=== PATIENT | female | born 1935 | race Caucasian/White ===

== ENCOUNTER 2021-06-08 11:19 | Inpatient (IN) ==
[2021-06-08 12:32] LABS: Partial Thromboplastin Time 25.2 Seconds (21.0-31.0); Prothrombin Time 10.2 Seconds (9.0-12.0)
[2021-06-08 12:36] LABS: Basophils # (auto) 0.04 K/uL (0-0.2); Basophils % (auto) 0.5 %; Eosinophils # (auto) 0.38 K/uL (0-0.5); Eosinophils % (auto) 4.5 %; Hematocrit (blood only) 35.1 % (37-47); Hemoglobin 10.9 g/dL (12.0-16.0); Immature Granulocytes # (auto) 0.02 K/uL (0.00-0.02); Immature Granulocytes % (auto) 0.2 %; Lymphocytes # (auto) 1.76 K/uL (1.2-3.4); Lymphocytes % (auto) 20.9 %; Mean Corpuscular Hemoglobin 26.9 pg (25-34); Mean Corpuscular Hgb Conc 31.1 g/dL (32-36); Mean Corpuscular Volume 86.7 fL (80-100); Monocytes # (auto) 1.02 K/uL (0.11-0.59); Monocytes % (auto) 12.1 %; Neutrophils % (auto) 61.8 %; Platelet Count 373 K/uL (130-400); RDW Coefficient of Variation 14.7 % (11.5-14.5); RDW Standard Deviation 46.7 fL (36.4-46.3); Red Blood Count 4.05 M/uL (4.2-5.4); White Blood Count 8.42 K/uL (4.8-10.8)
[2021-06-08 12:43] LABS: Albumin Level 3.5 gm/dl (3.4-5.0); BUN Creatinine Ratio 20.9 (10-20); Blood Urea Nitrogen 21 mg/dl (7-18); Calcium 9.1 mg/dl (8.5-10.1); Carbon Dioxide 28 mmol/L (21-32); Chloride 113 mmol/L (98-107); Est GFR (African American) 58.5 ml/min; Est GFR (Non-African American) 50.5 ml/min; Glucose 86 mg/dl (70-99); Magnesium 1.9 mg/dl (1.8-2.4); Potassium 4.3 mmol/L (3.5-5.1); Sodium 145 mmol/L (136-145)
--- NOTE | 2021-06-08 12:46 | XRay Report ---
XR chest 1V portable CLINICAL HISTORY: Shortness of breath. COMPARISON STUDY: Chest radiograph February 06, 2021. FINDINGS: There is no pneumothorax. There are median sternotomy wires and prosthetic cardiac valve. T here are small bilateral pleural effusions. Left basilar opacity is noted. Interstitial pulmonary sreekanth ma is present. IMPRESSION: Interstitial pulmonary edema with small bilateral pleural effusions and left basilar opa city which likely reflects atelectasis. A superimposed infectious process could appear similar. Radio graphic follow-up is recommended to ensure resolution. ACT 112: Negative or not required by law. Electronically signed by: Roberto Cruz M.D. 06/08/2021 12:44 PM
[2021-06-08 12:48] LABS: Alanine Aminotransferase 17 U/L (12-78); Alkaline Phosphatase 51 U/L (45-117); Aspartate Aminotransferase 13 U/L (15-37); Bilirubin,Total 0.5 mg/dl (0.2-1); Globulin 3.5 gm/dl (2.5-4.0); Troponin I < 0.015 ng/ml (0-0.045)
--- NOTE | 2021-06-08 13:34 | Emergency Department Note ---
Impression & Plan CHF (congestive heart failure), Anemia ED Provider Note NAME: DEEJAY MARTIN AGE: 85 SEX: F : 1935 ARRIVES VIA: Walk-In INFORMANT: Patient, ED PROVIDER(S): Jose Guadalupe Gauthier MD Chief complaint: Shortness of breath HPI: Patient does present due to concern for shortness of breath. The patient does suffer from chronic dyspnea on exertion but this seems to have worsened. The patient did have recent worsening last week but this seemed to dissipate over the weekend. The patient had been seen by her outpatient physician Dr. Melissa. The patient patient did have a negative Covid test and was given a pulse oximeter. The patient's pulse oximeter at home has been in the mid to high 80s at baseline on occasion. The patient has had a nonproductive cough. The patient is vaccinated for Covid. Patient has a history of aortic valve replacement. Patient does not take blood thinning medications. It is a bioprosthetic valve. Patient denies any lower extremity swelling or history DVT or PE. Patient has had worsening shortness of breath of laying flat or with exertion. ROS: See HPI for pertinent positives and negatives. A total of 10 systems were reviewed and otherwise negative. Past medical history: See below Surgical history: See below Social history: See below Physical Exam: GENERAL: NAD, wearing a mask, non-toxic. EYE EXAM: Normal conjunctiva. PERRL, no anisocoria and EOM's grossly intact w/o pain. NECK: Supple, no nuchal rigidity, no adenopathy, non-tender. No signs of meningismus. LUNGS: Bibasilar crackles. Normal chest wall mechanics. HEART: NSR, no MRG. ABDOMEN: Abdomen soft, non-tender, normo-active bowel sounds, no masses, no rebound or guarding. BACK: No CVA TTP. SKIN: No rashes and no bruising. UPPER EXTREMITIES: Upper extremities are grossly normal. LOWER EXTREMITIES: Grossly normal, scant bilateral symmetric pretibial edema. Negative Homans' sign bilaterally. No erythema. NEURO EXAM: A&O x3, cranial nerves II-XII grossly intact, normal speech, moves all 4 extremities on command w/o issue. Differential diagnoses: Reactive airway disease, pneumonia, pneumothorax, COPD, CHF, infections, cardiac ischemia, pulmonary embolism, musculoskeletal, gastrointestinal, as well as other pathologies. Course: Patient was seen and evaluated the bedside. Full history physical exam was performed. EKG interpreted by me Sinus bradycardia, rate of 59, wide QRS, left bundle branch block. Imaging Studies: See Below Cardiac monitoring: An order was placed for continuous cardiac monitoring. The monitor shows a rate of 65 with sinus rhythm. MDM: Patient did present with concern for shortness of breath. Blood work is obtained along with a chest x-ray. The patient does not. Globally volume overloaded as the patient does not have much in terms of lower extremity edema. However, the patient does have crackles at the bilateral lung bases and does have interstitial pulmonary edema seen on her chest x-ray. BNP was added. Patient did undergo an ambulatory trial and became hypoxic as well as tachypneic. It is due to the on-call hospitalist Dr. Antunez and the patient was admitted to the medicine service. Past Med/Surg History Medical History Anxiety H/O: HTN (hypertension) Type 2 diabetes mellitus Surgical History H/O aortic valve replacement H/O endarterectomy S/P TKR (total knee replacement) Social History Smoking Status: Former smoker Hx Alcohol Use: No Hx Substance Use: No Preferred Language: Indonesian Communication Ability: Effective Clinic Physician Required: No Beliefs That Will Affect Care: Tenriism Tenriism Beliefs: Evangelical Current Living Situation: Alone Other Information That Helps Us Care for You: No Feels Safe at Home: Yes Safety Concerns: Feels Safe At This Time Assistive Devices: Oxygen - Continuous Allergies Allergies Allergy/AdvReac Type Severity Reaction Status Date / Time codeine AdvReac Intermediate Gastrointestinal Verified 06/08/21 14:12 Upset Home Meds Home Medications Medication Instructions Recorded Confirmed acetaminophen 500 mg tablet 1,000 mg PO DIRECTED PRN 02/06/21 06/08/21 (Tylenol Extra Strength) albuterol sulfate 90 mcg/actuation 2 puff INHALATION Q4H PRN 02/06/21 06/08/21 aerosol inhaler (ProAir HFA) alprazolam 1 mg tablet (Xanax) 1 mg PO HS 02/06/21 06/08/21 amlodipine 5 mg tablet 5 mg PO DAILY 02/06/21 06/08/21 atorvastatin 20 mg tablet (Lipitor) 20 mg PO HS 02/06/21 06/08/21 calcium carbonate 600 mg calcium 600 mg PO DAILY 02/06/21 06/08/21 (1,500 mg) tablet (Calcium) cholecalciferol (vitamin D3) 50 50 mcg PO DAILY 02/06/21 06/08/21 mcg (2,000 unit) capsule (Vitamin D3) glipizide 5 mg tablet, extended 5 mg PO HS 02/06/21 06/08/21 release 24 hr metformin 500 mg tablet 500 mg PO BID 02/06/21 06/08/21 metoprolol tartrate 25 mg tablet 25 mg PO BID 02/06/21 06/08/21 sitagliptin 100 mg tablet (Januvia) 100 mg PO DAILY 02/06/21 06/08/21 valsartan 320 1 tab PO DAILY 02/06/21 06/08/21 mg-hydrochlorothiazide 25 mg tablet aspirin 81 mg tablet,delayed 81 mg PO DAILY 06/08/21 06/08/21 release (Aspirin Low Dose) Results & Data (ED) Vital Signs Vital Signs - 24 hr 06/08/21 11:38 06/08/21 13:20 06/08/21 14:22 Temperature 36.6 C Temperature Source Temporal Artery Scan Pulse Rate 57 L Respiratory Rate 18 18 Respiratory Effort / Characteristics Non-Labored Non-Labored Respiratory Depth Normal Normal Respiratory Pattern Regular Blood Pressure 142/70 H Blood Pressure [Right Arm] 169/52 H Blood Pressure Mean 94 Blood Pressure Mean [Right Arm] 91 Blood Pressure Position [Right Arm] Lying Pulse Oximetry 94 99 Pulse Oximetry [Exercises] 87 L Oxygen Delivery Method Room Air Room Air Room Air Sepsis Recent Fever Within 48 Hours No Sepsis New/Unexplained Change in Mental Status No Sepsis Action Taken by Nursing No Action Required Home Medications Current Medication List: was personally reviewed by me Laboratory Data Attestation: I reviewed the patient's lab results. Result diagrams: 06/09/21 05:15 06/09/21 05:15 Lab Results 06/08/21 06/08/21 06/08/21 Range/Units 11:57 11:57 11:57 WBC 8.42 (4.8-10.8) K/uL RBC 4.05 L (4.2-5.4) M/uL Hgb 10.9 L (12.0-16.0) g/dL Hct 35.1 L (37-47) % MCV 86.7 (80-100) fL MCH 26.9 (25-34) pg MCHC 31.1 L (32-36) g/dL RDW Std Deviation 46.7 H (36.4-46.3) fL RDW Coeff of Roberto 14.7 H (11.5-14.5) % Plt Count 373 (130-400) K/uL MPV 10.0 (7.4-10.4) fL Immature Gran % (Auto) 0.2 % Neut % (Auto) 61.8 % Lymph % (Auto) 20.9 % [place] % (Auto) 12.1 % Eos % (Auto) 4.5 % Baso % (Auto) 0.5 % Neut # (Auto) 5.20 (1.4-6.5) K/uL Lymph # (Auto) 1.76 (1.2-3.4) K/uL [place] # (Auto) 1.02 H (0.11-0.59) K/uL Eos # (Auto) 0.38 (0-0.5) K/uL Baso # (Auto) 0.04 (0-0.2) K/uL Immature Gran # (Auto) 0.02 (0.00-0.02) K/uL PT 10.2 (9.0-12.0) Seconds INR 1.0 (0.9-1.1) APTT 25.2 (21.0-31.0) Seconds PTT Ratio 1.0 Sodium 145 (136-145) mmol/L Potassium 4.3 (3.5-5.1) mmol/L Chloride 113 H (98-107) mmol/L Carbon Dioxide 28 (21-32) mmol/L Anion Gap 4.0 (3-11) BUN 21 H (7-18) mg/dl Creatinine 1.02 (0.6-1.2) mg/dl Est Cr Clr Drug Dosing Not Reportable Est GFR ( Amer) 58.5 ml/min Est GFR (Non-Af Amer) 50.5 ml/min BUN/Creatinine Ratio 20.9 H (10-20) Glucose 86 (70-99) mg/dl Calcium 9.1 (8.5-10.1) mg/dl Magnesium 1.9 (1.8-2.4) mg/dl Total Bilirubin 0.5 (0.2-1) mg/dl AST 13 L (15-37) U/L ALT 17 (12-78) U/L Alkaline Phosphatase 51 (45-117) U/L Troponin I < 0.015 (0-0.045) ng/ml NT-Pro-B Natriuret Pep 2615 H (0-1800) pg/ml Total Protein 7.0 (6.4-8.2) gm/dl Albumin 3.5 (3.4-5.0) gm/dl Globulin 3.5 (2.5-4.0) gm/dl Albumin/Globulin Ratio 1.0 (0.9-2) Procalcitonin (0-0.5) ng/ml 06/08/21 Range/Units 11:57 WBC (4.8-10.8) K/uL RBC (4.2-5.4) M/uL Hgb (12.0-16.0) g/dL Hct (37-47) % MCV (80-100) fL MCH (25-34) pg MCHC (32-36) g/dL RDW Std Deviation (36.4-46.3) fL RDW Coeff of Roberto (11.5-14.5) % Plt Count (130-400) K/uL MPV (7.4-10.4) fL Immature Gran % (Auto) % Neut % (Auto) % Lymph % (Auto) % [place] % (Auto) % Eos % (Auto) % Baso % (Auto) % Neut # (Auto) (1.4-6.5) K/uL Lymph # (Auto) (1.2-3.4) K/uL [place] # (Auto) (0.11-0.59) K/uL Eos # (Auto) (0-0.5) K/uL Baso # (Auto) (0-0.2) K/uL Immature Gran # (Auto) (0.00-0.02) K/uL PT (9.0-12.0) Seconds INR (0.9-1.1) APTT (21.0-31.0) Seconds PTT Ratio Sodium (136-145) mmol/L Potassium (3.5-5.1) mmol/L Chloride (98-107) mmol/L Carbon Dioxide (21-32) mmol/L Anion Gap (3-11) BUN (7-18) mg/dl Creatinine (0.6-1.2) mg/dl Est Cr Clr Drug Dosing Est GFR ( Amer) ml/min Est GFR (Non-Af Amer) ml/min BUN/Creatinine Ratio (10-20) Glucose (70-99) mg/dl Calcium (8.5-10.1) mg/dl Magnesium (1.8-2.4) mg/dl Total Bilirubin (0.2-1) mg/dl AST (15-37) U/L ALT (12-78) U/L Alkaline Phosphatase (45-117) U/L Troponin I (0-0.045) ng/ml NT-Pro-B Natriuret Pep (0-1800) pg/ml Total Protein (6.4-8.2) gm/dl Albumin (3.4-5.0) gm/dl Globulin (2.5-4.0) gm/dl Albumin/Globulin Ratio (0.9-2) Procalcitonin < 0.05 (0-0.5) ng/ml Administered Medications Acetaminophen (Acetaminophen 325 Mg Tab) 650 mg PO Q4H PRN PRN Reason: Pain or Fever Stop: 07/08/21 14:47 Last Admin: 06/08/21 22:27 Dose: 650 mg Documented by: [id number] Atorvastatin Calcium (Atorvastatin 20 Mg Tab) 20 mg PO HS GENOVEVA Stop: 07/08/21 20:59 Last Admin: 06/08/21 21:23 Dose: 20 mg Documented by: [id number] Metoprolol Tartrate (Metoprolol Tartrate 25 Mg Tab) 25 mg PO BID [place]OVEVA Stop: 07/08/21 20:59 Last Admin: 06/08/21 21:34 Dose: Not Given Documented by: [id number] Discontinued Medications Alprazolam (Alprazolam 0.5 Mg Tablet) 1 mg PO NOW STA Stop: 06/08/21 21:40 Last Admin: 06/08/21 22:26 Dose: 1 mg Documented by: [id number] Furosemide (Furosemide 40 Mg/4 Ml Vial) 40 mg IV NOW STA Stop: 06/08/21 13:47 Last Admin: 06/08/21 17:43 Dose: 40 mg Documented by: [id number] Furosemide (Furosemide 40 Mg/4 Ml Vial) Confirm Administered Dose 40 mg IV .STK- MED ONE Stop: 06/08/21 17:42 Last Admin: 06/08/21 18:38 Dose: Not Given Documented by: [id number] Metformin HCl (Metformin Hcl 500 Mg Tab) 500 mg PO ONCE ONE Stop: 06/08/21 21:39 Last Admin: 06/08/21 22:27 Dose: 500 mg Documented by: [id number] Imaging Data Radiologist's Impression: Chest X-Ray 06/08/21 11:41 XR chest 1V portable CLINICAL HISTORY: Shortness of breath. COMPARISON STUDY: Chest radiograph February 06, 2021. FINDINGS: There is no pneumothorax. There are median sternotomy wires and prosthetic cardiac valve. There are small bilateral pleural effusions. Left basilar opacity is noted. Interstitial pulmonary edema is present. IMPRESSION: Interstitial pulmonary edema with small bilateral pleural effusions and left basilar opacity which likely reflects atelectasis. A superimposed infectious process could appear similar. Radiographic follow-up is recommended to ensure resolution. ACT 112: Negative or not required by law. Electronically signed by: Roberto Cruz M.D. 06/08/2021 12:44 PM Discharge Plan Visit Data Chief Complaint: Shortness of Breath/Dyspnea Stated Complaint: INCREASED SOB ED Provider: Jose Guadalupe Gauthier Discharge Problem: CHF (congestive heart failure), Anemia Patient Disposition: Admitted As Inpatient Discharge Instructions Interventions: ED Discharge Assessment Last Done: 06/08/21 19:15 Discharge Problem: CHF (congestive heart failure) Qualifiers: Heart failure type: unspecified Heart failure chronicity: acute Qualified Code(s): I50.9 - Heart failure, unspecified Anemia Qualifiers: Anemia type: unspecified type Qualified Code(s): D64.9 - Anemia, unspecified
[2021-06-08] MEDS ORDERED: FUROSEMIDE 40 MG/4 ML VIAL IV STA (13:46)
[2021-06-08] MEDS ORDERED: POLYETHYLENE (MIRALAX) 17 GM PACK PO PRN (14:48)
[2021-06-08 15:30] LABS: NT Pro B Type Natriuretic Pept 2615 pg/ml (0-1800)
[2021-06-08] MEDS ORDERED: FUROSEMIDE 40 MG/4 ML VIAL IV ONE (17:41)
--- NOTE | 2021-06-08 17:42 | History & Physical Report ---
Date of Service June 08, 2021 Assessment & Plan (1) Acute respiratory failure with hypoxia: Plan: -Most likely secondary to CHF, however will obtain procalcitonin to evaluate for possible infectious etiology as well -Patient however only had low-grade fevers, not actually febrile at home, cough is nonproductive, WBC is not elevated and therefore infectious etiology is less likely (2) CHF (congestive heart failure): Plan: Patient presents with shortness of breath, chest x-ray with pulmonary vascular congestion, and small bilateral pleural effusions proBNP over 2600 troponin negative EKG shows LBBB (Seen on previous EKG, in January) Will obtain echocardiogram, will also obtain carotid ultrasound given history of carotid endarterectomy Monitor I's and O's closely, and her response to IV Lasix We will reassess fluid status and need for diuresis in the morning Currently on 2 L of nasal cannula, will try to wean off oxygen Repeat chest x-ray in the morning Cardiology consulted (3) Anemia: Plan: Per patient and family, patient found anemic in outpatient setting Blood work ordered and patient was referred to hematology Currently hemoglobin lower, may be dilutional due to fluid overload Denies any blood in the stool Daughter reports patient never had colonoscopy Will obtain FOBT Continue to closely monitor H&H HTN, HLD - cont. home medications DM type 2 -Per daughter A1c last time checked before they moved to [place] -Daughter reports A1c was around 6%, and she has been well controlled -We will repeat hemoglobin A1c, and fasting lipid panel -Continue home meds for now Code: Full DVT ppx: SCDs, lovenox History of Present Illness Chief Complaint: Shortness of breath Primary Care Provider: Jen Redman MD 85-year-old female with history of diabetes mellitus type 2, hypertension, hyperlipidemia, history of aortic valve replacement and carotid endarterectomy who presents with shortness of breath. Patient and her daughter both provide the history. Reports that patient only recently moved to the area, and has chronic dyspnea for about 6 months. However past week she has been much more short of breath and was even seen at the outpatient office for this reason. At that time she was tested for Covid and was found negative, had some cough over the weekend however then it resolved. Because she was better, they felt that she is recovering. However this week patient again became quite short of breath, could not lay flat, reported a dry cough. She had some low-grade fevers but never was actually febrile. Cough was never productive. She feels chest tightness, however otherwise denies any overt weight gain, or lower extremity edema. Reports feeling better after being in the emergency room, and started on oxygen. In the ER chest x-ray showing pulmonary congestion and she was given IV Lasix. During my evaluation, patient is sitting up in a chair, as she is not comfortable lying in bed. Says that she responded to Lasix quite well and went to bathroom several times however urine was not measured. She she also recently established care at the cardiology office, per daughter it was planned to repeat her echocardiogram and carotid ultrasound. In the ER, as well as an outpatient office patient found anemic, per daughter outpatient blood work was done and pending/patient is also referred to hematology. Denies any blood in the stool. Allergies Allergy/AdvReac Type Severity Reaction Status Date / Time codeine AdvReac Intermediate Gastrointestinal Verified 06/08/21 14:12 Upset Home Medications Medication Instructions Recorded Confirmed Type acetaminophen 500 mg tablet 1,000 mg PO DIRECTED PRN 02/06/21 06/08/21 History (Tylenol Extra Strength) albuterol sulfate 90 mcg/actuation 2 puff INHALATION Q4H PRN 02/06/21 06/08/21 History aerosol inhaler (ProAir HFA) alprazolam 1 mg tablet (Xanax) 1 mg PO HS 02/06/21 06/08/21 History amlodipine 5 mg tablet 5 mg PO DAILY 02/06/21 06/08/21 History atorvastatin 20 mg tablet (Lipitor) 20 mg PO HS 02/06/21 06/08/21 History calcium carbonate 600 mg calcium 600 mg PO DAILY 02/06/21 06/08/21 History (1,500 mg) tablet (Calcium) cholecalciferol (vitamin D3) 50 50 mcg PO DAILY 02/06/21 06/08/21 History mcg (2,000 unit) capsule (Vitamin D3) glipizide 5 mg tablet, extended 5 mg PO HS 02/06/21 06/08/21 History release 24 hr metformin 500 mg tablet 500 mg PO BID 02/06/21 06/08/21 History metoprolol tartrate 25 mg tablet 25 mg PO BID 02/06/21 06/08/21 History sitagliptin 100 mg tablet (Januvia) 100 mg PO DAILY 02/06/21 06/08/21 History valsartan 320 1 tab PO DAILY 02/06/21 06/08/21 History mg-hydrochlorothiazide 25 mg tablet aspirin 81 mg tablet,delayed 81 mg PO DAILY 06/08/21 06/08/21 History release (Aspirin Low Dose) Past Med/Surg History Medical History Anxiety H/O: HTN (hypertension) Type 2 diabetes mellitus Surgical History H/O aortic valve replacement H/O endarterectomy S/P TKR (total knee replacement) Social History Smoking Status: Former smoker Hx Alcohol Use: No Hx Substance Use: No Preferred Language: Malay Communication Ability: Effective It Support Consultant Required: No Beliefs That Will Affect Care: Pentecostalism Pentecostalism Beliefs: Amish Current Living Situation: Alone Other Information That Helps Us Care for You: No Feels Safe at Home: Yes Safety Concerns: Feels Safe At This Time Assistive Devices: Oxygen - Continuous Review of Systems Review of Systems: All systems reviewed & are unremarkable except as noted in HPI & below Physical Exam Constitutional: WD/WN, vitals as above (on 2L of O2) Eyes: PERRL, conjunctivae normal, anicteric sclerae ENMT: external ear and nose normal, oropharynx normal Neck: normal visual inspection Respiratory: Auscultation: + crackles (mild bibasilar); no rhonchi and no wheezes Cardiovascular: RRR, no murmur, no edema Gastrointestinal (Abdomen): Inspection/Auscultation: normal bowel sounds Percussion/Palpation: abdomen soft; abdomen nontender, no guarding and abdomen not rigid Musculoskeletal: no cyanosis or clubbing, extremities motor strength 5/5 Skin: no rashes, warm and dry Neurologic: PERRL, EOMI, accommodation nl, no face palsy, no dysarthria Psychiatric: A+Ox3, euthymic affect Genitourinary: no CVA tenderness Lymphatic: no lymphedema Results & Data Results & Data ([facility]) Vital Signs (Past 12 Hours) Vital Signs Temp Pulse Pulse Resp BP BP Pulse Ox 06/08/21 17:00 64 18 159/64 H 94 06/08/21 15:00 57 L 18 169/52 H 98 06/08/21 14:22 06/08/21 13:20 18 169/52 H 99 06/08/21 11:38 36.6 C 57 L 18 142/70 H 94 Pulse Ox 06/08/21 17:00 06/08/21 15:00 06/08/21 14:22 87 L 06/08/21 13:20 06/08/21 11:38 Laboratory Results 06/08/21 06/08/21 06/08/21 Range/Units 15:40 15:40 11:57 WBC (4.8-10.8) K/uL RBC (4.2-5.4) M/uL Hgb (12.0-16.0) g/dL Hct (37-47) % MCV (80-100) fL MCH (25-34) pg MCHC (32-36) g/dL RDW Std Deviation (36.4-46.3) fL RDW Coeff of Roberto (11.5-14.5) % Plt Count (130-400) K/uL MPV (7.4-10.4) fL Immature Gran % (Auto) % Neut % (Auto) % Lymph % (Auto) % [place] % (Auto) % Eos % (Auto) % Baso % (Auto) % Neut # (Auto) (1.4-6.5) K/uL Lymph # (Auto) (1.2-3.4) K/uL [place] # (Auto) (0.11-0.59) K/uL Eos # (Auto) (0-0.5) K/uL Baso # (Auto) (0-0.2) K/uL Immature Gran # (Auto) (0.00-0.02) K/uL PT (9.0-12.0) Seconds INR (0.9-1.1) APTT (21.0-31.0) Seconds PTT Ratio Sodium (136-145) mmol/L Potassium (3.5-5.1) mmol/L Chloride (98-107) mmol/L Carbon Dioxide (21-32) mmol/L Anion Gap (3-11) BUN (7-18) mg/dl Creatinine (0.6-1.2) mg/dl Est Cr Clr Drug Dosing Est GFR ( Amer) ml/min Est GFR (Non-Af Amer) ml/min BUN/Creatinine Ratio (10-20) Glucose (70-99) mg/dl Calcium (8.5-10.1) mg/dl Magnesium (1.8-2.4) mg/dl Total Bilirubin (0.2-1) mg/dl AST (15-37) U/L ALT (12-78) U/L Alkaline Phosphatase (45-117) U/L Troponin I (0-0.045) ng/ml NT-Pro-B Natriuret Pep (0-1800) pg/ml Total Protein (6.4-8.2) gm/dl Albumin (3.4-5.0) gm/dl Globulin (2.5-4.0) gm/dl Albumin/Globulin Ratio (0.9-2) Procalcitonin < 0.05 (0-0.5) ng/ml COVID-19 Eval Order Covid19 at [facility] SARS-CoV-2 (PCR) NEGATIVE (Negative) 06/08/21 06/08/21 06/08/21 Range/Units 11:57 11:57 11:57 WBC 8.42 (4.8-10.8) K/uL RBC 4.05 L (4.2-5.4) M/uL Hgb 10.9 L (12.0-16.0) g/dL Hct 35.1 L (37-47) % MCV 86.7 (80-100) fL MCH 26.9 (25-34) pg MCHC 31.1 L (32-36) g/dL RDW Std Deviation 46.7 H (36.4-46.3) fL RDW Coeff of Roberto 14.7 H (11.5-14.5) % Plt Count 373 (130-400) K/uL MPV 10.0 (7.4-10.4) fL Immature Gran % (Auto) 0.2 % Neut % (Auto) 61.8 % Lymph % (Auto) 20.9 % [place] % (Auto) 12.1 % Eos % (Auto) 4.5 % Baso % (Auto) 0.5 % Neut # (Auto) 5.20 (1.4-6.5) K/uL Lymph # (Auto) 1.76 (1.2-3.4) K/uL [place] # (Auto) 1.02 H (0.11-0.59) K/uL Eos # (Auto) 0.38 (0-0.5) K/uL Baso # (Auto) 0.04 (0-0.2) K/uL Immature Gran # (Auto) 0.02 (0.00-0.02) K/uL PT 10.2 (9.0-12.0) Seconds INR 1.0 (0.9-1.1) APTT 25.2 (21.0-31.0) Seconds PTT Ratio 1.0 Sodium 145 (136-145) mmol/L Potassium 4.3 (3.5-5.1) mmol/L Chloride 113 H (98-107) mmol/L Carbon Dioxide 28 (21-32) mmol/L Anion Gap 4.0 (3-11) BUN 21 H (7-18) mg/dl Creatinine 1.02 (0.6-1.2) mg/dl Est Cr Clr Drug Dosing Not Reportable Est GFR ( Amer) 58.5 ml/min Est GFR (Non-Af Amer) 50.5 ml/min BUN/Creatinine Ratio 20.9 H (10-20) Glucose 86 (70-99) mg/dl Calcium 9.1 (8.5-10.1) mg/dl Magnesium 1.9 (1.8-2.4) mg/dl Total Bilirubin 0.5 (0.2-1) mg/dl AST 13 L (15-37) U/L ALT 17 (12-78) U/L Alkaline Phosphatase 51 (45-117) U/L Troponin I < 0.015 (0-0.045) ng/ml NT-Pro-B Natriuret Pep 2615 H (0-1800) pg/ml Total Protein 7.0 (6.4-8.2) gm/dl Albumin 3.5 (3.4-5.0) gm/dl Globulin 3.5 (2.5-4.0) gm/dl Albumin/Globulin Ratio 1.0 (0.9-2) Procalcitonin (0-0.5) ng/ml COVID-19 Eval Order SARS-CoV-2 (PCR) (Negative) Diagnostic Findings CXR IMPRESSION: Interstitial pulmonary edema with small bilateral pleural effusions and left basilar opacity which likely reflects atelectasis. A superimposed infectious process could appear similar. Radiographic follow-up is recommended to ensure resolution. Code Status & VTE Plan VTE Prophylaxis Plan VTE Prophylaxis will be ordered: Yes (1) CHF (congestive heart failure) Heart failure chronicity: acute Heart failure type: unspecified Qualified Code(s): I50.9 - Heart failure, unspecified (2) Anemia Anemia type: unspecified type Qualified Code(s): D64.9 - Anemia, unspecified
[2021-06-08] MEDS ORDERED: ALBUTEROL HFA 8 GM INHALER INH PRN (20:17)
[2021-06-08] MEDS: ATORVASTATIN 20 MG TAB PO SCH (21:23)
[2021-06-08] MEDS: METOPROLOL TARTRATE 25 MG TAB PO SCH (21:34)
[2021-06-08] MEDS ORDERED: metFORMIN HCL 500 MG TAB PO ONE (21:38)
[2021-06-08] MEDS ORDERED: ALPRAZolam 0.5 MG TABLET PO STA (21:39)
[2021-06-08] MEDS: ACETAMINOPHEN 325 MG TAB PO PRN (22:27)
[2021-06-09 06:11] LABS: Hematocrit (blood only) 33.5 % (37-47); Hemoglobin 10.4 g/dL (12.0-16.0); Mean Corpuscular Hemoglobin 26.8 pg (25-34); Mean Corpuscular Volume 86.3 fL (80-100); Mean Platelet Volume 9.9 fL (7.4-10.4); Platelet Count 342 K/uL (130-400); RDW Coefficient of Variation 14.8 % (11.5-14.5); RDW Standard Deviation 46.3 fL (36.4-46.3); Red Blood Count 3.88 M/uL (4.2-5.4); White Blood Count 7.23 K/uL (4.8-10.8)
[2021-06-09 06:39] LABS: BUN Creatinine Ratio 21.1 (10-20); Calcium 9.2 mg/dl (8.5-10.1); Creatinine Clr Calc Pharmacy 41.3 ml/min; Est GFR (Non-African American) 46.6 ml/min; Magnesium 1.8 mg/dl (1.8-2.4); Potassium 3.9 mmol/L (3.5-5.1)
[2021-06-09 06:42] LABS: Phosphorus 4.5 mg/dl (2.5-4.9)
--- NOTE | 2021-06-09 07:40 | Hospitalist Progress Note ---
Date of Service June 09, 2021 Assessment & Plan (1) Acute respiratory failure with hypoxia: Plan: -Most likely secondary to CHF, however will obtain procalcitonin to evaluate for possible infectious etiology as well - procal negative -Patient however only had low-grade fevers, not actually febrile at home, cough is nonproductive, WBC is not elevated and therefore infectious etiology is less likely (2) CHF (congestive heart failure): Plan: Patient presents with shortness of breath, chest x-ray with pulmonary vascular congestion, and small bilateral pleural effusions proBNP over 2600 troponin negative EKG shows LBBB (Seen on previous EKG, in January) Will obtain echocardiogram, will also obtain carotid ultrasound given history of carotid endarterectomy Monitor I's and O's closely, and her response to IV Lasix We will reassess fluid status and need for diuresis in the morning Currently on 2 L of nasal cannula, will try to wean off oxygen Repeat chest x-ray in the morning improved pulm. congestion Cardiology consulted Echo - LV normal in size, moderate concentric LVH, EF 55 to 60%, RV systolic function is normal, LA is moderately dilated, RA size is normal, mild to moderate mitral regurg, moderate tricuspid regurg, prosthetic aortic valve is not well-visualized. Prosthetic valve gradients are elevated. Moderate pulmonary hypertension with an estimated pulmonary artery pressure of 45 mmHg. Her AVR was not well visualized with possibly elevated gradients. Consider repeat echo as outpatient in 6 months. - cont. diuresis w/ IV lasix - switch to metoprolol succinate from tartrate Carotid US - 1. Moderate stenosis within the distal left common carotid artery and proximal left internal carotid artery of approximately 70%. 2. No significant stenosis within the right carotid arteries. - will need outpt follow up for carotid artery vasc. dis (3) Anemia: Plan: Normocytic Per patient and family, patient found anemic in outpatient setting Blood work ordered and patient was referred to hematology Currently hemoglobin lower, may be dilutional due to fluid overload Denies any blood in the stool Daughter reports patient never had colonoscopy FOBT - ordered - not collected peripheral smear - #1. Mild anisocytosis and scattered ovalocytes are seen. #2. Blasts and schistocytes are not seen. #3. The etiology of this patient's anemia is left to further evaluation to include appropriate iron studies. #4. Please see above discussion. Iron studies just ordered and obtained as outpt. Hematology appointment scheduled for 06/23. Hgb currently stable Continue to closely monitor H&H HTN, HLD - cont. home medications DM type 2 -Per daughter A1c last time checked before they moved to [place] -Daughter reports A1c was around 6%, and she has been well controlled -Current hemoglobin A1c 6.1% -fasting lipid panel - LDL 34, TC 104, TG 162 -Continue home meds for now Code: Full DVT ppx: SCDs, lovenox Admission and Anticipated Discharge Date Admission Date: June 08, 2021 Subjective Patient seen in follow-up of CHF, dyspnea Currently she is sitting up in the bed, in no acute distress, using 2 L supplemental oxygen, however saturating quite well, therefore I just decreased oxygen to 1 L and notified the nursing staff Patient denies any fevers, chills, chest pain, shortness of breath at this time Reports she is already feeling much better Review of Systems Review of Systems: All systems reviewed & are unremarkable except as noted in Subjective Physical Exam Physical Exam: Constitutional: WD/WN, vitals as above (on 2L of O2) Eyes: PERRL, EOMI, conjunctivae normal, anicteric sclerae ENMT: external ear and nose normal, oropharynx normal Neck: normal visual inspection Respiratory: Auscultation: + crackles (mild bibasilar); no rhonchi and no wheezes Cardiovascular: RRR, + soft syst. murmur, no LE edema Gastrointestinal (Abdomen): normal bowel sounds, abdomen soft, nontender, no guarding and abdomen not rigid Musculoskeletal: extremities motor strength 5/5 Skin: no rashes, warm and dry Neurologic: PERRL, EOMI, no face palsy, no dysarthria, moves extremities Psychiatric: A+Ox3, euthymic affect Genitourinary: no CVA tenderness Lymphatic: no lymphedema Results & Data Results & Data ([facility]) Vital Signs (Past 12 Hours) Vital Signs Temp Pulse Pulse Resp BP Pulse Ox Pulse Ox 06/09/21 07:20 36.8 C 66 66 21 187/70 H 96 96 06/09/21 01:44 36.8 C 90 18 138/48 L 94 06/09/21 00:29 61 06/08/21 23:07 64 16 168/56 H 94 06/08/21 22:36 93 06/08/21 21:21 64 20 174/69 H 97 06/08/21 19:50 37.4 C 67 20 170/58 H 99 Laboratory Results 06/09/21 06/09/21 06/08/21 Range/Units 05:15 05:15 15:40 WBC 7.23 (4.8-10.8) K/uL RBC 3.88 L (4.2-5.4) M/uL Hgb 10.4 L (12.0-16.0) g/dL Hct 33.5 L (37-47) % MCV 86.3 (80-100) fL MCH 26.8 (25-34) pg MCHC 31.0 L (32-36) g/dL RDW Std Deviation 46.3 (36.4-46.3) fL RDW Coeff of Roberto 14.8 H (11.5-14.5) % Plt Count 342 (130-400) K/uL MPV 9.9 (7.4-10.4) fL Immature Gran % (Auto) % Neut % (Auto) % Lymph % (Auto) % Dukes % (Auto) % Eos % (Auto) % Baso % (Auto) % Neut # (Auto) (1.4-6.5) K/uL Lymph # (Auto) (1.2-3.4) K/uL Dukes # (Auto) (0.11-0.59) K/uL Eos # (Auto) (0-0.5) K/uL Baso # (Auto) (0-0.2) K/uL Immature Gran # (Auto) (0.00-0.02) K/uL PT (9.0-12.0) Seconds INR (0.9-1.1) APTT (21.0-31.0) Seconds PTT Ratio Sodium 144 (136-145) mmol/L Potassium 3.9 (3.5-5.1) mmol/L Chloride 110 H (98-107) mmol/L Carbon Dioxide 27 (21-32) mmol/L Anion Gap 7.0 (3-11) BUN 23 H (7-18) mg/dl Creatinine 1.09 (0.6-1.2) mg/dl Est Cr Clr Drug Dosing 41.3 Est GFR ( Amer) 54.0 ml/min Est GFR (Non-Af Amer) 46.6 ml/min BUN/Creatinine Ratio 21.1 H (10-20) Glucose 103 H (70-99) mg/dl Calcium 9.2 (8.5-10.1) mg/dl Phosphorus 4.5 (2.5-4.9) mg/dl Magnesium 1.8 (1.8-2.4) mg/dl Total Bilirubin (0.2-1) mg/dl AST (15-37) U/L ALT (12-78) U/L Alkaline Phosphatase (45-117) U/L Troponin I (0-0.045) ng/ml NT-Pro-B Natriuret Pep (0-1800) pg/ml Total Protein (6.4-8.2) gm/dl Albumin (3.4-5.0) gm/dl Globulin (2.5-4.0) gm/dl Albumin/Globulin Ratio (0.9-2) Procalcitonin (0-0.5) ng/ml COVID-19 Eval Order SARS-CoV-2 (PCR) NEGATIVE (Negative) 06/08/21 06/08/21 06/08/21 Range/Units 15:40 11:57 11:57 WBC (4.8-10.8) K/uL RBC (4.2-5.4) M/uL Hgb (12.0-16.0) g/dL Hct (37-47) % MCV (80-100) fL MCH (25-34) pg MCHC (32-36) g/dL RDW Std Deviation (36.4-46.3) fL RDW Coeff of Roberto (11.5-14.5) % Plt Count (130-400) K/uL MPV (7.4-10.4) fL Immature Gran % (Auto) % Neut % (Auto) % Lymph % (Auto) % Dukes % (Auto) % Eos % (Auto) % Baso % (Auto) % Neut # (Auto) (1.4-6.5) K/uL Lymph # (Auto) (1.2-3.4) K/uL Dukes # (Auto) (0.11-0.59) K/uL Eos # (Auto) (0-0.5) K/uL Baso # (Auto) (0-0.2) K/uL Immature Gran # (Auto) (0.00-0.02) K/uL PT (9.0-12.0) Seconds INR (0.9-1.1) APTT (21.0-31.0) Seconds PTT Ratio Sodium 145 (136-145) mmol/L Potassium 4.3 (3.5-5.1) mmol/L Chloride 113 H (98-107) mmol/L Carbon Dioxide 28 (21-32) mmol/L Anion Gap 4.0 (3-11) BUN 21 H (7-18) mg/dl Creatinine 1.02 (0.6-1.2) mg/dl Est Cr Clr Drug Dosing Not Reportable Est GFR ( Amer) 58.5 ml/min Est GFR (Non-Af Amer) 50.5 ml/min BUN/Creatinine Ratio 20.9 H (10-20) Glucose 86 (70-99) mg/dl Calcium 9.1 (8.5-10.1) mg/dl Phosphorus (2.5-4.9) mg/dl Magnesium 1.9 (1.8-2.4) mg/dl Total Bilirubin 0.5 (0.2-1) mg/dl AST 13 L (15-37) U/L ALT 17 (12-78) U/L Alkaline Phosphatase 51 (45-117) U/L Troponin I < 0.015 (0-0.045) ng/ml NT-Pro-B Natriuret Pep 2615 H (0-1800) pg/ml Total Protein 7.0 (6.4-8.2) gm/dl Albumin 3.5 (3.4-5.0) gm/dl Globulin 3.5 (2.5-4.0) gm/dl Albumin/Globulin Ratio 1.0 (0.9-2) Procalcitonin < 0.05 (0-0.5) ng/ml COVID-19 Eval Order Covid19 at [facility] SARS-CoV-2 (PCR) (Negative) 06/08/21 06/08/21 Range/Units 11:57 11:57 WBC 8.42 (4.8-10.8) K/uL RBC 4.05 L (4.2-5.4) M/uL Hgb 10.9 L (12.0-16.0) g/dL Hct 35.1 L (37-47) % MCV 86.7 (80-100) fL MCH 26.9 (25-34) pg MCHC 31.1 L (32-36) g/dL RDW Std Deviation 46.7 H (36.4-46.3) fL RDW Coeff of Roberto 14.7 H (11.5-14.5) % Plt Count 373 (130-400) K/uL MPV 10.0 (7.4-10.4) fL Immature Gran % (Auto) 0.2 % Neut % (Auto) 61.8 % Lymph % (Auto) 20.9 % Dukes % (Auto) 12.1 % Eos % (Auto) 4.5 % Baso % (Auto) 0.5 % Neut # (Auto) 5.20 (1.4-6.5) K/uL Lymph # (Auto) 1.76 (1.2-3.4) K/uL Dukes # (Auto) 1.02 H (0.11-0.59) K/uL Eos # (Auto) 0.38 (0-0.5) K/uL Baso # (Auto) 0.04 (0-0.2) K/uL Immature Gran # (Auto) 0.02 (0.00-0.02) K/uL PT 10.2 (9.0-12.0) Seconds INR 1.0 (0.9-1.1) APTT 25.2 (21.0-31.0) Seconds PTT Ratio 1.0 Sodium (136-145) mmol/L Potassium (3.5-5.1) mmol/L Chloride (98-107) mmol/L Carbon Dioxide (21-32) mmol/L Anion Gap (3-11) BUN (7-18) mg/dl Creatinine (0.6-1.2) mg/dl Est Cr Clr Drug Dosing Est GFR ( Amer) ml/min Est GFR (Non-Af Amer) ml/min BUN/Creatinine Ratio (10-20) Glucose (70-99) mg/dl Calcium (8.5-10.1) mg/dl Phosphorus (2.5-4.9) mg/dl Magnesium (1.8-2.4) mg/dl Total Bilirubin (0.2-1) mg/dl AST (15-37) U/L ALT (12-78) U/L Alkaline Phosphatase (45-117) U/L Troponin I (0-0.045) ng/ml NT-Pro-B Natriuret Pep (0-1800) pg/ml Total Protein (6.4-8.2) gm/dl Albumin (3.4-5.0) gm/dl Globulin (2.5-4.0) gm/dl Albumin/Globulin Ratio (0.9-2) Procalcitonin (0-0.5) ng/ml COVID-19 Eval Order SARS-CoV-2 (PCR) (Negative) Medications Administered Current Inpatient Medications Acetaminophen (Acetaminophen 325 Mg Tab) 650 mg PO Q4H PRN PRN Reason: Pain or Fever Stop: 07/08/21 14:47 Last Admin: 06/08/21 22:27 Dose: 650 mg Documented by: Albuterol (Albuterol Hfa 8 Gm Inhaler) 2 puffs INH Q4R PRN PRN Reason: Shortness Of Breath Stop: 07/08/21 20:16 Alprazolam (Alprazolam 0.5 Mg Tablet) 1 mg PO HS PRN PRN Reason: sleep, anxiety Stop: 07/09/21 20:59 Amlodipine Besylate (Amlodipine Besylate 5 Mg Tab) 5 mg PO DAILY GENOVEVA Stop: 07/09/21 08:59 Aspirin (Aspirin 81 Mg Ectab) 81 mg PO DAILY GENOVEVA Stop: 07/09/21 08:59 Atorvastatin Calcium (Atorvastatin 20 Mg Tab) 20 mg PO HS GENOVEVA Stop: 07/08/21 20:59 Last Admin: 06/08/21 21:23 Dose: 20 mg Documented by: Magnesium Oxide (Magnesium Oxide 400 Mg Tab) 400 mg PO BID GENOVEVA Stop: 07/09/21 08:59 Metformin HCl (Metformin Hcl 500 Mg Tab) 500 mg PO BID GENOVEVA Stop: 07/09/21 08:59 Metoprolol Tartrate (Metoprolol Tartrate 25 Mg Tab) 25 mg PO BID GENOVEVA Stop: 07/08/21 20:59 Last Admin: 06/08/21 21:34 Dose: Not Given Documented by: Polyethylene Glycol (Polyethylene (Miralax) 17 Gm Pack) 17 gm PO DAILY PRN PRN Reason: Constipation Stop: 07/08/21 14:47 (1) CHF (congestive heart failure) Heart failure chronicity: acute Heart failure type: unspecified Qualified Code(s): I50.9 - Heart failure, unspecified (2) Anemia Anemia type: unspecified type Qualified Code(s): D64.9 - Anemia, unspecified
--- NOTE | 2021-06-09 07:46 | Ultrasound Report ---
BILATERAL CAROTID DOPPLER STUDY HISTORY: Evaluate for carotid stenosis. hx of endarterectomy COMPARISON: None. TECHNIQUE: Real-time, grayscale, and color Doppler sonography of the carotid arteries was performed. Imaging reviewed in the transverse and longitudinal planes. All measurements were calculated based on NASCET criteria. FINDINGS: Antegrade flow is seen in the bilateral vertebral arteries. The brachial pressures are hemodynamically similar. Moderate to severe calcified plaque within the left carotid arteries. No significant plaque within th e right carotid arteries. The peak systolic velocity within the right ICA is 121 cm/s. The right systolic ratio is 1.2. The peak systolic velocity within the left ICA is 277 cm/s proximally. The left systolic ratio is 1.4 . Moderate stenosis within the left external carotid artery with a peak systolic velocity of 278 cm/s. IMPRESSION: 1. Moderate stenosis within the distal left common carotid artery and proximal left internal carotid artery of approximately 70%. 2. No significant stenosis within the right carotid arteries. ACT 112: Negative or not required by law. Electronically signed by: Shankar Santamaria M.D. 06/09/2021 7:45 AM
[2021-06-09 08:05] LABS: Chol HDL Ratio 3; Cholesterol 104 mg/dl (0-200); HDL Cholesterol 38 mg/dl; LDL Cholesterol Calculated 34 mg/dl; Triglycerides 162 mg/dl (0-150); VLDL Cholesterol 32 mg/dl
--- NOTE | 2021-06-09 08:20 | XRay Report ---
XR chest 1V portable CLINICAL HISTORY: follow up COMPARISON STUDY: Chest radiograph June 08, 2021. FINDINGS: There are median sternotomy wires and prosthetic cardiac valve. Cardiomegaly is unchanged. Small bilateral pleural effusions have slightly improved. Interstitial thickening has improved. There is persistent left basilar opacity. No pneumothorax is present. IMPRESSION: 1. Interval improvement in pulmonary edema and small bilateral pleural effusions. 2. Persistent left basilar opacity which statistically reflects atelectasis. However continued radiog raphic follow-up to ensure complete resolution is recommended. ACT 112: Negative or not required by law. Electronically signed by: Roberto Cruz M.D. 06/09/2021 8:19 AM
--- NOTE | 2021-06-09 09:04 | Cardiology Consultation ---
Date of Consultation June 09, 2021 Assessment & Plan (1) Acute systolic heart failure: (2) Acute respiratory failure with hypoxia: (3) Anemia: (4) LBBB (left bundle branch block): (5) S/P AVR: (6) Hypertension: Patient admitted for worsening SOB, hypoxia, consistent with acute on chr onic systolic HF with pulm vascular congestion on Xray. Symptoms improving with first dose IV lasix. Repeat furosemide 40 mg IV today, now. Monitor electrolytes. Fluid restriction of 1500 ml Monitor I+O's and daily weight encouraged. BP elevated this morning. Valsartan/hctz 320-25 (home dose) was held on admission due to need for IV diuretics. Will resume valsartan 160 mg daily Continue amlodipine 5 mg daily (she has no edema) Transition metoprolol tartrate to metoprolol succinate given history of LVEF 45%. Updated echo ordered and results pending. Given history of carotid vascular disease, 70% on left and history of Right CEA -continue ASA and statin -may need vascular surgery evaluation at f/u to monitor. New onset anemia noted as outpatient. FOBT is pending -she does report 20 lb weight loss (unintentional) over the last few months and further work up may be warranted. Further recommendations pending response to above medication adjustments. Case to be discussed with Dr. Vigil Supervising Physician Co-Signing Physician Notes I have seen and examined the patient. I reviewed the medical record and discussed the case with Ms. Hobbs. I agree with the outlined plan. The patient is already feeling better after receiving diuresis in the emergency department. History of Present Illness Reason for Consultation: CHF; SOB Requesting Physician: Dr. Antunez Attending Physician: History of Present Illness Patient is an 85 year old female who recently moved to the area and established with [facility], having seen BIRGIT Spain for the first time 2 weeks ago. History reviewed and includes: Past medical history: 1.History of aortic stenosis, status post AVR with 21 mm tissue valve in [place], [place] on 05/17/2012 2.Hypertension 3.Chronic heart failure with reduced systolic function, for chart review last LVEF 45% 4.History of left bundle branch block, diagnosed 09/2016 per chart review 5.Dyslipidemia 6.Carotid artery stenosis, status post right carotid endarterectomy, 2013 7.Type 2 diabetes 8.COPD Patient presented to [place] ER with worsening SOB over the last few weeks. She had gone to see her PCP for similar complaint several weeks ago and tested for COVID which was negative. She reports over the last few weeks and then last few days, worsening symptoms. She reported difficulty sleeping and significant orthopnea over the last few nights as well. Abdominal distention noted. No significant weight gain reported. She mentions about 20 lb weight loss (unintentional) over the last few months. She was also recently diagnosed with worsening anemia, sent to hematology as outpatient but not yet completed. FOBT is pending. She denies melena or hematochezia. No recent changes to BM's. Patient admits she has not been monitoring diet. she often eats Ramen noodles. She does not weigh herself everyday. On admission, BNP was elevated. Troponin negative. Chest xray demonstrated pulm vascular congestion. EKG demonstrates LBBB, stable from prior evaluation. She was found to be hypoxic as well. Started on supplemental O2 and treated with IV furosemide in the ER. At time of consult, patient resting in bed comfortably. Still requiring supplemental O2. Chest xray with improved vascular congestion this AM. Notes ongoing cough. Orthopnea improved last night. No chest pain. No edema. Feels less abdominal distention. BP remains elevated this morning. She did not yet receive her morning meds. Her valsartan/hctz 320/25 mg was not ordered. Will order valsartan 160 mg, holding the hctz given other diuretic use. Allergies Allergy/AdvReac Type Severity Reaction Status Date / Time codeine AdvReac Intermediate Gastrointestinal Verified 06/08/21 14:12 Upset Home Medications Medication Instructions Recorded Confirmed Type acetaminophen 500 mg tablet 1,000 mg PO DIRECTED PRN 02/06/21 06/08/21 History (Tylenol Extra Strength) albuterol sulfate 90 mcg/actuation 2 puff INHALATION Q4H PRN 02/06/21 06/08/21 History aerosol inhaler (ProAir HFA) alprazolam 1 mg tablet (Xanax) 1 mg PO HS 02/06/21 06/08/21 History amlodipine 5 mg tablet 5 mg PO DAILY 02/06/21 06/08/21 History atorvastatin 20 mg tablet (Lipitor) 20 mg PO HS 02/06/21 06/08/21 History calcium carbonate 600 mg calcium 600 mg PO DAILY 02/06/21 06/08/21 History (1,500 mg) tablet (Calcium) cholecalciferol (vitamin D3) 50 50 mcg PO DAILY 02/06/21 06/08/21 History mcg (2,000 unit) capsule (Vitamin D3) glipizide 5 mg tablet, extended 5 mg PO HS 02/06/21 06/08/21 History release 24 hr metformin 500 mg tablet 500 mg PO BID 02/06/21 06/08/21 History metoprolol tartrate 25 mg tablet 25 mg PO BID 02/06/21 06/08/21 History sitagliptin 100 mg tablet (Januvia) 100 mg PO DAILY 02/06/21 06/08/21 History valsartan 320 1 tab PO DAILY 02/06/21 06/08/21 History mg-hydrochlorothiazide 25 mg tablet aspirin 81 mg tablet,delayed 81 mg PO DAILY 06/08/21 06/08/21 History release (Aspirin Low Dose) Patient History Medical History Anxiety H/O: HTN (hypertension) Type 2 diabetes mellitus Surgical History H/O aortic valve replacement H/O endarterectomy S/P TKR (total knee replacement) Social History Smoking Status: Former smoker Hx Alcohol Use: No Hx Substance Use: No Preferred Language: Citizen Of [place] Communication Ability: Effective Escalator Mechanic Required: No Beliefs That Will Affect Care: Oriental Orthodox Oriental Orthodox Beliefs: Mandaeism Current Living Situation: Alone Other Information That Helps Us Care for You: No Feels Safe at Home: Yes Safety Concerns: Feels Safe At This Time Assistive Devices: Cane and Walker Review of Systems Review of Systems: All systems reviewed & are unremarkable except as noted in HPI & below Physical Exam Constitutional: WD/WN, vitals as above Eyes: PERRL, conjunctivae normal, anicteric sclerae ENMT: external ear and nose normal, oropharynx normal Neck: trachea midline, no thyromegaly Respiratory: + cough; no respiratory distress Auscultation: + crackles Cardiovascular: Rate/Rhythm: regular rate and regular rhythm Heart Sounds: normal S1, normal S2 and + murmur (II/ systolic murmur) Vessels: no JVD Extremities: no edema Gastrointestinal (Abdomen): normal bowel sounds, soft, nontender, no hepatosplenomegaly Musculoskeletal: no cyanosis or clubbing, extremities motor strength 5/5 Skin: no rashes, warm and dry Neurologic: PERRL, EOMI, accommodation nl, no face palsy, no dysarthria Psychiatric: A+Ox3, euthymic affect Results & Data ([facility]) Vital Signs (Past 12 Hours) Vital Signs Temp Pulse Pulse Resp BP Pulse Ox Pulse Ox 06/09/21 07:20 36.8 C 66 66 21 187/70 H 96 96 06/09/21 01:44 36.8 C 90 18 138/48 L 94 06/09/21 00:29 61 06/08/21 23:07 64 16 168/56 H 94 06/08/21 22:36 93 06/08/21 21:21 64 20 174/69 H 97 Laboratory Results 06/09/21 06/09/21 06/09/21 Range/Units 05:15 05:15 05:15 WBC (4.8-10.8) K/uL RBC (4.2-5.4) M/uL Hgb (12.0-16.0) g/dL Hct (37-47) % MCV (80-100) fL MCH (25-34) pg MCHC (32-36) g/dL RDW Std Deviation (36.4-46.3) fL RDW Coeff of Roberto (11.5-14.5) % Plt Count (130-400) K/uL MPV (7.4-10.4) fL Immature Gran % (Auto) % Neut % (Auto) % Lymph % (Auto) % Will % (Auto) % Eos % (Auto) % Baso % (Auto) % Neut # (Auto) (1.4-6.5) K/uL Lymph # (Auto) (1.2-3.4) K/uL Will # (Auto) (0.11-0.59) K/uL Eos # (Auto) (0-0.5) K/uL Baso # (Auto) (0-0.2) K/uL Immature Gran # (Auto) (0.00-0.02) K/uL Peripher Smr Path Cons Cancelled PT (9.0-12.0) Seconds INR (0.9-1.1) APTT (21.0-31.0) Seconds PTT Ratio Sodium (136-145) mmol/L Potassium (3.5-5.1) mmol/L Chloride (98-107) mmol/L Carbon Dioxide (21-32) mmol/L Anion Gap (3-11) BUN (7-18) mg/dl Creatinine (0.6-1.2) mg/dl Est Cr Clr Drug Dosing Est GFR ( Amer) ml/min Est GFR (Non-Af Amer) ml/min BUN/Creatinine Ratio (10-20) Glucose (70-99) mg/dl Estimat Average Glucose Pending Hemoglobin A1c Pending Calcium (8.5-10.1) mg/dl Phosphorus (2.5-4.9) mg/dl Magnesium (1.8-2.4) mg/dl Total Bilirubin (0.2-1) mg/dl AST (15-37) U/L ALT (12-78) U/L Alkaline Phosphatase (45-117) U/L Troponin I (0-0.045) ng/ml NT-Pro-B Natriuret Pep (0-1800) pg/ml Total Protein (6.4-8.2) gm/dl Albumin (3.4-5.0) gm/dl Globulin (2.5-4.0) gm/dl Albumin/Globulin Ratio (0.9-2) Triglycerides 162 H (0-150) mg/dl Cholesterol 104 (0-200) mg/dl LDL Cholesterol, Calc 34 mg/dl VLDL Cholesterol, Calc 32 mg/dl HDL Cholesterol 38 mg/dl Cholesterol/HDL Ratio 3 Procalcitonin (0-0.5) ng/ml COVID-19 Eval Order SARS-CoV-2 (PCR) (Negative) 06/09/21 06/09/21 06/08/21 Range/Units 05:15 05:15 15:40 WBC 7.23 (4.8-10.8) K/uL RBC 3.88 L (4.2-5.4) M/uL Hgb 10.4 L (12.0-16.0) g/dL Hct 33.5 L (37-47) % MCV 86.3 (80-100) fL MCH 26.8 (25-34) pg MCHC 31.0 L (32-36) g/dL RDW Std Deviation 46.3 (36.4-46.3) fL RDW Coeff of Roberto 14.8 H (11.5-14.5) % Plt Count 342 (130-400) K/uL MPV 9.9 (7.4-10.4) fL Immature Gran % (Auto) % Neut % (Auto) % Lymph % (Auto) % Will % (Auto) % Eos % (Auto) % Baso % (Auto) % Neut # (Auto) (1.4-6.5) K/uL Lymph # (Auto) (1.2-3.4) K/uL Will # (Auto) (0.11-0.59) K/uL Eos # (Auto) (0-0.5) K/uL Baso # (Auto) (0-0.2) K/uL Immature Gran # (Auto) (0.00-0.02) K/uL Peripher Smr Path Cons Pending PT (9.0-12.0) Seconds INR (0.9-1.1) APTT (21.0-31.0) Seconds PTT Ratio Sodium 144 (136-145) mmol/L Potassium 3.9 (3.5-5.1) mmol/L Chloride 110 H (98-107) mmol/L Carbon Dioxide 27 (21-32) mmol/L Anion Gap 7.0 (3-11) BUN 23 H (7-18) mg/dl Creatinine 1.09 (0.6-1.2) mg/dl Est Cr Clr Drug Dosing 41.3 Est GFR ( Amer) 54.0 ml/min Est GFR (Non-Af Amer) 46.6 ml/min BUN/Creatinine Ratio 21.1 H (10-20) Glucose 103 H (70-99) mg/dl Estimat Average Glucose Hemoglobin A1c Calcium 9.2 (8.5-10.1) mg/dl Phosphorus 4.5 (2.5-4.9) mg/dl Magnesium 1.8 (1.8-2.4) mg/dl Total Bilirubin (0.2-1) mg/dl AST (15-37) U/L ALT (12-78) U/L Alkaline Phosphatase (45-117) U/L Troponin I (0-0.045) ng/ml NT-Pro-B Natriuret Pep (0-1800) pg/ml Total Protein (6.4-8.2) gm/dl Albumin (3.4-5.0) gm/dl Globulin (2.5-4.0) gm/dl Albumin/Globulin Ratio (0.9-2) Triglycerides (0-150) mg/dl Cholesterol (0-200) mg/dl LDL Cholesterol, Calc mg/dl VLDL Cholesterol, Calc mg/dl HDL Cholesterol mg/dl Cholesterol/HDL Ratio Procalcitonin (0-0.5) ng/ml COVID-19 Eval Order SARS-CoV-2 (PCR) NEGATIVE (Negative) 06/08/21 06/08/21 06/08/21 Range/Units 15:40 11:57 11:57 WBC (4.8-10.8) K/uL RBC (4.2-5.4) M/uL Hgb (12.0-16.0) g/dL Hct (37-47) % MCV (80-100) fL MCH (25-34) pg MCHC (32-36) g/dL RDW Std Deviation (36.4-46.3) fL RDW Coeff of Roberto (11.5-14.5) % Plt Count (130-400) K/uL MPV (7.4-10.4) fL Immature Gran % (Auto) % Neut % (Auto) % Lymph % (Auto) % Will % (Auto) % Eos % (Auto) % Baso % (Auto) % Neut # (Auto) (1.4-6.5) K/uL Lymph # (Auto) (1.2-3.4) K/uL Will # (Auto) (0.11-0.59) K/uL Eos # (Auto) (0-0.5) K/uL Baso # (Auto) (0-0.2) K/uL Immature Gran # (Auto) (0.00-0.02) K/uL Peripher Smr Path Cons PT (9.0-12.0) Seconds INR (0.9-1.1) APTT (21.0-31.0) Seconds PTT Ratio Sodium 145 (136-145) mmol/L Potassium 4.3 (3.5-5.1) mmol/L Chloride 113 H (98-107) mmol/L Carbon Dioxide 28 (21-32) mmol/L Anion Gap 4.0 (3-11) BUN 21 H (7-18) mg/dl Creatinine 1.02 (0.6-1.2) mg/dl Est Cr Clr Drug Dosing Not Reportable Est GFR ( Amer) 58.5 ml/min Est GFR (Non-Af Amer) 50.5 ml/min BUN/Creatinine Ratio 20.9 H (10-20) Glucose 86 (70-99) mg/dl Estimat Average Glucose Hemoglobin A1c Calcium 9.1 (8.5-10.1) mg/dl Phosphorus (2.5-4.9) mg/dl Magnesium 1.9 (1.8-2.4) mg/dl Total Bilirubin 0.5 (0.2-1) mg/dl AST 13 L (15-37) U/L ALT 17 (12-78) U/L Alkaline Phosphatase 51 (45-117) U/L Troponin I < 0.015 (0-0.045) ng/ml NT-Pro-B Natriuret Pep 2615 H (0-1800) pg/ml Total Protein 7.0 (6.4-8.2) gm/dl Albumin 3.5 (3.4-5.0) gm/dl Globulin 3.5 (2.5-4.0) gm/dl Albumin/Globulin Ratio 1.0 (0.9-2) Triglycerides (0-150) mg/dl Cholesterol (0-200) mg/dl LDL Cholesterol, Calc mg/dl VLDL Cholesterol, Calc mg/dl HDL Cholesterol mg/dl Cholesterol/HDL Ratio Procalcitonin < 0.05 (0-0.5) ng/ml COVID-19 Eval Order Covid19 at [facility] SARS-CoV-2 (PCR) (Negative) 06/08/21 06/08/21 Range/Units 11:57 11:57 WBC 8.42 (4.8-10.8) K/uL RBC 4.05 L (4.2-5.4) M/uL Hgb 10.9 L (12.0-16.0) g/dL Hct 35.1 L (37-47) % MCV 86.7 (80-100) fL MCH 26.9 (25-34) pg MCHC 31.1 L (32-36) g/dL RDW Std Deviation 46.7 H (36.4-46.3) fL RDW Coeff of Roberto 14.7 H (11.5-14.5) % Plt Count 373 (130-400) K/uL MPV 10.0 (7.4-10.4) fL Immature Gran % (Auto) 0.2 % Neut % (Auto) 61.8 % Lymph % (Auto) 20.9 % Will % (Auto) 12.1 % Eos % (Auto) 4.5 % Baso % (Auto) 0.5 % Neut # (Auto) 5.20 (1.4-6.5) K/uL Lymph # (Auto) 1.76 (1.2-3.4) K/uL Will # (Auto) 1.02 H (0.11-0.59) K/uL Eos # (Auto) 0.38 (0-0.5) K/uL Baso # (Auto) 0.04 (0-0.2) K/uL Immature Gran # (Auto) 0.02 (0.00-0.02) K/uL Peripher Smr Path Cons PT 10.2 (9.0-12.0) Seconds INR 1.0 (0.9-1.1) APTT 25.2 (21.0-31.0) Seconds PTT Ratio 1.0 Sodium (136-145) mmol/L Potassium (3.5-5.1) mmol/L Chloride (98-107) mmol/L Carbon Dioxide (21-32) mmol/L Anion Gap (3-11) BUN (7-18) mg/dl Creatinine (0.6-1.2) mg/dl Est Cr Clr Drug Dosing Est GFR ( Amer) ml/min Est GFR (Non-Af Amer) ml/min BUN/Creatinine Ratio (10-20) Glucose (70-99) mg/dl Estimat Average Glucose Hemoglobin A1c Calcium (8.5-10.1) mg/dl Phosphorus (2.5-4.9) mg/dl Magnesium (1.8-2.4) mg/dl Total Bilirubin (0.2-1) mg/dl AST (15-37) U/L ALT (12-78) U/L Alkaline Phosphatase (45-117) U/L Troponin I (0-0.045) ng/ml NT-Pro-B Natriuret Pep (0-1800) pg/ml Total Protein (6.4-8.2) gm/dl Albumin (3.4-5.0) gm/dl Globulin (2.5-4.0) gm/dl Albumin/Globulin Ratio (0.9-2) Triglycerides (0-150) mg/dl Cholesterol (0-200) mg/dl LDL Cholesterol, Calc mg/dl VLDL Cholesterol, Calc mg/dl HDL Cholesterol mg/dl Cholesterol/HDL Ratio Procalcitonin (0-0.5) ng/ml COVID-19 Eval Order SARS-CoV-2 (PCR) (Negative) Diagnostic Findings Chest xray, repeat this morning: IMPRESSION: 1. Interval improvement in pulmonary edema and small bilateral pleural effusions. 2. Persistent left basilar opacity which statistically reflects atelectasis. However continued radiographic follow-up to ensure complete resolution is recommended. Carotid duplex report reviewed: IMPRESSION: 1. Moderate stenosis within the distal left common carotid artery and proximal left internal carotid artery of approximately 70%. 2. No significant stenosis within the right carotid arterie Chest xray on admission: IMPRESSION: Interstitial pulmonary edema with small bilateral pleural effusions and left basilar opacity which likely reflects atelectasis. A superimposed infectious process could appear similar. Radiographic follow-up is recommended to ensure resolution. EKG on admission: NSR with PAC's LBBB No acute changes from prior. Medications Administered Current Inpatient Medications Acetaminophen (Acetaminophen 325 Mg Tab) 650 mg PO Q4H PRN PRN Reason: Pain or Fever Stop: 07/08/21 14:47 Last Admin: 06/08/21 22:27 Dose: 650 mg Documented by: Albuterol (Albuterol Hfa 8 Gm Inhaler) 2 puffs INH Q4R PRN PRN Reason: Shortness Of Breath Stop: 07/08/21 20:16 Alprazolam (Alprazolam 0.5 Mg Tablet) 1 mg PO HS PRN PRN Reason: sleep, anxiety Stop: 07/09/21 20:59 Amlodipine Besylate (Amlodipine Besylate 5 Mg Tab) 5 mg PO DAILY [place] Stop: 07/09/21 08:59 Aspirin (Aspirin 81 Mg Ectab) 81 mg PO DAILY [facility] Stop: 07/09/21 08:59 Atorvastatin Calcium (Atorvastatin 20 Mg Tab) 20 mg PO HS [place] Stop: 07/08/21 20:59 Last Admin: 06/08/21 21:23 Dose: 20 mg Documented by: Magnesium Oxide (Magnesium Oxide 400 Mg Tab) 400 mg PO BID [facility] Stop: 07/09/21 08:59 Metformin HCl (Metformin Hcl 500 Mg Tab) 500 mg PO BIDM [facility] Stop: 07/09/21 07:59 Metoprolol Tartrate (Metoprolol Tartrate 25 Mg Tab) 25 mg PO BID [facility] Stop: 07/08/21 20:59 Last Admin: 06/08/21 21:34 Dose: Not Given Documented by: Polyethylene Glycol (Polyethylene (Miralax) 17 Gm Pack) 17 gm PO DAILY PRN PRN Reason: Constipation Stop: 07/08/21 14:47 Valsartan (Valsartan 80 Mg Tab) 160 mg PO QAM [facility] Stop: 07/09/21 08:59 (1) Anemia Anemia type: unspecified type Qualified Code(s): D64.9 - Anemia, unspecified
[2021-06-09] MEDS: metFORMIN HCL 500 MG TAB PO SCH ×2 (09:18→17:11)
[2021-06-09] MEDS: amLODIPine BESYLATE 5 MG TAB PO SCH (09:18)
[2021-06-09] MEDS: MAGNESIUM OXIDE 400 MG TAB PO SCH ×2 (09:18→21:12)
[2021-06-09] MEDS: ASPIRIN 81 MG ECTAB PO SCH (09:19)
[2021-06-09 09:20] LABS: Estimated Average Glucose 128 mg/dl; Hemoglobin A1C 6.1 % (4.5-5.6)
[2021-06-09] MEDS ORDERED: FUROSEMIDE 40 MG/4 ML VIAL IV ONE (10:23)
[2021-06-09] MEDS: VALSARTAN 80 MG TAB PO SCH (10:33)
[2021-06-09] MEDS: METOPROLOL TARTRATE 25 MG TAB PO SCH ×2 (10:33→21:12)
[2021-06-09] MEDS: FUROSEMIDE 40 MG in SYRINGE 0 ML IV SCH (10:37)
--- NOTE | 2021-06-09 16:55 | Electrocardiogram Report ---
Test Reason : Blood Pressure : / mmHG Vent. Rate : 059 BPM Atrial Rate : 059 BPM P-R Int : 190 ms QRS Dur : 146 ms QT Int : 498 ms P-R-T Axes : 040 012 074 degrees QTc Int : 493 ms Poor data quality, interpretation may be adversely affected Sinus rhythm Premature atrial complexes Left bundle branch block Abnormal ECG When compared with ECG of 06-FEB-2021 18:43, No significant change Confirmed by Logan López ([id number]) on 06/09/2021 4:55:23 PM Referred By: Confirmed By:Logan López
[2021-06-09] MEDS: ALPRAZolam 0.5 MG TABLET PO PRN (21:11)
[2021-06-09] MEDS: ATORVASTATIN 20 MG TAB PO SCH (21:12)
[2021-06-10 06:03] LABS: Hematocrit (blood only) 34.9 % (37-47); Hemoglobin 10.9 g/dL (12.0-16.0); Mean Corpuscular Hemoglobin 26.9 pg (25-34); Mean Corpuscular Hgb Conc 31.2 g/dL (32-36); Mean Corpuscular Volume 86.2 fL (80-100); Mean Platelet Volume 9.9 fL (7.4-10.4); Platelet Count 361 K/uL (130-400); RDW Coefficient of Variation 14.5 % (11.5-14.5); RDW Standard Deviation 46.1 fL (36.4-46.3); Red Blood Count 4.05 M/uL (4.2-5.4); White Blood Count 7.14 K/uL (4.8-10.8)
[2021-06-10 06:30] LABS: BUN Creatinine Ratio 25.7 (10-20); Calcium 9.2 mg/dl (8.5-10.1); Creatinine Clr Calc Pharmacy 38.8 ml/min; Est GFR (African American) 47.1 ml/min; Est GFR (Non-African American) 40.6 ml/min; Phosphorus 4.4 mg/dl (2.5-4.9); Potassium 3.9 mmol/L (3.5-5.1)
[2021-06-10] MEDS: ACETAMINOPHEN 325 MG TAB PO PRN (07:51)
[2021-06-10] MEDS: FUROSEMIDE 40 MG in SYRINGE 0 ML IV SCH (07:52)
[2021-06-10] MEDS: metFORMIN HCL 500 MG TAB PO SCH ×2 (07:52→16:44)
[2021-06-10] MEDS: ASPIRIN 81 MG ECTAB PO SCH (07:52)
[2021-06-10] MEDS: amLODIPine BESYLATE 5 MG TAB PO SCH (07:52)
--- NOTE | 2021-06-10 09:09 | Cardiology Progress Note ---
Date of Service June 10, 2021 Assessment & Plan (1) Acute systolic heart failure: (2) Acute respiratory failure with hypoxia: (3) Anemia: (4) LBBB (left bundle branch block): (5) S/P AVR: (6) Hypertension: Plan: Patient admitted for worsening SOB, hypoxia, consistent with acute on chronic systolic HF with pulm vascular congestion on Xray. Symptoms improving with several doses of IV lasix. mild rise in creatinine this morning to 1.2. She already received AM dose of IV furosemide. Will hold additional doses at this time. Mild Hypoxia persists. Recommend 2 step prior to discharge. Echo revealed normal LV systolic function, improved from prior evaluation (outside echo), at 45%, now 55% Her AVR was not well visualized with possibly elevated gradients. Consider repeat echo as outpatient in 6 months. Monitor electrolytes. Fluid restriction of 1500 ml Monitor I+O's and daily weight encouraged. BP improved. Valsartan/hctz 320-25 (home dose) was transitioned to valsartan 160 mg on admission. Will likely benefit/need loop diuretic on discharge and would discontinue her valsartan/hctz combination Continue amlodipine 5 mg daily (she has no edema) metoprolol tartrate transitioned to metoprolol succinate given history of LVEF 45%. Given history of carotid vascular disease, 70% on left and history of Right CEA -continue ASA and statin -may need vascular surgery evaluation at f/u to monitor. New onset anemia noted as outpatient. FOBT is pending -she does report 20 lb weight loss (unintentional) over the last few months and further work up may be warranted. -hbg improving this morning Case to be discussed with Dr. Karimi. Admission and Anticipated Discharge Date Admission Date: June 08, 2021 Supervising Physician Co-Signing Physician Notes I have seen and examined the patient. I reviewed the medical record and discussed the case with Ms. Hobbs. I agree with the outlined plan. Will hold further diuresis given rise in creatinine and follow volume status clinically. Two step prior to discharge. Subjective Patient resting in bed comfortably. Notes recent ambulation in the hallways with mild SOB, near baseline. Patient reports she was ambulating without oxygen and mild hypoxia was noted. No chest pain. No dizziness or lightheadedness. No orthopnea, PND or edema. Prior complaints of abdominal bloating improved. Review of Systems Review of Systems: All systems reviewed & are unremarkable except as noted in HPI & below Physical Exam Constitutional: WD/WN, vitals as above Eyes: PERRL, conjunctivae normal, anicteric sclerae ENMT: external ear and nose normal, oropharynx normal Neck: trachea midline, no thyromegaly Respiratory: normal respiratory effort; no respiratory distress and no labored breathing Auscultation: no crackles and no rales Cardiovascular: Rate/Rhythm: regular rate and regular rhythm Heart Sounds: normal S1, normal S2 and + murmur (II/ systolic murmur) Vessels: no JVD Extremities: no edema Gastrointestinal (Abdomen): normal bowel sounds, soft, nontender, no hepatosplenomegaly Musculoskeletal: no cyanosis or clubbing, extremities motor strength 5/5 Skin: no rashes, warm and dry Neurologic: PERRL, EOMI, accommodation nl, no face palsy, no dysarthria Psychiatric: A+Ox3, euthymic affect Results & Data ([facility]) Vital Signs (Past 12 Hours) Vital Signs Temp Pulse Pulse Resp BP Pulse Ox 06/10/21 07:00 36.6 C 58 L 18 123/65 95 06/10/21 03:27 36.8 C 55 L 16 107/56 L 95 06/09/21 23:05 61 06/09/21 23:03 37.1 C 56 L 18 154/65 H 95 Laboratory Results 06/10/21 06/10/21 06/09/21 Range/Units 05:28 05:28 20:57 WBC 7.14 (4.8-10.8) K/uL RBC 4.05 L (4.2-5.4) M/uL Hgb 10.9 L (12.0-16.0) g/dL Hct 34.9 L (37-47) % MCV 86.2 (80-100) fL MCH 26.9 (25-34) pg MCHC 31.2 L (32-36) g/dL RDW Std Deviation 46.1 (36.4-46.3) fL RDW Coeff of Roberto 14.5 (11.5-14.5) % Plt Count 361 (130-400) K/uL MPV 9.9 (7.4-10.4) fL Peripher Smr Path Cons Sodium 141 (136-145) mmol/L Potassium 3.9 (3.5-5.1) mmol/L Chloride 107 (98-107) mmol/L Carbon Dioxide 30 (21-32) mmol/L Anion Gap 4.0 (3-11) BUN 31 H (7-18) mg/dl Creatinine 1.22 H (0.6-1.2) mg/dl Est Cr Clr Drug Dosing 38.8 ml/min Est GFR ( Amer) 47.1 ml/min Est GFR (Non-Af Amer) 40.6 ml/min BUN/Creatinine Ratio 25.7 H (10-20) Glucose 118 H (70-99) mg/dl POC Glucose 125 H (70-99) mg/dl Estimat Average Glucose mg/dl Hemoglobin A1c (4.5-5.6) % Calcium 9.2 (8.5-10.1) mg/dl Phosphorus 4.4 (2.5-4.9) mg/dl Magnesium 2.0 (1.8-2.4) mg/dl 06/09/21 06/09/21 Range/Units 05:15 05:15 WBC (4.8-10.8) K/uL RBC (4.2-5.4) M/uL Hgb (12.0-16.0) g/dL Hct (37-47) % MCV (80-100) fL MCH (25-34) pg MCHC (32-36) g/dL RDW Std Deviation (36.4-46.3) fL RDW Coeff of Roberto (11.5-14.5) % Plt Count (130-400) K/uL MPV (7.4-10.4) fL Peripher Smr Path Cons Sodium (136-145) mmol/L Potassium (3.5-5.1) mmol/L Chloride (98-107) mmol/L Carbon Dioxide (21-32) mmol/L Anion Gap (3-11) BUN (7-18) mg/dl Creatinine (0.6-1.2) mg/dl Est Cr Clr Drug Dosing ml/min Est GFR ( Amer) ml/min Est GFR (Non-Af Amer) ml/min BUN/Creatinine Ratio (10-20) Glucose (70-99) mg/dl POC Glucose (70-99) mg/dl Estimat Average Glucose 128 mg/dl Hemoglobin A1c 6.1 H (4.5-5.6) % Calcium (8.5-10.1) mg/dl Phosphorus (2.5-4.9) mg/dl Magnesium (1.8-2.4) mg/dl Diagnostic Findings Telemetry reviewed: sinus bradycardia in the 50's. No concerning arrhythmias. Conduction delay consistent with LBBB. Echo results reviewed dated 06/09/21: LV normal in size Mod concentric LVH EF 55-60% RV systolic function is normal LA is moderately dilated RA size is normal. Mild to moderate MR Moderate TR Prosthetic aortic valve is not well visualized Prosthetic valve gradients are elevated. Moderate pulm hypertension with an estimated pulm artery pressure is 45 mmHg Chest xray report reviewed from 06/09/21: IMPRESSION: 1. Interval improvement in pulmonary edema and small bilateral pleural effusions. 2. Persistent left basilar opacity which statistically reflects atelectasis. However continued radiographic follow-up to ensure complete resolution is recommended. Medications Administered Current Inpatient Medications Acetaminophen (Acetaminophen 325 Mg Tab) 650 mg PO Q4H PRN PRN Reason: Pain or Fever Stop: 07/08/21 14:47 Last Admin: 06/10/21 07:51 Dose: 650 mg Documented by: Albuterol (Albuterol Hfa 8 Gm Inhaler) 2 puffs INH Q4R PRN PRN Reason: Shortness Of Breath Stop: 07/08/21 20:16 Alprazolam (Alprazolam 0.5 Mg Tablet) 1 mg PO HS PRN PRN Reason: sleep, anxiety Stop: 07/09/21 20:59 Last Admin: 06/09/21 21:11 Dose: 1 mg Documented by: Amlodipine Besylate (Amlodipine Besylate 5 Mg Tab) 5 mg PO DAILY [facility] Stop: 07/09/21 08:59 Last Admin: 06/10/21 07:52 Dose: 5 mg Documented by: Aspirin (Aspirin 81 Mg Ectab) 81 mg PO DAILY [facility] Stop: 07/09/21 08:59 Last Admin: 06/10/21 07:52 Dose: 81 mg Documented by: Atorvastatin Calcium (Atorvastatin 20 Mg Tab) 20 mg PO HS [facility] Stop: 07/08/21 20:59 Last Admin: 06/09/21 21:12 Dose: 20 mg Documented by: Furosemide 40 mg/ Syringe 4 mls @ 4 mls/min IV QAM [facility] Stop: 07/09/21 10:14 Last Admin: 06/10/21 07:52 Dose: 4 mls/min Documented by: Magnesium Oxide (Magnesium Oxide 400 Mg Tab) 400 mg PO BID [facility] Stop: 07/09/21 08:59 Last Admin: 06/09/21 21:12 Dose: 400 mg Documented by: Metformin HCl (Metformin Hcl 500 Mg Tab) 500 mg PO BIDM [facility] Stop: 07/09/21 07:59 Last Admin: 06/10/21 07:52 Dose: 500 mg Documented by: Metoprolol Succinate (Metoprolol Succ 25mg Ext Rel Tab) 25 mg PO [facility] Stop: 07/10/21 08:59 Polyethylene Glycol (Polyethylene (Miralax) 17 Gm Pack) 17 gm PO DAILY PRN PRN Reason: Constipation Stop: 07/08/21 14:47 Valsartan (Valsartan 80 Mg Tab) 160 mg PO [facility] Stop: 07/09/21 08:59 Last Admin: 06/09/21 10:33 Dose: 160 mg Documented by: (1) Anemia Anemia type: unspecified type Qualified Code(s): D64.9 - Anemia, unspecified
[2021-06-10] MEDS: VALSARTAN 80 MG TAB PO SCH (10:13)
[2021-06-10] MEDS: MAGNESIUM OXIDE 400 MG TAB PO SCH ×2 (10:14→21:21)
[2021-06-10] MEDS: METOPROLOL SUCC 25MG EXT REL TAB PO SCH (10:15)
--- NOTE | 2021-06-10 12:57 | Hospitalist Progress Note ---
Date of Service June 10, 2021 Assessment & Plan (1) Acute respiratory failure with hypoxia: Plan: -Most likely secondary to CHF, however will obtain procalcitonin to evaluate for possible infectious etiology as well - procal negative -Patient however only had low-grade fevers, not actually febrile at home, cough is nonproductive, WBC is not elevated and therefore infectious etiology is less likely (2) CHF (congestive heart failure): Plan: Patient presents with shortness of breath, chest x-ray with pulmonary vascular congestion, and small bilateral pleural effusions proBNP over 2600 troponin negative EKG shows LBBB (Seen on previous EKG, in January) Will obtain echocardiogram, will also obtain carotid ultrasound given history of carotid endarterectomy Monitor I's and O's closely, and her response to IV Lasix We will reassess fluid status and need for diuresis in the morning Currently on 2 L of nasal cannula, will try to wean off oxygen Repeat chest x-ray in the morning improved pulm. congestion Cardiology consulted Echo - LV normal in size, moderate concentric LVH, EF 55 to 60%, RV systolic function is normal, LA is moderately dilated, RA size is normal, mild to moderate mitral regurg, moderate tricuspid regurg, prosthetic aortic valve is not well-visualized. Prosthetic valve gradients are elevated. Moderate pulmonary hypertension with an estimated pulmonary artery pressure of 45 mmHg. Her AVR was not well visualized with possibly elevated gradients. Consider repeat echo as outpatient in 6 months. - IV lasix this AM, will hold further diuresis w/IV lasix after this - switch to metoprolol succinate from tartrate - Will likely benefit/need loop diuretic on discharge and would discontinue her valsartan/hctz combination - Continue amlodipine 5 mg daily (she has no edema) -Currently laying in bed, on room air, however was on 2L just this morning, will obtain 2 step study Carotid US - 1. Moderate stenosis within the distal left common carotid artery and proximal left internal carotid artery of approximately 70%. 2. No significant stenosis within the right carotid arteries. - will need outpt follow up for carotid artery vasc. dis - cont. ASA, and statin (3) Anemia: Plan: Normocytic Per patient and family, patient found anemic in outpatient setting Blood work ordered and patient was referred to hematology Currently hemoglobin lower, may be dilutional due to fluid overload Denies any blood in the stool Daughter reports patient never had colonoscopy FOBT - ordered - not collected peripheral smear - #1. Mild anisocytosis and scattered ovalocytes are seen. #2. Blasts and schistocytes are not seen. #3. The etiology of this patient's anemia is left to further evaluation to include appropriate iron studies. #4. Please see above discussion. Iron studies just ordered and obtained as outpt. Hematology appointment scheduled for 06/23. Hgb currently stable Continue to closely monitor H&H HTN, HLD - cont. home medications DM type 2 -Per daughter A1c last time checked before they moved to [place] -Daughter reports A1c was around 6%, and she has been well controlled -Current hemoglobin A1c 6.1% -fasting lipid panel - LDL 34, TC 104, TG 162 -Continue home meds for now Code: Full DVT ppx: SCDs, lovenox Admission and Anticipated Discharge Date Admission Date: June 08, 2021 Subjective Patient seen in follow-up of CHF, dyspnea Currently she is sitting up in the bed, in no acute distress using 2 L supplemental oxygen this AM, now on RA will obtain 2 step study Patient denies any fevers, chills, chest pain, shortness of breath at this time Reports she is already feeling much better Review of Systems Review of Systems: All systems reviewed & are unremarkable except as noted in Subjective Physical Exam Physical Exam: Constitutional: WD/WN, elderly F laying in bed in NAD, currently on RA Eyes: PERRL, EOMI, conjunctivae normal, anicteric sclerae ENMT: external ear and nose normal, oropharynx normal Neck: normal visual inspection Respiratory: Auscultation: CTAB; no rhonchi, crackles, and no wheezes Cardiovascular: + soft syst. murmur, no LE edema Gastrointestinal (Abdomen): normal bowel sounds, abdomen soft, nontender, no guarding and abdomen not rigid Musculoskeletal: extremities motor strength 5/5 Skin: no rashes, warm and dry Neurologic: PERRL, EOMI, no face palsy, no dysarthria, moves extremities Psychiatric: A+Ox3, euthymic affect Genitourinary: no CVA tenderness Lymphatic: no lymphedema Results & Data Results & Data ([facility]) Vital Signs (Past 12 Hours) Vital Signs Temp Pulse Pulse Resp BP Pulse Ox 06/10/21 11:50 36.5 C 60 16 148/71 H 97 06/10/21 08:00 55 L 06/10/21 07:00 36.6 C 58 L 18 123/65 95 06/10/21 03:27 36.8 C 55 L 16 107/56 L 95 Laboratory Results 06/10/21 06/10/21 06/09/21 Range/Units 05:28 05:28 20:57 WBC 7.14 (4.8-10.8) K/uL RBC 4.05 L (4.2-5.4) M/uL Hgb 10.9 L (12.0-16.0) g/dL Hct 34.9 L (37-47) % MCV 86.2 (80-100) fL MCH 26.9 (25-34) pg MCHC 31.2 L (32-36) g/dL RDW Std Deviation 46.1 (36.4-46.3) fL RDW Coeff of Roberto 14.5 (11.5-14.5) % Plt Count 361 (130-400) K/uL MPV 9.9 (7.4-10.4) fL Sodium 141 (136-145) mmol/L Potassium 3.9 (3.5-5.1) mmol/L Chloride 107 (98-107) mmol/L Carbon Dioxide 30 (21-32) mmol/L Anion Gap 4.0 (3-11) BUN 31 H (7-18) mg/dl Creatinine 1.22 H (0.6-1.2) mg/dl Est Cr Clr Drug Dosing 38.8 ml/min Est GFR ( Amer) 47.1 ml/min Est GFR (Non-Af Amer) 40.6 ml/min BUN/Creatinine Ratio 25.7 H (10-20) Glucose 118 H (70-99) mg/dl POC Glucose 125 H (70-99) mg/dl Calcium 9.2 (8.5-10.1) mg/dl Phosphorus 4.4 (2.5-4.9) mg/dl Magnesium 2.0 (1.8-2.4) mg/dl Medications Administered Current Inpatient Medications Acetaminophen (Acetaminophen 325 Mg Tab) 650 mg PO Q4H PRN PRN Reason: Pain or Fever Stop: 07/08/21 14:47 Last Admin: 06/10/21 07:51 Dose: 650 mg Documented by: Albuterol (Albuterol Hfa 8 Gm Inhaler) 2 puffs INH Q4R PRN PRN Reason: Shortness Of Breath Stop: 07/08/21 20:16 Alprazolam (Alprazolam 0.5 Mg Tablet) 1 mg PO HS PRN PRN Reason: sleep, anxiety Stop: 07/09/21 20:59 Last Admin: 06/09/21 21:11 Dose: 1 mg Documented by: Amlodipine Besylate (Amlodipine Besylate 5 Mg Tab) 5 mg PO DAILY [facility] Stop: 07/09/21 08:59 Last Admin: 06/10/21 07:52 Dose: 5 mg Documented by: Aspirin (Aspirin 81 Mg Ectab) 81 mg PO DAILY [facility] Stop: 07/09/21 08:59 Last Admin: 06/10/21 07:52 Dose: 81 mg Documented by: Atorvastatin Calcium (Atorvastatin 20 Mg Tab) 20 mg PO HS [facility] Stop: 07/08/21 20:59 Last Admin: 06/09/21 21:12 Dose: 20 mg Documented by: Furosemide 40 mg/ Syringe 4 mls @ 4 mls/min IV QAM [facility] Stop: 07/09/21 10:14 Last Admin: 06/10/21 07:52 Dose: 4 mls/min Documented by: Magnesium Oxide (Magnesium Oxide 400 Mg Tab) 400 mg PO BID [facility] Stop: 07/09/21 08:59 Last Admin: 06/10/21 10:14 Dose: 400 mg Documented by: Metformin HCl (Metformin Hcl 500 Mg Tab) 500 mg PO BIDM [facility] Stop: 07/09/21 07:59 Last Admin: 06/10/21 07:52 Dose: 500 mg Documented by: Metoprolol Succinate (Metoprolol Succ 25mg Ext Rel Tab) 25 mg PO QAM [facility] Stop: 07/10/21 08:59 Last Admin: 06/10/21 10:15 Dose: 25 mg Documented by: Polyethylene Glycol (Polyethylene (Miralax) 17 Gm Pack) 17 gm PO DAILY PRN PRN Reason: Constipation Stop: 07/08/21 14:47 Valsartan (Valsartan 80 Mg Tab) 160 mg PO QAM [facility] Stop: 07/09/21 08:59 Last Admin: 06/10/21 10:13 Dose: 160 mg Documented by: (1) CHF (congestive heart failure) Heart failure chronicity: acute Heart failure type: unspecified Qualified Code(s): I50.9 - Heart failure, unspecified (2) Anemia Anemia type: unspecified type Qualified Code(s): D64.9 - Anemia, unspecified
[2021-06-10] MEDS: ALPRAZolam 0.5 MG TABLET PO PRN (21:20)
[2021-06-10] MEDS: ATORVASTATIN 20 MG TAB PO SCH (21:21)
[2021-06-11] MEDS: ACETAMINOPHEN 325 MG TAB PO PRN (05:40)
[2021-06-11 06:02] LABS: Hematocrit (blood only) 37.5 % (37-47); Hemoglobin 11.6 g/dL (12.0-16.0)
[2021-06-11 06:39] LABS: BUN Creatinine Ratio 29.3 (10-20); Calcium 9.7 mg/dl (8.5-10.1); Creatinine Clr Calc Pharmacy 31.7 ml/min; Est GFR (African American) 40.2 ml/min; Est GFR (Non-African American) 34.7 ml/min; Magnesium 2.2 mg/dl (1.8-2.4); Potassium 4.2 mmol/L (3.5-5.1)
[2021-06-11 06:40] LABS: Phosphorus 4.4 mg/dl (2.5-4.9)
[2021-06-11] MEDS: ASPIRIN 81 MG ECTAB PO SCH (07:53)
[2021-06-11] MEDS: MAGNESIUM OXIDE 400 MG TAB PO SCH (07:53)
[2021-06-11] MEDS: metFORMIN HCL 500 MG TAB PO SCH (07:54)
[2021-06-11] MEDS: amLODIPine BESYLATE 5 MG TAB PO SCH (07:54)
[2021-06-11] MEDS: VALSARTAN 80 MG TAB PO SCH (07:54)
[2021-06-11] MEDS: METOPROLOL SUCC 25MG EXT REL TAB PO SCH (07:55)
--- NOTE | 2021-06-11 09:46 | Cardiology Progress Note ---
Date of Service June 11, 2021 Assessment & Plan (1) Acute systolic heart failure: (2) Acute respiratory failure with hypoxia: (3) Anemia: (4) LBBB (left bundle branch block): (5) S/P AVR: (6) Hypertension: Plan: Patient admitted for worsening SOB, hypoxia, consistent with acute on chronic systolic HF with pulm vascular congestion on Xray. Symptoms improving with several doses of IV lasix. mild rise in creatinine this morning to 1.3. IV furosemide held this morning. Appears euvolemic. Start low dose furosemide 20 mg tomorrow. 2 Step pending Echo revealed normal LV systolic function, improved from prior evaluation (outside echo), at 45%, now 55% Her AVR was not well visualized with possibly elevated gradients. Consider repeat echo as outpatient in 6 months. Fluid restriction of 1500 ml Monitor I+O's and daily weight encouraged. BP improved. Valsartan/hctz 320-25 (home dose) was transitioned to valsartan 160 mg on admission. would discontinue her valsartan/hctz combination Discharge on valsartan, metoprolol succinate, amlodipine, and furosemide Given history of carotid vascular disease, 70% on left and history of Right CEA -continue ASA and statin -may need vascular surgery evaluation at f/u to monitor. New onset anemia noted as outpatient. FOBT is pending -she does report 20 lb weight loss (unintentional) over the last few months and further work up may be warranted. -hbg stable. -hematology consult previously arranged as outpatient Case to be discussed with Dr. Karimi. Stable cardiac symptoms for discharge after 2 step is completed. Will need f/u BMP in 3-5 days. Cardiology f/u recommended in about 2-3 weeks. Admission and Anticipated Discharge Date Admission Date: June 08, 2021 Supervising Physician Co-Signing Physician Notes I have seen and examined the patient. I reviewed the medical record and discussed the case with Ms. Hobbs. I agree with the outlined plan. Will hold further diuresis given rise in creatinine and follow volume status clinically. Two step prior to discharge. Subjective Patient resting in bed comfortably. Off supplemental O2 at rest. Awaiting 2 step. Reports SOB improved from admission and at baseline. No dizziness or lightheadedness. no syncope or near syncope. No edema. Review of Systems Review of Systems: All systems reviewed & are unremarkable except as noted in HPI & below Physical Exam Constitutional: WD/WN, vitals as above Eyes: PERRL, conjunctivae normal, anicteric sclerae ENMT: external ear and nose normal, oropharynx normal Neck: trachea midline, no thyromegaly Respiratory: normal respiratory effort; no respiratory distress and no labored breathing Auscultation: no crackles and no rales Cardiovascular: Rate/Rhythm: regular rate and regular rhythm Heart Sounds: normal S1, normal S2 and + murmur (II/ systolic murmur) Vessels: no JVD Extremities: no edema Gastrointestinal (Abdomen): normal bowel sounds, soft, nontender, no hepatosplenomegaly Musculoskeletal: no cyanosis or clubbing, extremities motor strength 5/5 Skin: no rashes, warm and dry Neurologic: PERRL, EOMI, accommodation nl, no face palsy, no dysarthria Psychiatric: A+Ox3, euthymic affect Results & Data ([facility]) Vital Signs (Past 12 Hours) Vital Signs Temp Pulse Pulse Resp BP Pulse Ox 06/11/21 08:05 37.0 C 68 18 118/64 95 06/11/21 03:19 36.7 C 62 16 129/73 93 06/10/21 23:44 36.9 C 55 L 16 129/53 L 93 06/10/21 23:15 63 Laboratory Results 06/11/21 06/11/21 Range/Units 05:37 05:37 Hgb 11.6 L (12.0-16.0) g/dL Hct 37.5 (37-47) % Sodium 141 (136-145) mmol/L Potassium 4.2 (3.5-5.1) mmol/L Chloride 105 (98-107) mmol/L Carbon Dioxide 32 (21-32) mmol/L Anion Gap 4.0 (3-11) BUN 41 H (7-18) mg/dl Creatinine 1.39 H (0.6-1.2) mg/dl Est Cr Clr Drug Dosing 31.7 ml/min Est GFR ( Amer) 40.2 ml/min Est GFR (Non-Af Amer) 34.7 ml/min BUN/Creatinine Ratio 29.3 H (10-20) Glucose 126 H (70-99) mg/dl Calcium 9.7 (8.5-10.1) mg/dl Phosphorus 4.4 (2.5-4.9) mg/dl Magnesium 2.2 (1.8-2.4) mg/dl Diagnostic Findings Telemetry reviewed - NSR in the 50-60's. Medications Administered Current Inpatient Medications Acetaminophen (Acetaminophen 325 Mg Tab) 650 mg PO Q4H PRN PRN Reason: Pain or Fever Stop: 07/08/21 14:47 Last Admin: 06/11/21 05:40 Dose: 650 mg Documented by: Albuterol (Albuterol Hfa 8 Gm Inhaler) 2 puffs INH Q4R PRN PRN Reason: Shortness Of Breath Stop: 07/08/21 20:16 Alprazolam (Alprazolam 0.5 Mg Tablet) 1 mg PO HS PRN PRN Reason: sleep, anxiety Stop: 07/09/21 20:59 Last Admin: 06/10/21 21:20 Dose: 1 mg Documented by: Amlodipine Besylate (Amlodipine Besylate 5 Mg Tab) 5 mg PO DAILY [facility] Stop: 07/09/21 08:59 Last Admin: 06/11/21 07:54 Dose: 5 mg Documented by: Aspirin (Aspirin 81 Mg Ectab) 81 mg PO DAILY [facility] Stop: 07/09/21 08:59 Last Admin: 06/11/21 07:53 Dose: 81 mg Documented by: Atorvastatin Calcium (Atorvastatin 20 Mg Tab) 20 mg PO HS [facility] Stop: 07/08/21 20:59 Last Admin: 06/10/21 21:21 Dose: 20 mg Documented by: Furosemide 40 mg/ Syringe 4 mls @ 4 mls/min IV QAM [facility] Stop: 07/09/21 10:14 Last Admin: 06/10/21 07:52 Dose: 4 mls/min Documented by: Magnesium Oxide (Magnesium Oxide 400 Mg Tab) 400 mg PO BID [facility] Stop: 07/09/21 08:59 Last Admin: 06/11/21 07:53 Dose: 400 mg Documented by: Metformin HCl (Metformin Hcl 500 Mg Tab) 500 mg PO BIDM [facility] Stop: 07/09/21 07:59 Last Admin: 06/11/21 07:54 Dose: 500 mg Documented by: Metoprolol Succinate (Metoprolol Succ 25mg Ext Rel Tab) 25 mg PO QAM [facility] Stop: 07/10/21 08:59 Last Admin: 06/11/21 07:55 Dose: 25 mg Documented by: Polyethylene Glycol (Polyethylene (Miralax) 17 Gm Pack) 17 gm PO DAILY PRN PRN Reason: Constipation Stop: 07/08/21 14:47 Valsartan (Valsartan 80 Mg Tab) 160 mg PO QAM [facility] Stop: 07/09/21 08:59 Last Admin: 06/11/21 07:54 Dose: 160 mg Documented by: (1) Anemia Anemia type: unspecified type Qualified Code(s): D64.9 - Anemia, unspecified
--- NOTE | 2021-06-11 13:22 | Discharge Summary ---
Date of Service June 11, 2021 Admission HPI Per Admitting Provider 85-year-old female with history of diabetes mellitus type 2, hypertension, hyperlipidemia, history of aortic valve replacement and carotid endarterectomy who presents with shortness of breath. Patient and her daughter both provide the history. Reports that patient only recently moved to the area, and has chronic dyspnea for about 6 months. However past week she has been much more short of breath and was even seen at the outpatient office for this reason. At that time she was tested for Covid and was found negative, had some cough over the weekend however then it resolved. Because she was better, they felt that she is recovering. However this week patient again became quite short of breath, could not lay flat, reported a dry cough. She had some low-grade fevers but never was actually febrile. Cough was never productive. She feels chest tightness, however otherwise denies any overt weight gain, or lower extremity edema. Reports feeling better after being in the emergency room, and started on oxygen. In the ER chest x-ray showing pulmonary congestion and she was given IV Lasix. During my evaluation, patient is sitting up in a chair, as she is not comfortable lying in bed. Says that she responded to Lasix quite well and went to bathroom several times however urine was not measured. She she also recently established care at the cardiology office, per daughter it was planned to repeat her echocardiogram and carotid ultrasound. In the ER, as well as an outpatient office patient found anemic, per daughter outpatient blood work was done and pending/patient is also referred to hematology. Denies any blood in the stool. Admission Exam Per Admitting Provider Constitutional: WD/WN, vitals as above (on 2L of O2) Eyes: PERRL, conjunctivae normal, anicteric sclerae ENMT: external ear and nose normal, oropharynx normal Neck: normal visual inspection Respiratory: Auscultation: + crackles (mild bibasilar); no rhonchi and no wheezes Cardiovascular: RRR, no murmur, no edema Gastrointestinal (Abdomen): Inspection/Auscultation: normal bowel sounds Percussion/Palpation: abdomen soft; abdomen nontender, no guarding and abdomen not rigid Musculoskeletal: no cyanosis or clubbing, extremities motor strength 5/5 Skin: no rashes, warm and dry Neurologic: PERRL, EOMI, accommodation nl, no face palsy, no dysarthria Psychiatric: A+Ox3, euthymic affect Genitourinary: no CVA tenderness Lymphatic: no lymphedema Principal Diagnosis (1) Acute systolic heart failure: (2) Acute respiratory failure with hypoxia: (3) Anemia: (4) LBBB (left bundle branch block): (5) S/P AVR: (6) Hypertension: Discharge Exam General: A&Ox3 HENT: NCAT, MMM, EOMI Eyes: PERRLA Neck: Supple, normal range of motion CVS: normal rate and rhythm Resp: b/l good breath sounds Abdomen: Soft, ND/NT Extremities: absence of any edema Neuro: face symmetric, no focal deficit Skin: warm and dry, no rashes/lesions/errythema MSK: normal ROM, no joint swelling/erythema Discharge Data Allergies Allergy/AdvReac Type Severity Reaction Status Date / Time codeine AdvReac Intermediate Gastrointestinal Verified 06/08/21 14:12 Upset Consultations 06/08/21 14:40 ED Decision to Admit Stat 06/09/21 07:34 Consult Cardiology Routine Ordered Studies 06/08/21 20:43 US carotid doppler BI Routine Hospital Course (1) Acute respiratory failure with hypoxia: Resolved prior to discharge. (2) CHF (congestive heart failure): Echo - LV normal in size, moderate concentric LVH, EF 55 to 60%, RV systolic function is normal, LA is moderately dilated, RA size is normal, mild to moderate mitral regurg, moderate tricuspid regurg, prosthetic aortic valve is not well-visualized. Prosthetic valve gradients are elevated. Moderate pulmonary hypertension with an estimated pulmonary artery pressure of 45 mmHg. Her AVR was not well visualized with possibly elevated gradients. Consider rep eat echo as outpatient in 6 months. Patient was diuresed during his hospitalization. Patient was discharged on Lasix 20 mg daily. Cardiology was also consulted. Patient had ambulatory pulse ox and was stable on room air. On the day of discharge patient did not have any major complaints Carotid US - . 1. Moderate stenosis within the distal left common carotid artery and proximal left internal carotid artery of approximately 70%. 2. No significant stenosis within the right carotid arteries. Patient will need to follow-up with vascular surgery as an outpatient. - cont. ASA, and statin (3) Anemia: Normocytic Follow-up with hematology as an outpatient for further work-up. Daughter reports patient never had colonoscopy peripheral smear - #1. Mild anisocytosis and scattered ovalocytes are seen. #2. Blasts and schistocytes are not seen. #3. The etiology of this patient's anemia is left to further evaluation to include appropriate iron studies. #4. Please see above discussion. Iron studies just ordered and obtained as outpt. Hematology appointment scheduled for 06/23. HTN, HLD - cont. home medications DM type 2 -Current hemoglobin A1c 6.1% -fasting lipid panel - LDL 34, TC 104, TG 162 -Continue home meds for now Total Time Total Time Spent Total Time Spent (In Minutes): 35 Discharge Plan Discharge Items Patient Disposition: Home - Self-Care Reason For Visit: DYSPNEA, CHF Discharge Diagnosis: (1) Acute systolic heart failure: (2) Acute respiratory failure with hypoxia: (3) Anemia: (4) LBBB (left bundle branch block): (5) S/P AVR: (6) Hypertension: Activity: Resume your previous activity Non-emergency contact: Primary Care Provider Call non-emergency contact if: your symptoms worsen Follow-up/Referrals: Jen Redman MD [Primary Care Provider] - (Date & Time 06/17/2021 11:20 AM Provider Andrew Cohen MD Department [facility] ) Diet: Heart Healthy Addtl Attending Provider Instructions: Start taking Lasix 20 mg daily from tomorrow. Pending Studies at Discharge: No Stand-Alone Forms: My [facility] [place], Smoking Cessation Medications and DC Order Prescriptions: New valsartan [Diovan] 80 mg Tablet 160 mg PO QAM Qty: 30 RF: 0 metoprolol succinate 25 mg Tablet Extended Release 24 Hr 25 mg PO QAM Qty: 30 RF: 0 furosemide [Lasix] 20 mg tablet 20 mg PO DAILY Qty: 30 RF: 0 Continued metformin 500 mg Tablet 500 mg PO BID RF: 0 atorvastatin [Lipitor] 20 mg Tablet 20 mg PO HS RF: 0 alprazolam [Xanax] 1 mg Tablet 1 mg PO HS RF: 0 glipizide 5 mg Tablet Extended Release 24hr 5 mg PO HS RF: 0 amlodipine 5 mg Tablet 5 mg PO DAILY RF: 0 acetaminophen [Tylenol Extra Strength] 500 mg Tablet 1,000 mg PO DIRECTED PRN (Reason: Pain) RF: 0 calcium carbonate [Calcium 600] 600 mg calcium (1,500 mg) Tablet 600 mg PO DAILY RF: 0 albuterol sulfate [ProAir HFA] 90 mcg/actuation Hfa Aerosol Inhaler 2 puff INHALATION Q4H PRN (Reason: Shortness Of Breath) RF: 0 Januvia 100 mg Tablet 100 mg PO DAILY RF: 0 cholecalciferol (vitamin D3) [Vitamin D3] 50 mcg (2,000 unit) Capsule 50 mcg PO DAILY RF: 0 aspirin [Aspirin Low Dose] 81 mg Tablet,Delayed Release (Dr/Ec) 81 mg PO DAILY RF: 0 Discontinued metoprolol tartrate 25 mg Tablet 25 mg PO BID RF: 0 valsartan-hydrochlorothiazide 320-25 mg Tablet 1 tab PO DAILY RF: 0 Discharge Orders: Discharge Order (Routine); Ordered 06/11/21 Ordered By: Savannah Bernal/Other Patient Handouts: A1C, Managing Type 2 Diabetes Admission Data Admit Date/Time: 06/08/21 14:48 Attending Provider: Savannah Shane Admit Provider: Rom Antunez Primary Care Provider: Jen Redman Other Providers: Rom Antunez ; Jacinto Vigil
== END 2021-06-11 14:35 | disposition home or self-care (01) | DRG 291 ==
LOC: ED 11:19 → SUATTDRO 14:48 → EDINP 14:48 → 2S 06-09 15:43
DX: E11.22 Type 2 diabetes mellitus with diabetic chronic kidney disease; E78.5 Hyperlipidemia, unspecified; Z95.4 Presence of other heart-valve replacement; N18.30 Chronic kidney disease, stage 3 unspecified; Z79.82 Long term (current) use of aspirin; D64.9 Anemia, unspecified; Z51.81 Encounter for therapeutic drug level monitoring; Z88.5 Allergy status to narcotic agent; Z79.899 Other long term (current) drug therapy; I50.23 Acute on chronic systolic (congestive) heart failure; Z98.890 Other specified postprocedural states; Z87.891 Personal history of nicotine dependence; I65.22 Occlusion and stenosis of left carotid artery; I13.0 Hypertensive heart and chronic kidney disease with heart failure and stage 1 through stage 4 chronic kidney disease, or unspecified chronic kidney disease; I50.31 Acute diastolic (congestive) heart failure; F41.9 Anxiety disorder, unspecified; Z79.84 Long term (current) use of oral hypoglycemic drugs; I44.7 Left bundle-branch block, unspecified; J96.01 Acute respiratory failure with hypoxia

== ENCOUNTER 2021-11-17 21:03 | Inpatient (IN) ==
[2021-11-17] MEDS ORDERED: NITROGLYCERIN 2% OINTMENT 30GM TUBE EXT STA (21:22)
[2021-11-17] MEDS ORDERED: ASPIRIN CHEW 324 MG PO STA (21:22)
--- NOTE | 2021-11-17 21:25 | Emergency Department Note ---
Impression & Plan Acute respiratory failure with hypoxia, Acute exacerbation of CHF (congestive heart failure), Acute hyperkalemia ED Provider Note NAME: DEEJAY MARTIN AGE: 86 SEX: F : 1935 ARRIVES VIA: Walk-In INFORMANT: Patient, ED PROVIDER(S): Jose Guadalupe Gauthier MD Chief Complaint: Shortness of breath, chest pain HPI: Patient was seen yesterday due to concern for shortness of breath. I was informed by nursing that they were concerned as the patient was 57% on room air patient does have a known history of CHF. Patient was seen yesterday to where she had blood work done which showed a white count of 11 with a normal H&H and platelet count. Kidney function was unremarkable. The patient's troponin was not elevated with the patient's BNP was elevated. Patient did receive IV Lasix and the patient was offered inpatient treatment versus outpatient follow-up and chose to go home she was feeling improved. The patient does present today with left-sided chest pain that is nonradiating. Patient denies any fevers or chills. The patient does have some associated abdominal discomfort and back discomfort. Patient states that this is been ongoing since yesterday. The patient states that the left-sided chest pain began around 12:30-1 PM today. Patient has had some worsening lower extremity edema. Patient denies any prior history of any recent surgeries or procedures. The patient does have a prior bioprosthetic aortic valve repair that was completed 10 years prior. Patient did not take anything for her symptoms at home and otherwise was taking her regular scheduled medications. ROS: See HPI for pertinent positives and negatives. A total of 10 systems were reviewed and otherwise negative. Past medical history: See below Surgical history: See below Social history: See below Physical Exam: GENERAL: Moderate distress, nonrebreather in place. EYE EXAM: Normal conjunctiva. PERRL, no anisocoria and EOM's grossly intact w/o pain. OROPHARYNX: Moist mucus membranes. Edentulous normal dentition. NECK: Supple, no nuchal rigidity, no adenopathy, non-tender. No signs of meningismus. LUNGS: Mild tachypnea with decreased breath sounds throughout. HEART: NSR, no MRG. ABDOMEN: Abdomen soft, non-tender, normo-active bowel sounds, no masses, no rebound or guarding. BACK: No CVA TTP. SKIN: No rashes and no bruising. UPPER EXTREMITIES: Upper extremities are grossly normal. LOWER EXTREMITIES: Grossly normal, 1-2+ symmetric bilateral lower extremity edema with no obvious asymmetry or calf pain. NEURO EXAM: A&O x3, cranial nerves II-XII grossly intact, normal speech, moves all 4 extremities on command w/o issue. Differential diagnoses: Reactive airway disease, pneumonia, pneumothorax, COPD, CHF, infections, cardiac ischemia, pulmonary embolism, musculoskeletal, gastrointestinal, as well as other pathologies. Course: Patient was seen and evaluated the bedside. Full history physical exam was performed. EKG interpreted by me Sinus with A. fib versus sinus with sinus arrhythmia with a ventricular rate of 108 wide QRS left bundle branch block pattern. No obvious sgarbossa criteria. Repeat EKG interpreted by me Sinus, rate of 73, wide QRS, normal axis, left bundle branch block pattern. No obvious sgarbossa criteria. Imaging Studies: 1 view chest x-ray interpreted by me Likely volume overload, no obvious pneumothorax, trace bilateral pleural effusions. Cardiac monitoring: An order was placed for continuous cardiac monitoring. The monitor shows a rate of 88 with sinus rhythm. Procedures: Limited Point of Care Cardiac Ultrasound performed by me: Indication: Shortness of breath Findings: Limited echocardiography revealed possible trace pericardial fluid but no tamponade. Heart rate in the 90s. Additional findings: Patient did appear to have some associated LVH and heart failure, no obvious septal bowing into the left ventricle, mildly plethoric IVC, B-lines in the bilateral lung mendez Impression: Likely CHF MDM: Patient presented due to concern for worsening shortness of breath with associated chest pain. The patient was ordered blood work and I did place the patient on BiPAP soon after I seen the patient. I did perform a bedside ultrasound which showed that the patient did have CHF with a possible trace pericardial effusion without tamponade, the patient seemed to have some mild LVH with no obvious septal bowing into the left ventricle. Believe the patient's exam history ultrasound are consistent with likely CHF exacerbation. Believe PE to be less likely. Patient was ordered aspirin nitro and to be placed on the BiPAP. The patient also did have B-lines in the bilateral lung mendez on the ultrasound. Initial EKG showed questionable A. fib but did obtain a repeat which showed likely sinus. On reassessment of the patient the patient states that her chest pain virtually resolved. It is through the on-call electron beam welding machine operator Dr. Vigil did review the patient's EKG from yesterday as well as the one in normal sinus states he would not start heparin given the troponin 0.05 and the fact that the patient is currently chest pain-free. Patient's blood work showed a white count of 12 with a normal H&H and platelet count. The patient's kidney function does show mild change in creat 1.76 from comparison of yesterday with associated mild hyperkalemia. Patient's potassium was 5.2. The patient was ordered 40 of La six. I did speak with the on-call hospitalist Dr. Francis and the patient was admitted to the medicine service. Critical Care: I have personally spent 75 minutes of critical care time in direct management of this patient. This includes bedside care, interpretation of diagnostic studies, and testing, discussion with consultants, patient, and family members, and other require inpatient management activities. This 75 minutes is in excess of all separately billable procedures. Past Med/Surg History Medical History Anxiety H/O: HTN (hypertension) Type 2 diabetes mellitus Surgical History H/O aortic valve replacement H/O endarterectomy S/P TKR (total knee replacement) Social History Smoking Status: Former smoker Hx Alcohol Use: No Hx Substance Use: No Preferred Language: Bengali Communication Ability: Effective Finishing Technician Required: No Beliefs That Will Affect Care: Mormonism Mormonism Beliefs: Advent Current Living Situation: Alone Feels Safe at Home: Yes Assistive Devices: Cane Allergies Allergies Allergy/AdvReac Type Severity Reaction Status Date / Time codeine AdvReac Intermediate Gastrointestinal Verified 11/17/21 22:16 Upset Home Meds Home Medications Medication Instructions Recorded Confirmed acetaminophen 500 mg tablet 1,000 mg PO DIRECTED PRN 02/06/21 11/17/21 (Tylenol Extra Strength) albuterol sulfate 90 mcg/actuation 2 puff INHALATION Q4H PRN 02/06/21 11/17/21 aerosol inhaler (ProAir HFA) atorvastatin 20 mg tablet (Lipitor) 20 mg PO HS 02/06/21 11/17/21 calcium carbonate 600 mg calcium 600 mg PO DAILY 02/06/21 11/17/21 (1,500 mg) tablet (Calcium) cholecalciferol (vitamin D3) 50 50 mcg PO DAILY 02/06/21 11/17/21 mcg (2,000 unit) capsule (Vitamin D3) glipizide 5 mg tablet, extended 5 mg PO HS 02/06/21 11/17/21 release 24 hr metformin 500 mg tablet 500 mg PO BID 02/06/21 11/17/21 aspirin 81 mg tablet,delayed 81 mg PO DAILY 06/08/21 11/17/21 release (Aspirin Low Dose) alprazolam 0.5 mg tablet 0.5 - 1 mg PO HS 11/16/21 11/17/21 amlodipine 10 mg tablet 10 mg PO DAILY 11/16/21 11/17/21 meclizine 25 mg tablet 25 mg PO DAILY 11/16/21 11/17/21 Previous Rx's Medication Instructions Recorded furosemide 20 mg tablet (Lasix) 20 mg PO DAILY #30 tab 06/11/21 metoprolol succinate 25 mg 25 mg PO QAM #30 tab 06/11/21 tablet,extended release 24 hr hydrocodone 5 mg-acetaminophen 325 0.5 - 1 tab PO Q6H PRN #12 tab 07/11/21 mg tablet ondansetron HCl 4 mg tablet 4 mg PO Q6H PRN #14 tab 11/17/21 Results & Data (ED) Vital Signs Vital Signs - 24 hr 11/17/21 21:10 11/17/21 21:11 11/17/21 21:26 Temperature 37.5 C Temperature Source Oral Pulse Rate 92 H 84 Pulse Rate [Right Finger] Pulse Rate from SpO2 Sensor Respiratory Rate 26 H 34 H Respiratory Effort / Characteristics Non-Labored Spontaneous Spontaneous Short of Breath SOB on Exertion Respiratory Depth Normal Shallow Respiratory Pattern Regular Rapid/Shallow Tachypnea Blood Pressure 136/73 Blood Pressure [Right Arm] Blood Pressure Mean 94 Blood Pressure Mean [Right Arm] Blood Pressure Position [Right Arm] Pulse Oximetry 57 L 57 L 98 Oxygen Delivery Method Room Air Room Air Non-rebreather Oxygen Flow Rate 0 Fraction of Inspired Oxygen 50 Sepsis Recent Fever Within 48 Hours No Sepsis New/Unexplained Change in Mental Status No Sepsis Action Taken by Nursing No Action Required Oxygen Flow Rate - Titration 15 Pulse Oximetry Post Tiitration 94 11/17/21 21:34 11/17/21 22:39 11/17/21 23:00 Temperature Temperature Source Pulse Rate 75 72 Pulse Rate [Right Finger] 102 H Pulse Rate from SpO2 Sensor 71 Respiratory Rate 24 33 H 29 H Respiratory Effort / Characteristics Respiratory Depth Respiratory Pattern Blood Pressure Blood Pressure [Right Arm] 153/61 H Blood Pressure Mean Blood Pressure Mean [Right Arm] 91 Blood Pressure Position [Right Arm] Sitting Pulse Oximetry 96 97 95 Oxygen Delivery Method Room Air Non-rebreather BiPAP Oxygen Flow Rate 15 Fraction of Inspired Oxygen 40 40 Sepsis Recent Fever Within 48 Hours Sepsis New/Unexplained Change in Mental Status Sepsis Action Taken by Nursing Oxygen Flow Rate - Titration Pulse Oximetry Post Tiitration 11/17/21 23:30 11/18/21 00:00 11/18/21 00:30 Temperature Temperature Source Pulse Rate 73 70 69 Pulse Rate [Right Finger] Pulse Rate from SpO2 Sensor 69 Respiratory Rate 28 H 24 24 Respiratory Effort / Characteristics Respiratory Depth Respiratory Pattern Blood Pressure 134/65 141/63 H Blood Pressure [Right Arm] Blood Pressure Mean 88 89 Blood Pressure Mean [Right Arm] Blood Pressure Position [Right Arm] Pulse Oximetry 96 96 96 Oxygen Delivery Method BiPAP BiPAP BiPAP Oxygen Flow Rate Fraction of Inspired Oxygen 40 40 40 Sepsis Recent Fever Within 48 Hours Sepsis New/Unexplained Change in Mental Status Sepsis Action Taken by Nursing Oxygen Flow Rate - Titration Pulse Oximetry Post Tiitration 11/18/21 01:01 Temperature Temperature Source Pulse Rate 67 Pulse Rate [Right Finger] Pulse Rate from SpO2 Sensor 68 Respiratory Rate 17 Respiratory Effort / Characteristics Respiratory Depth Respiratory Pattern Blood Pressure 137/52 L Blood Pressure [Right Arm] Blood Pressure Mean 80 Blood Pressure Mean [Right Arm] Blood Pressure Position [Right Arm] Pulse Oximetry 95 Oxygen Delivery Method BiPAP Oxygen Flow Rate Fraction of Inspired Oxygen 40 Sepsis Recent Fever Within 48 Hours Sepsis New/Unexplained Change in Mental Status Sepsis Action Taken by Nursing Oxygen Flow Rate - Titration Pulse Oximetry Post Tiitration Home Medications Current Medication List: was personally reviewed by me Laboratory Data Attestation: I reviewed the patient's lab results. Result diagrams: 11/17/21 21:33 11/17/21 21:33 Lab Results 11/17/21 11/17/21 11/17/21 Range/Units 21:27 21:33 21:33 WBC 12.00 H (4.8-10.8) K/uL RBC 4.45 (4.2-5.4) M/uL Hgb 12.4 (12.0-16.0) g/dL POC Hgb (12.0-16.0) g/dl Hct 37.5 (37-47) % POC Hct (37-47) % MCV 84.3 (80-100) fL MCH 27.9 (25-34) pg MCHC 33.1 (32-36) g/dL RDW Std Deviation 45.3 (36.4-46.3) fL RDW Coeff of Roberto 14.5 (11.5-14.5) % Plt Count 348 (130-400) K/uL MPV 10.2 (7.4-10.4) fL Immature Gran % (Auto) 0.3 % Neut % (Auto) 66.8 % Lymph % (Auto) 16.3 % Amite % (Auto) 13.7 % Eos % (Auto) 2.6 % Baso % (Auto) 0.3 % Neut # (Auto) 8.03 H (1.4-6.5) K/uL Lymph # (Auto) 1.95 (1.2-3.4) K/uL Amite # (Auto) 1.64 H (0.11-0.59) K/uL Eos # (Auto) 0.31 (0-0.5) K/uL Baso # (Auto) 0.03 (0-0.2) K/uL Immature Gran # (Auto) 0.04 H (0.00-0.02) K/uL PT (9.0-12.0) Seconds INR (0.9-1.1) APTT (21.0-31.0) Seconds PTT Ratio ABG pH ABG pCO2 ABG pO2 ABG HCO3 ABG O2 Saturation ABG Base Excess Christiano Test Barometric Pressure Oxygen Given POC Sodium (135-144) mmol/L Sodium 140 (136-145) mmol/L POC Potassium (3.3-5.0) mmol/L Potassium 5.2 H D (3.5-5.1) mmol/L POC Chloride (101-112) mmol/L Chloride 99 (98-107) mmol/L Carbon Dioxide 30 (21-32) mmol/L POC Total CO2 (24-31) mmol/L Anion Gap 11 (3-11) POC Anion Gap (16-25) mmol/L POC BUN (7-18) mg/dl BUN 38 H (6-23) mg/dl Creatinine 1.76 H D (0.6-1.2) mg/dl POC Creatinine (0.6-1.3) mg/dl Est Cr Clr Drug Dosing 24.7 ml/min Est GFR ( Amer) 30.0 ml/min Est GFR (Non-Af Amer) 25.9 ml/min BUN/Creatinine Ratio 21.6 H (10-20) Glucose 204 H (70-99(Fasting)) mg/dl POC Glucose (other) (70-99) mg/dl Calcium 9.4 (8.5-10.1) mg/dl POC Ioniz Calcium Loyda (1.12-1.32) mmol/l Phosphorus 5.7 H (2.5-4.9) mg/dl Magnesium 1.8 (1.7-2.4) mg/dl Total Bilirubin 0.7 (0.2-1.0) mg/dl AST 16 (13-39) U/L ALT 11 (7-52) U/L Alkaline Phosphatase 57 (34-104) U/L Troponin I 0.05 H* (0-0.04) ng/ml B-Natriuretic Peptide (0-100) pg/ml Total Protein 7.1 (6.0-8.3) gm/dl Albumin 4.3 (3.4-5.0) gm/dl Globulin 2.8 (2.5-4.0) gm/dl Albumin/Globulin Ratio 1.5 (0.9-2) Lipase 28 (11-82) U/L Procalcitonin (0-0.5) ng/ml TSH (0.300-4.500) uIu/ml Urine Color Urine Appearance (Clear) Urine pH (4.5-7.5) Ur Specific Gaffney (1.000-1.030) Urine Protein (Negative) Urine Glucose (UA) (Negative) Urine Ketones (Negative) Urine Blood (Negative) Urine Nitrite (Negative) Urine Bilirubin (Negative) Urine Urobilinogen (Negative) Ur Leukocyte Esterase (Negative) Urine WBC (Auto) (0-5) /hpf Urine RBC (Auto) (0-4) /hpf U Hyaline Cast (Auto) (0-5) /lpf U Epithel Cells (Auto) (0-5) /lpf Urine Bacteria (Auto) (Negative) SARS-CoV-2, RNA, NAAT NEGATIVE (NEGATIVE) 11/17/21 11/17/21 11/17/21 Range/Units 21:33 21:33 21:34 WBC (4.8-10.8) K/uL RBC (4.2-5.4) M/uL Hgb (12.0-16.0) g/dL POC Hgb (12.0-16.0) g/dl Hct (37-47) % POC Hct (37-47) % MCV (80-100) fL MCH (25-34) pg MCHC (32-36) g/dL RDW Std Deviation (36.4-46.3) fL RDW Coeff of Roberto (11.5-14.5) % Plt Count (130-400) K/uL MPV (7.4-10.4) fL Immature Gran % (Auto) % Neut % (Auto) % Lymph % (Auto) % Amite % (Auto) % Eos % (Auto) % Baso % (Auto) % Neut # (Auto) (1.4-6.5) K/uL Lymph # (Auto) (1.2-3.4) K/uL Amite # (Auto) (0.11-0.59) K/uL Eos # (Auto) (0-0.5) K/uL Baso # (Auto) (0-0.2) K/uL Immature Gran # (Auto) (0.00-0.02) K/uL PT 10.6 (9.0-12.0) Seconds INR 1.0 (0.9-1.1) APTT 24.3 (21.0-31.0) Seconds PTT Ratio 0.9 ABG pH ABG pCO2 ABG pO2 ABG HCO3 ABG O2 Saturation ABG Base Excess Christiano Test Barometric Pressure Oxygen Given POC Sodium (135-144) mmol/L Sodium (136-145) mmol/L POC Potassium (3.3-5.0) mmol/L Potassium (3.5-5.1) mmol/L POC Chloride (101-112) mmol/L Chloride (98-107) mmol/L Carbon Dioxide (21-32) mmol/L POC Total CO2 (24-31) mmol/L Anion Gap (3-11) POC Anion Gap (16-25) mmol/L POC BUN (7-18) mg/dl BUN (6-23) mg/dl Creatinine (0.6-1.2) mg/dl POC Creatinine (0.6-1.3) mg/dl Est Cr Clr Drug Dosing ml/min Est GFR ( Amer) ml/min Est GFR (Non-Af Amer) ml/min BUN/Creatinine Ratio (10-20) Glucose (70-99(Fasting)) mg/dl POC Glucose (other) (70-99) mg/dl Calcium (8.5-10.1) mg/dl POC Ioniz Calcium Loyda (1.12-1.32) mmol/l Phosphorus (2.5-4.9) mg/dl Magnesium (1.7-2.4) mg/dl Total Bilirubin (0.2-1.0) mg/dl AST (13-39) U/L ALT (7-52) U/L Alkaline Phosphatase (34-104) U/L Troponin I (0-0.04) ng/ml B-Natriuretic Peptide 1265 H (0-100) pg/ml Total Protein (6.0-8.3) gm/dl Albumin (3.4-5.0) gm/dl Globulin (2.5-4.0) gm/dl Albumin/Globulin Ratio (0.9-2) Lipase (11-82) U/L Procalcitonin (0-0.5) ng/ml TSH 2.210 (0.300-4.500) uIu/ml Urine Color Urine Appearance (Clear) Urine pH (4.5-7.5) Ur Specific Gaffney (1.000-1.030) Urine Protein (Negative) Urine Glucose (UA) (Negative) Urine Ketones (Negative) Urine Blood (Negative) Urine Nitrite (Negative) Urine Bilirubin (Negative) Urine Urobilinogen (Negative) Ur Leukocyte Esterase (Negative) Urine WBC (Auto) (0-5) /hpf Urine RBC (Auto) (0-4) /hpf U Hyaline Cast (Auto) (0-5) /lpf U Epithel Cells (Auto) (0-5) /lpf Urine Bacteria (Auto) (Negative) SARS-CoV-2, RNA, NAAT (NEGATIVE) 11/17/21 11/17/21 11/17/21 Range/Units 21:34 21:37 23:28 WBC (4.8-10.8) K/uL RBC (4.2-5.4) M/uL Hgb (12.0-16.0) g/dL POC Hgb 12.2 (12.0-16.0) g/dl Hct (37-47) % POC Hct 36 L (37-47) % MCV (80-100) fL MCH (25-34) pg MCHC (32-36) g/dL RDW Std Deviation (36.4-46.3) fL RDW Coeff of Roberto (11.5-14.5) % Plt Count (130-400) K/uL MPV (7.4-10.4) fL Immature Gran % (Auto) % Neut % (Auto) % Lymph % (Auto) % Amite % (Auto) % Eos % (Auto) % Baso % (Auto) % Neut # (Auto) (1.4-6.5) K/uL Lymph # (Auto) (1.2-3.4) K/uL Amite # (Auto) (0.11-0.59) K/uL Eos # (Auto) (0-0.5) K/uL Baso # (Auto) (0-0.2) K/uL Immature Gran # (Auto) (0.00-0.02) K/uL PT (9.0-12.0) Seconds INR (0.9-1.1) APTT (21.0-31.0) Seconds PTT Ratio ABG pH ABG pCO2 ABG pO2 ABG HCO3 ABG O2 Saturation ABG Base Excess Christiano Test Barometric Pressure Oxygen Given POC Sodium 139 (135-144) mmol/L Sodium (136-145) mmol/L POC Potassium 5.2 H (3.3-5.0) mmol/L Potassium (3.5-5.1) mmol/L POC Chloride 99 L (101-112) mmol/L Chloride (98-107) mmol/L Carbon Dioxide (21-32) mmol/L POC Total CO2 31 (24-31) mmol/L Anion Gap (3-11) POC Anion Gap 16.0 (16-25) mmol/L POC BUN 39 H (7-18) mg/dl BUN (6-23) mg/dl Creatinine (0.6-1.2) mg/dl POC Creatinine 1.9 H (0.6-1.3) mg/dl Est Cr Clr Drug Dosing ml/min Est GFR ( Amer) ml/min Est GFR (Non-Af Amer) ml/min BUN/Creatinine Ratio (10-20) Glucose (70-99(Fasting)) mg/dl POC Glucose (other) 215 H (70-99) mg/dl Calcium (8.5-10.1) mg/dl POC Ioniz Calcium Loyda 1.14 (1.12-1.32) mmol/l Phosphorus (2.5-4.9) mg/dl Magnesium (1.7-2.4) mg/dl Total Bilirubin (0.2-1.0) mg/dl AST (13-39) U/L ALT (7-52) U/L Alkaline Phosphatase (34-104) U/L Troponin I (0-0.04) ng/ml B-Natriuretic Peptide (0-100) pg/ml Total Protein (6.0-8.3) gm/dl Albumin (3.4-5.0) gm/dl Globulin (2.5-4.0) gm/dl Albumin/Globulin Ratio (0.9-2) Lipase (11-82) U/L Procalcitonin 0.09 (0-0.5) ng/ml TSH (0.300-4.500) uIu/ml Urine Color Yellow Urine Appearance Clear (Clear) Urine pH 5.0 (4.5-7.5) Ur Specific Gaffney 1.034 H (1.000-1.030) Urine Protein Trace H (Negative) Urine Glucose (UA) Negative (Negative) Urine Ketones Trace H (Negative) Urine Blood Negative (Negative) Urine Nitrite Negative (Negative) Urine Bilirubin Negative (Negative) Urine Urobilinogen Negative (Negative) Ur Leukocyte Esterase Negative (Negative) Urine WBC (Auto) 1-5 (0-5) /hpf Urine RBC (Auto) 0-4 (0-4) /hpf U Hyaline Cast (Auto) 10-30 H (0-5) /lpf U Epithel Cells (Auto) 20-30 H (0-5) /lpf Urine Bacteria (Auto) Negative (Negative) SARS-CoV-2, RNA, NAAT (NEGATIVE) 11/17/21 11/17/21 11/18/21 Range/Units 23:48 23:48 00:26 WBC (4.8-10.8) K/uL RBC (4.2-5.4) M/uL Hgb (12.0-16.0) g/dL POC Hgb (12.0-16.0) g/dl Hct (37-47) % POC Hct (37-47) % MCV (80-100) fL MCH (25-34) pg MCHC (32-36) g/dL RDW Std Deviation (36.4-46.3) fL RDW Coeff of Roberto (11.5-14.5) % Plt Count (130-400) K/uL MPV (7.4-10.4) fL Immature Gran % (Auto) % Neut % (Auto) % Lymph % (Auto) % Amite % (Auto) % Eos % (Auto) % Baso % (Auto) % Neut # (Auto) (1.4-6.5) K/uL Lymph # (Auto) (1.2-3.4) K/uL Amite # (Auto) (0.11-0.59) K/uL Eos # (Auto) (0-0.5) K/uL Baso # (Auto) (0-0.2) K/uL Immature Gran # (Auto) (0.00-0.02) K/uL PT (9.0-12.0) Seconds INR (0.9-1.1) APTT (21.0-31.0) Seconds PTT Ratio ABG pH Cancelled 7.45 ABG pCO2 Cancelled 44 ABG pO2 Cancelled 80 ABG HCO3 Cancelled 30 H ABG O2 Saturation Cancelled 96.3 H ABG Base Excess Cancelled 5.0 H Christiano Test Cancelled Pos Barometric Pressure Cancelled 736.1 Oxygen Given Cancelled ROOM AIR POC Sodium (135-144) mmol/L Sodium (136-145) mmol/L POC Potassium (3.3-5.0) mmol/L Potassium (3.5-5.1) mmol/L POC Chloride (101-112) mmol/L Chloride (98-107) mmol/L Carbon Dioxide (21-32) mmol/L POC Total CO2 (24-31) mmol/L Anion Gap (3-11) POC Anion Gap (16-25) mmol/L POC BUN (7-18) mg/dl BUN (6-23) mg/dl Creatinine (0.6-1.2) mg/dl POC Creatinine (0.6-1.3) mg/dl Est Cr Clr Drug Dosing ml/min Est GFR ( Amer) ml/min Est GFR (Non-Af Amer) ml/min BUN/Creatinine Ratio (10-20) Glucose (70-99(Fasting)) mg/dl POC Glucose (other) (70-99) mg/dl Calcium (8.5-10.1) mg/dl POC Ioniz Calcium Loyda (1.12-1.32) mmol/l Phosphorus (2.5-4.9) mg/dl Magnesium (1.7-2.4) mg/dl Total Bilirubin (0.2-1.0) mg/dl AST (13-39) U/L ALT (7-52) U/L Alkaline Phosphatase (34-104) U/L Troponin I 0.09 H* (0-0.04) ng/ml B-Natriuretic Peptide (0-100) pg/ml Total Protein (6.0-8.3) gm/dl Albumin (3.4-5.0) gm/dl Globulin (2.5-4.0) gm/dl Albumin/Globulin Ratio (0.9-2) Lipase (11-82) U/L Procalcitonin (0-0.5) ng/ml TSH (0.300-4.500) uIu/ml Urine Color Urine Appearance (Clear) Urine pH (4.5-7.5) Ur Specific Gaffney (1.000-1.030) Urine Protein (Negative) Urine Glucose (UA) (Negative) Urine Ketones (Negative) Urine Blood (Negative) Urine Nitrite (Negative) Urine Bilirubin (Negative) Urine Urobilinogen (Negative) Ur Leukocyte Esterase (Negative) Urine WBC (Auto) (0-5) /hpf Urine RBC (Auto) (0-4) /hpf U Hyaline Cast (Auto) (0-5) /lpf U Epithel Cells (Auto) (0-5) /lpf Urine Bacteria (Auto) (Negative) SARS-CoV-2, RNA, NAAT (NEGATIVE) Administered Medications Discontinued Medications Albuterol (Albut/Ipratrop 3mg/0.5mg Neb 3 Ml Vial) 3 ml NEB NOW STA; Protocol Stop: 11/17/21 23:02 Last Admin: 11/17/21 23:17 Dose: 3 ml Documented by: [id number] Aspirin (Aspirin Chew 324 Mg) 324 mg PO NOW STA Stop: 11/17/21 21:23 Last Admin: 11/17/21 21:33 Dose: 324 mg Documented by: [id number] Furosemide (Furosemide 40 Mg/4 Ml Vial) 40 mg IV ONE ONE Stop: 11/17/21 23:08 Last Admin: 11/17/21 23:20 Dose: 40 mg Documented by: [id number] Magnesium Sulfate/Dextrose (Magnesium Sulfate / D5w) 1 gm in 100 mls @ 50 mls/hr IV ONE ONE Stop: 11/18/21 01:17 Last Infusion: 11/18/21 01:38 Dose: 0 mls/hr Documented by: [id number] Admin: 11/17/21 23:55 Dose: 50 mls/hr Documented by: [id number] Albumin Human (Albumin 25%) 12.5 gm in 50 mls @ 50 mls/hr IV ONE ONE Stop: 11/18/21 00:20 Last Infusion: 11/18/21 00:55 Dose: 0 mls/hr Documented by: [id number] Admin: 11/17/21 23:52 Dose: 50 mls/hr Documented by: [id number] Nitroglycerin (Nitroglycerin 2% Ointment 30gm Tube) 0.5 inch EXT NOW STA Stop: 11/17/21 21:23 Last Admin: 11/17/21 21:33 Dose: 0.5 inch Documented by: [id number] Ondansetron HCl (Ondansetron Inj 2 Mg/Ml 2 Ml Vial) Confirm Administered Dose 4 mg .ROUTE .STK-MED ONE Stop: 11/17/21 21:39 Last Admin: 11/17/21 21:43 Dose: Not Given Documented by: [id number] Ondansetron HCl (Ondansetron Inj 2 Mg/Ml 2 Ml Vial) 4 mg IV NOW STA Stop: 11/17/21 21:35 Last Admin: 11/17/21 21:42 Dose: 4 mg Documented by: [id number] Discharge Plan Visit Data Chief Complaint: Chest Pain Stated Complaint: SOB, CHEST PAIN, LOW BACK PAIN, NAUSEA Discharge Problem: Acute respiratory failure with hypoxia, Acute exacerbation of CHF (congestive heart failure), Acute hyperkalemia Discharge Instructions Interventions: ED Discharge Assessment Last Done: 11/18/21 01:46 Forms Stand Alone Forms: [facility] [employer] Prescriptions Prescriptions: No Action hydrocodone-acetaminophen 5-325 mg tablet 0.5 - 1 tab PO Q6H PRN (Reason: pain) Qty: 12 RF: 0 metformin 500 mg Tablet 500 mg PO BID RF: 0 atorvastatin [Lipitor] 20 mg Tablet 20 mg PO HS RF: 0 glipizide 5 mg Tablet Extended Release 24hr 5 mg PO HS RF: 0 acetaminophen [Tylenol Extra Strength] 500 mg Tablet 1,000 mg PO DIRECTED PRN (Reason: Pain) RF: 0 calcium carbonate [Calcium 600] 600 mg calcium (1,500 mg) Tablet 600 mg PO DAILY RF: 0 albuterol sulfate [ProAir HFA] 90 mcg/actuation Hfa Aerosol Inhaler 2 puff INHALATION Q4H PRN (Reason: Shortness Of Breath) RF: 0 cholecalciferol (vitamin D3) [Vitamin D3] 50 mcg (2,000 unit) Capsule 50 mcg PO DAILY RF: 0 aspirin [Aspirin Low Dose] 81 mg Tablet,Delayed Release (Dr/Ec) 81 mg PO DAILY RF: 0 metoprolol succinate 25 mg Tablet Extended Release 24 Hr 25 mg PO QAM Qty: 30 RF: 0 furosemide [Lasix] 20 mg tablet 20 mg PO DAILY Qty: 30 RF: 0 alprazolam 0.5 mg tablet 0.5 - 1 mg PO HS RF: 0 meclizine 25 mg Tablet 25 mg PO DAILY RF: 0 amlodipine 10 mg tablet 10 mg PO DAILY RF: 0 ondansetron HCl 4 mg tablet 4 mg PO Q6H PRN (Reason: nausea and vomiting) Qty: 14 RF: 0 Referrals Referrals: Jen Redman MD [Primary Care Provider] -
[2021-11-17] MEDS ORDERED: ONDANSETRON INJ 2 MG/ML 2 ML VIAL IV STA (21:34)
[2021-11-17] MEDS ORDERED: ONDANSETRON INJ 2 MG/ML 2 ML VIAL ONE (21:38)
[2021-11-17 21:42] LABS: Basophils # (auto) 0.03 K/uL (0-0.2); Basophils % (auto) 0.3 %; Eosinophils # (auto) 0.31 K/uL (0-0.5); Eosinophils % (auto) 2.6 %; Hematocrit (blood only) 37.5 % (37-47); Hemoglobin 12.4 g/dL (12.0-16.0); Immature Granulocytes # (auto) 0.04 K/uL (0.00-0.02); Immature Granulocytes % (auto) 0.3 %; Lymphocytes # (auto) 1.95 K/uL (1.2-3.4); Lymphocytes % (auto) 16.3 %; Mean Corpuscular Hemoglobin 27.9 pg (25-34); Mean Corpuscular Hgb Conc 33.1 g/dL (32-36); Mean Corpuscular Volume 84.3 fL (80-100); Mean Platelet Volume 10.2 fL (7.4-10.4); Monocytes # (auto) 1.64 K/uL (0.11-0.59); Monocytes % (auto) 13.7 %; Neutrophils # (auto) 8.03 K/uL (1.4-6.5); Neutrophils % (auto) 66.8 %; Platelet Count 348 K/uL (130-400); RDW Coefficient of Variation 14.5 % (11.5-14.5); RDW Standard Deviation 45.3 fL (36.4-46.3); Red Blood Count 4.45 M/uL (4.2-5.4)
[2021-11-17 21:49] LABS: iSTAT Creatinine 1.9 mg/dl (0.6-1.3); iSTAT Hemoglobin 12.2 g/dl (12.0-16.0); iSTAT Ionized Calcium 1.14 mmol/l (1.12-1.32); iSTAT Potassium 5.2 mmol/L (3.3-5.0)
[2021-11-17 21:55] LABS: Partial Thromboplastin Ratio 0.9; Partial Thromboplastin Time 24.3 Seconds (21.0-31.0); Prothrombin Time 10.6 Seconds (9.0-12.0)
[2021-11-17 22:08] LABS: Albumin Globulin Ratio 1.5 (0.9-2); Albumin Level 4.3 gm/dl (3.4-5.0); BUN Creatinine Ratio 21.6 (10-20); Bilirubin,Total 0.7 mg/dl (0.2-1.0); Calcium 9.4 mg/dl (8.5-10.1); Creatinine Clr Calc Pharmacy 24.7 ml/min; Est GFR (Non-African American) 25.9 ml/min; Globulin 2.8 gm/dl (2.5-4.0); Magnesium 1.8 mg/dl (1.7-2.4); Phosphorus 5.7 mg/dl (2.5-4.9); Potassium 5.2 mmol/L (3.5-5.1); Total Protein 7.1 gm/dl (6.0-8.3); Troponin I 0.05 ng/ml (0-0.04)
[2021-11-17] MEDS ORDERED: ALBUT/IPRATROP 3MG/0.5MG NEB 3 ML VIAL NEB STA (23:01)
[2021-11-17] MEDS ORDERED: FUROSEMIDE 40 MG/4 ML VIAL IV ONE (23:07)
[2021-11-17] MEDS ORDERED: MAGNESIUM SULFATE / D5W 1 GM/100 ML BAG IV ONE (23:18)
[2021-11-17] MEDS ORDERED: ALBUMIN 25% 12.5 GM/50 ML VIAL IV ONE (23:21)
[2021-11-18 00:39] LABS: HCO3 ABG 30 mmol/L (19-24); Oxygen Saturation ABG 96.3 % (90-95); PCO2 ABG 44 mmHg (35-46); PO2 ABG 80 mmHg (80-95); pH ABG 7.45 (7.35-7.45)
[2021-11-18 00:40] LABS: Allen Test Pos (Pos)
--- NOTE | 2021-11-18 01:06 | History & Physical Report ---
Date of Service November 18, 2021 Assessment & Plan (1) Acute hypoxemic respiratory failure: Plan: ? Viral bronchitis precipitating mild CHF, hx diastolic dysfunction Transient A. fib contributory, no previous diagnosis Left-sided chest pain rule out ACS Troponin elevation secondary to illness in the setting of kidney dysfunction chronic LBBB status post bioprosthetic AVR valvular heart disease (moderate MR, moderate TR, mild prostatic aortic valve regurgitation) PVD status post surgery pulmonary hypertension hypertension, BP slightly elevated hyperlipidemia on statin Rx DM2 on oral medications, well-controlled as of recent hemoglobin A1c of 6.25 May 2021 ARF on CRI, possible contrast nephropathy ovarian masses, patient follows with [facility] gynecologic oncology past tobacco abuse. PCU Supplemental O2, wean off BiPAP Supportive management for viral bronchitis Initiate IV heparin for thromboembolic prophylaxis for PAF Continue home beta-skylar Follow troponin TTE, Cardiology consult Re: Chest pain with troponin elevation, PAF N.p.o. until patient evaluated by cardiology in a.m. Baseline UA, monitor creatinine response to albumin Hold home diuretic until creatinine back to baseline/patient evaluated by Cardiology Renal ultrasound if without improvement Basal insulin, ISS BG goal 1 10-1 40, carb count coverage, update hemoglobin A1c DVT prophylaxis. IV heparin Full code Patient daughter requesting updates from providers. Ms. Maryanne Reynolds, contact #[phone]. Text document was generated using [employer] voice recognition software. It may contain grammatical or spelling errors. Kindly contact undersigned for clarification of any documentation item in question. History of Present Illness Chief Complaint: Worsening shortness of breath, hypoxemia Primary Care Provider: Jen Redman MD History obtained from patient, family, and records. Medical history significant for chronic diastolic heart failure (EF 50 to 54%, TTE 2020), chronic LBBB, status post bioprosthetic AVR, valvular heart disease (moderate MR, moderate TR, mild prostatic aortic valve regurgitation), PVD status post surgery, pulmonary hypertension, hypertension, hyperlipidemia, DM2 on oral medications, CRI (baseline creatinine 1.3 ), ovarian masses, anxiety disorder, past tobacco abuse. Last confinement May 2021 for respiratory failure secondary to CHF. Patient discharged on diuretic regimen. 4 days ago, patient had nausea, weakness, dry cough, shortness of breath symptoms. Achy lower abdominal discomfort. No fluid retention. No chest pain. Patient compliant with home medications. No known sick contacts. Patient completed COVID-19 vaccination. Patient seen at the ER 2 nights ago. Symptoms improved after Lasix and morphine administration at the ER. No congestion on chest x-ray. 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 Unchanged 4.3 cm cystic lesion of the left adnexum. Patient discharged from the ER. Last night, patient noted worsening shortness of breath with transient left- sided chest pain complaints. Nonpleuritic chest pain. Persistent dry cough symptoms. No fluid retention. Patient has actually lost weight as per daughter. O2 sats noted to be 57 on RA at home. Patient given Lasix at the ER for possible CHF. Transient A. fib noted upon arrival at the ER. Medical History as above Surgical History : AVR, hysterectomy, appendectomy, carotid endarterectomy, bilateral knee replacements Family History : Heart disease Personal/Social history : Past tobacco abuse, no EtOH intake, retired schoolteacher/businesswoman Allergies Allergy/AdvReac Type Severity Reaction Status Date / Time codeine AdvReac Intermediate Gastrointestinal Verified 11/17/21 22:16 Upset Home Medications Medication Instructions Recorded Confirmed Type acetaminophen 500 mg tablet 1,000 mg PO DIRECTED PRN 02/06/21 11/17/21 History (Tylenol Extra Strength) albuterol sulfate 90 mcg/actuation 2 puff INHALATION Q4H PRN 02/06/21 11/17/21 History aerosol inhaler (ProAir HFA) atorvastatin 20 mg tablet (Lipitor) 20 mg PO HS 02/06/21 11/17/21 History calcium carbonate 600 mg calcium 600 mg PO DAILY 02/06/21 11/17/21 History (1,500 mg) tablet (Calcium) cholecalciferol (vitamin D3) 50 50 mcg PO DAILY 02/06/21 11/17/21 History mcg (2,000 unit) capsule (Vitamin D3) glipizide 5 mg tablet, extended 5 mg PO HS 02/06/21 11/17/21 History release 24 hr metformin 500 mg tablet 500 mg PO BID 02/06/21 11/17/21 History aspirin 81 mg tablet,delayed 81 mg PO DAILY 06/08/21 11/17/21 History release (Aspirin Low Dose) furosemide 20 mg tablet (Lasix) 20 mg PO DAILY #30 tab 06/11/21 11/17/21 Rx metoprolol succinate 25 mg 25 mg PO QAM #30 tab 06/11/21 11/17/21 Rx tablet,extended release 24 hr hydrocodone 5 mg-acetaminophen 325 0.5 - 1 tab PO Q6H PRN #12 tab 07/11/21 11/17/21 Rx mg tablet alprazolam 0.5 mg tablet 0.5 - 1 mg PO HS 11/16/21 11/17/21 History amlodipine 10 mg tablet 10 mg PO DAILY 11/16/21 11/17/21 History meclizine 25 mg tablet 25 mg PO DAILY 11/16/21 11/17/21 History ondansetron HCl 4 mg tablet 4 mg PO Q6H PRN #14 tab 11/17/21 11/17/21 Rx Past Med/Surg History Medical History Anxiety H/O: HTN (hypertension) Type 2 diabetes mellitus Surgical History H/O aortic valve replacement H/O endarterectomy S/P TKR (total knee replacement) Social History Smoking Status: Never smoker Second Hand Exposure: No; Do You Dip or Chew Tobacco: No; Hx Alcohol Use: No Hx Substance Use: No Preferred Language: Chinese Communication Ability: Effective Produce Specialist Required: No Beliefs That Will Affect Care: None Current Living Situation: Alone Current Living Situation Comment: at home Other Information That Helps Us Care for You: No Feels Safe at Home: Yes Assistive Devices: Cane and Walker Review of Systems Review of Systems: As per HPI, all 10 systems reviewed, all other ROS negative Physical Exam Physical Exam: GENERAL: Slightly uncomfortable, obese, no respiratory distress SKIN: Normal color, warm HEENT: [place] palpebral conjunctivae, no ptosis, dry buccal mucosa, BiPAP in place NECK : Supple, no tenderness CHEST : Decreased breath sounds, no tenderness HEART : RRR, systolic murmur over sternal border ABDOMEN: Some distention, nontender EXTREMITIES : Minimal LE swelling, no LE tenderness, no other conspicuous deformities noted NEUROLOGIC : Coherent, no facial asymmetry, no other gross focality Results & Data Results & Data ([facility]) Vital Signs (Past 12 Hours) Vital Signs Temp Pulse Pulse Resp BP BP Pulse Ox 11/18/21 00:30 69 24 96 11/18/21 00:00 70 24 141/63 H 96 11/17/21 23:30 73 28 H 134/65 96 11/17/21 23:00 72 29 H 95 11/17/21 22:39 75 33 H 97 11/17/21 21:34 102 H 24 153/61 H 96 11/17/21 21:26 84 34 H 98 11/17/21 21:11 57 L 11/17/21 21:10 37.5 C 92 H 26 H 136/73 57 L Laboratory Results Laboratory Results WBC 12.00 K/uL (4.8-10.8) H 11/17/21 21:33 RBC 4.45 M/uL (4.2-5.4) 11/17/21 21:33 Hgb 12.4 g/dL (12.0-16.0) 11/17/21 21:33 POC Hgb 12.2 g/dl (12.0-16.0) 11/17/21 21:37 Hct 37.5 % (37-47) 11/17/21 21:33 POC Hct 36 % (37-47) L 11/17/21 21:37 MCV 84.3 fL (80-100) 11/17/21 21:33 MCH 27.9 pg (25-34) 11/17/21 21:33 MCHC 33.1 g/dL (32-36) 11/17/21 21:33 RDW Std Deviation 45.3 fL (36.4-46.3) 11/17/21 21:33 RDW Coeff of Roberto 14.5 % (11.5-14.5) 11/17/21 21:33 Plt Count 348 K/uL (130-400) 11/17/21 21:33 MPV 10.2 fL (7.4-10.4) 11/17/21 21:33 Immature Gran % (Auto) 0.3 % 11/17/21 21:33 Neut % (Auto) 66.8 % 11/17/21 21:33 Lymph % (Auto) 16.3 % 11/17/21 21:33 Mcminn % (Auto) 13.7 % 11/17/21 21:33 Eos % (Auto) 2.6 % 11/17/21 21: Baso % (Auto) 0.3 % 11/17/21 21: Neut # (Auto) 8.03 K/uL (1.4-6.5) H 11/17/21 21: Lymph # (Auto) 1.95 K/uL (1.2-3.4) 11/17/21 21: Mcminn # (Auto) 1.64 K/uL (0.11-0.59) H 11/17/21 21: Eos # (Auto) 0.31 K/uL (0-0.5) 11/17/21 21: Baso # (Auto) 0.03 K/uL (0-0.2) 11/17/21: Immature Gran # (Auto) 0.04 K/uL (0.00-0.02) H 11/17/21: PT 10.6 Seconds (9.0-12.0) 11/17/21: INR 1.0 (0.9-1.1) 11/17/21: APTT 24.3 Seconds (21.0-31.0) 11/17/21: PTT Ratio 0.9 11/17/21: ABG pH 7.45 (7.35-7.45) 11/18/21 00:26 ABG pCO2 44 mmHg (35-46) 11/18/21 00:26 ABG pO2 80 mmHg (80-95) 11/18/21 00:26 ABG HCO3 30 mmol/L (19-24) H 11/18/21 00:26 ABG O2 Saturation 96.3 % (90-95) H 11/18/21 00:26 ABG Base Excess 5.0 mEq/L (-9-1.8) H 11/18/21 00:26 Christiano Test Pos (Pos) 11/18/21 00:26 Barometric Pressure 736.1 mm/Hg 11/18/21 00:26 Oxygen Given ROOM AIR 11/18/21 00:26 POC Sodium 139 mmol/L (135-144) 11/17/21 21: Sodium 140 mmol/L (136-145) 11/17/21 21:33 POC Potassium 5.2 mmol/L (3.3-5.0) H 11/17/21 21:37 Potassium 5.2 mmol/L (3.5-5.1) H D 11/17/21 21:33 POC Chloride 99 mmol/L (101-112) L 11/17/21 21:37 Chloride 99 mmol/L (98-107) 11/17/21 21:33 Carbon Dioxide 30 mmol/L (21-32) 11/17/21 21:33 POC Total CO2 31 mmol/L (24-31) 11/17/21 21:37 Anion Gap 11 (3-11) 11/17/21 21:33 POC Anion Gap 16.0 mmol/L (16-25) 11/17/21 21:37 POC BUN 39 mg/dl (7-18) H 11/17/21 21:37 BUN 38 mg/dl (6-23) H 11/17/21 21:33 Creatinine 1.76 mg/dl (0.6-1.2) H D 11/17/21 21:33 POC Creatinine 1.9 mg/dl (0.6-1.3) H 11/17/21 21:37 Est Cr Clr Drug Dosing 24.7 ml/min 11/17/21 21:33 Est GFR ( Amer) 30.0 ml/min 11/17/21 21:33 Est GFR (Non-Af Amer) 25.9 ml/min 11/17/21 21:33 BUN/Creatinine Ratio 21.6 (10-20) H 11/17/21 21:33 Glucose 204 mg/dl (70-99(Fasting)) H 11/17/21 21:33 POC Glucose (other) 215 mg/dl (70-99) H 11/17/21 21:37 Calcium 9.4 mg/dl (8.5-10.1) 11/17/21 21:33 POC Ioniz Calcium [place] 1.14 mmol/l (1.12-1.32) 11/17/21 21:37 Phosphorus 5.7 mg/dl (2.5-4.9) H 11/17/21 21:33 Magnesium 1.8 mg/dl (1.7-2.4) 11/17/21 21:33 Total Bilirubin 0.7 mg/dl (0.2-1.0) 11/17/21 21:33 AST 16 U/L (13-39) 11/17/21 21:33 ALT 11 U/L (7-52) 11/17/21 21:33 Alkaline Phosphatase 57 U/L (34-104) 11/17/21 21:33 Troponin I 0.09 ng/ml (0-0.04) H* 11/17/21 23:48 B-Natriuretic Peptide 1265 pg/ml (0-100) H 11/17/21 21:33 Total Protein 7.1 gm/dl (6.0-8.3) 11/17/21 21:33 Albumin 4.3 gm/dl (3.4-5.0) 11/17/21 21:33 Globulin 2.8 gm/dl (2.5-4.0) 11/17/21 21:33 Albumin/Globulin Ratio 1.5 (0.9-2) 11/17/21 21:33 Lipase 28 U/L (11-82) 11/17/21 21:33 SARS-CoV-2, RNA, NAAT NEGATIVE (NEGATIVE) 11/17/21 21:27 Diagnostic Findings Chest x-ray as per my interpretation cardiomegaly, congestion atelectasis EKG as per my interpretation : Rate 110, A. fib, normal axis, chronic LBBB
[2021-11-18] MEDS ORDERED: Heparin IV Adult Wt-Based Standard *NO* Bolus Protocol IV SCH (01:07)
[2021-11-18 01:33] LABS: Appearance Urine Clear (Clear); Bacteria Urine Automated Negative (Negative); Bilirubin Urine Negative (Negative); Blood Urine Negative (Negative); Color Urine Yellow; Epithelial Cell Urine Auto 20-30 /lpf (0-5); Glucose Urine UA Negative (Negative); Ketones Urine Trace (Negative); Leukocyte Esterase Urine Negative (Negative); Nitrite Urine Negative (Negative); Protein Urine Trace (Negative); RBC Urine Automated 0-4 /hpf (0-4); Specific Gravity Urine 1.034 (1.000-1.030); Urobilinogen Urine Negative (Negative)
[2021-11-18] MEDS: HEPARIN SODIUM/DEXTROSE 25,000 UNITS/500 ML BAG IV SCH ×2 (01:52→22:40)
[2021-11-18] MEDS ORDERED: GLUCOSE 40% GEL 15 GM TUBE PO PRN (02:18)
[2021-11-18] MEDS ORDERED: LEVALBUTEROL 1.25MG/0.5ML NEB INH PRN (02:18)
[2021-11-18] MEDS ORDERED: CARBOHYDRATES FOR HYPOGLYCEMIA PO PRN (02:18)
[2021-11-18] MEDS ORDERED: GLUCOSE 10 TABS/TUBE PO PRN (02:18)
[2021-11-18] MEDS ORDERED: DEXTROSE 50% 50 ML SYRINGE IV PRN (02:18)
[2021-11-18] MEDS ORDERED: XOPENEX/ATROVENT 1.25mg/0.5MG NEB COMBO NEB PRN (02:18)
[2021-11-18] MEDS ORDERED: ALPRAZolam 0.25 MG TABLET PO PRN (02:18)
[2021-11-18] MEDS ORDERED: GLUCAGON FOR INJ 1 MG VIAL SQ PRN (02:18)
[2021-11-18] MEDS ORDERED: IPRATROPIUM BROMIDE NEB SOLN 0.02% 2.5 ML VIAL INH PRN (02:18)
[2021-11-18] MEDS: INSULIN ASPART PER UNIT SC SCH ×5 (02:58→21:25)
[2021-11-18 06:22] LABS: Basophils # (auto) 0.04 K/uL (0-0.2); Basophils % (auto) 0.5 %; Eosinophils # (auto) 0.13 K/uL (0-0.5); Eosinophils % (auto) 1.5 %; Hematocrit (blood only) 32.5 % (37-47); Hemoglobin 10.3 g/dL (12.0-16.0); Immature Granulocytes # (auto) 0.02 K/uL (0.00-0.02); Immature Granulocytes % (auto) 0.2 %; Lymphocytes # (auto) 1.72 K/uL (1.2-3.4); Lymphocytes % (auto) 19.9 %; Mean Corpuscular Hemoglobin 27.1 pg (25-34); Mean Corpuscular Hgb Conc 31.7 g/dL (32-36); Mean Corpuscular Volume 85.5 fL (80-100); Mean Platelet Volume 10.4 fL (7.4-10.4); Monocytes # (auto) 1.38 K/uL (0.11-0.59); Neutrophils # (auto) 5.34 K/uL (1.4-6.5); Neutrophils % (auto) 61.9 %; Platelet Count 267 K/uL (130-400); RDW Coefficient of Variation 14.2 % (11.5-14.5); RDW Standard Deviation 44.4 fL (36.4-46.3); White Blood Count 8.63 K/uL (4.8-10.8)
--- NOTE | 2021-11-18 06:35 | XRay Report ---
XR chest 1V portable HISTORY: 86 years-old Female Chest Pain . Acute atypical chest pain COMPARISON: Chest radiograph 11/16/2021 TECHNIQUE: Portable AP view the chest FINDINGS: The cardiac silhouette is enlarged. Prior median sternotomy with cardiac valvular prosthesis. Pulmona ry vascular congestion with progressively worsened interstitial coarsening. Trace pleural effusions w ith mild left greater than right bibasilar densities. Surgical clips project over the right neck. The bones are grossly intact. Right shoulder rotator cuff calcific tendinosis. IMPRESSION: 1. Cardiomegaly with interval development of pulmonary edema. 2. Trace pleural effusions with mild bibasilar densities suggestive of atelectasis. ACT 112: Negative or not required by law. The above report was generated using voice recognition software. It may contain grammatical, syntax o r spelling errors. Electronically signed by: Maximiliano Padilla M.D. 11/18/2021 6:34 AM
[2021-11-18 06:45] LABS: Partial Thromboplastin Ratio 1.8
[2021-11-18 06:48] LABS: Calcium 9.5 mg/dl (8.5-10.1); Creatinine Clr Calc Pharmacy 27.2 ml/min; Est GFR (African American) 33.7 ml/min; Est GFR (Non-African American) 29.1 ml/min; Potassium 4.3 mmol/L (3.5-5.1)
[2021-11-18 06:52] LABS: Chol HDL Ratio 2.6 (0-5)
[2021-11-18 07:01] LABS: Partial Thromboplastin Time 48.7 Seconds (21.0-31.0)
[2021-11-18 07:22] LABS: Estimated Average Glucose 131 mg/dl; Hemoglobin A1C 6.2 % (4.5-5.6)
[2021-11-18] MEDS: METOPROLOL SUCC 25MG EXT REL TAB PO SCH (08:43)
[2021-11-18] MEDS: ASPIRIN 81 MG ECTAB PO SCH (08:43)
[2021-11-18] MEDS: amLODIPine BESYLATE 5 MG TAB PO SCH (08:43)
[2021-11-18] MEDS: guaiFENesin 600 MG TABCR PO SCH ×2 (08:43→21:15)
[2021-11-18] MEDS ORDERED: ASPIRIN 81 MG ECTAB PO SCH (09:00)
[2021-11-18] MEDS: ACETAMINOPHEN 325 MG TAB PO PRN (11:39)
[2021-11-18] MEDS ORDERED: FUROSEMIDE 40 MG/4 ML VIAL IV ONE ×2 (12:06→12:11)
--- NOTE | 2021-11-18 12:22 | Electrocardiogram Report ---
Test Reason : Blood Pressure : / mmHG Vent. Rate : 108 BPM Atrial Rate : 056 BPM P-R Int : 000 ms QRS Dur : 148 ms QT Int : 372 ms P-R-T Axes : 000 045 124 degrees QTc Int : 498 ms Atrial fibrillation with rapid ventricular response Left bundle branch block Abnormal ECG When compared with ECG of 16-NOV-2021 20:21, Atrial fibrillation has replaced Sinus rhythm T wave inversion now evident in Inferior leads Confirmed by Gerardo Powell ([id number]) on 11/18/2021 12:22:16 PM Referred By: REFERRED SELF Confirmed By:Gerardo Powell
--- NOTE | 2021-11-18 12:24 | Electrocardiogram Report ---
Test Reason : Blood Pressure : / mmHG Vent. Rate : 073 BPM Atrial Rate : 073 BPM P-R Int : 182 ms QRS Dur : 152 ms QT Int : 434 ms P-R-T Axes : 025 042 143 degrees QTc Int : 478 ms Normal sinus rhythm Left bundle branch block Abnormal ECG When compared with ECG of 17-NOV-2021 21:12, (unconfirmed) Sinus rhythm has replaced Atrial fibrillation Confirmed by Gerardo Powell ([id number]) on 11/18/2021 12:23:50 PM Referred By: REFERRED SELF Confirmed By:Gerardo Powell
--- NOTE | 2021-11-18 16:51 | Cardiology Consultation ---
Date of Consultation November 18, 2021 Assessment & Plan (1) Acute hypoxemic respiratory failure: (2) Acute exacerbation of CHF (congestive heart failure): (3) Aortic valve vegetation: (4) LBBB (left bundle branch block): (5) Paroxysmal atrial fibrillation: Patient admitted for worsening SOB, pulm edema consistent with CHF exacerbation due to valvular heart disease. History of AVR approx 10 years ago, now Aortic valve velocities higher with possible vegetation. Blood cultures ordered x2. Await results. Consider YONG as respiratory status improves. Continue IV furosemide. Supplemental O2. She has received multiple doses of furosemide since admission and mild rise in creatinine noted. Repeat labs in AM Chest xray in AM Monitor I+O's. Mild troponin elevation due to CHF and hypoxia on admission. Not indicative of acute ACS. She had possible afib on one EKG on admission, now resolved. Continue ASA, metoprolol. Will not anticoagulate at this time due to possible vegetation. She has large ovarian mass, previously followed by therapist physical/onc in [place]. Daughter reports mass was 4 cm at that time, now 8 cm. This may be contributing to her persistent nausea. Case discussed with Dr. Thompson. Will follow. Supervising Physician Co-Signing Physician Notes Patient seen and examined at the bedside. Complains of nausea and shortness of breath prompting ER evaluation. Mildly improved with IV diuresis and antiemetic therapy. Denies chest discomfort or heaviness. + Orthopnea. No lower extremity edema or weight gain. Telemetry reveals sinus rhythm, PACs, left bundle branch block. Daughter present at bedside. PE: VSS. Gen: NAD, AAOx3. Heart: Regular with ectopy, 3/6 medium pitched mid-to-late peaking systolic ejection murmur heard best at the right second intercostal space, however, throughout the precordium. 2/6 midsystolic murmur heard best left sternal border. Lungs: + Rales bilaterally at the base and midlung mendez. No rhonchi or wheeze. Extremities: No edema. Neuro: Moves all extremities. No focal deficit. A/P: Agree with above PA-C history, physical exam, assessment and plan. 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 Recommend Lasix 40 mg IV every 12 hours. Follow daily weight, fluid balance, GFR, and electrolytes. Consider nephrology consultation if creatinine continues to rise. The results of echocardiogram were discussed with the patient and daughter at length. There is a small mobile echodensity adherent to the bioprosthetic aortic valve leaflets. Patient without signs/symptoms of endocarditis. Blood cultures drawn with results pending. She is afebrile at this time. Consider transesophageal echocardiogram for further evaluation pending clinical course. The natural history and pathophysiology of severe bioprosthetic aortic valve stenosis discussed. All questions answered to the satisfaction of both the patient and her daughter. We will continue to follow during hospitalization. Thank you for allow me to participate in the care of your patient. History of Present Illness Reason for Consultation: CHF; Possible atrial fibrillation Requesting Physician: Dr. Mcconnell Attending Physician: Dr. Thompson. History of Present Illness Patient is a 86 year old female, known to [facility] (Dr. Karimi, Aileen Lombardo, [place]) who was admitted for nausea, abdominal pain, and SOB. History includes: 1. History of aortic stenosis, status post AVR with 21 mm tissue valve in [place], [place] on 05/17/2012, with elevated gradients noted on echo 06/2021. 2. Chronic heart failure with reduced systolic function, for chart review last LVEF 45%, resolved, LVEF 55-60% echo 05/2021 3. Hypertension 4. History of left bundle branch block, diagnosed 09/2016 per chart review 5. Dyslipidemia 6. Carotid artery stenosis, status post right carotid endarterectomy, 2013- 70% stenosis of left carotid artery, no significant stenosis of right carotid artery, carotid duplex 05/2021 7. Type 2 diabetes 8. COPD 9. Vertigo 10. Moderate pulmonary hypertension 11. Ovarian mass Patient reports ongoing issues with persistent nausea. Had recent ER evaluation earlier this week for nausea and found to have 8 cm ovarian mass. She was followed by [facility]/ONC in [place] previously and daughter reports this was 4 cm at the time This ER visit she came for persistent nause and worsening SOB, chest tightness. On arrival found to be slightly tachycardic. Possible afib vs sinus tach. She was hyoxic. She was placed on oxygen and treated with IV furosemide. HR's improved. Currently NSR. Chest xray consistent with pulm edema. Chronic LBBB unchanged. Minimally elevated troponin, likely consistent wiht strain from CHF and hypoxia. She denies recent fever or chills. Since admission, she has had good diuresis. She remains on oxymask. Daughter at bedside. She has no conversational dyspnea. Feels her SOB has improved from admission. No edema noted. NO current chest pain. NO fevers or chills. no palpitations. Since admission she has received 3 doses of IV lasix. Most recent at 13:00 She had echocardiogram since admission demonstrated elevated aortic valve velocities higher compared to echo in Jun 2021 at [facility]. Also has echo denisity around aortic valve, possible vegetation. Allergies Allergy/AdvReac Type Severity Reaction Status Date / Time codeine AdvReac Intermediate Gastrointestinal Verified 11/17/21 22:16 Upset Home Medications Medication Instructions Recorded Confirmed Type acetaminophen 500 mg tablet 1,000 mg PO DIRECTED PRN 02/06/21 11/17/21 History (Tylenol Extra Strength) albuterol sulfate 90 mcg/actuation 2 puff INHALATION Q4H PRN 02/06/21 11/17/21 History aerosol inhaler (ProAir HFA) atorvastatin 20 mg tablet (Lipitor) 20 mg PO HS 02/06/21 11/17/21 History calcium carbonate 600 mg calcium 600 mg PO DAILY 02/06/21 11/17/21 History (1,500 mg) tablet (Calcium) cholecalciferol (vitamin D3) 50 50 mcg PO DAILY 02/06/21 11/17/21 History mcg (2,000 unit) capsule (Vitamin D3) glipizide 5 mg tablet, extended 5 mg PO HS 02/06/21 11/17/21 History release 24 hr metformin 500 mg tablet 500 mg PO BID 02/06/21 11/17/21 History aspirin 81 mg tablet,delayed 81 mg PO DAILY 06/08/21 11/17/21 History release (Aspirin Low Dose) furosemide 20 mg tablet (Lasix) 20 mg PO DAILY #30 tab 06/11/21 11/17/21 Rx metoprolol succinate 25 mg 25 mg PO QAM #30 tab 06/11/21 11/17/21 Rx tablet,extended release 24 hr hydrocodone 5 mg-acetaminophen 325 0.5 - 1 tab PO Q6H PRN #12 tab 07/11/21 11/17/21 Rx mg tablet alprazolam 0.5 mg tablet 0.5 - 1 mg PO HS 11/16/21 11/17/21 History amlodipine 10 mg tablet 10 mg PO DAILY 11/16/21 11/17/21 History meclizine 25 mg tablet 25 mg PO DAILY 11/16/21 11/17/21 History ondansetron HCl 4 mg tablet 4 mg PO Q6H PRN #14 tab 11/17/21 11/17/21 Rx Patient History Medical History (Updated 11/19/21 @ 10:54 by Michelle Ash DO) Anxiety H/O: HTN (hypertension) Type 2 diabetes mellitus Surgical History (Updated 11/19/21 @ 10:29 by Michelle Ash DO) H/O aortic valve replacement H/O endarterectomy S/P TKR (total knee replacement) Social History Smoking Status: Never smoker Second Hand Exposure: No; Do You Dip or Chew Tobacco: No; Hx Alcohol Use: No Hx Substance Use: No Preferred Language: Swedish Communication Ability: Effective Kennel Aide Required: No Beliefs That Will Affect Care: None Current Living Situation: Alone Current Living Situation Comment: at home Other Information That Helps Us Care for You: No Feels Safe at Home: Yes Assistive Devices: Cane and Walker Physical Exam Constitutional: WD/WN, vitals as above well developed; no acute distress Respiratory: + cough and able to speak in complete sentences; no respiratory distress Auscultation: + crackles (bilaterally ) Cardiovascular: Rate/Rhythm: regular rate and regular rhythm Heart Sounds: + murmur (III/ systolic murmur LSB) Vessels: no JVD Extremities: no edema Neurologic: PERRL, EOMI, accommodation nl, no face palsy, no dysarthria Psychiatric: A+Ox3, euthymic affect Results & Data ([facility]) Vital Signs (Past 12 Hours) Vital Signs Temp Pulse Resp BP Pulse Ox Pulse Ox 11/18/21 16:00 95 11/18/21 15:44 36.7 C 64 19 135/66 92 11/18/21 12:10 76 24 92 11/18/21 11:51 36.7 C 76 19 118/62 91 11/18/21 08:00 94 Laboratory Results 11/18/21 11/18/21 11/18/21 Range/Units 16:30 11:11 07:48 WBC (4.8-10.8) K/uL RBC (4.2-5.4) M/uL Hgb (12.0-16.0) g/dL POC Hgb (12.0-16.0) g/dl Hct (37-47) % POC Hct (37-47) % MCV (80-100) fL MCH (25-34) pg MCHC (32-36) g/dL RDW Std Deviation (36.4-46.3) fL RDW Coeff of Roberto (11.5-14.5) % Plt Count (130-400) K/uL MPV (7.4-10.4) fL Immature Gran % (Auto) % Neut % (Auto) % Lymph % (Auto) % Finney % (Auto) % Eos % (Auto) % Baso % (Auto) % Neut # (Auto) (1.4-6.5) K/uL Lymph # (Auto) (1.2-3.4) K/uL Finney # (Auto) (0.11-0.59) K/uL Eos # (Auto) (0-0.5) K/uL Baso # (Auto) (0-0.2) K/uL Immature Gran # (Auto) (0.00-0.02) K/uL PT (9.0-12.0) Seconds INR (0.9-1.1) APTT (21.0-31.0) Seconds PTT Ratio ABG pH ABG pCO2 ABG pO2 ABG HCO3 ABG O2 Saturation ABG Base Excess Christiano Test Barometric Pressure Oxygen Given POC Sodium (135-144) mmol/L Sodium (136-145) mmol/L POC Potassium (3.3-5.0) mmol/L Potassium (3.5-5.1) mmol/L POC Chloride (101-112) mmol/L Chloride (98-107) mmol/L Carbon Dioxide (21-32) mmol/L POC Total CO2 (24-31) mmol/L Anion Gap (3-11) POC Anion Gap (16-25) mmol/L POC BUN (7-18) mg/dl BUN (6-23) mg/dl Creatinine (0.6-1.2) mg/dl POC Creatinine (0.6-1.3) mg/dl Est Cr Clr Drug Dosing ml/min Est GFR ( Amer) ml/min Est GFR (Non-Af Amer) ml/min BUN/Creatinine Ratio (10-20) Glucose (70-99(Fasting)) mg/dl POC Glucose 180 H 174 H 166 H (70-99) mg/dl POC Glucose (other) (70-99) mg/dl Estimat Average Glucose mg/dl Hemoglobin A1c (4.5-5.6) % Calcium (8.5-10.1) mg/dl POC Ioniz Calcium Loyda (1.12-1.32) mmol/l Phosphorus (2.5-4.9) mg/dl Magnesium (1.7-2.4) mg/dl Total Bilirubin (0.2-1.0) mg/dl AST (13-39) U/L ALT (7-52) U/L Alkaline Phosphatase (34-104) U/L Total Creatine Kinase (26-192) U/L Troponin I (0-0.04) ng/ml B-Natriuretic Peptide (0-100) pg/ml Total Protein (6.0-8.3) gm/dl Albumin (3.4-5.0) gm/dl Globulin (2.5-4.0) gm/dl Albumin/Globulin Ratio (0.9-2) Triglycerides (0-150) mg/dl Cholesterol (0-200) mg/dl LDL Cholesterol, Calc mg/dl VLDL Cholesterol, Calc (0-30) mg/dl HDL Cholesterol mg/dl Cholesterol/HDL Ratio (0-5) Lipase (11-82) U/L Procalcitonin (0-0.5) ng/ml TSH (0.300-4.500) uIu/ml Urine Color Urine Appearance (Clear) Urine pH (4.5-7.5) Ur Specific [place] (1.000-1.030) Urine Protein (Negative) Urine Glucose (UA) (Negative) Urine Ketones (Negative) Urine Blood (Negative) Urine Nitrite (Negative) Urine Bilirubin (Negative) Urine Urobilinogen (Negative) Ur Leukocyte Esterase (Negative) Urine WBC (Auto) (0-5) /hpf Urine RBC (Auto) (0-4) /hpf U Hyaline Cast (Auto) (0-5) /lpf U Epithel Cells (Auto) (0-5) /lpf Urine Bacteria (Auto) (Negative) SARS-CoV-2, RNA, NAAT (NEGATIVE) 11/18/21 11/18/21 11/18/21 Range/Units 06:02 06:02 06:02 WBC (4.8-10.8) K/uL RBC (4.2-5.4) M/uL Hgb (12.0-16.0) g/dL POC Hgb (12.0-16.0) g/dl Hct (37-47) % POC Hct (37-47) % MCV (80-100) fL MCH (25-34) pg MCHC (32-36) g/dL RDW Std Deviation (36.4-46.3) fL RDW Coeff of Roberto (11.5-14.5) % Plt Count (130-400) K/uL MPV (7.4-10.4) fL Immature Gran % (Auto) % Neut % (Auto) % Lymph % (Auto) % Finney % (Auto) % Eos % (Auto) % Baso % (Auto) % Neut # (Auto) (1.4-6.5) K/uL Lymph # (Auto) (1.2-3.4) K/uL Finney # (Auto) (0.11-0.59) K/uL Eos # (Auto) (0-0.5) K/uL Baso # (Auto) (0-0.2) K/uL Immature Gran # (Auto) (0.00-0.02) K/uL PT (9.0-12.0) Seconds INR (0.9-1.1) APTT 48.7 H* (21.0-31.0) Seconds PTT Ratio 1.8 ABG pH ABG pCO2 ABG pO2 ABG HCO3 ABG O2 Saturation ABG Base Excess Christiano Test Barometric Pressure Oxygen Given POC Sodium (135-144) mmol/L Sodium 140 (136-145) mmol/L POC Potassium (3.3-5.0) mmol/L Potassium 4.3 (3.5-5.1) mmol/L POC Chloride (101-112) mmol/L Chloride 100 (98-107) mmol/L Carbon Dioxide 33 H (21-32) mmol/L POC Total CO2 (24-31) mmol/L Anion Gap 7 (3-11) POC Anion Gap (16-25) mmol/L POC BUN (7-18) mg/dl BUN 40 H (6-23) mg/dl Creatinine 1.60 H (0.6-1.2) mg/dl POC Creatinine (0.6-1.3) mg/dl Est Cr Clr Drug Dosing 27.2 ml/min Est GFR ( Amer) 33.7 ml/min Est GFR (Non-Af Amer) 29.1 ml/min BUN/Creatinine Ratio 25.0 H (10-20) Glucose 140 H (70-99(Fasting)) mg/dl POC Glucose (70-99) mg/dl POC Glucose (other) (70-99) mg/dl Estimat Average Glucose mg/dl Hemoglobin A1c (4.5-5.6) % Calcium 9.5 (8.5-10.1) mg/dl POC Ioniz Calcium Loyda (1.12-1.32) mmol/l Phosphorus (2.5-4.9) mg/dl Magnesium (1.7-2.4) mg/dl Total Bilirubin (0.2-1.0) mg/dl AST (13-39) U/L ALT (7-52) U/L Alkaline Phosphatase (34-104) U/L Total Creatine Kinase (26-192) U/L Troponin I 0.11 H* (0-0.04) ng/ml B-Natriuretic Peptide (0-100) pg/ml Total Protein (6.0-8.3) gm/dl Albumin (3.4-5.0) gm/dl Globulin (2.5-4.0) gm/dl Albumin/Globulin Ratio (0.9-2) Triglycerides (0-150) mg/dl Cholesterol (0-200) mg/dl LDL Cholesterol, Calc mg/dl VLDL Cholesterol, Calc (0-30) mg/dl HDL Cholesterol mg/dl Cholesterol/HDL Ratio (0-5) Lipase (11-82) U/L Procalcitonin (0-0.5) ng/ml TSH (0.300-4.500) uIu/ml Urine Color Urine Appearance (Clear) Urine pH (4.5-7.5) Ur Specific [place] (1.000-1.030) Urine Protein (Negative) Urine Glucose (UA) (Negative) Urine Ketones (Negative) Urine Blood (Negative) Urine Nitrite (Negative) Urine Bilirubin (Negative) Urine Urobilinogen (Negative) Ur Leukocyte Esterase (Negative) Urine WBC (Auto) (0-5) /hpf Urine RBC (Auto) (0-4) /hpf U Hyaline Cast (Auto) (0-5) /lpf U Epithel Cells (Auto) (0-5) /lpf Urine Bacteria (Auto) (Negative) SARS-CoV-2, RNA, NAAT (NEGATIVE) 11/18/21 11/18/21 11/18/21 Range/Units 06:02 06:02 02:52 WBC 8.63 (4.8-10.8) K/uL RBC 3.80 L (4.2-5.4) M/uL Hgb 10.3 L (12.0-16.0) g/dL POC Hgb (12.0-16.0) g/dl Hct 32.5 L (37-47) % POC Hct (37-47) % MCV 85.5 (80-100) fL MCH 27.1 (25-34) pg MCHC 31.7 L (32-36) g/dL RDW Std Deviation 44.4 (36.4-46.3) fL RDW Coeff of Roberto 14.2 (11.5-14.5) % Plt Count 267 (130-400) K/uL MPV 10.4 (7.4-10.4) fL Immature Gran % (Auto) 0.2 % Neut % (Auto) 61.9 % Lymph % (Auto) 19.9 % Finney % (Auto) 16.0 % Eos % (Auto) 1.5 % Baso % (Auto) 0.5 % Neut # (Auto) 5.34 (1.4-6.5) K/uL Lymph # (Auto) 1.72 (1.2-3.4) K/uL Finney # (Auto) 1.38 H (0.11-0.59) K/uL Eos # (Auto) 0.13 (0-0.5) K/uL Baso # (Auto) 0.04 (0-0.2) K/uL Immature Gran # (Auto) 0.02 (0.00-0.02) K/uL PT (9.0-12.0) Seconds INR (0.9-1.1) APTT (21.0-31.0) Seconds PTT Ratio ABG pH ABG pCO2 ABG pO2 ABG HCO3 ABG O2 Saturation ABG Base Excess Christiano Test Barometric Pressure Oxygen Given POC Sodium (135-144) mmol/L Sodium (136-145) mmol/L POC Potassium (3.3-5.0) mmol/L Potassium (3.5-5.1) mmol/L POC Chloride (101-112) mmol/L Chloride (98-107) mmol/L Carbon Dioxide (21-32) mmol/L POC Total CO2 (24-31) mmol/L Anion Gap (3-11) POC Anion Gap (16-25) mmol/L POC BUN (7-18) mg/dl BUN (6-23) mg/dl Creatinine (0.6-1.2) mg/dl POC Creatinine (0.6-1.3) mg/dl Est Cr Clr Drug Dosing ml/min Est GFR ( Amer) ml/min Est GFR (Non-Af Amer) ml/min BUN/Creatinine Ratio (10-20) Glucose (70-99(Fasting)) mg/dl POC Glucose 165 H (70-99) mg/dl POC Glucose (other) (70-99) mg/dl Estimat Average Glucose mg/dl Hemoglobin A1c (4.5-5.6) % Calcium (8.5-10.1) mg/dl POC Ioniz Calcium Loyda (1.12-1.32) mmol/l Phosphorus (2.5-4.9) mg/dl Magnesium (1.7-2.4) mg/dl Total Bilirubin (0.2-1.0) mg/dl AST (13-39) U/L ALT (7-52) U/L Alkaline Phosphatase (34-104) U/L Total Creatine Kinase (26-192) U/L Troponin I (0-0.04) ng/ml B-Natriuretic Peptide (0-100) pg/ml Total Protein (6.0-8.3) gm/dl Albumin (3.4-5.0) gm/dl Globulin (2.5-4.0) gm/dl Albumin/Globulin Ratio (0.9-2) Triglycerides 116 (0-150) mg/dl Cholesterol 98 (0-200) mg/dl LDL Cholesterol, Calc 38 mg/dl VLDL Cholesterol, Calc 23 (0-30) mg/dl HDL Cholesterol 37 mg/dl Cholesterol/HDL Ratio 2.6 (0-5) Lipase (11-82) U/L Procalcitonin (0-0.5) ng/ml TSH (0.300-4.500) uIu/ml Urine Color Urine Appearance (Clear) Urine pH (4.5-7.5) Ur Specific [place] (1.000-1.030) Urine Protein (Negative) Urine Glucose (UA) (Negative) Urine Ketones (Negative) Urine Blood (Negative) Urine Nitrite (Negative) Urine Bilirubin (Negative) Urine Urobilinogen (Negative) Ur Leukocyte Esterase (Negative) Urine WBC (Auto) (0-5) /hpf Urine RBC (Auto) (0-4) /hpf U Hyaline Cast (Auto) (0-5) /lpf U Epithel Cells (Auto) (0-5) /lpf Urine Bacteria (Auto) (Negative) SARS-CoV-2, RNA, NAAT (NEGATIVE) 11/18/21 11/17/21 11/17/21 Range/Units 00:26 23:48 23:48 WBC (4.8-10.8) K/uL RBC (4.2-5.4) M/uL Hgb (12.0-16.0) g/dL POC Hgb (12.0-16.0) g/dl Hct (37-47) % POC Hct (37-47) % MCV (80-100) fL MCH (25-34) pg MCHC (32-36) g/dL RDW Std Deviation (36.4-46.3) fL RDW Coeff of Roberto (11.5-14.5) % Plt Count (130-400) K/uL MPV (7.4-10.4) fL Immature Gran % (Auto) % Neut % (Auto) % Lymph % (Auto) % Finney % (Auto) % Eos % (Auto) % Baso % (Auto) % Neut # (Auto) (1.4-6.5) K/uL Lymph # (Auto) (1.2-3.4) K/uL Finney # (Auto) (0.11-0.59) K/uL Eos # (Auto) (0-0.5) K/uL Baso # (Auto) (0-0.2) K/uL Immature Gran # (Auto) (0.00-0.02) K/uL PT (9.0-12.0) Seconds INR (0.9-1.1) APTT (21.0-31.0) Seconds PTT Ratio ABG pH 7.45 Cancelled ABG pCO2 44 Cancelled ABG pO2 80 Cancelled ABG HCO3 30 H Cancelled ABG O2 Saturation 96.3 H Cancelled ABG Base Excess 5.0 H Cancelled Christiano Test Pos Cancelled Barometric Pressure 736.1 Cancelled Oxygen Given ROOM AIR Cancelled POC Sodium (135-144) mmol/L Sodium (136-145) mmol/L POC Potassium (3.3-5.0) mmol/L Potassium (3.5-5.1) mmol/L POC Chloride (101-112) mmol/L Chloride (98-107) mmol/L Carbon Dioxide (21-32) mmol/L POC Total CO2 (24-31) mmol/L Anion Gap (3-11) POC Anion Gap (16-25) mmol/L POC BUN (7-18) mg/dl BUN (6-23) mg/dl Creatinine (0.6-1.2) mg/dl POC Creatinine (0.6-1.3) mg/dl Est Cr Clr Drug Dosing ml/min Est GFR ( Amer) ml/min Est GFR (Non-Af Amer) ml/min BUN/Creatinine Ratio (10-20) Glucose (70-99(Fasting)) mg/dl POC Glucose (70-99) mg/dl POC Glucose (other) (70-99) mg/dl Estimat Average Glucose mg/dl Hemoglobin A1c (4.5-5.6) % Calcium (8.5-10.1) mg/dl POC Ioniz Calcium Loyda (1.12-1.32) mmol/l Phosphorus (2.5-4.9) mg/dl Magnesium (1.7-2.4) mg/dl Total Bilirubin (0.2-1.0) mg/dl AST (13-39) U/L ALT (7-52) U/L Alkaline Phosphatase (34-104) U/L Total Creatine Kinase 61 (26-192) U/L Troponin I (0-0.04) ng/ml B-Natriuretic Peptide (0-100) pg/ml Total Protein (6.0-8.3) gm/dl Albumin (3.4-5.0) gm/dl Globulin (2.5-4.0) gm/dl Albumin/Globulin Ratio (0.9-2) Triglycerides (0-150) mg/dl Cholesterol (0-200) mg/dl LDL Cholesterol, Calc mg/dl VLDL Cholesterol, Calc (0-30) mg/dl HDL Cholesterol mg/dl Cholesterol/HDL Ratio (0-5) Lipase (11-82) U/L Procalcitonin (0-0.5) ng/ml TSH (0.300-4.500) uIu/ml Urine Color Urine Appearance (Clear) Urine pH (4.5-7.5) Ur Specific [place] (1.000-1.030) Urine Protein (Negative) Urine Glucose (UA) (Negative) Urine Ketones (Negative) Urine Blood (Negative) Urine Nitrite (Negative) Urine Bilirubin (Negative) Urine Urobilinogen (Negative) Ur Leukocyte Esterase (Negative) Urine WBC (Auto) (0-5) /hpf Urine RBC (Auto) (0-4) /hpf U Hyaline Cast (Auto) (0-5) /lpf U Epithel Cells (Auto) (0-5) /lpf Urine Bacteria (Auto) (Negative) SARS-CoV-2, RNA, NAAT (NEGATIVE) 11/17/21 11/17/21 11/17/21 Range/Units 23:48 23:28 21:37 WBC (4.8-10.8) K/uL RBC (4.2-5.4) M/uL Hgb (12.0-16.0) g/dL POC Hgb 12.2 (12.0-16.0) g/dl Hct (37-47) % POC Hct 36 L (37-47) % MCV (80-100) fL MCH (25-34) pg MCHC (32-36) g/dL RDW Std Deviation (36.4-46.3) fL RDW Coeff of Roberto (11.5-14.5) % Plt Count (130-400) K/uL MPV (7.4-10.4) fL Immature Gran % (Auto) % Neut % (Auto) % Lymph % (Auto) % Finney % (Auto) % Eos % (Auto) % Baso % (Auto) % Neut # (Auto) (1.4-6.5) K/uL Lymph # (Auto) (1.2-3.4) K/uL Finney # (Auto) (0.11-0.59) K/uL Eos # (Auto) (0-0.5) K/uL Baso # (Auto) (0-0.2) K/uL Immature Gran # (Auto) (0.00-0.02) K/uL PT (9.0-12.0) Seconds INR (0.9-1.1) APTT (21.0-31.0) Seconds PTT Ratio ABG pH ABG pCO2 ABG pO2 ABG HCO3 ABG O2 Saturation ABG Base Excess Christiano Test Barometric Pressure Oxygen Given POC Sodium 139 (135-144) mmol/L Sodium (136-145) mmol/L POC Potassium 5.2 H (3.3-5.0) mmol/L Potassium (3.5-5.1) mmol/L POC Chloride 99 L (101-112) mmol/L Chloride (98-107) mmol/L Carbon Dioxide (21-32) mmol/L POC Total CO2 31 (24-31) mmol/L Anion Gap (3-11) POC Anion Gap 16.0 (16-25) mmol/L POC BUN 39 H (7-18) mg/dl BUN (6-23) mg/dl Creatinine (0.6-1.2) mg/dl POC Creatinine 1.9 H (0.6-1.3) mg/dl Est Cr Clr Drug Dosing ml/min Est GFR ( Amer) ml/min Est GFR (Non-Af Amer) ml/min BUN/Creatinine Ratio (10-20) Glucose (70-99(Fasting)) mg/dl POC Glucose (70-99) mg/dl POC Glucose (other) 215 H (70-99) mg/dl Estimat Average Glucose mg/dl Hemoglobin A1c (4.5-5.6) % Calcium (8.5-10.1) mg/dl POC Ioniz Calcium Loyda 1.14 (1.12-1.32) mmol/l Phosphorus (2.5-4.9) mg/dl Magnesium (1.7-2.4) mg/dl Total Bilirubin (0.2-1.0) mg/dl AST (13-39) U/L ALT (7-52) U/L Alkaline Phosphatase (34-104) U/L Total Creatine Kinase (26-192) U/L Troponin I 0.09 H* (0-0.04) ng/ml B-Natriuretic Peptide (0-100) pg/ml Total Protein (6.0-8.3) gm/dl Albumin (3.4-5.0) gm/dl Globulin (2.5-4.0) gm/dl Albumin/Globulin Ratio (0.9-2) Triglycerides (0-150) mg/dl Cholesterol (0-200) mg/dl LDL Cholesterol, Calc mg/dl VLDL Cholesterol, Calc (0-30) mg/dl HDL Cholesterol mg/dl Cholesterol/HDL Ratio (0-5) Lipase (11-82) U/L Procalcitonin (0-0.5) ng/ml TSH (0.300-4.500) uIu/ml Urine Color Yellow Urine Appearance Clear (Clear) Urine pH 5.0 (4.5-7.5) Ur Specific [place] 1.034 H (1.000-1.030) Urine Protein Trace H (Negative) Urine Glucose (UA) Negative (Negative) Urine Ketones Trace H (Negative) Urine Blood Negative (Negative) Urine Nitrite Negative (Negative) Urine Bilirubin Negative (Negative) Urine Urobilinogen Negative (Negative) Ur Leukocyte Esterase Negative (Negative) Urine WBC (Auto) 1-5 (0-5) /hpf Urine RBC (Auto) 0-4 (0-4) /hpf U Hyaline Cast (Auto) 10-30 H (0-5) /lpf U Epithel Cells (Auto) 20-30 H (0-5) /lpf Urine Bacteria (Auto) Negative (Negative) SARS-CoV-2, RNA, NAAT (NEGATIVE) 11/17/21 11/17/21 11/17/21 Range/Units 21:34 21:34 21:33 WBC (4.8-10.8) K/uL RBC (4.2-5.4) M/uL Hgb (12.0-16.0) g/dL POC Hgb (12.0-16.0) g/dl Hct (37-47) % POC Hct (37-47) % MCV (80-100) fL MCH (25-34) pg MCHC (32-36) g/dL RDW Std Deviation (36.4-46.3) fL RDW Coeff of Roberto (11.5-14.5) % Plt Count (130-400) K/uL MPV (7.4-10.4) fL Immature Gran % (Auto) % Neut % (Auto) % Lymph % (Auto) % Finney % (Auto) % Eos % (Auto) % Baso % (Auto) % Neut # (Auto) (1.4-6.5) K/uL Lymph # (Auto) (1.2-3.4) K/uL Finney # (Auto) (0.11-0.59) K/uL Eos # (Auto) (0-0.5) K/uL Baso # (Auto) (0-0.2) K/uL Immature Gran # (Auto) (0.00-0.02) K/uL PT 10.6 (9.0-12.0) Seconds INR 1.0 (0.9-1.1) APTT 24.3 (21.0-31.0) Seconds PTT Ratio 0.9 ABG pH ABG pCO2 ABG pO2 ABG HCO3 ABG O2 Saturation ABG Base Excess Christiano Test Barometric Pressure Oxygen Given POC Sodium (135-144) mmol/L Sodium (136-145) mmol/L POC Potassium (3.3-5.0) mmol/L Potassium (3.5-5.1) mmol/L POC Chloride (101-112) mmol/L Chloride (98-107) mmol/L Carbon Dioxide (21-32) mmol/L POC Total CO2 (24-31) mmol/L Anion Gap (3-11) POC Anion Gap (16-25) mmol/L POC BUN (7-18) mg/dl BUN (6-23) mg/dl Creatinine (0.6-1.2) mg/dl POC Creatinine (0.6-1.3) mg/dl Est Cr Clr Drug Dosing ml/min Est GFR ( Amer) ml/min Est GFR (Non-Af Amer) ml/min BUN/Creatinine Ratio (10-20) Glucose (70-99(Fasting)) mg/dl POC Glucose (70-99) mg/dl POC Glucose (other) (70-99) mg/dl Estimat Average Glucose mg/dl Hemoglobin A1c (4.5-5.6) % Calcium (8.5-10.1) mg/dl POC Ioniz Calcium [place] (1.12-1.32) mmol/l Phosphorus (2.5-4.9) mg/dl Magnesium (1.7-2.4) mg/dl Total Bilirubin (0.2-1.0) mg/dl AST (13-39) U/L ALT (7-52) U/L Alkaline Phosphatase (34-104) U/L Total Creatine Kinase (26-192) U/L Troponin I (0-0.04) ng/ml B-Natriuretic Peptide (0-100) pg/ml Total Protein (6.0-8.3) gm/dl Albumin (3.4-5.0) gm/dl Globulin (2.5-4.0) gm/dl Albumin/Globulin Ratio (0.9-2) Triglycerides (0-150) mg/dl Cholesterol (0-200) mg/dl LDL Cholesterol, Calc mg/dl VLDL Cholesterol, Calc (0-30) mg/dl HDL Cholesterol mg/dl Cholesterol/HDL Ratio (0-5) Lipase (11-82) U/L Procalcitonin 0.09 (0-0.5) ng/ml TSH 2.210 (0.300-4.500) uIu/ml Urine Color Urine Appearance (Clear) Urine pH (4.5-7.5) Ur Specific [place] (1.000-1.030) Urine Protein (Negative) Urine Glucose (UA) (Negative) Urine Ketones (Negative) Urine Blood (Negative) Urine Nitrite (Negative) Urine Bilirubin (Negative) Urine Urobilinogen (Negative) Ur Leukocyte Esterase (Negative) Urine WBC (Auto) (0-5) /hpf Urine RBC (Auto) (0-4) /hpf U Hyaline Cast (Auto) (0-5) /lpf U Epithel Cells (Auto) (0-5) /lpf Urine Bacteria (Auto) (Negative) SARS-CoV-2, RNA, NAAT (NEGATIVE) 03/11/17/21 11/17/21 Range/Units 21:33 21:33 21:33 WBC (4.8-10.8) K/uL RBC (4.2-5.4) M/uL Hgb (12.0-16.0) g/dL POC Hgb (12.0-16.0) g/dl Hct (37-47) % POC Hct (37-47) % MCV (80-100) fL MCH (25-34) pg MCHC (32-36) g/dL RDW Std Deviation (36.4-46.3) fL RDW Coeff of Roberto (11.5-14.5) % Plt Count (130-400) K/uL MPV (7.4-10.4) fL Immature Gran % (Auto) % Neut % (Auto) % Lymph % (Auto) % Finney % (Auto) % Eos % (Auto) % Baso % (Auto) % Neut # (Auto) (1.4-6.5) K/uL Lymph # (Auto) (1.2-3.4) K/uL Finney # (Auto) (0.11-0.59) K/uL Eos # (Auto) (0-0.5) K/uL Baso # (Auto) (0-0.2) K/uL Immature Gran # (Auto) (0.00-0.02) K/uL PT (9.0-12.0) Seconds INR (0.9-1.1) APTT (21.0-31.0) Seconds PTT Ratio ABG pH ABG pCO2 ABG pO2 ABG HCO3 ABG O2 Saturation ABG Base Excess Christiano Test Barometric Pressure Oxygen Given POC Sodium (135-144) mmol/L Sodium 140 (136-145) mmol/L POC Potassium (3.3-5.0) mmol/L Potassium 5.2 H D (3.5-5.1) mmol/L POC Chloride (101-112) mmol/L Chloride 99 (98-107) mmol/L Carbon Dioxide 30 (21-32) mmol/L POC Total CO2 (24-31) mmol/L Anion Gap 11 (3-11) POC Anion Gap (16-25) mmol/L POC BUN (7-18) mg/dl BUN 38 H (6-23) mg/dl Creatinine 1.76 H D (0.6-1.2) mg/dl POC Creatinine (0.6-1.3) mg/dl Est Cr Clr Drug Dosing 24.7 ml/min Est GFR ( Amer) 30.0 ml/min Est GFR (Non-Af Amer) 25.9 ml/min BUN/Creatinine Ratio 21.6 H (10-20) Glucose 204 H (70-99(Fasting)) mg/dl POC Glucose (70-99) mg/dl POC Glucose (other) (70-99) mg/dl Estimat Average Glucose 131 mg/dl Hemoglobin A1c 6.2 H (4.5-5.6) % Calcium 9.4 (8.5-10.1) mg/dl POC Ioniz Calcium Loyda (1.12-1.32) mmol/l Phosphorus 5.7 H (2.5-4.9) mg/dl Magnesium 1.8 (1.7-2.4) mg/dl Total Bilirubin 0.7 (0.2-1.0) mg/dl AST 16 (13-39) U/L ALT 11 (7-52) U/L Alkaline Phosphatase 57 (34-104) U/L Total Creatine Kinase (26-192) U/L Troponin I 0.05 H* (0-0.04) ng/ml B-Natriuretic Peptide 1265 H (0-100) pg/ml Total Protein 7.1 (6.0-8.3) gm/dl Albumin 4.3 (3.4-5.0) gm/dl Globulin 2.8 (2.5-4.0) gm/dl Albumin/Globulin Ratio 1.5 (0.9-2) Triglycerides (0-150) mg/dl Cholesterol (0-200) mg/dl LDL Cholesterol, Calc mg/dl VLDL Cholesterol, Calc (0-30) mg/dl HDL Cholesterol mg/dl Cholesterol/HDL Ratio (0-5) Lipase 28 (11-82) U/L Procalcitonin (0-0.5) ng/ml TSH (0.300-4.500) uIu/ml Urine Color Urine Appearance (Clear) Urine pH (4.5-7.5) Ur Specific [place] (1.000-1.030) Urine Protein (Negative) Urine Glucose (UA) (Negative) Urine Ketones (Negative) Urine Blood (Negative) Urine Nitrite (Negative) Urine Bilirubin (Negative) Urine Urobilinogen (Negative) Ur Leukocyte Esterase (Negative) Urine WBC (Auto) (0-5) /hpf Urine RBC (Auto) (0-4) /hpf U Hyaline Cast (Auto) (0-5) /lpf U Epithel Cells (Auto) (0-5) /lpf Urine Bacteria (Auto) (Negative) SARS-CoV-2, RNA, NAAT (NEGATIVE) 11/17/21 11/17/21 Range/Units 21:33 21:27 WBC 12.00 H (4.8-10.8) K/uL RBC 4.45 (4.2-5.4) M/uL Hgb 12.4 (12.0-16.0) g/dL POC Hgb (12.0-16.0) g/dl Hct 37.5 (37-47) % POC Hct (37-47) % MCV 84.3 (80-100) fL MCH 27.9 (25-34) pg MCHC 33.1 (32-36) g/dL RDW Std Deviation 45.3 (36.4-46.3) fL RDW Coeff of Roberto 14.5 (11.5-14.5) % Plt Count 348 (130-400) K/uL MPV 10.2 (7.4-10.4) fL Immature Gran % (Auto) 0.3 % Neut % (Auto) 66.8 % Lymph % (Auto) 16.3 % Finney % (Auto) 13.7 % Eos % (Auto) 2.6 % Baso % (Auto) 0.3 % Neut # (Auto) 8.03 H (1.4-6.5) K/uL Lymph # (Auto) 1.95 (1.2-3.4) K/uL Finney # (Auto) 1.64 H (0.11-0.59) K/uL Eos # (Auto) 0.31 (0-0.5) K/uL Baso # (Auto) 0.03 (0-0.2) K/uL Immature Gran # (Auto) 0.04 H (0.00-0.02) K/uL PT (9.0-12.0) Seconds INR (0.9-1.1) APTT (21.0-31.0) Seconds PTT Ratio ABG pH ABG pCO2 ABG pO2 ABG HCO3 ABG O2 Saturation ABG Base Excess Christiano Test Barometric Pressure Oxygen Given POC Sodium (135-144) mmol/L Sodium (136-145) mmol/L POC Potassium (3.3-5.0) mmol/L Potassium (3.5-5.1) mmol/L POC Chloride (101-112) mmol/L Chloride (98-107) mmol/L Carbon Dioxide (21-32) mmol/L POC Total CO2 (24-31) mmol/L Anion Gap (3-11) POC Anion Gap (16-25) mmol/L POC BUN (7-18) mg/dl BUN (6-23) mg/dl Creatinine (0.6-1.2) mg/dl POC Creatinine (0.6-1.3) mg/dl Est Cr Clr Drug Dosing ml/min Est GFR ( Amer) ml/min Est GFR (Non-Af Amer) ml/min BUN/Creatinine Ratio (10-20) Glucose (70-99(Fasting)) mg/dl POC Glucose (70-99) mg/dl POC Glucose (other) (70-99) mg/dl Estimat Average Glucose mg/dl Hemoglobin A1c (4.5-5.6) % Calcium (8.5-10.1) mg/dl POC Ioniz Calcium Loyda (1.12-1.32) mmol/l Phosphorus (2.5-4.9) mg/dl Magnesium (1.7-2.4) mg/dl Total Bilirubin (0.2-1.0) mg/dl AST (13-39) U/L ALT (7-52) U/L Alkaline Phosphatase (34-104) U/L Total Creatine Kinase (26-192) U/L Troponin I (0-0.04) ng/ml B-Natriuretic Peptide (0-100) pg/ml Total Protein (6.0-8.3) gm/dl Albumin (3.4-5.0) gm/dl Globulin (2.5-4.0) gm/dl Albumin/Globulin Ratio (0.9-2) Triglycerides (0-150) mg/dl Cholesterol (0-200) mg/dl LDL Cholesterol, Calc mg/dl VLDL Cholesterol, Calc (0-30) mg/dl HDL Cholesterol mg/dl Cholesterol/HDL Ratio (0-5) Lipase (11-82) U/L Procalcitonin (0-0.5) ng/ml TSH (0.300-4.500) uIu/ml Urine Color Urine Appearance (Clear) Urine pH (4.5-7.5) Ur Specific [place] (1.000-1.030) Urine Protein (Negative) Urine Glucose (UA) (Negative) Urine Ketones (Negative) Urine Blood (Negative) Urine Nitrite (Negative) Urine Bilirubin (Negative) Urine Urobilinogen (Negative) Ur Leukocyte Esterase (Negative) Urine WBC (Auto) (0-5) /hpf Urine RBC (Auto) (0-4) /hpf U Hyaline Cast (Auto) (0-5) /lpf U Epithel Cells (Auto) (0-5) /lpf Urine Bacteria (Auto) (Negative) SARS-CoV-2, RNA, NAAT NEGATIVE (NEGATIVE) Diagnostic Findings EKG on admission: Sinus tach vs possible atrial fib RVR LBBB Repeat EKG: NSR with LBBB Chest xray on admission: IMPRESSION: 1. Cardiomegaly with interval development of pulmonary edema. 2. Trace pleural effusions with mild bibasilar densities suggestive of atelectasis Echo reviewed: LVEF 50-55% Moderate LVH septal motion consistent with conduction abnormality Bioprosthetic aortic valve gradients are elevated suggesting obstruction. Peak veolicty of 4.12cm/sec Mild AI small mobile echodensity adherent to bioprosthetic aortic valve struts seen in parasternal long axis view. Diff diagnosis includes - vegetation, thormbus, or possible tumor. Moderate to severe MR Moderate TR Estimated pulm pressrure 62 mmg Hg. Echo report reviewed dated 06/2021 at [facility]: Interpretation Summary The examination is adequate to evaluate the referral indication. The qualitative LV ejection fraction is 50-54% (normal). The LV wall thickness is moderately increased (concentric). The left atrium is severely enlarged (>48 ml/m^2,). The left ventricular diastolic function is mildly abnormal (grade I). There is an aortic valve prosthesis present. Mild paravalvular aortic valve prosthesis regurgitation is present. The aortic prosthetic leaflets appear thickened with restricted mobility. The aortic prosthesis demonstrates an increased transvalvular gradient with a peak systolic velocity of 3.64 m/s, peak instaneous gradient of 53 mmHg, and mean gradient of 28 mmHg. There is moderate mitral annular calcification. Moderate mitral regurgitation is present. Mild to moderate tricuspid regurgitation. The estimated pulmonary artery systolic pressure is 45-50mm Hg. Medications Administered Current Inpatient Medications Acetaminophen (Acetaminophen 325 Mg Tab) 650 mg PO Q4H PRN PRN Reason: Pain or Fever Stop: 12/18/21 02:17 Last Admin: 11/18/21 11:39 Dose: 650 mg Documented by: Alprazolam (Alprazolam 0.25 Mg Tablet) 0.25 mg PO HS PRN PRN Reason: insominia Stop: 12/18/21 02:17 Amlodipine Besylate (Amlodipine Besylate 5 Mg Tab) 10 mg PO DAILY [facility] Stop: 12/18/21 08:59 Last Admin: 11/18/21 08:43 Dose: 10 mg Documented by: Aspirin (Aspirin 81 Mg Ectab) 81 mg PO QAM GENOVEVA Stop: 12/18/21 08:59 Last Admin: 11/18/21 08:43 Dose: 81 mg Documented by: Atorvastatin Calcium (Atorvastatin 20 Mg Tab) 20 mg PO HS GENOVEVA Stop: 12/18/21 20:59 Dextrose (Dextrose 50% 50 Ml Syringe) 25 - 50 ml IV UD PRN; Protocol PRN Reason: Hypoglycemia Protocol Stop: 12/18/21 02:17 Glucagon (Glucagon For Inj 1 Mg Vial) 1 mg SQ UD PRN; Protocol PRN Reason: Hypoglycemia Protocol Stop: 12/18/21 02:17 Glucose (Glucose 10 Tabs/Tube) 4 - 8 tabs PO UD PRN; Protocol PRN Reason: Hypoglycemia Protocol Stop: 12/18/21 02:17 Glucose (Glucose 40% Gel 15 Gm Tube) 15 - 30 gm PO UD PRN; Protocol PRN Reason: Hypoglycemia Protocol Stop: 12/18/21 02:17 Guaifenesin (Guaifenesin 600 Mg Tabcr) 600 mg PO Q12 GENOVEVA Stop: 12/18/21 08:59 Last Admin: 11/18/21 08:43 Dose: 600 mg Documented by: Heparin Sodium/Dextrose (Heparin Sodium/Dextrose) 25,000 units in 500 mls @ 24 mls/hr IV .[id number] GENOVEVA; Protocol Stop: 12/18/21 01:29 Last Admin: 11/18/21 01:52 Dose: 1,200 units/hr, 24 mls/hr Documented by: Promethazine HCl 12.5 mg/ (Sodium Chloride) 50.5 mls @ 202 mls/hr IV Q6H PRN PRN Reason: Nausea And Vomiting Stop: 12/18/21 02:17 Insulin Aspart (Insulin Aspart Per Unit) 0 units SC ACHS [facility] Stop: 12/18/21 02:17 Last Admin: 11/18/21 11:39 Dose: Not Given Documented by: Ipratropium Justin (Ipratropium Justin Neb Soln 0.02% 2.5 Ml Vial) 0.5 mg INH Q4H PRN PRN Reason: SOB, WHEEZE Stop: 12/18/21 02:17 Last Admin: 11/18/21 12:09 Dose: 0.5 mg Documented by: Levalbuterol HCl (Levalbuterol 1.25mg/0.5ml Neb) 1.25 mg INH Q4H PRN PRN Reason: SOB, WHEEZE Stop: 12/18/21 02:17 Last Admin: 11/18/21 12:09 Dose: 1.25 mg Documented by: Metoprolol Succinate (Metoprolol Succ 25mg Ext Rel Tab) 25 mg PO QAM [facility] Stop: 12/18/21 08:59 Last Admin: 11/18/21 08:43 Dose: 25 mg Documented by: Miscellaneous (Carbohydrates For Hypoglycemia ) 15 - 30 gm PO UD PRN PRN Reason: Hypoglycemia Protocol Stop: 12/18/21 02:17 Oxycodone HCl (Oxycodone Hcl Ir 5 Mg Tab (Immediate Release)) 5 mg PO Q4H PRN PRN Reason: Pain Stop: 12/02/21 02:17 (1) Acute exacerbation of CHF (congestive heart failure) Heart failure type: unspecified Qualified Code(s): I50.9 - Heart failure, unspecified
[2021-11-18] MEDS: FUROSEMIDE 40 MG/4 ML VIAL IV SCH (18:14)
[2021-11-18] MEDS: ATORVASTATIN 20 MG TAB PO SCH (21:15)
[2021-11-18] MEDS ORDERED: XOPENEX/ATROVENT 1.25mg/0.5MG NEB COMBO NEB STA (21:36)
[2021-11-18] MEDS ORDERED: IPRATROPIUM BROMIDE NEB SOLN 0.02% 2.5 ML VIAL INH STA (21:42)
[2021-11-18] MEDS ORDERED: LEVALBUTEROL 1.25MG/0.5ML NEB INH STA (21:42)
[2021-11-18] MEDS ORDERED: MAGNESIUM SULFATE / D5W 1 GM/100 ML BAG IV ONE (22:00)
[2021-11-18] MEDS: PROMETHAZINE HCL 12.5 MG in SODIUM CHLORIDE 0.9% 50 ML IV PRN (22:23)
[2021-11-18 22:48] LABS: Base Excess ABG 6.5 mEq/L (-9-1.8); HCO3 ABG 31 mmol/L (19-24); Oxygen Saturation ABG 93.8 % (90-95); PCO2 ABG 41 mmHg (35-46); PO2 ABG 65 mmHg (80-95); pH ABG 7.49 (7.35-7.45)
[2021-11-18 22:55] LABS: Allen Test Pos (Pos)
[2021-11-18 23:09] LABS: Calcium 9.4 mg/dl (8.5-10.1); Creatinine Clr Calc Pharmacy 27.7 ml/min; Est GFR (African American) 34.5 ml/min; Est GFR (Non-African American) 29.8 ml/min; Magnesium 1.9 mg/dl (1.7-2.4); Potassium 3.7 mmol/L (3.5-5.1)
[2021-11-18 23:13] LABS: Troponin I 0.08 ng/ml (0-0.04)
--- NOTE | 2021-11-18 23:39 | Communication Note ---
Date of Service: November 18, 2021 Patient was seen and examined for follow-up shortness of breath. Lying in bed on 15L venti mask. She said that breathing slightly improved. CXR on admission showed cardiomegaly with interval development of pulmonary edema. BNP 1265 on admission. Acute CHF exacerbation- Received lasix on admission. Will give additional Lasix 40mg IV today. Will monitor BMP closely while on diuretic. Will consult cardiology for management of diuretic and Afib. Currently on IV heparin drip. Will follow echo. If hypoxia worsening, consider CPAP/Bipap. Continue monitor closely. MD Enedina
[2021-11-19] MEDS: ACETAMINOPHEN 325 MG TAB PO PRN ×2 (00:05→18:31)
--- NOTE | 2021-11-19 02:40 | Communication Note ---
Date of Service: November 19, 2021 Pt vital signs reviewed in the middle of the night and was found to be febriled. She had an echo this afternoon that showed small mobile echodensity adherent to the bioprosthetic aortic valve leaflets.Her WBC on 11/17 was 12K, but wnl today. Blood Since her temp is 38.2 now, will start on Vanco with renal dose and Rocephin IV. Case discussed with the overnight pharmacy to renal dose the vanco. Blood culture collected early. Will consult ID in am. Will discuss with cardiology in am if heparin drip needs to be discontinued now or weight after the YONG to r/o any thrombus vs vegetation before stopping it. Will continue monitor closely. MD Enedina
[2021-11-19] MEDS ORDERED: VANCOMYCIN CONSULT ACTIVE PRN (02:48)
[2021-11-19] MEDS ORDERED: cefTRIAXone SODIUM 2,000 MG in DEXTROSE 5% 50 ML IV SCH ×2 (03:00→16:00)
[2021-11-19] MEDS ORDERED: VANCOMYCIN HCL 1,750 MG in SODIUM CHLORIDE 0.9% 500 ML IV ONE (03:30)
--- NOTE | 2021-11-19 06:46 | XRay Report ---
XR chest 1V portable HISTORY: 86 years-old Female low o2 acute hypoxia COMPARISON: Chest radiograph 11/17/2021 TECHNIQUE: Portable AP view of the chest FINDINGS: Cardiac silhouette is enlarged. Prior median sternotomy with cardiac valvular prosthesis. Pulmonary v ascular congestion with slightly improved pulmonary edema. Small left and trace right pleural effusio ns with persistent mild bibasilar densities. No pneumothorax. Degenerative changes of the shoulders a nd spine. Bilateral rotator cuff calcific tendinosis. Surgical clips of the right neck. IMPRESSION: 1. Cardiomegaly with slightly improved pulmonary edema. 2. Small left and trace right pleural effusions with persistent mild bibasilar densities. ACT 112: Negative or not required by law. The above report was generated using voice recognition software. It may contain grammatical, syntax o r spelling errors. Electronically signed by: Maximiliano Padilla M.D. 11/19/2021 6:45 AM
--- NOTE | 2021-11-19 07:28 | XRay Report ---
XR chest 1V portable HISTORY: 86 years-old Female CHF acute shortness of breath with congestive heart failure COMPARISON: Chest radiograph 11/18/2021 TECHNIQUE: Portable AP view of the chest FINDINGS: The cardiac silhouette is enlarged. Prior median sternotomy with cardiac valvular prosthesis. Trace p leural effusions, decreased in size on the left. Pulmonary vascular congestion with improving pulmona ry edema and improved aeration of the left lung base. There are mild persistent bibasilar densities. No pneumothorax. Degenerative changes of the shoulders and spine with bilateral shoulder rotator cuff calcific tendinosis. IMPRESSION: 1. Cardiomegaly with improving pulmonary edema. 2. Trace pleural effusions with persistent bibasilar densities favoring atelectasis. ACT 112: Negative or not required by law. The above report was generated using voice recognition software. It may contain grammatical, syntax o r spelling errors. Electronically signed by: Maximiliano Padilla M.D. 11/19/2021 7:27 AM
[2021-11-19 07:40] LABS: Hematocrit (blood only) 27.5 % (37-47); Hemoglobin 8.9 g/dL (12.0-16.0); Mean Corpuscular Hemoglobin 27.3 pg (25-34); Mean Corpuscular Hgb Conc 32.4 g/dL (32-36); Mean Corpuscular Volume 84.4 fL (80-100); Platelet Count 267 K/uL (130-400); Red Blood Count 3.26 M/uL (4.2-5.4); White Blood Count 8.24 K/uL (4.8-10.8)
[2021-11-19 08:02] LABS: BUN Creatinine Ratio 29.5 (10-20); Calcium 8.7 mg/dl (8.5-10.1); Creatinine Clr Calc Pharmacy 30.1 ml/min; Est GFR (African American) 37.6 ml/min; Est GFR (Non-African American) 32.5 ml/min; Magnesium 2.1 mg/dl (1.7-2.4); Potassium 3.6 mmol/L (3.5-5.1)
--- NOTE | 2021-11-19 08:37 | Pharmacy Report ---
Pharmacy Vanc AUC Short Note - Date of Service November 19, 2021 - Assessment & Plan Assessment 86 year old F receiving IV Vancomycin + Ceftriaxone for treatment of possible endocarditis. Pt found to be febrile last night, echo showed small mobile echodensity adherent to bioprosthetic aortic valve leaflets. Blood cultures pending. ID Consult this morning. Plan Vancomycin * AUC/HERMAN is the preferred PK/PD target for vancomycin * AUC guided dosing is effective and associated with decreased risk of nephrotoxicity compared to traditional trough targets * Vancomycin 1750mg IV x1 this am, then Vancomycin 1000mg IV Q24 hours starting at 1200 today. * This dose estimates a trough level of 18.2 mcg/mL which is is predicted to achieve target AUC/HERMAN of 400-600 mg/L.hr and may be associated with a 14 % risk of nephrotoxicity * Trough level ordered for: 11/21/21 Ceftriaxone 2g IV Q24H - increase to Q12H for possible endocarditis Pharmacy will continue to follow and will adjust dose/frequency as necessary. Thank you.
[2021-11-19] MEDS: INSULIN ASPART PER UNIT SC SCH ×4 (09:19→20:47)
[2021-11-19] MEDS: amLODIPine BESYLATE 5 MG TAB PO SCH (09:19)
[2021-11-19] MEDS: ASPIRIN 81 MG ECTAB PO SCH (09:19)
[2021-11-19] MEDS: FUROSEMIDE 40 MG/4 ML VIAL IV SCH ×2 (09:19→14:28)
[2021-11-19] MEDS: METOPROLOL SUCC 25MG EXT REL TAB PO SCH (09:20)
[2021-11-19] MEDS: guaiFENesin 600 MG TABCR PO SCH (09:20)
[2021-11-19 09:23] LABS: Partial Thromboplastin Ratio 3.7
[2021-11-19 09:42] LABS: Partial Thromboplastin Time 101.6 Seconds (21.0-31.0)
--- NOTE | 2021-11-19 10:10 | Hospitalist Progress Note ---
Date of Service November 19, 2021 Assessment & Plan (1) Acute hypoxemic respiratory failure: Plan: She denies any recent h/o swelling but developed some SOB just prior to arrival, found to have pulmonary edema and placed on intravenous diuretics. Echo with preserved EF now with new aortic vegetation. She has a h/o aortic valve replacement with tissue valve in [place] in 2011. She has a h/o reduced systolic function in the past per outpatient cardiology records. She continues on intravenous lasix per cardiology and is requiring vapotherm hi- flow oxygen supplementation for support. She is a confirmed full code. Cont Lasix, strict I/Os, low salt diet and daily weights. Appreciate cardiology assistance with management of diuretics and heart failure. (2) Aortic valve vegetation: Plan: Antibiotic coverage expanded to include vanc, cefepime and gentamycin with possible PVE. ID consulted. Checking CRP/ESR and RF. Daily EKG to rule out conduction abnormalities. Stopped heparin drip out of concern for hemorrhagic transformation of possible cerebral embolic strokes. At this point, with no persistent runs of afib, anticoagulation is considered less of an issue. Cont telemetry monitoring. (3) Acute diastolic heart failure: Plan: plan as above. (4) S/P AVR (aortic valve replacement): Plan: tissue valve replacement in 2011 (5) LBBB (left bundle branch block): Plan: chronic (6) Type 2 diabetes mellitus: Plan: at inpatient goal, cont current insulin dosing schedule (7) Elevated troponin: Plan: Likely related to demand ischemia from acute illness. (8) Ovarian mass: Plan: Records requested, patient states that she was followed for 5 years and recently discharged from [facility] care because of stability. (9) DVT prophylaxis: Plan: SCDs Full Code confirmed. Dispo-cont PCU DO Alison Mccall Hospitalist Admission and Anticipated Discharge Date Admission Date: November 18, 2021 Subjective 86 yo F admitted for acute respiratory failure 2/2 acute heart failure with pre served EF, now with a new aortic valve vegetation. Pt reports dry heaving yesterday but has no nausea now, able to tolerate food today Nurse reports am nausea Patient is a 1 assist. Pt reports the hi flow NC is causing some discomfort and so is the bruce when sitting up She denies abdominal pain Fever overnight, and started on antibiotics out of concern for infective endocarditis. denies chest pain Review of Systems Review of Systems: All systems were reviewed and negative except as indicated above. Physical Exam Physical Exam: CONSTITUTIONAL: overweight, vitals as above, generally ill- appearing, vapotherm in place. EYES: normal conjunctivae, no scleral icterus ENT: external ear and nose normal, NC in place NECK: trachea midline RESPIRATORY: clear to auscultation bilaterally, no crackles, rales or wheezes, normal respiratory effort on extra oxygen support. CARDIOVASCULAR: regular rate and rhythm, S1 and 2 heard 3/6 ALDO across precordium, no gallops or rubs, no JVD, no peripheral edema GASTROINTESTINAL: soft, nontender, ND, no guarding, protuberant. MUSCULOSKELETAL: strength 5/5 throughout, head is normocephalic and atraumatic, neck supple, normal palpation of chest wall without tenderness SKIN: warm and dry NEUROLOGIC: CN 2-12 grossly intact, normal cognition, normal speech, no tremor, no gross focal deficits. PSYCHIATRIC: alert cooperative and oriented to person, place and time. Euthymic mood, makes good eye contact, language grossly intact, recent and remote memory grossly intact. Results & Data Results & Data ([facility]) Vital Signs (Past 12 Hours) Vital Signs Temp Pulse Pulse Resp BP Pulse Ox Pulse Ox 11/19/21 09:35 90 11/19/21 08:00 95 11/19/21 07:49 77 24 90 11/19/21 07:19 36.7 C 65 19 123/69 92 11/19/21 03:56 67 20 96 11/19/21 03:46 36.7 C 62 20 155/84 H 92 11/19/21 02:18 95 11/19/21 01:45 37 C 11/19/21 00:29 79 92 11/19/21 00:00 94 11/18/21 23:07 38.2 C H 79 20 127/54 L 90 11/18/21 22:20 75 Laboratory Results Short CBC 11/19/21 Range/Units 06:36 WBC 8.24 (4.8-10.8) K/uL Hgb 8.9 L (12.0-16.0) g/dL Hct 27.5 L (37-47) % Plt Count 267 (130-400) K/uL BMP 11/18/21 11/19/21 22:28 06:36 Sodium 139 138 Potassium 3.7 3.6 Chloride 98 97 L Carbon Dioxide 32 32 BUN 44 H 43 H Creatinine 1.57 H 1.46 H Glucose 121 H 244 H Calcium 9.4 8.7 Cardiac Enzymes 11/18/21 Range/Units 22:28 Troponin I 0.08 H* (0-0.04) ng/ml Diagnostic Findings Chest X-Ray 11/18/21 21:36 XR chest 1V portable HISTORY: 86 years-old Female low o2 acute hypoxia COMPARISON: Chest radiograph 11/17/2021 TECHNIQUE: Portable AP view of the chest FINDINGS: Cardiac silhouette is enlarged. Prior median sternotomy with cardiac valvular prosthesis. Pulmonary vascular congestion with slightly improved pulmonary edema. Small left and trace right pleural effusions with persistent mild bibasilar densities. No pneumothorax. Degenerative changes of the shoulders and spine. Bilateral rotator cuff calcific tendinosis. Surgical clips of the right neck. IMPRESSION: 1. Cardiomegaly with slightly improved pulmonary edema. 2. Small left and trace right pleural effusions with persistent mild bibasilar densities. ACT 112: Negative or not required by law. The above report was generated using voice recognition software. It may contain grammatical, syntax or spelling errors. Electronically signed by: Maximiliano Padilla M.D. 11/19/2021 6:45 AM Chest X-Ray 11/19/21 07:00 XR chest 1V portable HISTORY: 86 years-old Female CHF acute shortness of breath with congestive heart failure COMPARISON: Chest radiograph 11/18/2021 TECHNIQUE: Portable AP view of the chest FINDINGS: The cardiac silhouette is enlarged. Prior median sternotomy with cardiac valvular prosthesis. Trace pleural effusions, decreased in size on the left. Pulmonary vascular congestion with improving pulmonary edema and improved aeration of the left lung base. There are mild persistent bibasilar densities. No pneumothorax. Degenerative changes of the shoulders and spine with bilateral shoulder rotator cuff calcific tendinosis. IMPRESSION: 1. Cardiomegaly with improving pulmonary edema. 2. Trace pleural effusions with persistent bibasilar densities favoring atelectasis. ACT 112: Negative or not required by law. The above report was generated using voice recognition software. It may contain grammatical, syntax or spelling errors. Electronically signed by: Maximiliano Padilla M.D. 11/19/2021 7:27 AM Medications Administered Current Inpatient Medications Acetaminophen (Acetaminophen 325 Mg Tab) 650 mg PO Q4H PRN PRN Reason: Pain or Fever Stop: 12/18/21 02:17 Last Admin: 11/19/21 00:05 Dose: 650 mg Documented by: Alprazolam (Alprazolam 0.25 Mg Tablet) 0.25 mg PO HS PRN PRN Reason: insominia Stop: 12/18/21 02:17 Last Admin: 11/18/21 21:27 Dose: 0.25 mg Documented by: Amlodipine Besylate (Amlodipine Besylate 5 Mg Tab) 10 mg PO DAILY [facility] Stop: 12/18/21 08:59 Last Admin: 11/19/21 09:19 Dose: 10 mg Documented by: Aspirin (Aspirin 81 Mg Ectab) 81 mg PO QAM [facility] Stop: 12/18/21 08:59 Last Admin: 11/19/21 09:19 Dose: 81 mg Documented by: Atorvastatin Calcium (Atorvastatin 20 Mg Tab) 20 mg PO HS [facility] Stop: 12/18/21 20:59 Last Admin: 11/18/21 21:15 Dose: 20 mg Documented by: Dextrose (Dextrose 50% 50 Ml Syringe) 25 - 50 ml IV UD PRN; Protocol PRN Reason: Hypoglycemia Protocol Stop: 12/18/21 02:17 Furosemide (Furosemide 40 Mg/4 Ml Vial) 40 mg IV BID17 [place] Stop: 12/18/21 17:59 Last Admin: 11/19/21 09:19 Dose: 40 mg Documented by: Glucagon (Glucagon For Inj 1 Mg Vial) 1 mg SQ UD PRN; Protocol PRN Reason: Hypoglycemia Protocol Stop: 12/18/21 02:17 Glucose (Glucose 10 Tabs/Tube) 4 - 8 tabs PO UD PRN; Protocol PRN Reason: Hypoglycemia Protocol Stop: 12/18/21 02:17 Glucose (Glucose 40% Gel 15 Gm Tube) 15 - 30 gm PO UD PRN; Protocol PRN Reason: Hypoglycemia Protocol Stop: 12/18/21 02:17 Guaifenesin (Guaifenesin 600 Mg Tabcr) 600 mg PO Q12 [place] Stop: 12/18/21 08:59 Last Admin: 11/19/21 09:20 Dose: 600 mg Documented by: Heparin Sodium/Dextrose (Heparin Sodium/Dextrose) 25,000 units in 500 mls @ 0 mls/hr IV .Q0M [facility]; Protocol Stop: 12/18/21 01:29 Last Titration: 11/19/21 09:40 Dose: 0 units/hr, 0 mls/hr Documented by: Promethazine HCl 12.5 mg/ (Sodium Chloride) 50.5 mls @ 202 mls/hr IV Q6H PRN PRN Reason: Nausea And Vomiting Stop: 12/18/21 02:17 Last Infusion: 11/18/21 23:00 Dose: Infused Documented by: Vancomycin HCl 1,000 mg/ (Sodium Chloride) 270 mls @ 200 mls/hr IV Q24H [facility] Stop: 12/31/21 11:59 Ceftriaxone Sodium 2,000 mg/ (Dextrose) 70 mls @ 140 mls/hr IV Q12H [facility]; Protocol Stop: 12/31/21 15:59 Insulin Aspart (Insulin Aspart Per Unit) 0 units SC ACHS [facility] Stop: 12/18/21 02:17 Last Admin: 11/19/21 09:19 Dose: 4 units Documented by: Ipratropium [place] (Ipratropium [place] Neb Soln 0.02% 2.5 Ml Vial) 0.5 mg INH Q4H PRN PRN Reason: SOB, WHEEZE Stop: 12/18/21 02:17 Last Admin: 11/18/21 12:09 Dose: 0.5 mg Documented by: Levalbuterol HCl (Levalbuterol 1.25mg/0.5ml Neb) 1.25 mg INH Q4H PRN PRN Reason: SOB, WHEEZE Stop: 12/18/21 02:17 Last Admin: 11/18/21 12:09 Dose: 1.25 mg Documented by: Metoprolol Succinate (Metoprolol Succ 25mg Ext Rel Tab) 25 mg PO QAM [facility] Stop: 12/18/21 08:59 Last Admin: 11/19/21 09:20 Dose: 25 mg Documented by: Miscellaneous (Carbohydrates For Hypoglycemia ) 15 - 30 gm PO UD PRN PRN Reason: Hypoglycemia Protocol Stop: 12/18/21 02:17 Miscellaneous Information (Vancomycin Consult Active) 1 ea N/A UD PRN PRN Reason: Consult Stop: 12/19/21 02:47 Oxycodone HCl (Oxycodone Hcl Ir 5 Mg Tab (Immediate Release)) 5 mg PO Q4H PRN PRN Reason: Pain Stop: 12/02/21 02:17
[2021-11-19] MEDS: oxyCODONE HCL IR 5 MG TAB (IMMEDIATE RELEASE) PO PRN (10:38)
[2021-11-19] MEDS ORDERED: GENTAMICIN CONSULT ACTIVE PRN (10:57)
[2021-11-19] MEDS ORDERED: GENTAMICIN SULFATE IV SCH (11:00)
[2021-11-19] MEDS ORDERED: DEXTROSE 5% IV SCH (11:00)
[2021-11-19] MEDS: CEFEPIME 2,000 MG in SYRINGE 0 ML IV SCH ×2 (11:15→23:20)
--- NOTE | 2021-11-19 13:03 | Cardiology Progress Note ---
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 Blood cultures ordered x2. Results pending. Became febrile overnight and started on antibiotics. Consider YONG as respiratory status improves. Chest xray with improvement in pulm edema today. Continue IV furosemide. Supplemental O2. Monitor I+O's. Monitor renal function. Mild troponin elevation due to CHF and hypoxia on admission. Not indicative of acute ACS. No anginal complaints. She had possible afib on one EKG on admission, now resolved. No recurrence of arrhythmias overnight. Continue ASA, metoprolol. Will not anticoagulate at this time due to possible endocarditis. She has large ovarian mass, previously followed by safety officer/onc in [place]. Daughter reports mass was 4 cm at that time, now [address] This may be contributing to her persistent nausea. Case discussed with Dr. Thompson. Will follow. Admission and Anticipated Discharge Date Admission Date: November 18, 2021 Supervising Physician Co-Signing Physician Notes Patient seen and examined at the bedside. Oxygen requirements increased. Fluid balance positive despite diuretic therapy. Denies CP or orthopnea. Poor appetite and continued nausea noted. PE: VSS. Gen: NAD, AAOx3. Heart: Regular with ectopy, 3/6 medium pitched mid-to-late peaking systolic ejection murmur heard best at the right second intercostal space, however, throughout the precordium. 2/6 midsystolic murmur heard best left sternal border. Lungs: + Rales bilaterally at the base and midlung mendez. No rhonchi or wheeze. Extremities: No edema. Neuro: Moves all extremities. No focal deficit. A/P: Agree with above PA-C history, physical exam, assessment and plan. Recommend titration of Lasix to 80 mg twice daily to improve diuresis and reduce oxygen requirements. Patient spiking fevers overnight. Blood cultures pending at this time. 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 YONG may be considered during hospitalization, however, I do not believe this would change management administrator at this time. Subjective Patient resting comfortably in bed. Notes persistent nausea. One episode of emesis this morning. SOB improving. No recurrent fevers. No chills. Cough improving. No chest pain. No edema. Review of Systems Review of Systems: All systems reviewed & are unremarkable except as noted in HPI & below Physical Exam Constitutional: WD/WN, vitals as above well developed; no acute distress Respiratory: + cough and able to speak in complete sentences; no respiratory distress Auscultation: + diminished lung sounds and + crackles (faint biba silar rales) Cardiovascular: Rate/Rhythm: regular rate and regular rhythm Heart Sounds: + murmur (III/ systolic murmur LSB) Vessels: no JVD Extremities: no edema Gastrointestinal (Abdomen): normal bowel sounds, soft, nontender, no he patosplenomegaly Neurologic: PERRL, EOMI, accommodation nl, no face palsy, no dysarthria Psychiatric: A+Ox3, euthymic affect Results & Data ([facility]) Vital Signs (Past 12 Hours) Vital Signs Temp Pulse Pulse Resp BP Pulse Ox Pulse Ox 11/19/21 12:13 74 24 96 11/19/21 11:37 60 11/19/21 11:09 37.3 C 70 20 112/66 92 11/19/21 10:47 77 22 96 11/19/21 09:35 90 11/19/21 08:00 95 11/19/21 07:49 77 24 90 11/19/21 07:19 36.7 C 65 19 123/69 92 11/19/21 03:56 67 20 96 11/19/21 03:46 36.7 C 62 20 155/84 H 92 11/19/21 02:18 95 11/19/21 01:45 37 C Laboratory Results 11/19/21 11/19/21 11/19/21 Range/Units 11:07 08:22 07:25 WBC (4.8-10.8) K/uL RBC (4.2-5.4) M/uL Hgb (12.0-16.0) g/dL Hct (37-47) % MCV (80-100) fL MCH (25-34) pg MCHC (32-36) g/dL RDW Std Deviation (36.4-46.3) fL RDW Coeff of Roberto (11.5-14.5) % Plt Count (130-400) K/uL MPV (7.4-10.4) fL ESR (0-30) mm/hr APTT 101.6 H* PTT Ratio 3.7 ABG pH (7.35-7.45) ABG pCO2 (35-46) mmHg ABG pO2 (80-95) mmHg ABG HCO3 (19-24) mmol/L ABG O2 Saturation (90-95) % ABG Base Excess (-9-1.8) mEq/L Christiano Test (Pos) Barometric Pressure mm/Hg Oxygen Given Sodium (136-145) mmol/L Potassium (3.5-5.1) mmol/L Chloride (98-107) mmol/L Carbon Dioxide (21-32) mmol/L Anion Gap (3-11) BUN (6-23) mg/dl Creatinine (0.6-1.2) mg/dl Est Cr Clr Drug Dosing ml/min Est GFR ( Amer) ml/min Est GFR (Non-Af Amer) ml/min BUN/Creatinine Ratio (10-20) Glucose (70-99(Fasting)) mg/dl POC Glucose 168 H 174 H (70-99) mg/dl Calcium (8.5-10.1) mg/dl Magnesium (1.7-2.4) mg/dl Troponin I (0-0.04) ng/ml C-Reactive Protein (0-0.5) mg/dl 11/19/21 11/19/21 11/19/21 Range/Units 06:36 06:36 06:36 WBC (4.8-10.8) K/uL RBC (4.2-5.4) M/uL Hgb (12.0-16.0) g/dL Hct (37-47) % MCV (80-100) fL MCH (25-34) pg MCHC (32-36) g/dL RDW Std Deviation (36.4-46.3) fL RDW Coeff of Roberto (11.5-14.5) % Plt Count (130-400) K/uL MPV (7.4-10.4) fL ESR 34 H (0-30) mm/hr APTT PTT Ratio ABG pH (7.35-7.45) ABG pCO2 (35-46) mmHg ABG pO2 (80-95) mmHg ABG HCO3 (19-24) mmol/L ABG O2 Saturation (90-95) % ABG Base Excess (-9-1.8) mEq/L Christiano Test (Pos) Barometric Pressure mm/Hg Oxygen Given Sodium 138 (136-145) mmol/L Potassium 3.6 (3.5-5.1) mmol/L Chloride 97 L (98-107) mmol/L Carbon Dioxide 32 (21-32) mmol/L Anion Gap 9 (3-11) BUN 43 H (6-23) mg/dl Creatinine 1.46 H (0.6-1.2) mg/dl Est Cr Clr Drug Dosing 30.1 ml/min Est GFR ( Amer) 37.6 ml/min Est GFR (Non-Af Amer) 32.5 ml/min BUN/Creatinine Ratio 29.5 H (10-20) Glucose 244 H (70-99(Fasting)) mg/dl POC Glucose (70-99) mg/dl Calcium 8.7 (8.5-10.1) mg/dl Magnesium 2.1 (1.7-2.4) mg/dl Troponin I (0-0.04) ng/ml C-Reactive Protein 13.84 H (0-0.5) mg/dl 11/19/21 11/19/21 11/18/21 Range/Units 06:36 06:36 22:35 WBC 8.24 (4.8-10.8) K/uL RBC 3.26 L (4.2-5.4) M/uL Hgb 8.9 L (12.0-16.0) g/dL Hct 27.5 L (37-47) % MCV 84.4 (80-100) fL MCH 27.3 (25-34) pg MCHC 32.4 (32-36) g/dL RDW Std Deviation 43.0 (36.4-46.3) fL RDW Coeff of Roberto 14.0 (11.5-14.5) % Plt Count 267 (130-400) K/uL MPV 11.0 H (7.4-10.4) fL ESR (0-30) mm/hr APTT Cancelled PTT Ratio Cancelled ABG pH 7.49 H (7.35-7.45) ABG pCO2 41 (35-46) mmHg ABG pO2 65 L (80-95) mmHg ABG HCO3 31 H (19-24) mmol/L ABG O2 Saturation 93.8 (90-95) % ABG Base Excess 6.5 H (-9-1.8) mEq/L Christiano Test Pos (Pos) Barometric Pressure 735.9 mm/Hg Oxygen Given 15% Sodium (136-145) mmol/L Potassium (3.5-5.1) mmol/L Chloride (98-107) mmol/L Carbon Dioxide (21-32) mmol/L Anion Gap (3-11) BUN (6-23) mg/dl Creatinine (0.6-1.2) mg/dl Est Cr Clr Drug Dosing ml/min Est GFR ( Amer) ml/min Est GFR (Non-Af Amer) ml/min BUN/Creatinine Ratio (10-20) Glucose (70-99(Fasting)) mg/dl POC Glucose (70-99) mg/dl Calcium (8.5-10.1) mg/dl Magnesium (1.7-2.4) mg/dl Troponin I (0-0.04) ng/ml C-Reactive Protein (0-0.5) mg/dl 11/18/21 11/18/21 11/18/21 Range/Units 22:28 20:42 16:30 WBC (4.8-10.8) K/uL RBC (4.2-5.4) M/uL Hgb (12.0-16.0) g/dL Hct (37-47) % MCV (80-100) fL MCH (25-34) pg MCHC (32-36) g/dL RDW Std Deviation (36.4-46.3) fL RDW Coeff of Roberot (11.5-14.5) % Plt Count (130-400) K/uL MPV (7.4-10.4) fL ESR (0-30) mm/hr APTT PTT Ratio ABG pH (7.35-7.45) ABG pCO2 (35-46) mmHg ABG pO2 (80-95) mmHg ABG HCO3 (19-24) mmol/L ABG O2 Saturation (90-95) % ABG Base Excess (-9-1.8) mEq/L Christiano Test (Pos) Barometric Pressure mm/Hg Oxygen Given Sodium 139 (136-145) mmol/L Potassium 3.7 (3.5-5.1) mmol/L Chloride 98 (98-107) mmol/L Carbon Dioxide 32 (21-32) mmol/L Anion Gap 9 (3-11) BUN 44 H (6-23) mg/dl Creatinine 1.57 H (0.6-1.2) mg/dl Est Cr Clr Drug Dosing 27.7 ml/min Est GFR ( Amer) 34.5 ml/min Est GFR (Non-Af Amer) 29.8 ml/min BUN/Creatinine Ratio 28.0 H (10-20) Glucose 121 H (70-99(Fasting)) mg/dl POC Glucose 173 H 180 H (70-99) mg/dl Calcium 9.4 (8.5-10.1) mg/dl Magnesium 1.9 (1.7-2.4) mg/dl Troponin I 0.08 H* (0-0.04) ng/ml C-Reactive Protein (0-0.5) mg/dl Diagnostic Findings Telemetry reviewed: Normal sinus rhythm in the 70's. No recurrent atrial fibrillation. Chest xray this morning reviewed - IMPRESSION: 1. Cardiomegaly with improving pulmonary edema. 2. Trace pleural effusions with persistent bibasilar densities favoring atelectasis. Medications Administered Current Inpatient Medications Acetaminophen (Acetaminophen 325 Mg Tab) 650 mg PO Q4H PRN PRN Reason: Pain or Fever Stop: 12/18/21 02:17 Last Admin: 11/19/21 00:05 Dose: 650 mg Documented by: Alprazolam (Alprazolam 0.25 Mg Tablet) 0.25 mg PO HS PRN PRN Reason: insominia Stop: 12/18/21 02:17 Last Admin: 11/18/21 21:27 Dose: 0.25 mg Documented by: Amlodipine Besylate (Amlodipine Besylate 5 Mg Tab) 10 mg PO DAILY [facility] Stop: 12/18/21 08:59 Last Admin: 11/19/21 09:19 Dose: 10 mg Documented by: Aspirin (Aspirin 81 Mg Ectab) [facility] Stop: 12/18/21 08:59 Last Admin: 11/19/21 09:19 Dose: 81 mg Documented by: Atorvastatin Calcium (Atorvastatin 20 Mg Tab) 20 mg PO HS [facility] Stop: 12/18/21 20:59 Last Admin: 11/18/21 21:15 Dose: 20 mg Documented by: Dextrose (Dextrose 50% 50 Ml Syringe) 25 - 50 ml IV UD PRN; Protocol PRN Reason: Hypoglycemia Protocol Stop: 12/18/21 02:17 Furosemide (Furosemide 40 Mg/4 Ml Vial) 40 mg IV BID17 [place] Stop: 12/18/21 17:59 Last Admin: 11/19/21 09:19 Dose: 40 mg Documented by: Glucagon (Glucagon For Inj 1 Mg Vial) 1 mg SQ UD PRN; Protocol PRN Reason: Hypoglycemia Protocol Stop: 12/18/21 02:17 Glucose (Glucose 10 Tabs/Tube) 4 - 8 tabs PO UD PRN; Protocol PRN Reason: Hypoglycemia Protocol Stop: 12/18/21 02:17 Glucose (Glucose 40% Gel 15 Gm Tube) 15 - 30 gm PO UD PRN; Protocol PRN Reason: Hypoglycemia Protocol Stop: 12/18/21 02:17 Guaifenesin (Guaifenesin 600 Mg Tabcr) 600 mg PO Q12 [facility] Stop: 12/18/21 08:59 Last Admin: 11/19/21 09:20 Dose: 600 mg Documented by: Promethazine HCl 12.5 mg/ (Sodium Chloride) 50.5 mls @ 202 mls/hr IV Q6H PRN PRN Reason: Nausea And Vomiting Stop: 12/18/21 02:17 Last Infusion: 11/18/21 23:00 Dose: Infused Documented by: Vancomycin HCl 1,000 mg/ (Sodium Chloride) 270 mls @ 200 mls/hr IV Q24H [facility] Stop: 12/31/21 11:59 Cefepime HCl 2,000 mg/ Syringe 20 mls @ 5 mls/min IV Q12H [facility]; Protocol Stop: 12/31/21 10:59 Last Admin: 11/19/21 11:15 Dose: 5 mls/min Documented by: Gentamicin Sulfate 90 mg/ (Dextrose) 102.25 mls @ 100 mls/hr IV Q24H [facility]; Protocol Stop: 12/31/21 10:59 Last Admin: 11/19/21 11:14 Dose: 100 mls/hr Documented by: Insulin Aspart (Insulin Aspart Per Unit) 0 units SC ACHS [facility] Stop: 12/18/21 02:17 Last Admin: 11/19/21 11:28 Dose: Not Given Documented by: Ipratropium [place] (Ipratropium [place] Neb Soln 0.02% 2.5 Ml Vial) 0.5 mg INH Q4H PRN PRN Reason: SOB, WHEEZE Stop: 12/18/21 02:17 Last Admin: 11/18/21 12:09 Dose: 0.5 mg Documented by: Levalbuterol HCl (Levalbuterol 1.25mg/0.5ml Neb) 1.25 mg INH Q4H PRN PRN Reason: SOB, WHEEZE Stop: 12/18/21 02:17 Last Admin: 11/18/21 12:09 Dose: 1.25 mg Documented by: Metoprolol Succinate (Metoprolol Succ 25mg Ext Rel Tab) 25 mg PO QAM [facility] Stop: 12/18/21 08:59 Last Admin: 11/19/21 09:20 Dose: 25 mg Documented by: Miscellaneous (Carbohydrates For Hypoglycemia ) 15 - 30 gm PO UD PRN PRN Reason: Hypoglycemia Protocol Stop: 12/18/21 02:17 Miscellaneous (Gentamicin Trough) 1 ea N/A Fr@1030 ONE Stop: 11/21/21 10:31 Miscellaneous Information (Vancomycin Consult Active) 1 ea N/A UD PRN PRN Reason: Consult Stop: 12/19/21 02:47 Miscellaneous Information (Gentamicin Consult Active) 1 ea N/A UD PRN PRN Reason: Consult Stop: 12/19/21 10:56 Oxycodone HCl (Oxycodone Hcl Ir 5 Mg Tab (Immediate Release)) 5 mg PO Q4H PRN PRN Reason: Pain Stop: 12/02/21 02:17 Last Admin: 11/19/21 10:38 Dose: 5 mg Documented by: (1) Acute exacerbation of CHF (congestive heart failure) Heart failure type: unspecified Qualified Code(s): I50.9 - Heart failure, unspecified
[2021-11-19] MEDS: VANCOMYCIN HCL 1,000 MG in SODIUM CHLORIDE 0.9% 250 ML IV SCH (13:07)
[2021-11-19] MEDS: ONDANSETRON INJ 2 MG/ML 2 ML VIAL IV PRN (14:49)
[2021-11-19] MEDS: PROMETHAZINE HCL 12.5 MG in SODIUM CHLORIDE 0.9% 50 ML IV PRN (16:51)
--- NOTE | 2021-11-19 16:55 | Critical Care Consultation ---
Date of Consultation November 19, 2021 Assessment & Plan (1) Aortic valve vegetation: (2) Paroxysmal atrial fibrillation: (3) Acute diastolic heart failure: (4) Ovarian mass: (5) Acute hypoxemic respiratory failure: Impression: 86-year-old female with mobile vegetation on bioprosthetic valve suspicious for potential endocarditis. She has a known 8 cm ovarian mass. She is having nausea and vomiting and progressive hypoxemic respiratory failure. She is been diuresed. Her x-ray does not reveal an acute etiology. Given the potential for ovarian malignancy, the patient is at risk for pulmonary embolism. Which could be contributing to the patient's tachycardia and hypoxemia. Recommendations: 1. Neurologic: No current issues. Continue to follow. 2. Cardiovascular: Potential bioprosthetic endocarditis. This is complicated by moderate to severe mitral regurgitation. Given her valve gradients, would like to avoid dropping her afterload significantly which would be the recommended medical intervention for her mitral regurgitation. This represents a delicate balance for the patient and I think she would be best served by an advanced heart failure team. She may require transesophageal echocardiogram which would likely require intubation mechanical ventilation. 3. Pulmonary: Acute hypoxemic respiratory failure: The patient's hypoxemia appears to be out of proportion to the the densities on her x-ray. We will try and proceed with a CT angiogram, acknowledging the potential risks of contrast associated with this study however it would significantly change director. Continue oxygen for now. I long discussion with the patient and family. She is open to the prospect of BiPAP if needed and intubation mechanical ventilation should it be required but she does not wish to pursue CPR or cardioversion in the event of a cardiac arrest which I think is reasonable. 4. Renal: The patient has significant renal dysfunction. In light of the contrast is going to be administered, will discontinue gentamicin. Continue to follow acid-base status, and electrolytes. If her kidney function were to worsen, I think she is a poor candidate for renal replacement therapy. 5. ID: Possible endocarditis. Patient's been initiated on cefepime and vancomycin. Pharmacy will dose adjust. Again given that this is bioprosthetic endocarditis would recommend in person ID consultation which is not available at our institution. Follow cultures. 6. Heme-onc: Increasing ovarian mass. I suspect this represents malignancy. She is apparently been followed in [place] for this in the past. I think given her acute decompensation with nausea and vomiting, formal [employer] oncologic evaluation would be recommended which is not available at this institution. 7. Endocrine: Glycemic control per ICU protocol. 8. GI: Significant nausea. She is not responded to Zofran. We will try low- dose Ativan as an antiemetic as well as Compazine. Overall the patient presents with multiple complex medical issues including ovarian mass, bioprosthetic aortic stenosis, moderate to severe mitral regurgitation, ovarian mass, and progressive hypoxemic respiratory failure. It is my opinion that the patient's complexity would benefit from evaluation at a tertiary Medical Center. I discussed with the patient's daughter and the patient at bedside. They are agreeable to potential transfer. This was communicated to the hospitalist as well. Transfer is apparently in progress. History of Present Illness Attending Physician: Michelle Ash, History of Present Illness Asked by hospitalist to evaluate this patient with hypoxemic respiratory failure, possible bioprosthetic valve endocarditis with increased gradients across the bioprosthetic valve and moderate to severe MR. History is obtained from reviewed electronic medical record, discussion with the hospitalist service, and discussion with the patient and the patient's daughter at bedside. The patient is an 86-year-old female with a history of diastolic heart failure, aortic stenosis status post AVR diabetes and chronic kidney disease who presents to the emergency room 11/18/2021 with progressive shortness of breath. Patient had been admitted to the hospital back in May secondary to heart failure and was discharged on diuretic regiment. She reports a 4-day history of nausea weakness cough and shortness of breath as well as some abdominal discomfort. She was initially seen in the emergency room and received Lasix and morphine. She was admitted to the hospitalist service with a diagnosis of heart failure. She had an escalation in her oxygen requirement. She has been febrile. Repeat echocardiogram revealed possible vegetation/mobile mass on the struts of the bioprosthetic aortic valve. She was started on broad-spectrum antibiotics. Cultures are pending. There was concern today that the patient's oxygen requirement had increased. She is placed on high flow with saturations in the low 90% range. Her biggest complaint currently continues to be nausea. She does have a known ovarian mass which is increasing in size. Allergies Allergy/AdvReac Type Severity Reaction Status Date / Time codeine AdvReac Intermediate Gastrointestinal Verified 11/17/21 22:16 Upset Home Medications Medication Instructions Recorded Confirmed Type acetaminophen 500 mg tablet 1,000 mg PO DIRECTED PRN 02/06/21 11/17/21 History (Tylenol Extra Strength) albuterol sulfate 90 mcg/actuation 2 puff INHALATION Q4H PRN 02/06/21 11/17/21 History aerosol inhaler (ProAir HFA) atorvastatin 20 mg tablet (Lipitor) 20 mg PO HS 02/06/21 11/17/21 History calcium carbonate 600 mg calcium 600 mg PO DAILY 02/06/21 11/17/21 History (1,500 mg) tablet (Calcium) cholecalciferol (vitamin D3) 50 50 mcg PO DAILY 02/06/21 11/17/21 History mcg (2,000 unit) capsule (Vitamin D3) glipizide 5 mg tablet, extended 5 mg PO HS 02/06/21 11/17/21 History release 24 hr metformin 500 mg tablet 500 mg PO BID 02/06/21 11/17/21 History aspirin 81 mg tablet,delayed 81 mg PO DAILY 06/08/21 11/17/21 History release (Aspirin Low Dose) furosemide 20 mg tablet (Lasix) 20 mg PO DAILY #30 tab 06/11/21 11/17/21 Rx metoprolol succinate 25 mg 25 mg PO QAM #30 tab 06/11/21 11/17/21 Rx tablet,extended release 24 hr hydrocodone 5 mg-acetaminophen 325 0.5 - 1 tab PO Q6H PRN #12 tab 07/11/21 11/17/21 Rx mg tablet alprazolam 0.5 mg tablet 0.5 - 1 mg PO HS 11/16/21 11/17/21 History amlodipine 10 mg tablet 10 mg PO DAILY 11/16/21 11/17/21 History meclizine 25 mg tablet 25 mg PO DAILY 11/16/21 11/17/21 History ondansetron HCl 4 mg tablet 4 mg PO Q6H PRN #14 tab 11/17/21 11/17/21 Rx Patient History Medical History (Updated 11/19/21 @ 17:07 by Alireza Cobb MD) Anxiety H/O: HTN (hypertension) Type 2 diabetes mellitus Surgical History (Updated 11/19/21 @ 10:29 by Michelle Ash DO) H/O aortic valve replacement H/O endarterectomy S/P TKR (total knee replacement) Social History Smoking Status: Never smoker Second Hand Exposure: No; Do You Dip or Chew Tobacco: No; Hx Alcohol Use: No Hx Substance Use: No Preferred Language: Wolof Communication Ability: Effective Child And Adolescent Psychiatrist Required: No Beliefs That Will Affect Care: None Current Living Situation: Alone Current Living Situation Comment: at home Other Information That Helps Us Care for You: No Feels Safe at Home: Yes Assistive Devices: Cane and Walker Review of Systems Review of Systems: Please refer to hospitalist note. I have no additions or deletions. Physical Exam Constitutional: WD/WN, vitals as above well developed; no acute distress Respiratory: + cough and able to speak in complete sentences; no respiratory distress Auscultation: + diminished lung sounds and + crackles (faint bibasilar rales) Cardiovascular: Rate/Rhythm: regular rate and regular rhythm Heart Sounds: + murmur (III/ systolic murmur LSB) Vessels: no JVD Extremities: no edema Gastrointestinal (Abdomen): normal bowel sounds, soft, nontender, no hepatosplenomegaly Neurologic: PERRL, EOMI, accommodation nl, no face palsy, no dysarthria Psychiatric: A+Ox3, euthymic affect Results & Data Results & Data ([facility]) Vital Signs (Past 12 Hours) Vital Signs Temp Pulse Pulse Resp BP BP Pulse Ox 11/19/21 16:32 109 H 40 H 96 11/19/21 15:25 39.0 C H 110 H 22 117/80 90 11/19/21 15:01 90 11/19/21 15:00 111 H 22 87 L 11/19/21 12:13 74 24 96 11/19/21 11:37 60 11/19/21 11:09 37.3 C 70 20 112/66 92 11/19/21 10:47 77 22 96 11/19/21 09:35 90 11/19/21 08:00 11/19/21 07:49 77 24 90 11/19/21 07:19 36.7 C 65 19 123/69 92 Pulse Ox 11/19/21 16:32 11/19/21 15:25 11/19/21 15:01 11/19/21 15:00 11/19/21 12:13 11/19/21 11:37 11/19/21 11:09 11/19/21 10:47 11/19/21 09:35 11/19/21 08:00 95 11/19/21 07:49 11/19/21 07:19 Laboratory Results Echocardiogram from 11/18/2021 showed an EF of 50-55 with concentric LVH. Left atrium was dilated. Bioprosthetic valve noted in the aortic position with a mobile echodensity adherent to the struts. Gradients were increased with an estimated valve area of 0.7 and a max velocity of 412 cm/s. Moderate to severe MR was noted. PA pressures of 62. IVC showed normal respiratory variation Arterial blood gas from yesterday showed a pH of 7.49 with a PCO2 of 41 and PO2 of 65 Critical Care Results & Data Vital Signs (Past 12 Hours) Vital Signs Temp Pulse Pulse Resp BP BP Pulse Ox 11/19/21 16:32 109 H 40 H 96 11/19/21 15:25 39.0 C H 110 H 22 117/80 90 11/19/21 15:01 90 11/19/21 15:00 111 H 22 87 L 11/19/21 12:13 74 24 96 11/19/21 11:37 60 11/19/21 11:09 37.3 C 70 20 112/66 92 11/19/21 10:47 77 22 96 11/19/21 09:35 90 11/19/21 08:00 11/19/21 07:49 77 24 90 11/19/21 07:19 36.7 C 65 19 123/69 92 Pulse Ox 11/19/21 16:32 11/19/21 15:25 11/19/21 15:01 11/19/21 15:00 11/19/21 12:13 11/19/21 11:37 11/19/21 11:09 11/19/21 10:47 11/19/21 09:35 11/19/21 08:00 95 11/19/21 07:49 11/19/21 07:19 Lab & Micro Results (Past 24 Hours) RBC 3.26 M/uL (4.2-5.4) L 11/19/21 WBC 8.24 K/uL (4.8-10.8) 11/19/21 Hgb 8.9 g/dL (12.0-16.0) L 11/19/21 Hct 27.5 % (37-47) L 11/19/21 MCV 84.4 fL (80-100) 11/19/21 MCH 27.3 pg (25-34) 11/19/21 MCHC 32.4 g/dL (32-36) 11/19/21 RDW Standard Deviation 43.0 fL (36.4-46.3) 11/19/21 RDW Coefficient of Variation 14.0 % (11.5-14.5) 11/19/21 Plt Count 267 K/uL (130-400) 11/19/21 MPV 11.0 fL (7.4-10.4) H 11/19/21 Na 138 mmol/L (136-145) 11/19/21 K 3.6 mmol/L (3.5-5.1) 11/19/21 Cl 97 mmol/L (98-107) L 11/19/21 CO2 32 mmol/L (21-32) 11/19/21 Anion Gap 9 (3-11) 11/19/21 BUN 43 mg/dl (6-23) H 11/19/21 Creatinine 1.46 mg/dl (0.6-1.2) H 11/19/21 Estimated GFR ( Amer) 37.6 ml/min 11/19/21 Estimated GFR (Non-Af Amer) 32.5 ml/min 11/19/21 BUN/Creatinine Ratio 29.5 (10-20) H 11/19/21 Glu 244 mg/dl (70-99(Fasting)) H 11/19/21 Ca 8.7 mg/dl (8.5-10.1) 11/19/21 Mg 2.1 mg/dl (1.7-2.4) 11/19/21 06:36 11/19/21 Calcium Level 8.7 mg/dl (8.5-10.1) 11/19/21 06:36 11/19/21 Blood Gas Barometric Pressure 735.9 mm/Hg 11/18/21 22:35 11/18/21 Arterial Blood pH 7.49 (7.35-7.45) H 11/18/21 22:35 11/18/21 Arterial Blood Partial Pressure CO2 41 mmHg (35-46) 11/18/21 22:35 11/18/21 Arterial Blood Partial Pressure O2 65 mmHg (80-95) L 11/18/21 22:35 11/18/21 Arterial Blood HCO3 31 mmol/L (19-24) H 11/18/21 22:35 11/18/21 Arterial Blood Base Excess 6.5 mEq/L (-9-1.8) H 11/18/21 22:35 11/18/21 Arterial Blood Oxygen Saturation 93.8 % (90-95) 11/18/21 22:35 11/18/21 Blood Gas Oxygen Given 15% 11/18/21 22:35 11/18/21 Christiano Test Pos (Pos) 11/18/21 22:35 11/18/21 Blood Gas Barometric Pressure 735.9 mm/Hg 11/18/21 22:35 11/18/21 Diagnostic Findings (Past 24 Hours) Chest X-Ray 11/18/21 21:36 XR chest 1V portable HISTORY: 86 years-old Female low o2 acute hypoxia COMPARISON: Chest radiograph 11/17/2021 TECHNIQUE: Portable AP view of the chest FINDINGS: Cardiac silhouette is enlarged. Prior median sternotomy with cardiac valvular prosthesis. Pulmonary vascular congestion with slightly improved pulmonary edema. Small left and trace right pleural effusions with persistent mild bibasilar densities. No pneumothorax. Degenerative changes of the shoulders and spine. Bilateral rotator cuff calcific tendinosis. Surgical clips of the right neck. IMPRESSION: 1. Cardiomegaly with slightly improved pulmonary edema. 2. Small left and trace right pleural effusions with persistent mild bibasilar densities. ACT 112: Negative or not required by law. The above report was generated using voice recognition software. It may contain grammatical, syntax or spelling errors. Electronically signed by: Maximiliano Padilla M.D. 11/19/2021 6:45 AM Chest X-Ray 11/19/21 07:00 XR chest 1V portable HISTORY: 86 years-old Female CHF acute shortness of breath with congestive heart failure COMPARISON: Chest radiograph 11/18/2021 TECHNIQUE: Portable AP view of the chest FINDINGS: The cardiac silhouette is enlarged. Prior median sternotomy with cardiac valvular prosthesis. Trace pleural effusions, decreased in size on the left. Pulmonary vascular congestion with improving pulmonary edema and improved aeration of the left lung base. There are mild persistent bibasilar densities. No pneumothorax. Degenerative changes of the shoulders and spine with bilateral shoulder rotator cuff calcific tendinosis. IMPRESSION: 1. Cardiomegaly with improving pulmonary edema. 2. Trace pleural effusions with persistent bibasilar densities favoring atelectasis. ACT 112: Negative or not required by law. The above report was generated using voice recognition software. It may contain grammatical, syntax or spelling errors. Electronically signed by: Maximiliano Padilla M.D. 11/19/2021 7:27 AM I & O Totals 24 Hours 11/18/21 11/19/21 11/20/21 06:59 06:59 06:59 Intake Total 150 / 150 1549.7 / 1749.7 1767.25 / 1767.25 Output Total 800 / 800 1400 / 1400 900 / 900 Balance -650 / -650 149.7 / 349.7 867.25 / 867.25 Cumulative 11/17/21 21:03 thru 11/19/21 15:26 Intake Total 3466.95 Output Total 3100 Balance 366.95 RT Ventilator Mngmt (Last Documented) Ventilator Ordered Settings Respiratory Rate 40 11/19/21 16:32 Fraction of Inspired Oxygen 100 11/19/21 16:32 Ventilator - PT Measurements Respiratory Rate 40 Coding Level of Care Code Critical Care 1st 30-74 mins Diagnoses Aortic valve vegetation I33.0 Paroxysmal atrial fibrillation I48.0 Acute diastolic heart failure I50.31 Ovarian mass N83.8 Acute hypoxemic respiratory failure J96.01 Time Spent (min) 50
[2021-11-19] MEDS ORDERED: OPTIRAY 320 125ml IV ONE (18:08)
[2021-11-19] MEDS: PROCHLORPERAZINE 5 MG in SYRINGE 4 ML IV PRN (18:31)
--- NOTE | 2021-11-19 18:46 | Communication Note ---
Date of Service: November 19, 2021 I spoke with rn case management, Dr. Vazquez, at [facility] who has declined the transfer given the need for medical management which can be offered at this institution. She recommends continuing antibiotics and awaiting cultures. If the situation were to arise where she needs cardiac surgery, a transfer would be reconsidered. Communicated this to the earth burner and the rn case management and also updated family. Mihir, DO
--- NOTE | 2021-11-19 18:47 | CT Scan Report ---
CHEST CTA for PULMONARY ARTERIES CT DOSE: 440.72 mGy.cm HISTORY: Shortness of breath. TECHNIQUE: Multiaxial CT images of the chest were performed following the intravenous administration of contrast to evaluate the pulmonary arteries. Maximal intensity projection images were also obtaine d. A dose lowering technique was utilized adhering to the principles of ALARA. COMPARISON STUDY: Abdomen and pelvis CT 11/16/2021. FINDINGS: The hepatic lesions are better appreciated on the recent abdomen and pelvis CT. The visuali zed spleen and adrenal glands are unremarkable. There is a small hiatus hernia. There are small bilat eral pleural effusions. The thyroid gland enhances normally. The heart is mildly enlarged. No pericar dial effusion. No hilar lymphadenopathy. A single mildly enlarged right paratracheal lymph node measu ring 1.4 cm. Mild circumferential thickening of the esophagus. No suspicious lytic or blastic osseous lesions. Poststernotomy changes are noted. Mild calcified plaque within the normal caliber thoracic aorta. No evidence for an aortic dissection. An aortic valve prosthesis is noted. Moderate coronary a rtery calcifications are present. Nondiagnostic evaluation of the majority of the bilateral lower lob e subsegmental pulmonary arteries due to the respiratory motion artifact. However, no definite fillin g defects identified within the pulmonary arteries to suggest a pulmonary embolus. No pneumothorax. T he central airways are patent. Mild biapical pleural-parenchymal scarring. Calcified granuloma within the left lower lobe. Consolidation within the bilateral upper and lower lobes posteriorly. This like ly represents a combination of atelectasis and pneumonia. There is also right perihilar groundglass a irspace opacities likely representing a pneumonia. Asymmetric pulmonary edema could also have a simil ar appearance. Right lung interlobular septal thickening is noted. IMPRESSION: 1. No evidence for pulmonary embolus. 2. Cardiomegaly and small bilateral pleural effusions. There is also perihilar groundglass airspace o pacities and interlobular septal thickening within the right lung which likely represents mild asymme tric pulmonary edema. 3. Airspace opacities within the upper and lower lobes posteriorly likely represent a combination of atelectasis and pneumonia. 4. A single enlarged right paratracheal lymph node. This could be reactive to the suspected pneumonia . ACT 112: Negative or not required by law. Electronically signed by: Shankar Santamaria M.D. 11/19/2021 6:45 PM
[2021-11-19] MEDS: LORazepam 2 MG/1 ML VIAL IV PRN (20:47)
[2021-11-19] MEDS: ATORVASTATIN 20 MG TAB PO SCH (21:05)
[2021-11-20 05:34] LABS: Hematocrit (blood only) 28.2 % (37-47); Hemoglobin 9.2 g/dL (12.0-16.0); Mean Corpuscular Hemoglobin 27.5 pg (25-34); Mean Corpuscular Hgb Conc 32.6 g/dL (32-36); Mean Corpuscular Volume 84.4 fL (80-100); Platelet Count 283 K/uL (130-400); RDW Coefficient of Variation 13.8 % (11.5-14.5); RDW Standard Deviation 42.8 fL (36.4-46.3); Red Blood Count 3.34 M/uL (4.2-5.4); White Blood Count 9.36 K/uL (4.8-10.8)
[2021-11-20 05:55] LABS: BUN Creatinine Ratio 29.7 (10-20); C Reactive Protein 25.08 mg/dl (0-0.5); Creatinine Clr Calc Pharmacy 24.1 ml/min; Est GFR (African American) 28.8 ml/min; Est GFR (Non-African American) 24.9 ml/min; Phosphorus 5.5 mg/dl (2.5-4.9); Potassium 4.1 mmol/L (3.5-5.1)
[2021-11-20] MEDS: INSULIN ASPART PER UNIT SC SCH ×4 (07:47→19:57)
[2021-11-20] MEDS: METOPROLOL SUCC 25MG EXT REL TAB PO SCH (08:59)
[2021-11-20] MEDS: ASPIRIN 81 MG ECTAB PO SCH (08:59)
[2021-11-20] MEDS: amLODIPine BESYLATE 5 MG TAB PO SCH (08:59)
--- NOTE | 2021-11-20 09:14 | Critical Care Progress Note ---
Date of Service November 20, 2021 Assessment & Plan (1) Aortic valve vegetation: (2) Paroxysmal atrial fibrillation: (3) Acute diastolic heart failure: (4) Ovarian mass: (5) Acute hypoxemic respiratory failure: Plan: Impression: 86-year-old female with mobile vegetation on bioprosthetic valve suspicious for potential endocarditis. She has a known 8 cm ovarian mass. She is having nausea and vomiting and progressive hypoxemic respiratory failure. S he is been diuresed. Her x-ray does not reveal an acute etiology. Given the potential for ovarian malignancy, the patient is at risk for pulmonary embolism. Which could be contributing to the patient's tachycardia and hypoxemia. 24-hour events: Patient transferred to the ICU. She had a CT angiogram performed which showed no evidence of filling defects but did show bilateral pleural effusions, pulmonary edema, and some dependent compressive atelectasis. She was placed on BiPAP overnight. She was given a cocktail for antiemesis which resolved her issues. She did well on BiPAP overnight. She been weaned to 6 L nasal cannula this morning. Recommendations: 1. Neurologic: No current issues. Continue to follow. 2. Cardiovascular: Potential bioprosthetic endocarditis. This is complicated by moderate to severe mitral regurgitation. With functional aortic stenosis and moderate to severe mitral regurgitation, managing her afterload and volume status is a fine-line. Her creatinine did bump slightly so would hold additional diuretics today but I think she would benefit from additional volume removal if tolerated. Defer YONG to cardiology 3. Pulmonary: Acute hypoxemic respiratory failure: No evidence of PE. CT scan appears consistent with pulmonary edema/fluid overload with bilateral pleural effusions. Continue diuresis. No indication for thoracentesis. Can continue to use noninvasive positive pressure ventilation on an as-needed basis as a bridge. Wean oxygen as tolerated. 4. Renal: The patient has significant renal dysfunction. Increase in serum creatinine, potentially related to contrast administration yesterday. Will hold diuretics today and see how she responds. 5. ID: Possible endocarditis. Day #2 cefepime and vancomycin. Pharmacy will dose adjust. Formal ID consultation currently pending and will defer additional antibiotics to them. 6. Heme-onc: Increasing ovarian mass. Patient was followed in [place] previously and was advised that she was a poor surgical candidate and was dismissed from TRANSPORTATION REFRIGERATION TECHNICIAN oncology due to radiographic stability of the mass. Suspect this lesion is malignant. It appears that the mass is increasing in size now. It is causing some compression of the bladder and making it difficult for the patient to urinate. Would recommend TRANSPORTATION REFRIGERATION TECHNICIAN oncology evaluation which is not available at our institution. The patient is at high risk for any surgical intervention given her valvular heart disease. 7. Endocrine: Glycemic control per ICU protocol. 8. GI: Nausea improved with combination of Zofran, Compazine, promethazine, and Ativan. Continue as needed Patient is stabilized currently but is at risk for clinical decompensation. We will see how she does off noninvasive positive pressure ventilation throughout the day today. If she does well, could potentially consider transfer back to the floor depending on clinical response. Patient was discussed on multidisciplinary rounds and with the bedside critical care nurse. A total of 45 minutes critical care time was spent evaluation management stabilization of this patient. Admission and Anticipated Discharge Date Admission Date: November 18, 2021 Subjective Patient seen and examined. EMR reviewed. The patient states that she is feeling much better this morning. She has been transitioned off of BiPAP to nasal cannula this morning. She is no longer experiencing emesis. The cocktail that she received yesterday resolved her issues. She feels her breathing is okay. Her abdominal discomfort is resolved. Review of Systems Review of Systems: All systems reviewed & are unremarkable except as noted in Subjective Physical Exam Constitutional: WD/WN, vitals as above well developed; no acute distress Respiratory: able to speak in complete sentences; no respiratory distress Auscultation: + diminished lung sounds and + crackles (faint bibasilar rales) Cardiovascular: Rate/Rhythm: regular rate and regular rhythm Heart Sounds: + murmur (III/ systolic murmur LSB) Vessels: no JVD Extremities: no edema Gastrointestinal (Abdomen): normal bowel sounds, soft, nontender, no hepatosplenomegaly Neurologic: PERRL, EOMI, accommodation nl, no face palsy, no dysarthria Psychiatric: A+Ox3, euthymic affect Results & Data Results & Data ([facility]) Vital Signs (Past 12 Hours) Vital Signs Temp Pulse Resp BP Pulse Ox 11/20/21 06:00 61 23 130/57 L 95 11/20/21 05:37 72 19 144/63 H 97 11/20/21 05:30 81 19 91 11/20/21 05:00 62 26 H 132/56 L 95 11/20/21 04:31 63 29 H 132/56 L 99 11/20/21 04:30 68 27 H 97 11/20/21 04:01 36.8 C 60 23 150/61 H 100 11/20/21 04:00 62 27 H 98 11/20/21 03:30 37.1 C 62 26 H 144/60 H 95 11/20/21 03:21 64 22 97 11/20/21 03:01 63 24 137/50 L 99 11/20/21 02:30 62 28 H 136/56 L 94 11/20/21 01:30 60 25 H 146/60 H 95 11/20/21 01:03 70 26 H 166/68 H 11/20/21 00:30 60 27 H 130/54 L 97 11/20/21 00:00 63 26 H 124/49 L 97 11/19/21 23:59 59 L 11/19/21 23:35 68 27 H 96 11/19/21 23:30 64 27 H 125/57 L 96 11/19/21 23:00 67 26 H 125/58 L 96 11/19/21 22:47 64 28 H 135/59 L 96 11/19/21 22:30 66 30 H 135/59 L 96 11/19/21 22:00 66 28 H 96 Critical Care Results & Data Vital Signs (Past 12 Hours) Vital Signs Temp Pulse Resp BP Pulse Ox 11/20/21 06:00 61 23 130/57 L 95 11/20/21 05:37 72 19 144/63 H 97 11/20/21 05:30 81 19 91 11/20/21 05:00 62 26 H 132/56 L 95 11/20/21 04:31 63 29 H 132/56 L 99 11/20/21 04:30 68 27 H 97 11/20/21 04:01 36.8 C 60 23 150/61 H 100 11/20/21 04:00 62 27 H 98 11/20/21 03:30 37.1 C 62 26 H 144/60 H 95 11/20/21 03:21 64 22 97 11/20/21 03:01 63 24 137/50 L 99 11/20/21 02:30 62 28 H 136/56 L 94 11/20/21 01:30 60 25 H 146/60 H 95 11/20/21 01:03 70 26 H 166/68 H 11/20/21 00:30 60 27 H 130/54 L 97 11/20/21 00:00 63 26 H 124/49 L 97 11/19/21 23:59 59 L 11/19/21 23:35 68 27 H 96 11/19/21 23:30 64 27 H 125/57 L 96 11/19/21 23:00 67 26 H 125/58 L 96 11/19/21 22:47 64 28 H 135/59 L 96 11/19/21 22:30 66 30 H 135/59 L 96 11/19/21 22:00 66 28 H 96 Lab & Micro Results (Past 24 Hours) RBC 3.34 M/uL (4.2-5.4) L 11/20/21 WBC 9.36 K/uL (4.8-10.8) 11/20/21 Hgb 9.2 g/dL (12.0-16.0) L 11/20/21 Hct 28.2 % (37-47) L 11/20/21 MCV 84.4 fL (80-100) 11/20/21 MCH 27.5 pg (25-34) 11/20/21 MCHC 32.6 g/dL (32-36) 11/20/21 RDW Standard Deviation 42.8 fL (36.4-46.3) 11/20/21 RDW Coefficient of Variation 13.8 % (11.5-14.5) 11/20/21 Plt Count 283 K/uL (130-400) 11/20/21 MPV 10.0 fL (7.4-10.4) 11/20/21 Na 138 mmol/L (136-145) 11/20/21 K 4.1 mmol/L (3.5-5.1) 11/20/21 Cl 98 mmol/L (98-107) 11/20/21 CO2 30 mmol/L (21-32) 11/20/21 Anion Gap 10 (3-11) 11/20/21 BUN 54 mg/dl (6-23) H 11/20/21 Creatinine 1.82 mg/dl (0.6-1.2) H 11/20/21 Estimated GFR ( Amer) 28.8 ml/min 11/20/21 Estimated GFR (Non-Af Amer) 24.9 ml/min 11/20/21 BUN/Creatinine Ratio 29.7 (10-20) H 11/20/21 Glu 172 mg/dl (70-99(Fasting)) H 11/20/21 Ca 9.0 mg/dl (8.5-10.1) 11/20/21 Phosphorus Level 5.5 mg/dl (2.5-4.9) H 11/20/21 Mg 2.0 mg/dl (1.7-2.4) 11/20/21 05:13 11/20/21 Calcium Level 9.0 mg/dl (8.5-10.1) 11/20/21 05:13 11/20/21 Microbiology 11/18/21 16:31 Aerobic Blood Culture - Preliminary Blood No growth in Aerobic bottle after 24 hours. Anaerobic Blood Culture - Preliminary No growth in Anaerobic bottle after 24 hours. 11/18/21 16:31 Aerobic Blood Culture - Preliminary Blood No growth in Aerobic bottle after 24 hours. Anaerobic Blood Culture - Preliminary No growth in Anaerobic bottle after 24 hours. Diagnostic Findings (Past 24 Hours) Chest CTA 11/19/21 17:28 CHEST CTA for PULMONARY ARTERIES CT DOSE: 440.72 mGy.cm HISTORY: Shortness of breath. TECHNIQUE: Multiaxial CT images of the chest were performed following the intravenous administration of contrast to evaluate the pulmonary arteries. Maximal intensity projection images were also obtained. A dose lowering technique was utilized adhering to the principles of ALARA. COMPARISON STUDY: Abdomen and pelvis CT 11/16/2021. FINDINGS: The hepatic lesions are better appreciated on the recent abdomen and pelvis CT. The visualized spleen and adrenal glands are unremarkable. There is a small hiatus hernia. There are small bilateral pleural effusions. The thyroid gland enhances normally. The heart is mildly enlarged. No pericardial effusion. No hilar lymphadenopathy. A single mildly enlarged right paratracheal lymph node measuring 1.4 cm. Mild circumferential thickening of the esophagus. No suspicious lytic or blastic osseous lesions. Poststernotomy changes are noted. Mild calcified plaque within the normal caliber thoracic aorta. No evidence for an aortic dissection. An aortic valve prosthesis is noted. Moderate coronary artery calcifications are present. Nondiagnostic evaluation of the majority of the bilateral lower lobe subsegmental pulmonary arteries due to the respiratory motion artifact. However, no definite filling defects identified within the pulmonary arteries to suggest a pulmonary embolus. No pneumothorax. The central airways are patent. Mild biapical pleural-parenchymal scarring. Calcified granuloma within the left lower lobe. Consolidation within the bilateral upper and lower lobes posteriorly. This likely represents a combination of atelectasis and pneumonia. There is also right perihilar groundglass airspace opacities likely representing a pneumonia. Asymmetric pulmonary edema could also have a similar appearance. Right lung interlobular septal thickening is noted. IMPRESSION: 1. No evidence for pulmonary embolus. 2. Cardiomegaly and small bilateral pleural effusions. There is also perihilar groundglass airspace opacities and interlobular septal thickening within the right lung which likely represents mild asymmetric pulmonary edema. 3. Airspace opacities within the upper and lower lobes posteriorly likely represent a combination of atelectasis and pneumonia. 4. A single enlarged right paratracheal lymph node. This could be reactive to the suspected pneumonia. ACT 112: Negative or not required by law. Electronically signed by: Shankar Santamaria M.D. 11/19/2021 6:45 PM I & O Totals 24 Hours 11/19/21 11/20/21 11/21/21 06:59 06:59 06:59 Intake Total 1549.7 / 1749.7 1877.75 / 1877.75 Output Total 1400 / 1400 1575 / 1575 Balance 149.7 / 349.7 302.75 / 302.75 Cumulative 11/17/21 21:03 thru 11/20/21 06:13 Intake Total 3577.45 Output Total 3775 Balance -197.55 RT Ventilator Mngmt (Last Documented) Ventilator Ordered Settings Respiratory Rate 23 11/20/21 06:00 Fraction of Inspired Oxygen 70 11/20/21 03:21 Ventilator - PT Measurements Respiratory Rate 23 Coding Level of Care Code Critical Care 1st 30-74 mins Diagnoses Aortic valve vegetation I33.0 Paroxysmal atrial fibrillation I48.0 Acute diastolic heart failure I50.31 Ovarian mass N83.8 Acute hypoxemic respiratory failure J96.01
[2021-11-20] MEDS: FUROSEMIDE 40 MG/4 ML VIAL IV SCH (09:17)
--- NOTE | 2021-11-20 10:35 | Pharmacy Report ---
Pharmacy Vanc AUC Short Note - Date of Service November 20, 2021 - Assessment & Plan Assessment * 86 year old F with hx bioprosthetic AVR receiving IV vancomycin and cefepime for treatment of possible endocarditis. Gentamicin discontinued yesterday due to nephrotoxicity and IV contrast admin * Blood cultures negative * SCr worsening today * Awaiting ID recommendations Vancomycin * AUC/HERMAN is the preferred PK/PD target for vancomycin * AUC guided dosing is effective and associated with decreased risk of nephrotoxicity compared to traditional trough targets * Vancomycin placed on hold this AM 2nd increase in SCr * Random level today 15.5 mcg/mL - OK to give additional vancomycin Plan * Vancomycin 1000 mg IV x1 * Random level with AM labs tomorrow Pharmacy will continue to follow and will adjust dose/frequency as necessary. Thank you.
[2021-11-20] MEDS: HEPARIN SOD 5,000 UNIT/0.5 ML VIAL SQ SCH ×2 (10:56→19:41)
--- NOTE | 2021-11-20 13:37 | Hospitalist Progress Note ---
Date of Service November 20, 2021 Assessment & Plan (1) Acute hypoxemic respiratory failure: Plan: She denies any recent h/o swelling but developed some SOB just prior to arrival, found to have pulmonary edema and placed on intravenous diuretics. Echo with preserved EF now with new aortic vegetation. She has a h/o aortic valve replacement with tissue valve in [place] in 2011. She has a h/o reduced systolic function in the past per outpatient cardiology records. 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 ID consulted. It is recommended he obtain two additional sets of routine blood cultures and fungal blood cultures now. Vancomycin plus ceftriaxone is recommended as the preferred antibiotic regimen in this case as common organisms for presumed endocarditis include Staphylococci, VGS and Enterococcus. Further serologic testing for mycoplasma Bartonella chlamydia Brucella Legionella Trophermyma, Coxiella recommended. (3) Acute diastolic heart failure: Plan: Good diuresis overnight with Lasix, however, creatinine increased this morning to 1.8, so this was held today. CT overnight revealed fluid overload. She will likely need more diuresis as tolerated and has the possibility to decompensate from a respiratory standpoint. Cont ICU monitoring for now. (4) S/P AVR (aortic valve replacement): Plan: tissue valve replacement in 2011 (5) LBBB (left bundle branch block): Plan: chronic (6) Type 2 diabetes mellitus: Plan: at inpatient goal, cont current insulin dosing schedule (7) Elevated troponin: Plan: Likely related to demand ischemia from acute illness. (8) Ovarian mass: Plan: Per [facility] gy[facility]ologic oncology clinic she has 2 pelvic cysts at vaginal cuff in February 2021 per transvaginal ultrasound the right cyst was 7.6 x 7 x 7 cm with speckled debris. The left cyst was 6 x 4 x 4 cm. Compared to images from September 2016 these were unchanged in appearance. Both cysts appear to be debris-filled or just cystic in nature and given the lack of private branch exchange service advisor time, it was felt that this was not consistent with malignancy and surveillance was not necessary. (9) DVT prophylaxis: Plan: SCDs Full Code confirmed. Dispo-cont PCU DO Chantell Mcclal Hospitalist Admission and Anticipated Discharge Date Admission Date: November 18, 2021 Subjective 86 yo F admitted with acute respiratory failure with hypoxia She is now oxygenating on nasal canula and doing well Denies cough or fever Feels averse to food although eating some Reports afraid to become nauseous again daughter at bedside and reviewed care plan Review of Systems Review of Systems: All systems were reviewed and negative except as indicated above. Physical Exam Physical Exam: CONSTITUTIONAL: overweight, vitals as above, NAD EYES: normal conjunctivae, no scleral icterus ENT: external ear and nose normal, NC in place NECK: trachea midline RESPIRATORY: clear to auscultation bilaterally, no crackles, rales or wheezes, normal respiratory effort on extra oxygen support. CARDIOVASCULAR: regular rate and rhythm, S1 and 2 heard 3/6 ALDO across precordium, no gallops or rubs, no JVD, no peripheral edema GASTROINTESTINAL: soft, nontender, ND, no guarding, protuberant. MUSCULOSKELETAL: strength 5/5 throughout, head is normocephalic and atraumatic, neck supple, normal palpation of chest wall without tenderness SKIN: warm and dry NEUROLOGIC: CN 2-12 grossly intact, normal cognition, normal speech, no tremor, no gross focal deficits. PSYCHIATRIC: alert cooperative and oriented to person, place and time. Results & Data Results & Data ([facility]) Vital Signs (Past 12 Hours) Vital Signs Temp Pulse Resp BP Pulse Ox 11/20/21 09:30 65 26 H 92 11/20/21 09:00 69 28 H 121/58 L 11/20/21 08:30 70 25 H 90 11/20/21 08:00 72 21 125/58 L 11/20/21 07:30 66 21 128/54 L 92 11/20/21 07:00 66 28 H 132/50 L 11/20/21 06:45 62 22 94 11/20/21 06:00 61 23 130/57 L 95 11/20/21 05:37 72 19 144/63 H 97 11/20/21 05:30 81 19 91 11/20/21 05:00 62 26 H 132/56 L 95 11/20/21 04:31 63 29 H 132/56 L 99 11/20/21 04:30 68 27 H 97 11/20/21 04:01 36.8 C 60 23 150/61 H 100 11/20/21 04:00 62 27 H 98 11/20/21 03:30 37.1 C 62 26 H 144/60 H 95 11/20/21 03:21 64 22 97 11/20/21 03:01 63 24 137/50 L 99 11/20/21 02:30 62 28 H 136/56 L 94 Laboratory Results Short CBC 11/20/21 Range/Units 05:13 WBC 9.36 (4.8-10.8) K/uL Hgb 9.2 L (12.0-16.0) g/dL Hct 28.2 L (37-47) % Plt Count 283 (130-400) K/uL BMP 11/20/21 05:13 Sodium 138 Potassium 4.1 Chloride 98 Carbon Dioxide 30 BUN 54 H Creatinine 1.82 H D Glucose 172 H Calcium 9.0 Medications Administered Current Inpatient Medications Acetaminophen (Acetaminophen 325 Mg Tab) 650 mg PO Q4H PRN PRN Reason: Pain or Fever Stop: 12/18/21 02:17 Last Admin: 11/19/21 18:31 Dose: 650 mg Documented by: Amlodipine Besylate (Amlodipine Besylate 5 Mg Tab) 10 mg PO DAILY [facility] Stop: 12/18/21 08:59 Last Admin: 11/20/21 08:59 Dose: 10 mg Documented by: Aspirin (Aspirin 81 Mg Ectab) [facility] Stop: 12/18/21 08:59 Last Admin: 11/20/21 08:59 Dose: 81 mg Documented by: Atorvastatin Calcium (Atorvastatin 20 Mg Tab) 20 mg PO HS [facility] Stop: 12/18/21 20:59 Last Admin: 11/19/21 21:05 Dose: 20 mg Documented by: Dextrose (Dextrose 50% 50 Ml Syringe) 25 - 50 ml IV UD PRN; Protocol PRN Reason: Hypoglycemia Protocol Stop: 12/18/21 02:17 Furosemide (Furosemide 40 Mg/4 Ml Vial) 80 mg IV [id number] [facility] Stop: 12/19/21 14:29 Last Admin: 11/20/21 09:17 Dose: Not Given Documented by: Glucagon (Glucagon For Inj 1 Mg Vial) 1 mg SQ UD PRN; Protocol PRN Reason: Hypoglycemia Protocol Stop: 12/18/21 02:17 Glucose (Glucose 10 Tabs/Tube) 4 - 8 tabs PO UD PRN; Protocol PRN Reason: Hypoglycemia Protocol Stop: 12/18/21 02:17 Glucose (Glucose 40% Gel 15 Gm Tube) 15 - 30 gm PO UD PRN; Protocol PRN Reason: Hypoglycemia Protocol Stop: 12/18/21 02:17 Guaifenesin (Guaifenesin 600 Mg Tabcr) 600 mg PO Q12 [facility] Stop: 12/18/21 08:59 Last Admin: 11/19/21 09:20 Dose: 600 mg Documented by: Heparin Sodium (Porcine) (Heparin Sod 5,000 Unit/0.5 Ml Vial) 5,000 units SQ Q12 [facility] Stop: 12/20/21 09:44 Last Admin: 11/20/21 10:56 Dose: 5,000 units Documented by: Promethazine HCl 12.5 mg/ (Sodium Chloride) 50.5 mls @ 202 mls/hr IV Q6H PRN PRN Reason: Nausea And Vomiting Stop: 12/18/21 02:17 Last Infusion: 11/19/21 17:16 Dose: Infused Documented by: Vancomycin HCl 1,000 mg/ (Sodium Chloride) 270 mls @ 200 mls/hr IV Q24H [facility] Stop: 12/31/21 11:59 Last Infusion: 11/19/21 14:28 Dose: Infused Documented by: Prochlorperazine 5 mg/ Syringe 5 mls @ 5 mls/min IV Q6H PRN PRN Reason: Nausea And Vomiting Stop: 12/19/21 17:26 Last Admin: 11/19/21 18:31 Dose: 5 mls/min Documented by: Cefepime HCl 2,000 mg/ Syringe 20 mls @ 5 mls/min IV DAILY@2100 GENOVEVA; Protocol Stop: 12/31/21 20:59 Insulin Aspart (Insulin Aspart Per Unit) 0 units SC ACHS [facility] Stop: 12/18/21 02:17 Last Admin: 11/20/21 11:52 Dose: 1 units Documented by: Ipratropium [place] (Ipratropium [place] Neb Soln 0.02% 2.5 Ml Vial) 0.5 mg INH Q4H PRN PRN Reason: SOB, WHEEZE Stop: 12/18/21 02:17 Last Admin: 11/18/21 12:09 Dose: 0.5 mg Documented by: Levalbuterol HCl (Levalbuterol 1.25mg/0.5ml Neb) 1.25 mg INH Q4H PRN PRN Reason: SOB, WHEEZE Stop: 12/18/21 02:17 Last Admin: 11/18/21 12:09 Dose: 1.25 mg Documented by: Lorazepam (Lorazepam 2 Mg/1 Ml Vial) 0.25 mg IV Q4H PRN PRN Reason: nausea Stop: 12/19/21 17:26 Last Admin: 11/19/21 20:47 Dose: 0.25 mg Documented by: Metoprolol Succinate (Metoprolol Succ 25mg Ext Rel Tab) 25 mg PO QAM [facility] Stop: 12/18/21 08:59 Last Admin: 11/20/21 08:59 Dose: 25 mg Documented by: Miscellaneous (Carbohydrates For Hypoglycemia ) 15 - 30 gm PO UD PRN PRN Reason: Hypoglycemia Protocol Stop: 12/18/21 02:17 Miscellaneous Information (Vancomycin Consult Active) 1 ea N/A UD PRN PRN Reason: Consult Stop: 12/19/21 02:47 Ondansetron HCl (Ondansetron Inj 2 Mg/Ml 2 Ml Vial) 4 mg IV Q8H PRN PRN Reason: Nausea And Vomiting Stop: 12/19/21 13:52 Last Admin: 11/19/21 14:49 Dose: 4 mg Documented by: Oxycodone HCl (Oxycodone Hcl Ir 5 Mg Tab (Immediate Release)) 5 mg PO Q4H PRN PRN Reason: Pain Stop: 12/02/21 02:17 Last Admin: 11/19/21 10:38 Dose: 5 mg Documented by:
--- NOTE | 2021-11-20 13:43 | Cardiology Progress Note ---
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 Blood cultures ordered x2. Prelim reports are negative. Continue antibiotics. Worsening respiratory status yesterday requiring transfer to ICU, BIPAP therapy. Chest Ct was negative for pulmonary embolus. possible underlying pneumonia with b/l pleural effusions noted. Good diuresis overnight. Respiratory status improved today. unfortunately creatinine tona today at 1.8. Furosemide on hold. Low threshold to resume afternoon dose if needed. Continue IV furosemide. Supplemental O2. Monitor I+O's. Monitor renal function. Mild troponin elevation due to CHF and hypoxia on admission. Not indicative of acute ACS. No anginal complaints. She had possible afib on one EKG on admission, now resolved. No recurrence of arrhythmias overnight. Continue ASA, metoprolol. Will not anticoagulate at this time due to possible endocarditis. She has large ovarian mass, previously followed by [facility]c in [place]. Daughter reports mass was 4 cm at that time, now [address] This may be contri buting to her persistent nausea. Case discussed with Dr. Thompson. Will follow. Admission and Anticipated Discharge Date Admission Date: November 18, 2021 Supervising Physician Co-Signing Physician Notes Patient seen and examined at the bedside. Feeling better today. Reduce oxygen requirements today. Nasal cannula weaned down to 6 L. She is more alert and less dyspneic. CTA of the chest performed yesterday to rule out PE. No evidence of pulmonary embolus. Serum creatinine trending upward. Evening dose of furosemide on hold. PE: VSS. Gen: NAD, AAOx3. Heart: Regular with ectopy, 3/6 medium pitched mid-to-late peaking systolic ejection murmur heard best at the right second intercostal space, however, throughout the precordium. 2/6 midsystolic murmur heard best left sternal border. Lungs: Diminished lung sounds at the bases bila terally. No rhonchi or wheeze. Extremities: No edema. Neuro: Moves all extremities. No focal deficit. A/P: Agree with above PAMariano history, physical exam, assessment and plan. Hold Lasix today and in a.m. pending review of BMP. Blood cultures negative thus far. Antibiotic coverage as per infectious disease. Case was discussed with my colleagues at [facility] in [place] who recommend continued conservative medical management at this time. Repeat ECG in a.m. Subjective Patient resting comfortably, out of bed, eating lunch. yesterday afternoon she developed worsening respiratory symptoms, hypoxia. Transferred to ICU. Underwent chest CTA which demosntrated b/l pleural effusions, possible pneumnia, but no pulmonary embolus. Diuretics were increased overnight with good outputs. She reports SOB improved today. no chest pain. Requiring less supplemental O2. No dizziness or lightheadedness. Furosemide on hold due to rising creatinine after CT dye. Review of Systems Review of Systems: All systems reviewed & are unremarkable except as noted in HPI & below Physical Exam Constitutional: WD/WN, vitals as above well developed; no acute distress Respiratory: + cough and able to speak in complete sentences; no respiratory distress Auscultation: + diminished lung sounds and + crackles (faint bibasilar rales) Cardiovascular: Rate/Rhythm: regular rate and regular rhythm Heart Sounds: + murmur (III/ systolic murmur LSB) Vessels: no JVD Extremities: no edema Gastrointestinal (Abdomen): normal bowel sounds, soft, nontender, no hepatosplenomegaly Neurologic: PERRL, EOMI, accommodation nl, no face palsy, no dysarthria Psychiatric: A+Ox3, euthymic affect Results & Data ([facility]) Vital Signs (Past 12 Hours) Vital Signs Temp Pulse Resp BP Pulse Ox 11/20/21 09:30 65 26 H 92 11/20/21 09:00 69 28 H 121/58 L 11/20/21 08:30 70 25 H 90 11/20/21 08:00 72 21 125/58 L 11/20/21 07:30 66 21 128/54 L 92 11/20/21 07:00 66 28 H 132/50 L 11/20/21 06:45 62 22 94 11/20/21 06:00 61 23 130/57 L 95 11/20/21 05:37 72 19 144/63 H 97 11/20/21 05:30 81 19 91 11/20/21 05:00 62 26 H 132/56 L 95 11/20/21 04:31 63 29 H 132/56 L 99 11/20/21 04:30 68 27 H 97 11/20/21 04:01 36.8 C 60 23 150/61 H 100 11/20/21 04:00 62 27 H 98 11/20/21 03:30 37.1 C 62 26 H 144/60 H 95 11/20/21 03:21 64 22 97 11/20/21 03:01 63 24 137/50 L 99 11/20/21 02:30 62 28 H 136/56 L 94 Laboratory Results 11/20/21 11/20/21 11/20/21 Range/Units 11:21 11:01 07:42 WBC (4.8-10.8) K/uL RBC (4.2-5.4) M/uL Hgb (12.0-16.0) g/dL Hct (37-47) % MCV (80-100) fL MCH (25-34) pg MCHC (32-36) g/dL RDW Std Deviation (36.4-46.3) fL RDW Coeff of Roberto (11.5-14.5) % Plt Count (130-400) K/uL MPV (7.4-10.4) fL ESR (0-30) mm/hr Sodium (136-145) mmol/L Potassium (3.5-5.1) mmol/L Chloride (98-107) mmol/L Carbon Dioxide (21-32) mmol/L Anion Gap (3-11) BUN (6-23) mg/dl Creatinine (0.6-1.2) mg/dl Est Cr Clr Drug Dosing ml/min Est GFR ( Amer) ml/min Est GFR (Non-Af Amer) ml/min BUN/Creatinine Ratio (10-20) Glucose (70-99(Fasting)) mg/dl POC Glucose 137 H 175 H (70-99) mg/dl Calcium (8.5-10.1) mg/dl Phosphorus (2.5-4.9) mg/dl Magnesium (1.7-2.4) mg/dl C-Reactive Protein (0-0.5) mg/dl Vancomycin Trough 15.5 (10-20) mcg/ml Rheumatoid Factor 11/20/21 11/20/21 11/20/21 Range/Units 05:13 05:13 05:13 WBC 9.36 (4.8-10.8) K/uL RBC 3.34 L (4.2-5.4) M/uL Hgb 9.2 L (12.0-16.0) g/dL Hct 28.2 L (37-47) % MCV 84.4 (80-100) fL MCH 27.5 (25-34) pg MCHC 32.6 (32-36) g/dL RDW Std Deviation 42.8 (36.4-46.3) fL RDW Coeff of Roberto 13.8 (11.5-14.5) % Plt Count 283 (130-400) K/uL MPV 10.0 (7.4-10.4) fL ESR (0-30) mm/hr Sodium 138 (136-145) mmol/L Potassium 4.1 (3.5-5.1) mmol/L Chloride 98 (98-107) mmol/L Carbon Dioxide 30 (21-32) mmol/L Anion Gap 10 (3-11) BUN 54 H (6-23) mg/dl Creatinine 1.82 H D (0.6-1.2) mg/dl Est Cr Clr Drug Dosing 24.1 ml/min Est GFR ( Amer) 28.8 ml/min Est GFR (Non-Af Amer) 24.9 ml/min BUN/Creatinine Ratio 29.7 H (10-20) Glucose 172 H (70-99(Fasting)) mg/dl POC Glucose (70-99) mg/dl Calcium 9.0 (8.5-10.1) mg/dl Phosphorus 5.5 H (2.5-4.9) mg/dl Magnesium 2.0 (1.7-2.4) mg/dl C-Reactive Protein 25.08 H (0-0.5) mg/dl Vancomycin Trough (10-20) mcg/ml Rheumatoid Factor Pending 11/20/21 11/19/21 11/19/21 Range/Units 05:13 20:38 16:08 WBC (4.8-10.8) K/uL RBC (4.2-5.4) M/uL Hgb (12.0-16.0) g/dL Hct (37-47) % MCV (80-100) fL MCH (25-34) pg MCHC (32-36) g/dL RDW Std Deviation (36.4-46.3) fL RDW Coeff of Roberto (11.5-14.5) % Plt Count (130-400) K/uL MPV (7.4-10.4) fL ESR 54 H (0-30) mm/hr Sodium (136-145) mmol/L Potassium (3.5-5.1) mmol/L Chloride (98-107) mmol/L Carbon Dioxide (21-32) mmol/L Anion Gap (3-11) BUN (6-23) mg/dl Creatinine (0.6-1.2) mg/dl Est Cr Clr Drug Dosing ml/min Est GFR ( Amer) ml/min Est GFR (Non-Af Amer) ml/min BUN/Creatinine Ratio (10-20) Glucose (70-99(Fasting)) mg/dl POC Glucose 186 H 229 H (70-99) mg/dl Calcium (8.5-10.1) mg/dl Phosphorus (2.5-4.9) mg/dl Magnesium (1.7-2.4) mg/dl C-Reactive Protein (0-0.5) mg/dl Vancomycin Trough (10-20) mcg/ml Rheumatoid Factor Diagnostic Findings Blood cultures negative after [address] report reviewed from yesterday - No evidence for pulmonary embolus. 2. Cardiomegaly and small bilateral pleural effusions. There is also perihilar groundglass airspace opacities and interlobular septal thickening within the right lung which likely represents mild asymmetric pulmonary edema. 3. Airspace opacities within the upper and lower lobes posteriorly likely represent a combination of atelectasis and pneumonia. 4. A single enlarged right paratracheal lymph node. This could be reactive to the suspected pneumonia. Medications Administered Current Inpatient Medications Acetaminophen (Acetaminophen 325 Mg Tab) 650 mg PO Q4H PRN PRN Reason: Pain or Fever Stop: 12/18/21 02:17 Last Admin: 11/19/21 18:31 Dose: 650 mg Documented by: Amlodipine Besylate (Amlodipine Besylate 5 Mg Tab) 10 mg PO DAILY PENDING SALE TO [facility] Stop: 12/18/21 08:59 Last Admin: 11/20/21 08:59 Dose: 10 mg Documented by: Aspirin (Aspirin 81 Mg Ectab) 81 mg PO QAM [place] Stop: 12/18/21 08:59 Last Admin: 11/20/21 08:59 Dose: 81 mg Documented by: Atorvastatin Calcium (Atorvastatin 20 Mg Tab) 20 mg PO HS [place] Stop: 12/18/21 20:59 Last Admin: 11/19/21 21:05 Dose: 20 mg Documented by: Dextrose (Dextrose 50% 50 Ml Syringe) 25 - 50 ml IV UD PRN; Protocol PRN Reason: Hypoglycemia Protocol Stop: 12/18/21 02:17 Furosemide (Furosemide 40 Mg/4 Ml Vial) 80 mg IV BID17 [place] Stop: 12/19/21 14:29 Last Admin: 11/20/21 09:17 Dose: Not Given Documented by: Glucagon (Glucagon For Inj 1 Mg Vial) 1 mg SQ UD PRN; Protocol PRN Reason: Hypoglycemia Protocol Stop: 12/18/21 02:17 Glucose (Glucose 10 Tabs/Tube) 4 - 8 tabs PO UD PRN; Protocol PRN Reason: Hypoglycemia Protocol Stop: 12/18/21 02:17 Glucose (Glucose 40% Gel 15 Gm Tube) 15 - 30 gm PO UD PRN; Protocol PRN Reason: Hypoglycemia Protocol Stop: 12/18/21 02:17 Guaifenesin (Guaifenesin 600 Mg Tabcr) 600 mg PO Q12 [facility] Stop: 12/18/21 08:59 Last Admin: 11/19/21 09:20 Dose: 600 mg Documented by: Heparin Sodium (Porcine) (Heparin Sod 5,000 Unit/0.5 Ml Vial) 5,000 units SQ Q12 [place] Stop: 12/20/21 09:44 Last Admin: 11/20/21 10:56 Dose: 5,000 units Documented by: Promethazine HCl 12.5 mg/ (Sodium Chloride) 50.5 mls @ 202 mls/hr IV Q6H PRN PRN Reason: Nausea And Vomiting Stop: 12/18/21 02:17 Last Infusion: 11/19/21 17:16 Dose: Infused Documented by: Vancomycin HCl 1,000 mg/ (Sodium Chloride) 270 mls @ 200 mls/hr IV Q24H PENDING SALE TO [facility] Stop: 12/31/21 11:59 Last Infusion: 11/19/21 14:28 Dose: Infused Documented by: Prochlorperazine 5 mg/ Syringe 5 mls @ 5 mls/min IV Q6H PRN PRN Reason: Nausea And Vomiting Stop: 12/19/21 17:26 Last Admin: 11/19/21 18:31 Dose: 5 mls/min Documented by: Cefepime HCl 2,000 mg/ Syringe 20 mls @ 5 mls/min IV DAILY@2100 PENDING SALE TO [facility]; Protocol Stop: 12/31/21 20:59 Insulin Aspart (Insulin Aspart Per Unit) 0 units SC [facility] Stop: 12/18/21 02:17 Last Admin: 11/20/21 11:52 Dose: 1 units Documented by: Ipratropium [place] (Ipratropium [place] Neb Soln 0.02% 2.5 Ml Vial) 0.5 mg INH Q4H PRN PRN Reason: SOB, WHEEZE Stop: 12/18/21 02:17 Last Admin: 11/18/21 12:09 Dose: 0.5 mg Documented by: Levalbuterol HCl (Levalbuterol 1.25mg/0.5ml Neb) 1.25 mg INH Q4H PRN PRN Reason: SOB, WHEEZE Stop: 12/18/21 02:17 Last Admin: 11/18/21 12:09 Dose: 1.25 mg Documented by: Lorazepam (Lorazepam 2 Mg/1 Ml Vial) 0.25 mg IV Q4H PRN PRN Reason: nausea Stop: 12/19/21 17:26 Last Admin: 11/19/21 20:47 Dose: 0.25 mg Documented by: Metoprolol Succinate (Metoprolol Succ 25mg Ext Rel Tab) [address] [facility] Stop: 12/18/21 08:59 Last Admin: 11/20/21 08:59 Dose: 25 mg Documented by: Miscellaneous (Carbohydrates For Hypoglycemia ) 15 - 30 gm PO UD PRN PRN Reason: Hypoglycemia Protocol Stop: 12/18/21 02:17 Miscellaneous Information (Vancomycin Consult Active) 1 ea N/A UD PRN PRN Reason: Consult Stop: 12/19/21 02:47 Ondansetron HCl (Ondansetron Inj 2 Mg/Ml 2 Ml Vial) 4 mg IV Q8H PRN PRN Reason: Nausea And Vomiting Stop: 12/19/21 13:52 Last Admin: 11/19/21 14:49 Dose: 4 mg Documented by: Oxycodone HCl (Oxycodone Hcl Ir 5 Mg Tab (Immediate Release)) 5 mg PO Q4H PRN PRN Reason: Pain Stop: 12/02/21 02:17 Last Admin: 11/19/21 10:38 Dose: 5 mg Documented by: (1) Acute exacerbation of CHF (congestive heart failure) Heart failure type: unspecified Qualified Code(s): I50.9 - Heart failure, unspecified
[2021-11-20] MEDS: VANCOMYCIN HCL 1,000 MG in SODIUM CHLORIDE 0.9% 250 ML IV SCH (14:52)
[2021-11-20] MEDS: ATORVASTATIN 20 MG TAB PO SCH (19:41)
[2021-11-20] MEDS: DOCUSATE SODIUM 100 MG CAP PO SCH (20:05)
[2021-11-20] MEDS: LORazepam 2 MG/1 ML VIAL IV PRN (20:22)
[2021-11-20] MEDS ORDERED: CEFEPIME 2,000 MG in SYRINGE 0 ML IV SCH (21:00)
--- NOTE | 2021-11-20 21:54 | Electrocardiogram Report ---
Test Reason : Blood Pressure : / mmHG Vent. Rate : 066 BPM Atrial Rate : 066 BPM P-R Int : 184 ms QRS Dur : 168 ms QT Int : 488 ms P-R-T Axes : 041 001 130 degrees QTc Int : 511 ms Normal sinus rhythm Left bundle branch block Abnormal ECG When compared with ECG of 17-NOV-2021 22:25, No significant change was found Confirmed by Anthony Howard ([id number]) on 11/20/2021 9:53:49 PM Referred By: REFERRED SELF Confirmed By:Anthony Howard
[2021-11-20] MEDS: oxyCODONE HCL IR 5 MG TAB (IMMEDIATE RELEASE) PO PRN (22:48)
[2021-11-21 05:53] LABS: Basophils # (auto) 0.03 K/uL (0-0.2); Basophils % (auto) 0.4 %; Eosinophils # (auto) 0.41 K/uL (0-0.5); Eosinophils % (auto) 6.1 %; Hematocrit (blood only) 26.9 % (37-47); Hemoglobin 8.6 g/dL (12.0-16.0); Immature Granulocytes # (auto) 0.01 K/uL (0.00-0.02); Immature Granulocytes % (auto) 0.1 %; Mean Corpuscular Hemoglobin 26.8 pg (25-34); Mean Corpuscular Volume 83.8 fL (80-100); Mean Platelet Volume 10.3 fL (7.4-10.4); Monocytes % (auto) 17.9 %; Neutrophils # (auto) 4.24 K/uL (1.4-6.5); Neutrophils % (auto) 63.5 %; Platelet Count 301 K/uL (130-400); RDW Standard Deviation 42.8 fL (36.4-46.3); Red Blood Count 3.21 M/uL (4.2-5.4); White Blood Count 6.69 K/uL (4.8-10.8)
[2021-11-21 06:18] LABS: BUN Creatinine Ratio 23.9 (10-20); Calcium 8.6 mg/dl (8.5-10.1); Creatinine Clr Calc Pharmacy 13.9 ml/min; Est GFR (African American) 14.9 ml/min; Est GFR (Non-African American) 12.9 ml/min; Magnesium 2.2 mg/dl (1.7-2.4); Phosphorus 5.5 mg/dl (2.5-4.9); Potassium 4.1 mmol/L (3.5-5.1)
--- NOTE | 2021-11-21 07:34 | XRay Report ---
XR chest 1V portable CLINICAL HISTORY: Follow-up pleural effusions and bibasilar opacities.. COMPARISON STUDY: 11/19/2021 TECHNIQUE: 1 view of the chest FINDINGS: Single frontal view of the chest demonstrates the heart size to again be enlarged status post previou s cardiothoracic surgery. Compared to previous examination, there is now a small to moderate-sized le ft pleural effusion with left lower lobe atelectasis/collapse. Underlying pneumonia cannot be exclude d and clinical correlation is necessary for fever and white blood cell count. The remainder of the lungs are clear. There is no evidence for right pleural effusion. There is no ev idence for vascular congestion. There is no acute osseous pathology. IMPRESSION: 1. Interval development of small to moderate-sized left pleural effusion with left lower lobe atelect asis/collapse. 2. Early pneumonia cannot be excluded as described. ACT 112: Negative or not required by law. Electronically signed by: Sebastien Samuel M.D. 11/21/2021 7:32 AM
--- NOTE | 2021-11-21 08:15 | Critical Care Progress Note ---
Date of Service November 21, 2021 Assessment & Plan (1) Aortic valve vegetation: (2) Paroxysmal atrial fibrillation: (3) Acute diastolic heart failure: (4) Ovarian mass: (5) Acute hypoxemic respiratory failure: Plan: Impression: 86-year-old female with mobile vegetation on bioprosthetic valve suspicious for potential endocarditis. She has a known 8 cm ovarian mass. She is having nausea and vomiting and progressive hypoxemic respiratory failure. Sh e is been diuresed. Her x-ray does not reveal an acute etiology. Given the potential for ovarian malignancy, the patient is at risk for pulmonary embolism. Which could be contributing to the patient's tachycardia and hypoxemia. 24-hour events: He was doing reasonably well yesterday afternoon was transitioned to nasal cannula. Last night she had escalation of her oxygen requirement had to go back on BiPAP. She tolerated it poorly and eventually requested to be removed. She was transitioned to heated high flow nasal cannula and has done reasonably well but has required high levels of support. Urine output has trended off. Recommendations: 1. Neurologic: No current issues. Continue to follow. 2. Cardiovascular: Potential bioprosthetic endocarditis. This is complicated by moderate to severe mitral regurgitation. With functional aortic stenosis and moderate to severe mitral regurgitation, managing her afterload and volume stat us is a fine-line. Holding diuretics today. Defer decision regarding YONG to cardiology although this would potentially require intubation. 3. Pulmonary: Acute hypoxemic respiratory failure: No evidence of PE. CT scan appears consistent with pulmonary edema/fluid overload with bilateral pleural effusions. Unfortunately, cannot diurese at this point time due to serum creatinine issues. Continue to wean oxygen as tolerated and bridge with noninvasive positive pressure ventilation. Unfortunately I think her pulmonary issues are attributable to her underlying cardiovascular issues and potentially worsened by her underlying kidney issues. Not sure how much of this is functionally reversible at this time. 4. Renal: Oliguric renal failure today. Potential etiologies would include poor forward flow, contrast nephropathy, antibiotic associated renal failure, and ATN. Nephrology consult today. Will discontinue diuretics. Electrolytes and acid-base status acceptable. Volume status, slightly hypervolemic and pulmonary status would likely improve with volume removal although her MR does complicate this issue 5. ID: Possible endocarditis. Day #3 cefepime and vancomycin. Pharmacy will dose adjust based on creatinine clearance. Cultures remain negative to date. Additional evaluation per ID and cardiology 6. Heme-onc: Progressive anemia. Options would include poor bone marrow output, hemolysis, or bleeding. No signs of internal bleeding. Check LDH, haptoglobin and [place] as well as reticulocyte count. No indication for transfusion currently. Reviewed hospitalist notes per [facility] gynecologic. Not felt to be malignant but may have underlying mass-effect. Do not think this is contributing to her acute constellation of symptoms and given her underlying cardiovascular morbidities, may not be a candidate for any additional evaluation 7. Endocrine: Glycemic control per ICU protocol. 8. GI: Nausea resolved, continue as needed Zofran, Compazine, promethazine, and Ativan. Continue as needed Patient has developed several new problems over the last 24 hours. Updated the patient as well as her daughter on the phone. We will see how she responds to weaning oxygen. Unfortunately, her therapeutic options may be somewhat limited. 45 min CC time managing life threatening issues. Patient is at risk of clinical decline and . Patient was discussed on multidisciplinary rounds and with the bedside critical care nurse. A total of 45 minutes critical care time was spent evaluation management stabilization of this patient. Admission and Anticipated Discharge Date Admission Date: November 18, 2021 Subjective Patient seen and examined. EMR reviewed. Patient is sitting up at bedside. She is on heated high flow nasal cannula at 90% FiO2 and 30 L/min. She states she is breathing okay. She is able to eat. She is not describing chest pain or palpitations. She denied any recurrence of her nausea. She denies abdominal pain. No significant swelling in the lower extremity that she has noticed. She does not report increased work of breathing. No cough or sputum production. Review of Systems Review of Systems: All systems reviewed & are unremarkable except as noted in Subjective Physical Exam Constitutional: WD/WN, vitals as above well developed; no acute distress Respiratory: + cough and able to speak in complete sentences; no respiratory distress Auscultation: + diminished lung sounds and + crackles (faint bibasilar rales) Cardiovascular: Rate/Rhythm: regular rate and regular rhythm Heart Sounds: + murmur (III/ systolic murmur LSB) Vessels: no JVD Extremities: no edema Gastrointestinal (Abdomen): normal bowel sounds, soft, nontender, no hepatosplenomegaly Neurologic: PERRL, EOMI, accommodation nl, no face palsy, no dysarthria Psychiatric: A+Ox3, euthymic affect Results & Data Results & Data ([facility]) Vital Signs (Past 12 Hours) Vital Signs Temp Pulse Pulse Resp BP Pulse Ox 11/21/21 07:59 62 22 89 L 11/21/21 05:00 37.0 C 69 29 H 124/57 L 89 L 11/21/21 04:30 65 26 H 90 11/21/21 04:15 80 24 93 11/21/21 04:00 71 19 123/49 L 89 L 11/21/21 03:30 69 23 89 L 11/21/21 03:00 75 18 114/73 87 L 11/21/21 02:30 67 23 89 L 11/21/21 02:01 74 17 126/55 L 94 11/21/21 02:00 63 21 89 L 11/21/21 01:30 73 27 H 94 11/21/21 01:00 71 20 134/63 90 11/21/21 00:30 66 27 H 89 L 11/21/21 00:00 66 28 H 124/55 L 11/20/21 23:30 66 28 H 96 11/20/21 23:12 70 29 H 92 11/20/21 23:00 37.1 C 73 29 H 132/63 92 11/20/21 22:30 68 19 91 11/20/21 22:00 70 26 H 126/56 L 94 11/20/21 21:30 68 26 H 94 11/20/21 21:01 77 33 H 106/65 100 11/20/21 21:00 73 31 H 99 11/20/21 20:55 77 27 H 96 11/20/21 20:45 79 11/20/21 20:30 73 22 86 L Critical Care Results & Data Vital Signs (Past 12 Hours) Vital Signs Temp Pulse Pulse Resp BP Pulse Ox 11/21/21 07:59 62 22 89 L 11/21/21 05:00 37.0 C 69 29 H 124/57 L 89 L 11/21/21 04:30 65 26 H 90 11/21/21 04:15 80 24 93 11/21/21 04:00 71 19 123/49 L 89 L 11/21/21 03:30 69 23 89 L 11/21/21 03:00 75 18 114/73 87 L 11/21/21 02:30 67 23 89 L 11/21/21 02:01 74 17 126/55 L 94 11/21/21 02:00 63 21 89 L 11/21/21 01:30 73 27 H 94 11/21/21 01:00 71 20 134/63 90 11/21/21 00:30 66 27 H 89 L 11/21/21 00:00 66 28 H 124/55 L 11/20/21 23:30 66 28 H 96 11/20/21 23:12 70 29 H 92 11/20/21 23:00 37.1 C 73 29 H 132/63 92 11/20/21 22:30 68 19 91 11/20/21 22:00 70 26 H 126/56 L 94 11/20/21 21:30 68 26 H 94 11/20/21 21:01 77 33 H 106/65 100 11/20/21 21:00 73 31 H 99 11/20/21 20:55 77 27 H 96 11/20/21 20:45 79 11/20/21 20:30 73 22 86 L Lab & Micro Results (Past 24 Hours) RBC 3.21 M/uL (4.2-5.4) L 11/21/21 WBC 6.69 K/uL (4.8-10.8) 11/21/21 Hgb 8.6 g/dL (12.0-16.0) L 11/21/21 Hct 26.9 % (37-47) L 11/21/21 MCV 83.8 fL (80-100) 11/21/21 MCH 26.8 pg (25-34) 11/21/21 MCHC 32.0 g/dL (32-36) 11/21/21 RDW Standard Deviation 42.8 fL (36.4-46.3) 11/21/21 RDW Coefficient of Variation 14.0 % (11.5-14.5) 11/21/21 Plt Count 301 K/uL (130-400) 11/21/21 MPV 10.3 fL (7.4-10.4) 11/21/21 Neutrophils (%) (Auto) 63.5 % 11/21/21 Lymphocytes (%) (Auto) 12.0 % 11/21/21 Monocytes # (Auto) 1.20 K/uL (0.11-0.59) H 11/21/21 Eosinophils # (Auto) 0.41 K/uL (0-0.5) 11/21/21 Immature Granulocyte % (Auto) 0.1 % 11/21/21 Neutrophils # (Auto) 4.24 K/uL (1.4-6.5) 11/21/21 Lymphocytes # (Auto) 0.80 K/uL (1.2-3.4) L 11/21/21 Monocytes # (Auto) 1.20 K/uL (0.11-0.59) H 11/21/21 Eosinophils # (Auto) 0.41 K/uL (0-0.5) 11/21/21 Basophils # (Auto) 0.03 K/uL (0-0.2) 11/21/21 Immature Granulocyte # (Auto) 0.01 K/uL (0.00-0.02) 11/21/21 Na 136 mmol/L (136-145) 11/21/21 K 4.1 mmol/L (3.5-5.1) 11/21/21 Cl 97 mmol/L (98-107) L 11/21/21 CO2 28 mmol/L (21-32) 11/21/21 Anion Gap 11 (3-11) 11/21/21 BUN 75 mg/dl (6-23) H 11/21/21 Creatinine 3.14 mg/dl (0.6-1.2) H 11/21/21 Estimated GFR ( Amer) 14.9 ml/min 11/21/21 Estimated GFR (Non-Af Amer) 12.9 ml/min 11/21/21 BUN/Creatinine Ratio 23.9 (10-20) H 11/21/21 Glu 143 mg/dl (70-99(Fasting)) H 11/21/21 Ca 8.6 mg/dl (8.5-10.1) 11/21/21 Phosphorus Level 5.5 mg/dl (2.5-4.9) H 11/21/21 Mg 2.2 mg/dl (1.7-2.4) 11/21/21 05:28 11/21/21 Calcium Level 8.6 mg/dl (8.5-10.1) 11/21/21 05:28 11/21/21 Microbiology 11/18/21 16:31 Aerobic Blood Culture - Preliminary Blood No growth in Aerobic bottle after 48 hours. Anaerobic Blood Culture - Preliminary No growth in Anaerobic bottle after 48 hours. 11/18/21 16:31 Aerobic Blood Culture - Preliminary Blood No growth in Aerobic bottle after 48 hours. Anaerobic Blood Culture - Preliminary No growth in Anaerobic bottle after 48 hours. Diagnostic Findings (Past 24 Hours) Chest X-Ray 11/21/21 07:00 XR chest 1V portable CLINICAL HISTORY: Follow-up pleural effusions and bibasilar opacities.. COMPARISON STUDY: 11/19/2021 TECHNIQUE: 1 view of the chest FINDINGS: Single frontal view of the chest demonstrates the heart size to again be enlarged status post previous cardiothoracic surgery. Compared to previous examination, there is now a small to moderate-sized left pleural effusion with left lower lobe atelectasis/collapse. Underlying pneumonia cannot be excluded and clinical correlation is necessary for fever and white blood cell count. The remainder of the lungs are clear. There is no evidence for right pleural effusion. There is no evidence for vascular congestion. There is no acute osseous pathology. IMPRESSION: 1. Interval development of small to moderate-sized left pleural effusion with left lower lobe atelectasis/collapse. 2. Early pneumonia cannot be excluded as described. ACT 112: Negative or not required by law. Electronically signed by: Sebastien Samuel M.D. 11/21/2021 7:32 AM I & O Totals 24 Hours 11/20/21 11/21/21 11/22/21 06:59 06:59 06:59 Intake Total 1877.75 / 1877.75 1170 / 1170 Output Total 1575 / 1575 270 / 270 Balance 302.75 / 302.75 900 / 900 Cumulative 11/17/21 21:03 thru 11/21/21 06:12 Intake Total 4747.45 Output Total 4045 Balance 702.45 RT Ventilator Mngmt (Last Documented) Ventilator Ordered Settings Respiratory Rate 22 11/21/21 07:59 Fraction of Inspired Oxygen 90 11/21/21 07:59 Ventilator - PT Measurements Respiratory Rate 22 Coding Level of Care Code Critical Care 1st 30-74 mins Diagnoses Aortic valve vegetation I33.0 Paroxysmal atrial fibrillation I48.0 Acute diastolic heart failure I50.31 Ovarian mass N83.8 Acute hypoxemic respiratory failure J96.01
[2021-11-21] MEDS: ASPIRIN 81 MG ECTAB PO SCH (08:18)
[2021-11-21] MEDS: METOPROLOL SUCC 25MG EXT REL TAB PO SCH (08:18)
[2021-11-21] MEDS: HEPARIN SOD 5,000 UNIT/0.5 ML VIAL SQ SCH ×2 (08:19→20:18)
[2021-11-21] MEDS: DOCUSATE SODIUM 100 MG CAP PO SCH ×2 (08:22→20:18)
[2021-11-21] MEDS: INSULIN ASPART PER UNIT SC SCH ×4 (08:22→20:18)
[2021-11-21] MEDS: amLODIPine BESYLATE 5 MG TAB PO SCH (08:23)
[2021-11-21] MEDS: FUROSEMIDE 40 MG/4 ML VIAL IV SCH (08:25)
[2021-11-21 08:52] LABS: Reticulocyte % 1.8 % (0.5-2.0); Reticulocytes # 0.06 10^6/uL (0.02-0.10)
[2021-11-21] MEDS ORDERED: GENTAMICIN TROUGH ONE (10:30)
--- NOTE | 2021-11-21 11:17 | Nephrology Consultation ---
Date of Consultation November 21, 2021 Assessment & Plan (1) Acute kidney injury: * Nonoliguric YOUSIF - multifactorial including IV contrast and impaired renal perfusion related to valvular heart disease * Will repeat urine microscopy to check for cellular casts * Agree w/ holding diuretics at this time * Recommend consultation w/ pharmacy to adjust antibiotic dosing for YOUSIF/CKD * Electrolyte balance is acceptable at this time. No acute indication for HD today * Monitor PRP * Discussed w/ patient this am that [employer] may be need this hospitalization as a bridge until YOUSIF resolves. Note that [employer] may be challenging due to valvular heart disease (2) Chronic kidney disease, stage III (moderate): * Stage IIIa CKD (moderate impairment) w/ baseline Cr 1.0 and EGFR 47 cc/min. 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 Rodriguez is an 86 year old white female who is seen at the request of Dr. Cobb for nonoliguric YOUSIF/CKD. Medical records in the EMR were reviewed today and plan of care discussed w/ ICU team. Ms. Rodriguez has stage IIIa CKD (moderate impairment) w/ baseline Cr 1.0 and EGFR 47 cc/min. She has not undergone Nephrology evaluation in the past. 11/17/21 urine sediment revealed only epithelial cells. Urinalysis was negative for protein or blood. 11/16/[address] was negative for hydronephrosis. Her renal impairment is likely on the basis of microvascular disease and impaired renal perfusion associated w/ valvular heart disease. Ms. Rodriguez's medical history is also significant for AVR w/ bioprosthetic valve (~ 2011), mitral regurgitation, atrial fibrillation, AODM, and a 9cm complex cystic lesion involving the R ovary which is concerning for malignancy. Mrs. Rodriguez was admitted to [facility] 11/18 with CHF. CTA of the chest was negative for PE. Echocardiogram revealed LVEF 50 - 55%, severe MR and small mobile density on bioprosthetic AV concerning for vegetation/thrombus or tumor. She has been started on IV Cefipime and Vancomycin therapy. Ms. Rodriguez's respiratory status has improved in response to diuretic therapy. Her Cr has risen from 1.0 to 3.1. She remains nonoliguric. Allergies Allergy/AdvReac Type Severity Reaction Status Date / Time codeine AdvReac Intermediate Gastrointestinal Verified 11/17/21 22:16 Upset Home Medications Medication Instructions Recorded Confirmed Type acetaminophen 500 mg tablet 1,000 mg PO DIRECTED PRN 02/06/21 11/17/21 History (Tylenol Extra Strength) albuterol sulfate 90 mcg/actuation 2 puff INHALATION Q4H PRN 02/06/21 11/17/21 History aerosol inhaler (ProAir HFA) atorvastatin 20 mg tablet (Lipitor) 20 mg PO HS 02/06/21 11/17/21 History calcium carbonate 600 mg calcium 600 mg PO DAILY 02/06/21 11/17/21 History (1,500 mg) tablet (Calcium) cholecalciferol (vitamin D3) 50 50 mcg PO DAILY 02/06/21 11/17/21 History mcg (2,000 unit) capsule (Vitamin D3) glipizide 5 mg tablet, extended 5 mg PO HS 02/06/21 11/17/21 History release 24 hr metformin 500 mg tablet 500 mg PO BID 02/06/21 11/17/21 History aspirin 81 mg tablet,delayed 81 mg PO DAILY 06/08/21 11/17/21 History release (Aspirin Low Dose) furosemide 20 mg tablet (Lasix) 20 mg PO DAILY #30 tab 06/11/21 11/17/21 Rx metoprolol succinate 25 mg 25 mg PO QAM #30 tab 06/11/21 11/17/21 Rx tablet,extended release 24 hr hydrocodone 5 mg-acetaminophen 325 0.5 - 1 tab PO Q6H PRN #12 tab 07/11/21 11/17/21 Rx mg tablet alprazolam 0.5 mg tablet 0.5 - 1 mg PO HS 11/16/21 11/17/21 History amlodipine 10 mg tablet 10 mg PO DAILY 11/16/21 11/17/21 History meclizine 25 mg tablet 25 mg PO DAILY 11/16/21 11/17/21 History ondansetron HCl 4 mg tablet 4 mg PO Q6H PRN #14 tab 11/17/21 11/17/21 Rx Patient History Medical History Anxiety H/O: HTN (hypertension) Type 2 diabetes mellitus Surgical History H/O aortic valve replacement H/O endarterectomy S/P TKR (total knee replacement) Social History Smoking Status: Never smoker Second Hand Exposure: No; Do You Dip or Chew Tobacco: No; Hx Alcohol Use: No Hx Substance Use: No Preferred Language: R[place] Communication Ability: Effective [place] Required: No Beliefs That Will Affect Care: None Current Living Situation: Alone Current Living Situation Comment: at home Other Information That Helps Us Care for You: No Feels Safe at Home: Yes Assistive Devices: Oxygen - Continuous Review of Systems Constitutional: no fever Eyes: no problem reported Ear, Nose, Mouth, Throat: no problem reported Respiratory: + dyspnea; no cough Cardiovascular: no chest pain, no palpitations and no edema Gastrointestinal: no abdominal pain, no nausea, no vomiting and no diarrhea/loose stools Musculoskeletal: no back pain Integumentary: no rash Neurologic: no confusion Physical Exam Constitutional: + ill appearing Eyes: PERRL, conjunctivae normal, anicteric sclerae ENMT: external ear and nose normal, oropharynx normal Neck: trachea midline, no thyromegaly Respiratory: Auscultation: + rales (at bases bilaterally) Cardiovascular: RRR, no murmur, no edema Gastrointestinal (Abdomen): normal bowel sounds, soft, nontender, no hepatosplenomegaly Skin: no rashes, warm and dry Neurologic: awake; not confused Genitourinary: Sawyer catheter draining yellow urine Results & Data ([facility]) Vital Signs (Past 12 Hours) Vital Signs Temp Pulse Pulse Resp BP Pulse Ox 11/21/21 10:00 65 23 133/70 91 11/21/21 09:00 70 22 131/70 95 11/21/21 08:53 36.5 C 11/21/21 08:05 64 11/21/21 08:01 71 16 138/79 87 L 11/21/21 07:59 62 22 89 L 11/21/21 07:00 63 23 135/60 89 L 11/21/21 05:00 37.0 C 69 29 H 124/57 L 89 L 11/21/21 04:30 65 26 H 90 11/21/21 04:15 80 24 93 11/21/21 04:00 71 19 123/49 L 89 L 11/21/21 03:30 69 23 89 L 11/21/21 03:00 75 18 114/73 87 L 11/21/21 02:30 67 23 89 L 11/21/21 02:01 74 17 126/55 L 94 11/21/21 02:00 63 21 89 L 11/21/21 01:30 73 27 H 94 11/21/21 01:00 71 20 134/63 90 11/21/21 00:30 66 27 H 89 L 11/21/21 00:00 66 28 H 124/55 L 11/20/21 23:30 66 28 H 96 Laboratory Results Laboratory Tests 06/09/21 06/10/21 11/17/21 05:15 05:28 23:28 WBC Hgb Hct Plt Count Sodium Potassium Chloride Carbon Dioxide BUN Creatinine 1.09 1.22 H Urine Color Yellow Urine Appearance Clear Ur Specific [place] 1.034 H Urine Protein Trace H Urine Glucose (UA) Negative Urine Blood Negative Urine RBC (Auto) 0-4 U Hyaline Cast (Auto) 10-30 H Urine Bacteria (Auto) Negative 11/19/21 11/20/21 11/21/21 06:36 05:13 05:28 WBC Hgb Hct Plt Count Sodium 136 Potassium 4.1 Chloride 97 L Carbon Dioxide 28 BUN 75 H D Creatinine 1.46 H 1.82 H D 3.14 H D Urine Color Urine Appearance Ur Specific [place] Urine Protein Urine Glucose (UA) Urine Blood Urine RBC (Auto) U Hyaline Cast (Auto) Urine Bacteria (Auto) 11/21/21 05:28 WBC 6.69 Hgb 8.6 L Hct 26.9 L Plt Count 301 Sodium Potassium Chloride Carbon Dioxide BUN Creatinine Urine Color Urine Appearance Ur Specific [place] Urine Protein Urine Glucose (UA) Urine Blood Urine RBC (Auto) U Hyaline Cast (Auto) Urine Bacteria (Auto) PG Care Time/CCT Total # of Minutes Spent Total Time Spent with Patient: Total time spent is greater than 50% in coordination of care (as documented) at patient's floor/unit and/or counseling patient: Coding Level of Care Code 07305 Inpt Consult Level 5 Diagnoses Acute kidney injury N17.9 Chronic kidney disease, stage III (moderate) N18.30 Acute exacerbation of CHF (congestive heart failure) I50.9 Heart failure type: unspecified Endocarditis I38 Ovarian mass N83.8 (1) Acute exacerbation of CHF (congestive heart failure) Heart failure type: unspecified Qualified Code(s): I50.9 - Heart failure, unspecified
--- NOTE | 2021-11-21 11:18 | Cardiology Progress Note ---
Date of Service November 21, 2021 Assessment & Plan (1) Acute hypoxemic respiratory failure: (2) Acute exacerbation of CHF (congestive heart failure): (3) Prosthetic aortic valve stenosis: (4) Mitral regurgitation: (5) Aortic valve vegetation: (6) LBBB (left bundle branch block): (7) Paroxysmal atrial fibrillation: Plan: Worsening respiratory status with increased oxygen requirements overnight. Worsening hypoxia secondary to acute decompensated heart failure in the setting of severe bioprosthetic aortic valve stenosis and moderate to severe mitral regurgitation. CTA of the chest was performed to rule out PE. There was no evidence of pulmonary embolus. Patient creatinine likely peaking today over 3 due to contrast-induced nephropathy. Lasix currently on hold due to worsening renal function. Consider restarting IV diuretic therapy pending nephrology input to improve respiratory status. Her echocardiogram demonstrated mobile echodensity raising concerns for possible aortic valve endocarditis, however, blood cultures are negative thus far. No ot her stigmata of endocarditis at this time. Infectious is consultation appreciated. I do not believe a transesophageal echocardiogram would frame changer. Procedure would be high risk due to patient's ongoing hypoxia and would likely require intubation. I discussed the case with my colleagues at [facility] in [place] who agree with continued conservative medical management at this time. Due to comorbidities patient is not a strong candidate for any surgical procedures at this time. Admission and Anticipated Discharge Date Admission Date: November 18, 2021 Subjective Patient seen and examined at the bedside. Oxygen requirements trending upward o vernight. Patient denies orthopnea. Urine output is also tapered off. Her creatinine is up to 3.14 (1.6 on admission). Lasix currently on hold. Denies chest pain or palpitations. Telemetry reveals sinus rhythm. No fevers overnight. Blood cultures remain negative. Review of Systems Review of Systems: All systems reviewed & are unremarkable except as noted in Subjective Physical Exam Constitutional: + ill appearing; no acute distress Respiratory: no respiratory distress Auscultation: + diminished lung sounds (Bases bilateral) and + rales (Bases bilateral); no rhonchi and no wheezes Cardiovascular: Rate/Rhythm: regular rate and regular rhythm Heart Sounds: normal S1 and + murmur (2/6 mid peaking systolic ejection murmur heard best at the right second cos); + abnormal S2 (Diminished S2) Vessels: + JVD and radial pulses present; no carotid bruit Extremities: no edema Gastrointestinal (Abdomen): Inspection/Auscultation: normal bowel sounds; + abdomen abnormal to inspection and abdomen not distended Percussion/Palpation: abdomen soft; abdomen nontender, no guarding and abdomen not rigid Neurologic: CN's II-XI intact bilaterally and moves all extremities; no focal motor deficits Motor/Sensory: no tremor Results & Data ([place]) Vital Signs (Past 12 Hours) Vital Signs Temp Pulse Pulse Resp BP Pulse Ox 11/21/21 10:00 65 23 133/70 91 11/21/21 09:00 70 22 131/70 95 11/21/21 08:53 36.5 C 11/21/21 08:05 64 11/21/21 08:01 71 16 138/79 87 L 11/21/21 07:59 62 22 89 L 11/21/21 07:00 63 23 135/60 89 L 11/21/21 05:00 37.0 C 69 29 H 124/57 L 89 L 11/21/21 04:30 65 26 H 90 11/21/21 04:15 80 24 93 11/21/21 04:00 71 19 123/49 L 89 L 11/21/21 03:30 69 23 89 L 11/21/21 03:00 75 18 114/73 87 L 11/21/21 02:30 67 23 89 L 11/21/21 02:01 74 17 126/55 L 94 11/21/21 02:00 63 21 89 L 11/21/21 01:30 73 27 H 94 11/21/21 01:00 71 20 134/63 90 11/21/21 00:30 66 27 H 89 L 11/21/21 00:00 66 28 H 124/55 L 11/20/21 23:30 66 28 H 96 11/20/21 23:12 70 29 H 92 (1) Acute exacerbation of CHF (congestive heart failure) Heart failure type: unspecified Qualified Code(s): I50.9 - Heart failure, unspecified
[2021-11-21] MEDS ORDERED: VANCOMYCIN TROUGH ONE (11:30)
[2021-11-21] MEDS: ACETAMINOPHEN 325 MG TAB PO PRN (12:11)
[2021-11-21 12:50] LABS: Appearance Urine Cloudy (Clear); Bacteria Urine Automated Negative (Negative); Bilirubin Urine Negative (Negative); Blood Urine Trace (Negative); Color Urine Yellow; Epithelial Cell Urine Auto >30 /lpf (0-5); Glucose Urine UA Negative (Negative); Ketones Urine Trace (Negative); Leukocyte Esterase Urine Negative (Negative); Nitrite Urine Negative (Negative); Protein Urine 2+ (Negative); RBC Urine Automated 0-4 /hpf (0-4); Urobilinogen Urine Negative (Negative)
[2021-11-21] MEDS: ALPRAZolam 0.25 MG TABLET PO PRN ×2 (12:53→20:19)
[2021-11-21 13:22] LABS: Amorphous Sediment Urine Present (None Prsent)
--- NOTE | 2021-11-21 14:46 | Electrocardiogram Report ---
Test Reason : Blood Pressure : / mmHG Vent. Rate : 065 BPM Atrial Rate : 267 BPM P-R Int : 000 ms QRS Dur : 164 ms QT Int : 460 ms P-R-T Axes : 016 -08 140 degrees QTc Int : 478 ms Normal sinus rhythm Premature ventricular complexes Left bundle branch block Abnormal ECG When compared with ECG of 20-NOV-2021 06:16, T wave inversion more evident in Lateral leads Confirmed by Gerardo Powell ([id number]) on 11/21/2021 2:46:24 PM Referred By: REFERRED SELF Confirmed By:Gerardo Powell
--- NOTE | 2021-11-21 15:22 | Pharmacy Report ---
Pharmacy Vanc AUC Short Note - Date of Service November 21, 2021 - Assessment & Plan Assessment * 86 year old F with hx bioprosthetic AVR receiving IV vancomycin and cefepime for treatment of possible endocarditis. Gentamicin discontinued yesterday due to nephrotoxicity and IV contrast admin * Blood cultures negative * SCr worsening today * Awaiting ID recommendations Plan Vancomycin * AUC/HERMAN is the preferred PK/PD target for vancomycin * AUC guided dosing is effective and associated with decreased risk of nephrotoxicity compared to traditional trough targets * Random level of 21.2 mcg/mL is supratherapuetic. Will continue to dose via level. * No further vancomycin needed at this time given random level. * Random level ordered with AM labs. Pharmacy will continue to follow and will adjust dose/frequency as necessary. Thank you.
--- NOTE | 2021-11-21 16:02 | Hospitalist Progress Note ---
Date of Service November 21, 2021 Assessment & Plan (1) Acute hypoxemic respiratory failure: Plan: She denies any recent h/o swelling but developed some SOB just prior to arrival, found to have pulmonary edema and placed on intravenous diuretics. CT chest revealed no PE but possible pneumonia. Remains on antibiotics and fever has subsided. Echo with preserved EF now with new aortic vegetation. She has a h/o aortic valve replacement with tissue valve in [place] in 2011. She has a h/o reduced systolic function in the past per outpatient cardiology records. Worsening hypoxia overnight. Now on vapotherm. 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 ID consulted. It is recommended he obtain two additional sets of routine blood cultures and fungal blood cultures now. Vancomycin plus ceftriaxone is recommended as the preferred antibiotic regimen in this case as common organisms for presumed endocarditis include Staphylococci, VGS and Enterococcus. She remains on Vanc/cefepime. Further serologic testing for mycoplasma Bartonella chlamydia Brucella Legionella Trophermyma, Coxiella recommended. (3) Acute kidney injury: Plan: ?related to diuretics +/- contrast induced nephropathy. Cont to trend BMP daily. Nephrology on board. (4) Acute diastolic heart failure: Plan: Good diuresis overnight with Lasix, however, this is held because of YOUSIF. She will likely need more diuresis as tolerated and became more hypoxic overnight and today requiring BIPAP and then vapotherm. Reinstitute diuresis when able. (5) S/P AVR (aortic valve replacement): Plan: tissue valve replacement in 2011 (6) LBBB (left bundle branch block): Plan: chronic (7) Type 2 diabetes mellitus: Plan: at inpatient goal, cont current insulin dosing schedule (8) Elevated troponin: Plan: Likely related to demand ischemia from acute illness. (9) Ovarian mass: Plan: Per [facility] [place] [facility] she has 2 pelvic cysts at vaginal cuff in February 2021 per transvaginal ultrasound the right cyst was 7.6 x 7 x 7 cm with speckled debris. The left cyst was 6 x 4 x 4 cm. Compared to images from September 2016 these were unchanged in appearance. Both cysts appear to be debris-filled or just cystic in nature and given the lack of roving changer time, it was felt that this was not consistent with malignancy and surveillance was not necessary. (10) Chronic kidney disease, stage III (moderate): (11) DVT prophylaxis: Plan: SCDs Conditional code-ok with intubation, no CPR Dispo-cont ICU care. DO Alison Mccall Hospitalist Admission and Anticipated Discharge Date Admission Date: November 18, 2021 Subjective 86 yo F admitted with acute respiratory failure with hypoxia Now requiring vapotherm again after escalating to BIPAP overnight Rise in creat this morning and diuretics are held Patient denies pain and is doing well daughter at bedside and reviewed care plan Review of Systems Review of Systems: All systems were reviewed and negative except as indicated above. Physical Exam Physical Exam: CONSTITUTIONAL: overweight, vitals as above, NAD EYES: normal conjunctivae, no scleral icterus ENT: external ear and nose normal, NC in place NECK: trachea midline RESPIRATORY: clear to auscultation bilaterally, no crackles, rales or wheezes, normal respiratory effort on extra oxygen support. CARDIOVASCULAR: regular rate and rhythm, S1 and 2 heard 3/6 ALDO across precordium, no gallops or rubs, no JVD, no peripheral edema GASTROINTESTINAL: soft, nontender, ND, no guarding, protuberant. MUSCULOSKELETAL: strength 5/5 throughout, head is normocephalic and atraumatic, neck supple, normal palpation of chest wall without tenderness SKIN: warm and dry NEUROLOGIC: CN 2-12 grossly intact, normal cognition, normal speech, no tremor, no gross focal deficits. PSYCHIATRIC: alert cooperative and oriented to person, place and time. Results & Data Results & Data ([facility]) Vital Signs (Past 12 Hours) Vital Signs Temp Pulse Pulse Resp BP Pulse Ox 11/21/21 15:00 62 22 120/58 L 90 11/21/21 14:00 60 18 120/46 L 91 11/21/21 13:00 63 23 117/51 L 92 11/21/21 12:00 65 18 124/63 96 11/21/21 11:43 65 20 92 11/21/21 11:00 64 17 129/57 L 92 11/21/21 10:00 65 23 133/70 91 11/21/21 09:00 70 22 131/70 95 11/21/21 08:53 36.5 C 11/21/21 08:05 64 11/21/21 08:01 71 16 138/79 87 L 11/21/21 07:59 62 22 89 L 11/21/21 07:00 63 23 135/60 89 L 11/21/21 05:00 37.0 C 69 29 H 124/57 L 89 L 11/21/21 04:30 65 26 H 90 11/21/21 04:15 80 24 93 Laboratory Results Short CBC 11/21/21 Range/Units 05:28 WBC 6.69 (4.8-10.8) K/uL Hgb 8.6 L (12.0-16.0) g/dL Hct 26.9 L (37-47) % Plt Count 301 (130-400) K/uL BMP 11/21/21 05:28 Sodium 136 Potassium 4.1 Chloride 97 L Carbon Dioxide 28 BUN 75 H D Creatinine 3.14 H D Glucose 143 H Calcium 8.6 Urine 11/21/21 Range/Units Unknown Urine Color Yellow Urine Appearance Cloudy A (Clear) Urine pH 5.0 (4.5-7.5) Ur Specific Roland 1.030 (1.000-1.030) Urine Protein 2+ H (Negative) Urine Glucose (UA) Negative (Negative) Diagnostic Findings Chest X-Ray 11/21/21 07:00 XR chest 1V portable CLINICAL HISTORY: Follow-up pleural effusions and bibasilar opacities.. COMPARISON STUDY: 11/19/2021 TECHNIQUE: 1 view of the chest FINDINGS: Single frontal view of the chest demonstrates the heart size to again be enlarged status post previous cardiothoracic surgery. Compared to previous examination, there is now a small to moderate-sized left pleural effusion with left lower lobe atelectasis/collapse. Underlying pneumonia cannot be excluded and clinical correlation is necessary for fever and white blood cell count. The remainder of the lungs are clear. There is no evidence for right pleural effusion. There is no evidence for vascular congestion. There is no acute osseo us pathology. IMPRESSION: 1. Interval development of small to moderate-sized left pleural effusion with left lower lobe atelectasis/collapse. 2. Early pneumonia cannot be excluded as described. ACT 112: Negative or not required by law. Electronically signed by: Sebastien Samuel M.D. 11/21/2021 7:32 AM Medications Administered Current Inpatient Medications Acetaminophen (Acetaminophen 325 Mg Tab) 650 mg PO Q4H PRN PRN Reason: Pain or Fever Stop: 12/18/21 02:17 Last Admin: 11/21/21 12:11 Dose: 650 mg Documented by: Alprazolam (Alprazolam 0.25 Mg Tablet) 0.25 mg PO Q12H PRN PRN Reason: Anxiety Stop: 12/21/21 12:21 Last Admin: 11/21/21 12:53 Dose: 0.25 mg Documented by: Amlodipine Besylate (Amlodipine Besylate 5 Mg Tab) 10 mg PO DAILY GENOVEVA Stop: 12/18/21 08:59 Last Admin: 11/21/21 08:23 Dose: 10 mg Documented by: Aspirin (Aspirin 81 Mg Ectab) 81 mg PO QAM [facility] Stop: 12/18/21 08:59 Last Admin: 11/21/21 08:18 Dose: 81 mg Documented by: Atorvastatin Calcium (Atorvastatin 20 Mg Tab) 20 mg PO HS [facility] Stop: 12/18/21 20:59 Last Admin: 11/20/21 19:41 Dose: 20 mg Documented by: Dextrose (Dextrose 50% 50 Ml Syringe) 25 - 50 ml IV UD PRN; Protocol PRN Reason: Hypoglycemia Protocol Stop: 12/18/21 02:17 Docusate Sodium (Docusate Sodium 100 Mg Cap) 100 mg PO BID [facility] Stop: 12/20/21 20:59 Last Admin: 11/21/21 08:22 Dose: 100 mg Documented by: Glucagon (Glucagon For Inj 1 Mg Vial) 1 mg SQ UD PRN; Protocol PRN Reason: Hypoglycemia Protocol Stop: 12/18/21 02:17 Glucose (Glucose 10 Tabs/Tube) 4 - 8 tabs PO UD PRN; Protocol PRN Reason: Hypoglycemia Protocol Stop: 12/18/21 02:17 Glucose (Glucose 40% Gel 15 Gm Tube) 15 - 30 gm PO UD PRN; Protocol PRN Reason: Hypoglycemia Protocol Stop: 12/18/21 02:17 Heparin Sodium (Porcine) (Heparin Sod 5,000 Unit/0.5 Ml Vial) 5,000 units SQ Q12 [facility] Stop: 12/20/21 09:44 Last Admin: 11/21/21 08:19 Dose: 5,000 units Documented by: Promethazine HCl 12.5 mg/ (Sodium Chloride) 50.5 mls @ 202 mls/hr IV Q6H PRN PRN Reason: Nausea And Vomiting Stop: 12/18/21 02:17 Last Infusion: 11/19/21 17:16 Dose: Infused Documented by: Prochlorperazine 5 mg/ Syringe 5 mls @ 5 mls/min IV Q6H PRN PRN Reason: Nausea And Vomiting Stop: 12/19/21 17:26 Last Admin: 11/19/21 18:31 Dose: 5 mls/min Documented by: Ceftriaxone Sodium 2,000 mg/ (Dextrose) 70 mls @ 140 mls/hr IV Q24H [facility]; Protocol Stop: 01/02/22 20:59 Insulin Aspart (Insulin Aspart Per Unit) 0 units SC [facility] Stop: 12/18/21 02:17 Last Admin: 11/21/21 12:15 Dose: 2 units Documented by: Ipratropium Mesa (Ipratropium Mesa Neb Soln 0.02% 2.5 Ml Vial) 0.5 mg INH Q4H PRN PRN Reason: SOB, WHEEZE Stop: 12/18/21 02:17 Last Admin: 11/18/21 12:09 Dose: 0.5 mg Documented by: Levalbuterol HCl (Levalbuterol 1.25mg/0.5ml Neb) 1.25 mg INH Q4H PRN PRN Reason: SOB, WHEEZE Stop: 12/18/21 02:17 Last Admin: 11/18/21 12:09 Dose: 1.25 mg Documented by: Lorazepam (Lorazepam 2 Mg/1 Ml Vial) 0.25 mg IV Q4H PRN PRN Reason: nausea Stop: 12/19/21 17:26 Last Admin: 11/20/21 20:22 Dose: 0.25 mg Documented by: Metoprolol Succinate (Metoprolol Succ 25mg Ext Rel Tab) 25 mg PO QAM [facility] Stop: 12/18/21 08:59 Last Admin: 11/21/21 08:18 Dose: 25 mg Documented by: Miscellaneous (Carbohydrates For Hypoglycemia ) 15 - 30 gm PO UD PRN PRN Reason: Hypoglycemia Protocol Stop: 12/18/21 02:17 Miscellaneous Information (Vancomycin Consult Active) 1 ea N/A UD PRN PRN Reason: Consult Stop: 12/19/21 02:47 Ondansetron HCl (Ondansetron Inj 2 Mg/Ml 2 Ml Vial) 4 mg IV Q8H PRN PRN Reason: Nausea And Vomiting Stop: 12/19/21 13:52 Last Admin: 11/19/21 14:49 Dose: 4 mg Documented by: Oxycodone HCl (Oxycodone Hcl Ir 5 Mg Tab (Immediate Release)) 5 mg PO Q4H PRN PRN Reason: Pain Stop: 12/02/21 02:17 Last Admin: 11/20/21 22:48 Dose: 5 mg Documented by:
--- NOTE | 2021-11-21 19:55 | Communication Note ---
Date of Service: November 21, 2021 At change of shift, it was noted that the patient was saturating in the low to mid 80s. I did assess the patient at bedside. She is sleeping with HFNC settings at 30L/100%. I turned her settings up to 50L/100%. Patient was awoken and we proceeded to have a conversation regarding her poor saturations and escalating FiO2 requirement. She is agreeable to NIPPV despite not tolerating it well last night. Of note, the patient is resting comfortably and in no respiratory distress. I did explain to the patient that if her oxygenation were to worsen, that she might require intubation with mechanical ventilation. When we discussed this further, she states, "does that mean being on the ventilator?" When I did confirm this, the patient states, "I don't want to be on the ventilator." Patient is awake, alert and completely oriented. Prior to being placed on the CPAP, her daughter called and she verbalized these wishes to her. 1939: Patient's daughter, Maryanne, called in to speak with nursing staff. I did speak with her at great length about my discussion with her mother. She states that over the last few years, her mother has indicated that she would not want resuscitative efforts which seems to be a change from years prior. Despite this, Maryanne agrees that she would not want her mother to undergo prolonged measures including intubation with ventilation. She does agree with continuing current care measures to this point. We will continue with current treatment course and address any changes as they may arise. Maryanne did ask that I speak with her mother again about our discussion. I did speak with Gely and explained that I had discussed her wishes with her daughter. I did explain that we would continue with current treatment plan, but we will respect her wishes to not undergo intubation or ventilation. Patient is now doing well on CPAP. I have titrated her settings down to CPAP 10 cmH2O and 80% FiO2. Her SpO2 remains in the high 90s. Her RR is appropriate. She is comfortable. Hopefully we see continued improvement throughout the night. I have personally spent 40 minutes of critical care time in the direct management of this patient. This is a life/limb threatening event. This includes time spent evaluating patient, direct bedside care, chart review, placing orders, interpretation of diagnostic studies, discussion with consultants, patient, and family members, as well as other required patient management activities. This time is exclusive of all separately billable procedures, and teaching time and separate from and in addition to any other critical care service time. Coding Level of Care Code Critical Care silvia addt'l 30 min Time Spent (min) 40
[2021-11-21] MEDS: ATORVASTATIN 20 MG TAB PO SCH (20:17)
[2021-11-21] MEDS: cefTRIAXone SODIUM 2,000 MG in DEXTROSE 5% 50 ML IV SCH (20:18)
[2021-11-21] MEDS: LORazepam 2 MG/1 ML VIAL IV PRN (20:19)
[2021-11-21] MEDS ORDERED: CEFEPIME 1,000 MG in SYRINGE 0 ML IV SCH (21:00)
[2021-11-22 04:27] LABS: Basophils # (auto) 0.05 K/uL (0-0.2); Basophils % (auto) 0.6 %; Eosinophils # (auto) 0.28 K/uL (0-0.5); Eosinophils % (auto) 3.1 %; Hematocrit (blood only) 27.7 % (37-47); Immature Granulocytes # (auto) 0.04 K/uL (0.00-0.02); Immature Granulocytes % (auto) 0.4 %; Lymphocytes # (auto) 0.52 K/uL (1.2-3.4); Lymphocytes % (auto) 5.8 %; Mean Corpuscular Hgb Conc 32.5 g/dL (32-36); Mean Corpuscular Volume 83.2 fL (80-100); Mean Platelet Volume 10.1 fL (7.4-10.4); Monocytes # (auto) 1.78 K/uL (0.11-0.59); Monocytes % (auto) 19.8 %; Neutrophils # (auto) 6.31 K/uL (1.4-6.5); Neutrophils % (auto) 70.3 %; Platelet Count 343 K/uL (130-400); RDW Coefficient of Variation 13.8 % (11.5-14.5); RDW Standard Deviation 42.2 fL (36.4-46.3); Red Blood Count 3.33 M/uL (4.2-5.4); White Blood Count 8.98 K/uL (4.8-10.8)
[2021-11-22 04:53] LABS: BUN Creatinine Ratio 21.7 (10-20); Calcium 8.9 mg/dl (8.5-10.1); Creatinine Clr Calc Pharmacy 10.6 ml/min; Est GFR (African American) 10.7 ml/min; Est GFR (Non-African American) 9.2 ml/min; Magnesium 2.4 mg/dl (1.7-2.4); Phosphorus 5.8 mg/dl (2.5-4.9); Potassium 4.4 mmol/L (3.5-5.1)
--- NOTE | 2021-11-22 07:13 | XRay Report ---
XR chest 1V portable CLINICAL HISTORY: Shortness of breath. COMPARISON STUDY: Chest CT November 19, 2021 Chest radiograph November 21, 2021. FINDINGS: Median sternotomy wires and prosthetic aortic valve are noted. Cardiomegaly is unchanged. S mall bilateral pleural effusions are similar to prior exam. Associated bibasilar opacities are noted. Interstitial thickening is similar to prior exam. There is no pneumothorax. IMPRESSION: 1. No change in pulmonary edema. 2. Persistent small bilateral pleural effusions with associated opacities which could reflect pneumon ia or atelectasis. ACT 112: Negative or not required by law. Electronically signed by: Roberto Cruz M.D. 11/22/2021 7:12 AM
[2021-11-22] MEDS: ASPIRIN 81 MG ECTAB PO SCH (08:39)
[2021-11-22] MEDS: amLODIPine BESYLATE 5 MG TAB PO SCH (08:39)
[2021-11-22] MEDS: METOPROLOL SUCC 25MG EXT REL TAB PO SCH (08:39)
[2021-11-22] MEDS: DOCUSATE SODIUM 100 MG CAP PO SCH ×2 (08:39→20:56)
[2021-11-22] MEDS: HEPARIN SOD 5,000 UNIT/0.5 ML VIAL SQ SCH ×2 (08:40→20:56)
[2021-11-22] MEDS: INSULIN ASPART PER UNIT SC SCH ×4 (09:03→20:56)
--- NOTE | 2021-11-22 09:08 | Pharmacy Report ---
Pharmacy [facility] Short Note - Date of Service November 22, 2021 - Assessment & Plan Assessment 86 year old F receiving IV vancomycin for treatment of possible endocarditis (ECHO shows new aortic vegetation) . Pertinent microbiologic data includes: no growth to date in blood cultures and urine. Day # 5 of antimicrobial therapy. Plan Vancomycin * Random level: 20.1 * Hold dose and check another random level with morning labs tomorrow due to YOUSIF and patient is not making much urine * Continued dosing would depend on renal function status and random level * Random level ordered for: 11/23/21 Pharmacy will continue to follow and will adjust dose/frequency as necessary. Thank you.
[2021-11-22] MEDS ORDERED: FUROSEMIDE 40 MG/4 ML VIAL IV ONE (10:15)
--- NOTE | 2021-11-22 10:16 | Nephrology Progress Note ---
Date of Service November 22, 2021 Assessment & Plan (1) Acute kidney injury: (2) Acute hypoxemic respiratory failure: (3) Oliguria: (4) Hyperphosphatemia: Plan: 86-year-old female with severe mitral regurgitation, new finding of ovarian mass admitted with respiratory add distress, developed acute kidney injury most likely hemodynamically mediated with multiple IV contrast exposure. Renal function has been rapidly declining with decrease in his urine output and re spiratory distress. Creatinine now up to 4.1, low urine output. -- Lasix 160 mg IV x1 dose, monitor urine output, no sick if there is no significant improvement in urine output, will need temporary dialysis catheter and start on dialysis. Discussed and explained to the patient and daughter Maryanne over telephone ) and both would like to consider dialysis if needed. Explained that with her multiple serious medical comorbidities including severe mitral regurgitation, she may not tolerate dialysis well. -- Dose medications for eGFR less than 10 Will follow Admission and Anticipated Discharge Date Admission Date: November 18, 2021 Luli Hong Was evaluated this morning in ICU. Overnight she has been having decreased oxygen saturation, chest x-ray showing bilateral pleural effusion pulmonary congestion, has been on high-flow nasal cannula oxygen currently reporting 80% with oxygen saturation about 90. renal function continues to rapidly worsening creatinine up to 4.1, BUN 90, decrease urine output to only 75 mL overnight. Has been confused overnight. Review of Systems Review of Systems: Detailed review of system was otherwise unremarkable except mentioned above. Physical Exam Constitutional: WD/WN, vitals as above + acute distress and + ill appearing Eyes: + anicteric sclerae Neck: normal visual inspection Respiratory: + respiratory distress Auscultation: + diminished lung sounds and + rales Cardiovascular: Rate/Rhythm: regular rate and regular rhythm Heart Sounds: normal S1, normal S2 and + murmur Extremities: no edema Skin: no rashes Neurologic: awake and + confused; no focal motor deficits Psychiatric: Orientation: alert, oriented to person and cooperative Results & Data ([facility]) Vital Signs (Past 12 Hours) Vital Signs Temp Pulse Pulse Resp BP Pulse Ox 11/22/21 07:09 77 28 H 92 11/22/21 06:30 76 32 H 92 11/22/21 04:03 75 17 162/46 H 88 L 11/22/21 04:00 36.6 C 77 31 H 181/66 H 89 L 11/22/21 03:25 78 33 H 95 11/22/21 03:00 70 32 H 152/61 H 94 11/22/21 02:01 75 37 H 139/48 L 91 11/22/21 02:00 74 30 H 90 11/22/21 01:01 73 35 H 133/62 99 11/22/21 01:00 72 34 H 100 11/22/21 00:01 95 H 39 H 143/76 H 89 L 11/22/21 00:00 79 30 H 90 11/21/21 23:00 73 32 H 124/54 L 83 L 11/21/21 22:30 68 30 H 98 PG Care Time/CCT Total # of Minutes Spent Total Time Spent with Patient: Total time spent is greater than 50% in coordination of care (as documented) at patient's floor/unit and/or counseling patient: Coding Level of Care Code 87256 Subseq Hosp Care Lvl 3 Diagnoses Acute kidney injury N17.9 Acute hypoxemic respiratory failure J96.01 Oliguria R34 Hyperphosphatemia E83.39
--- NOTE | 2021-11-22 11:14 | Critical Care Progress Note ---
Date of Service November 22, 2021 Assessment & Plan (1) Aortic valve vegetation: (2) Paroxysmal atrial fibrillation: (3) Acute diastolic heart failure: (4) Ovarian mass: (5) Acute hypoxemic respiratory failure: Plan: Impression: 86-year-old female with mobile vegetation on bioprosthetic valve suspicious for potential endocarditis. She has a known 8 cm ovarian mass. She is having nausea and vomiting and progressive hypoxemic respiratory failure. Sh e is been diuresed. Her x-ray does not reveal an acute etiology. CT angiogram negative for PE but did show atelectasis, groundglass opacities, and bilateral effusions 24-hour events: Has continued to require high amounts of oxygen with high flow alternating with positive airway pressure although she has been less tolerant of CPAP or BiPAP. She had a discussion with the ALMA overnight does not want to be on the mechanical ventilator and CODE STATUS was adjusted additionally. ID consult reviewed. Serologies were ordered this morning however our lab does not appear to have capabilities of ordering Trophermyma or Coxiella Recommendations: 1. Neurologic: No current issues. Continue to follow. 2. Cardiovascular: Potential bioprosthetic endocarditis. This is complicated by moderate to severe mitral regurgitation. With functional aortic stenosis and moderate to severe mitral regurgitation, managing her afterload and volume status is a fine-line. Holding diuretics today. Defer decision regarding YONG to cardiology although this would potentially require intubation. Defer blood pressure control to nephrology and cardiology 3. Pulmonary: Acute hypoxemic respiratory failure: No evidence of PE. CT scan appears consistent with pulmonary edema/fluid overload with bilateral pleural effusions. Unfortunately, cannot diurese at this point time due to serum creatinine issues. Continue to wean oxygen as tolerated and bridge with noninvasive positive pressure ventilation. Unfortunately I think her pulmonary issues are attributable to her underlying cardiovascular issues and potentially worsened by her underlying kidney issues. Not sure how much of this is functionally reversible at this time. 4. Renal: Oliguric renal failure today. Potential etiologies would include poor forward flow, contrast nephropathy, antibiotic associated renal failure, and ATN. Appreciate nephrology assistance. She was administered 180 mg of Lasix today to see whether or not we could convert her out of an oliguric status. If not, may require dialysis. Unclear how well this will be tolerated. 5. ID: Possible endocarditis. Day #4 Rocephin and vancomycin. Pharmacy will dose adjust based on creatinine clearance. Cultures remain negative to date. ID note reviewed. Ordered mycoplasma, Bartonella, chlamydia, Brucella, Legionella serologies. Does not appear that her lab has the capability of ordering Trophermyma or Coxiella and will need to speak to the photo lab manager on Wednesday. Agree with ID notes that additional evaluation with YONG would be helpful however may not be possible at this point time. Unfortunately, ID is not available here and thus cannot follow the patient on a regular basis. Will defer to the hospitalist to integrate care on a regular basis as close continued ID follow-up will be required 6. Heme-onc: Progressive anemia. Options would include poor bone marrow output, hemolysis, or bleeding. No signs of internal bleeding. Hemoglobin stable. No indication for transfusion currently. Haptoglobin pending. Reticulocyte count 1.8% which seems reasonable. LDH and [place] within normal limits arguing against significant analysis. 7. Endocrine: Glycemic control per ICU protocol. 8. GI: Nausea resolved, continue as needed Zofran, Compazine, promethazine, and Ativan. Continue as needed Patient remains critically ill with multiple organ systems which are failing and requiring support. Unclear how much of this is potentially reversible. Overall prognosis is guarded. Total of 40 minutes critical care time was spent evaluation management stabilization of this patient. Admission and Anticipated Discharge Date Admission Date: November 18, 2021 Subjective Patient seen and examined. EMR reviewed. Discussed with critical care ALMA overnight. The patient continues to manifest intermittent episodes of delirium, especially at night. Unfortunately we have not been able to make any significant headway with regards to her oxygen requirement. She states that she feels reasonably well this morning. She is bothered by the cannula in her nose and would like to go to something else but she is been poorly tolerant to CPAP or BiPAP as well. She does state that she does not want to be intubated and CODE STATUS was changed to no compressions, shocks, intubation, or mechanical ventilation. She is okay with pressors if needed. She is not coughing or expectorating phlegm. She denies chest pain or palpitations. Review of Systems Review of Systems: All systems reviewed & are unremarkable except as noted in Subjective Physical Exam Constitutional: WD/WN, vitals as above well developed; no acute distress Respiratory: able to speak in complete sentences; no respiratory distress Auscultation: + diminished lung sounds and + crackles (faint bibasilar rales) Cardiovascular: Rate/Rhythm: regular rate and regular rhythm Heart Sounds: + murmur (III/ systolic murmur LSB) Vessels: no JVD Extremities: no edema Gastrointestinal (Abdomen): normal bowel sounds, soft, nontender, no hepat osplenomegaly Psychiatric: A+Ox3, euthymic affect Results & Data Results & Data ([facility]) Vital Signs (Past 12 Hours) Vital Signs Temp Pulse Pulse Resp BP Pulse Ox 11/22/21 07:09 77 28 H 92 11/22/21 06:30 76 32 H 92 11/22/21 04:03 75 17 162/46 H 88 L 11/22/21 04:00 36.6 C 77 31 H 181/66 H 89 L 11/22/21 03:25 78 33 H 95 11/22/21 03:00 70 32 H 152/61 H 94 11/22/21 02:01 75 37 H 139/48 L 91 11/22/21 02:00 74 30 H 90 11/22/21 01:01 73 35 H 133/62 99 11/22/21 01:00 72 34 H 100 11/22/21 00:01 95 H 39 H 143/76 H 89 L 11/22/21 00:00 79 30 H 90 Critical Care Results & Data Vital Signs (Past 12 Hours) Vital Signs Temp Pulse Pulse Resp BP Pulse Ox 11/22/21 07:09 77 28 H 92 11/22/21 06:30 76 32 H 92 11/22/21 04:03 75 17 162/46 H 88 L 11/22/21 04:00 36.6 C 77 31 H 181/66 H 89 L 11/22/21 03:25 78 33 H 95 11/22/21 03:00 70 32 H 152/61 H 94 11/22/21 02:01 75 37 H 139/48 L 91 11/22/21 02:00 74 30 H 90 11/22/21 01:01 73 35 H 133/62 99 11/22/21 01:00 72 34 H 100 11/22/21 00:01 95 H 39 H 143/76 H 89 L 11/22/21 00:00 79 30 H 90 Lab & Micro Results (Past 24 Hours) RBC 3.33 M/uL (4.2-5.4) L 11/22/21 WBC 8.98 K/uL (4.8-10.8) 11/22/21 Hgb 9.0 g/dL (12.0-16.0) L 11/22/21 Hct 27.7 % (37-47) L 11/22/21 MCV 83.2 fL (80-100) 11/22/21 MCH 27.0 pg (25-34) 11/22/21 MCHC 32.5 g/dL (32-36) 11/22/21 RDW Standard Deviation 42.2 fL (36.4-46.3) 11/22/21 RDW Coefficient of Variation 13.8 % (11.5-14.5) 11/22/21 Plt Count 343 K/uL (130-400) 11/22/21 MPV 10.1 fL (7.4-10.4) 11/22/21 Neutrophils (%) (Auto) 70.3 % 11/22/21 Lymphocytes (%) (Auto) 5.8 % 11/22/21 Monocytes # (Auto) 1.78 K/uL (0.11-0.59) H 11/22/21 Eosinophils # (Auto) 0.28 K/uL (0-0.5) 11/22/21 Immature Granulocyte % (Auto) 0.4 % 11/22/21 Neutrophils # (Auto) 6.31 K/uL (1.4-6.5) 11/22/21 Lymphocytes # (Auto) 0.52 K/uL (1.2-3.4) L 11/22/21 Monocytes # (Auto) 1.78 K/uL (0.11-0.59) H 11/22/21 Eosinophils # (Auto) 0.28 K/uL (0-0.5) 11/22/21 Basophils # (Auto) 0.05 K/uL (0-0.2) 11/22/21 Immature Granulocyte # (Auto) 0.04 K/uL (0.00-0.02) H 11/22/21 Na 135 mmol/L (136-145) L 11/22/21 K 4.4 mmol/L (3.5-5.1) 11/22/21 Cl 96 mmol/L (98-107) L 11/22/21 CO2 25 mmol/L (21-32) 11/22/21 Anion Gap 14 (3-11) H 11/22/21 BUN 90 mg/dl (6-23) H 11/22/21 Creatinine 4.14 mg/dl (0.6-1.2) H 11/22/21 Estimated GFR ( Amer) 10.7 ml/min 11/22/21 Estimated GFR (Non-Af Amer) 9.2 ml/min 11/22/21 BUN/Creatinine Ratio 21.7 (10-20) H 11/22/21 Glu 155 mg/dl (70-99(Fasting)) H 11/22/21 Ca 8.9 mg/dl (8.5-10.1) 11/22/21 Phosphorus Level 5.8 mg/dl (2.5-4.9) H 11/22/21 Mg 2.4 mg/dl (1.7-2.4) 11/22/21 04:02 11/22/21 Calcium Level 8.9 mg/dl (8.5-10.1) 11/22/21 04:02 11/22/21 Microbiology 11/21/21 05:28 Aerobic Blood Culture - Preliminary Blood No growth in Aerobic bottle after 24 hours. Anaerobic Blood Culture - Preliminary No growth in Anaerobic bottle after 24 hours. 11/21/21 05:32 Aerobic Blood Culture - Preliminary Blood No growth in Aerobic bottle after 24 hours. Anaerobic Blood Culture - Preliminary No growth in Anaerobic bottle after 24 hours. 11/21/21 05:28 Fungal Smear - Final Blood Diagnostic Findings (Past 24 Hours) Chest X-Ray 11/22/21 00:29 XR chest 1V portable CLINICAL HISTORY: Shortness of breath. COMPARISON STUDY: Chest CT November 19, 2021 Chest radiograph November 21, 2021. FINDINGS: Median sternotomy wires and prosthetic aortic valve are noted. Cardiomegaly is unchanged. Small bilateral pleural effusions are similar to prior exam. Associated bibasilar opacities are noted. Interstitial thickening is similar to prior exam. There is no pneumothorax. IMPRESSION: 1. No change in pulmonary edema. 2. Persistent small bilateral pleural effusions with associated opacities which could reflect pneumonia or atelectasis. ACT 112: Negative or not required by law. Electronically signed by: Roberto Cruz M.D. 11/22/2021 7:12 AM I & O Totals 24 Hours 11/21/21 11/22/21 11/23/21 06:59 06:59 06:59 Intake Total 1170 / 1170 475 / 475 Output Total 270 / 270 150 / 150 Balance 900 / 900 325 / 325 Cumulative 11/17/21 21:03 thru 11/22/21 04:00 Intake Total 5222.45 Output Total 4195 Balance 1027.45 RT Ventilator Mngmt (Last Documented) Ventilator Ordered Settings Respiratory Rate 28 11/22/21 07:09 Fraction of Inspired Oxygen 90 11/22/21 07:09 Ventilator - PT Measurements Respiratory Rate 28 Coding Level of Care Code Critical Care 1st 30-74 mins Diagnoses Aortic valve vegetation I33.0 Paroxysmal atrial fibrillation I48.0 Acute diastolic heart failure I50.31 Ovarian mass N83.8 Acute hypoxemic respiratory failure J96.01
[2021-11-22] MEDS: ACETAMINOPHEN 325 MG TAB PO PRN ×2 (11:44→22:27)
[2021-11-22] MEDS: ONDANSETRON INJ 2 MG/ML 2 ML VIAL IV PRN (11:44)
--- NOTE | 2021-11-22 12:53 | Cardiology Progress Note ---
Date of Service November 22, 2021 Assessment & Plan (1) Acute hypoxemic respiratory failure: (2) Acute exacerbation of CHF (congestive heart failure): (3) Prosthetic aortic valve stenosis: (4) Mitral regurgitation: (5) Aortic valve vegetation: (6) LBBB (left bundle branch block): (7) Paroxysmal atrial fibrillation: Plan: The patient is likely to start dialysis soon. Nephrology note appreciated. Overall prognosis is not good. We will continue to follow. Admission and Anticipated Discharge Date Admission Date: November 18, 2021 Subjective The patient is on high flow oxygen. Review of Systems Review of Systems: Not obtainable Physical Exam Physical Exam: General: no acute distress and stated age Head: normocephalic, no masses, lesions, tenderness or abnormalities Eyes: conjunctiva are pink and non-injected, sclera clear Neck: supple, no adenopathy, no bruits, normal jugular venous pulse, no hepatojugular reflux Chest: normal shape and normal respiratory effort Lungs: Breath sounds equal Cardiac Exam: - regular rate & rhythm, no murmurs gallops or rubs - normal S1, normal S2 Pulses: 2(+) throughout Abdomen: abdomen soft, non-tender, no abnormal masses and no hepatosplenomegaly Musculoskeletal: no gait disturbance, no joint inflammation, no deforming arthritis Extremities: no edema and no cyanosis Neuro: grossly normal exam Results & Data ([facility]) Vital Signs (Past 12 Hours) Vital Signs Temp Pulse Pulse Resp BP Pulse Ox 11/22/21 11:29 72 28 H 90 11/22/21 07:09 77 28 H 92 11/22/21 06:30 76 32 H 92 11/22/21 04:03 75 17 162/46 H 88 L 11/22/21 04:00 36.6 C 77 31 H 181/66 H 89 L 11/22/21 03:25 78 33 H 95 11/22/21 03:00 70 32 H 152/61 H 94 11/22/21 02:01 75 37 H 139/48 L 91 11/22/21 02:00 74 30 H 90 11/22/21 01:01 73 35 H 133/62 99 11/22/21 01:00 72 34 H 100 Laboratory Results Laboratory Results - last 24 hr 11/21/21 11/21/21 11/21/21 14:02 16:12 20:07 WBC RBC Hgb Hct MCV MCH MCHC RDW Std Deviation RDW Coeff of Roberto Plt Count MPV Immature Gran % (Auto) Neut % (Auto) Lymph % (Auto) [place] % (Auto) Eos % (Auto) Baso % (Auto) Neut # (Auto) Lymph # (Auto) [place] # (Auto) Eos # (Auto) Baso # (Auto) Immature Gran # (Auto) Sodium Potassium Chloride Carbon Dioxide Anion Gap BUN Creatinine Est Cr Clr Drug Dosing Est GFR ( Amer) Est GFR (Non-Af Amer) BUN/Creatinine Ratio Glucose POC Glucose 156 H 203 H Calcium Phosphorus Magnesium Urine Color Urine Appearance Urine pH Ur Specific [place] Urine Protein Urine Glucose (UA) Urine Ketones Urine Blood Urine Nitrite Urine Bilirubin Urine Urobilinogen Ur Leukocyte Esterase Urine WBC (Auto) Urine RBC (Auto) U Hyaline Cast (Auto) U Epithel Cells (Auto) Urine Bacteria (Auto) Ur Renal Epithelial Cell Amorphous Sediment Urine Yeast Random Vancomycin 21.2 H Bartonella henselae IgG Bartonella henselae IgM Bartonella chu IgG Bartonella chu IgM Brucella IgG Antibody Brucella IgM Antibody Chlamydia Source C. pneumoniae DNA (PCR) Urine Legionella Ag Mycoplasma pneumon IgG Mycoplasma pneumon IgM 11/21/21 11/22/21 11/22/21 Unknown 04:02 04:02 WBC RBC Hgb Hct MCV MCH MCHC RDW Std Deviation RDW Coeff of Roberto Plt Count MPV Immature Gran % (Auto) Neut % (Auto) Lymph % (Auto) [place] % (Auto) Eos % (Auto) Baso % (Auto) Neut # (Auto) Lymph # (Auto) [place] # (Auto) Eos # (Auto) Baso # (Auto) Immature Gran # (Auto) Sodium 135 L Potassium 4.4 Chloride 96 L Carbon Dioxide 25 Anion Gap 14 H BUN 90 H Creatinine 4.14 H D Est Cr Clr Drug Dosing 10.6 Est GFR ( Amer) 10.7 Est GFR (Non-Af Amer) 9.2 BUN/Creatinine Ratio 21.7 H Glucose 155 H POC Glucose Calcium 8.9 Phosphorus 5.8 H Magnesium 2.4 Urine Color Yellow Urine Appearance Cloudy A Urine pH 5.0 Ur Specific [place] 1.030 Urine Protein 2+ H Urine Glucose (UA) Negative Urine Ketones Trace H Urine Blood Trace H Urine Nitrite Negative Urine Bilirubin Negative Urine Urobilinogen Negative Ur Leukocyte Esterase Negative Urine WBC (Auto) 10-30 H Urine RBC (Auto) 0-4 U Hyaline Cast (Auto) 1-5 U Epithel Cells (Auto) >30 H Urine Bacteria (Auto) Negative Ur Renal Epithelial Cell Not Reportable Amorphous Sediment Present A Urine Yeast Not Reportable Random Vancomycin 20.1 H Bartonella henselae IgG Bartonella henselae IgM Bartonella chu IgG Bartonella chu IgM Brucella IgG Antibody Brucella IgM Antibody Chlamydia Source C. pneumoniae DNA (PCR) Urine Legionella Ag Mycoplasma pneumon IgG Mycoplasma pneumon IgM 11/22/21 11/22/21 11/22/21 04:02 08:58 11:24 WBC 8.98 RBC 3.33 L Hgb 9.0 L Hct 27.7 L MCV 83.2 MCH 27.0 MCHC 32.5 RDW Std Deviation 42.2 RDW Coeff of Roberto 13.8 Plt Count 343 MPV 10.1 Immature Gran % (Auto) 0.4 Neut % (Auto) 70.3 Lymph % (Auto) 5.8 [place] % (Auto) 19.8 Eos % (Auto) 3.1 Baso % (Auto) 0.6 Neut # (Auto) 6.31 Lymph # (Auto) 0.52 L [place] # (Auto) 1.78 H Eos # (Auto) 0.28 Baso # (Auto) 0.05 Immature Gran # (Auto) 0.04 H Sodium Potassium Chloride Carbon Dioxide Anion Gap BUN Creatinine Est Cr Clr Drug Dosing Est GFR ( Amer) Est GFR (Non-Af Amer) BUN/Creatinine Ratio Glucose POC Glucose 250 H 155 H Calcium Phosphorus Magnesium Urine Color Urine Appearance Urine pH Ur Specific [place] Urine Protein Urine Glucose (UA) Urine Ketones Urine Blood Urine Nitrite Urine Bilirubin Urine Urobilinogen Ur Leukocyte Esterase Urine WBC (Auto) Urine RBC (Auto) U Hyaline Cast (Auto) U Epithel Cells (Auto) Urine Bacteria (Auto) Ur Renal Epithelial Cell Amorphous Sediment Urine Yeast Random Vancomycin Bartonella henselae IgG Bartonella henselae IgM Bartonella chu IgG Bartonella chu IgM Brucella IgG Antibody Brucella IgM Antibody Chlamydia Source C. pneumoniae DNA (PCR) Urine Legionella Ag Mycoplasma pneumon IgG Mycoplasma pneumon IgM 11/22/21 11/22/21 11:28 11:50 WBC RBC Hgb Hct MCV MCH MCHC RDW Std Deviation RDW Coeff of Roberto Plt Count MPV Immature Gran % (Auto) Neut % (Auto) Lymph % (Auto) [place] % (Auto) Eos % (Auto) Baso % (Auto) Neut # (Auto) Lymph # (Auto) [place] # (Auto) Eos # (Auto) Baso # (Auto) Immature Gran # (Auto) Sodium Potassium Chloride Carbon Dioxide Anion Gap BUN Creatinine Est Cr Clr Drug Dosing Est GFR ( Amer) Est GFR (Non-Af Amer) BUN/Creatinine Ratio Glucose POC Glucose Calcium Phosphorus Magnesium Urine Color Urine Appearance Urine pH Ur Specific [place] Urine Protein Urine Glucose (UA) Urine Ketones Urine Blood Urine Nitrite Urine Bilirubin Urine Urobilinogen Ur Leukocyte Esterase Urine WBC (Auto) Urine RBC (Auto) U Hyaline Cast (Auto) U Epithel Cells (Auto) Urine Bacteria (Auto) Ur Renal Epithelial Cell Amorphous Sediment Urine Yeast Random Vancomycin Bartonella henselae IgG Pending Bartonella henselae IgM Pending Bartonella chu IgG Pending Bartonella chu IgM Pending Brucella IgG Antibody Pending Brucella IgM Antibody Pending Chlamydia Source Pending C. pneumoniae DNA (PCR) Pending Urine Legionella Ag Pending Mycoplasma pneumon IgG Pending Mycoplasma pneumon IgM Pending Medications Administered Current Inpatient Medications Acetaminophen (Acetaminophen 325 Mg Tab) 650 mg PO Q4H PRN PRN Reason: Pain or Fever Stop: 12/18/21 02:17 Last Admin: 11/22/21 11:44 Dose: 650 mg Documented by: Alprazolam (Alprazolam 0.25 Mg Tablet) 0.25 mg PO Q12H PRN PRN Reason: Anxiety Stop: 12/21/21 12:21 Last Admin: 11/21/21 20:19 Dose: 0.25 mg Documented by: Amlodipine Besylate (Amlodipine Besylate 5 Mg Tab) 10 mg PO DAILY [facility] Stop: 12/18/21 08:59 Last Admin: 11/22/21 08:39 Dose: 10 mg Documented by: Aspirin (Aspirin 81 Mg Ectab) 81 mg PO QAM [place] Stop: 12/18/21 08:59 Last Admin: 11/22/21 08:39 Dose: 81 mg Documented by: Atorvastatin Calcium (Atorvastatin 20 Mg Tab) 20 mg PO HS [facility] Stop: 12/18/21 20:59 Last Admin: 11/21/21 20:17 Dose: 20 mg Documented by: Dextrose (Dextrose 50% 50 Ml Syringe) 25 - 50 ml IV UD PRN; Protocol PRN Reason: Hypoglycemia Protocol Stop: 12/18/21 02:17 Docusate Sodium (Docusate Sodium 100 Mg Cap) 100 mg PO BID [facility] Stop: 12/20/21 20:59 Last Admin: 11/22/21 08:39 Dose: 100 mg Documented by: Glucagon (Glucagon For Inj 1 Mg Vial) 1 mg SQ UD PRN; Protocol PRN Reason: Hypoglycemia Protocol Stop: 12/18/21 02:17 Glucose (Glucose 10 Tabs/Tube) 4 - 8 tabs PO UD PRN; Protocol PRN Reason: Hypoglycemia Protocol Stop: 12/18/21 02:17 Glucose (Glucose 40% Gel 15 Gm Tube) 15 - 30 gm PO UD PRN; Protocol PRN Reason: Hypoglycemia Protocol Stop: 12/18/21 02:17 Heparin Sodium (Porcine) (Heparin Sod 5,000 Unit/0.5 Ml Vial) 5,000 units SQ Q12 [place] Stop: 12/20/21 09:44 Last Admin: 11/22/21 08:40 Dose: 5,000 units Documented by: Promethazine HCl 12.5 mg/ (Sodium Chloride) 50.5 mls @ 202 mls/hr IV Q6H PRN PRN Reason: Nausea And Vomiting Stop: 12/18/21 02:17 Last Infusion: 11/19/21 17:16 Dose: Infused Documented by: Prochlorperazine 5 mg/ Syringe 5 mls @ 5 mls/min IV Q6H PRN PRN Reason: Nausea And Vomiting Stop: 12/19/21 17:26 Last Admin: 11/19/21 18:31 Dose: 5 mls/min Documented by: Ceftriaxone Sodium 2,000 mg/ (Dextrose) 70 mls @ 140 mls/hr IV Q24H GENOVEVA; Protocol Stop: 01/02/22 20:59 Last Infusion: 11/21/21 20:48 Dose: Infused Documented by: Insulin Aspart (Insulin Aspart Per Unit) 0 units SC ACHS [facility] Stop: 12/18/21 02:17 Last Admin: 11/22/21 11:48 Dose: 1 units Documented by: Ipratropium Ral[place] (Ipratropium [place] Neb Soln 0.02% 2.5 Ml Vial) 0.5 mg INH Q4H PRN PRN Reason: SOB, WHEEZE Stop: 12/18/21 02:17 Last Admin: 11/18/21 12:09 Dose: 0.5 mg Documented by: Levalbuterol HCl (Levalbuterol 1.25mg/0.5ml Neb) 1.25 mg INH Q4H PRN PRN Reason: SOB, WHEEZE Stop: 12/18/21 02:17 Last Admin: 11/18/21 12:09 Dose: 1.25 mg Documented by: Lorazepam (Lorazepam 2 Mg/1 Ml Vial) 0.25 mg IV Q4H PRN PRN Reason: nausea Stop: 12/19/21 17:26 Last Admin: 11/21/21 20:19 Dose: 0.25 mg Documented by: Metoprolol Succinate (Metoprolol Succ 25mg Ext Rel Tab) 25 mg PO QAM [place] Stop: 12/18/21 08:59 Last Admin: 11/22/21 08:39 Dose: 25 mg Documented by: Miscellaneous (Carbohydrates For Hypoglycemia ) 15 - 30 gm PO UD PRN PRN Reason: Hypoglycemia Protocol Stop: 12/18/21 02:17 Miscellaneous Information (Vancomycin Consult Active) 1 ea N/A UD PRN PRN Reason: Consult Stop: 12/19/21 02:47 Ondansetron HCl (Ondansetron Inj 2 Mg/Ml 2 Ml Vial) 4 mg IV Q8H PRN PRN Reason: Nausea And Vomiting Stop: 12/19/21 13:52 Last Admin: 11/22/21 11:44 Dose: 4 mg Documented by: Oxycodone HCl (Oxycodone Hcl Ir 5 Mg Tab (Immediate Release)) 5 mg PO Q4H PRN PRN Reason: Pain Stop: 12/02/21 02:17 Last Admin: 11/20/21 22:48 Dose: 5 mg Documented by: (1) Acute exacerbation of CHF (congestive heart failure) Heart failure type: unspecified Qualified Code(s): I50.9 - Heart failure, unspecified
[2021-11-22] MEDS ORDERED: HEPARIN SOD (PORCINE) 1000 UNIT/ML ONE (15:59)
--- NOTE | 2021-11-22 16:15 | Procedure Note ---
Procedure Note Date of Service November 22, 2021 Note Hemodialysis LINE PROCEDURE NOTE: Procedure: HD Line Placement Provider: Alireza Cobb MD Indication: Need for temporary dialysis access Anesthesia: 5 mL lidocaine 1% Site: Right internal jugular Consent was signed and placed on the chart prior to procedure. Indication, risks, and benefits were explained at length. A time-out was completed verifying correct patient, procedure, site, positioning, and implants(s) or special equipment if applicable. Patients right neck was cleansed and draped in the typical sterile fashion using Chloraprep. The Internal Jugular Vein and Carotid Artery were identified using ultrasound. The superficial tissue was anesthetized using 5 mL of 1% lidocaine without epinephrine under direct visualization with the ultrasound. After adequate anesthetization was achieved, the Internal Jugular vein was cannulated under direct ultrasound guidance using an introducer needle on a syringe. Good venous blood return was maintained prior to removal of syringe from introducer needle. Using Seldinger Technique, a guide wire was advanced through the introducer needle without resistance. The introducer needle was removed and ultrasound images were obtained of the guide wire within the Internal Jugular Vein and saved to the patients medical record. A small incision was made in penetrating fashion at the guide wire insertion site utilizing an 11 blade scalpel. Serial dilators were advanced to the vessel without resistance. The final dilator was exchanged for a 13 cm HD catheter with the pigtail port which was advanced into the vessel without resistance. The guide wire was removed intact from the catheter without issue. Claves were placed on each catheter tip with confirmation of good blood flow from each lumen. Each port was easily flushed with sterile saline. The catheter was placed at hub and sutured in place. BioPatch was applied to the catheter and a sterile Tegaderm dressing was applied over the catheter with careful attention to sterility. Patient tolerated procedure well. No immediate complications were met. Post procedure x-ray pending Images obtained are saved for permanent record Estimated blood loss: 5 mL Coding CPT Codes Tubes, Drains, and Vasc Access - Tubes, Drains, and Vasc Access: [id number] Insertion of cannula for hemodialysis ([id number]) [facility] [place] Codes (Charges) Tubes, Drains, and Vasc Access Procedure 1: Tubes, Drains, and Vasc Access: [id number] Insertion of cannula for hemodialysis
--- NOTE | 2021-11-22 16:20 | Hospitalist Progress Note ---
Date of Service November 22, 2021 Assessment & Plan (1) Acute hypoxemic respiratory failure: Plan: She denies any recent h/o swelling but developed some SOB just prior to arrival, found to have pulmonary edema and placed on intravenous diuretics -Patient noted to be oliguric. Received 180 of Lasix IV. No significant response. Hemodialysis catheter placed. Nephrology following CT chest revealed no PE but possible pneumonia. Remains on antibiotics and fever has subsided. Echo with preserved EF now with new aortic vegetation. She has a h/o aortic valve [place] with tissue valve in [place] in [place]. She has a h/o reduced systolic function in the past per outpatient cardiology records. Worsening hypoxia overnight. Now on vapotherm. 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 ID consulted. It is recommended he obtain two additional sets of routine blood cultures and fungal blood cultures now. Vancomycin plus ceftriaxone is recommended as the preferred antibiotic regimen in this case as common organisms for presumed endocarditis include Staphylococci, VGS and Enterococcus. She remains on Vanc/cefepime. Further serologic testing for mycoplasma Bartonella chlamydia Brucella Legionella Trophermyma, Coxiella recommended. (3) Acute kidney injury: Plan: Worsening renal status. Worsening creatinine. Dialysis catheter placed. Nephrology on board. (4) Acute diastolic heart failure: Plan: Poor output on Lasix challenge. Will likely need dialysis. (5) S/P AVR (aortic valve replacement): Plan: tissue valve replacement in 2011 (6) LBBB (left bundle branch block): Plan: chronic (7) Type 2 diabetes mellitus: Plan: at inpatient goal, cont current insulin dosing schedule (8) Elevated troponin: Plan: Likely related to demand ischemia from acute illness. (9) Ovarian mass: Plan: Per [facility] [place] gynecologic oncology clinic she has 2 pelvic cysts at vaginal cuff in February 2021 per transvaginal ultrasound the right cyst was 7.6 x 7 x 7 cm with speckled debris. The left cyst was 6 x 4 x 4 cm. Compared to images from September 2016 these were unchanged in appearance. Both cysts appear to be debris-filled or just cystic in nature and given the lack of drying rack changer time, it was felt that this was not consistent with malignancy and surveillance was not necessary. (10) Chronic kidney disease, stage III (moderate): (11) DVT prophylaxis: Plan: Heparin subcu Conditional code-ok with intubation, no CPR Dispo-cont ICU care. Admission and Anticipated Discharge Date Admission Date: November 18, 2021 Subjective Patient feels well denying active complaints. States that she may need a little help for constipation. Discussed with nurse patient had a bowel movement 1 day back. Patient in the ICU for CHF with hypoxia requiring BiPAP supplementation previously. Noted to have YOUSIF. 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 The patient is on high flow oxygen. Receiving IV Lasix For oliguria However not improved. Hemodialysis line placed. Herself denies active chest pain shortness of breath nausea vomiting. Review of Systems Review of Systems: All systems reviewed and negative other than as described above in the history and physical Physical Exam Physical Exam: CONSTITUTIONAL: overweigh, NAD. On high flow EYES: normal conjunctivae, no scleral icterus ENT: external ear and nose normal, NC in place NECK: trachea midline RESPIRATORY:Diminished breath sounds bilateral. Scant crackles noted. CARDIOVASCULAR: regular rate and rhythm, S1 and 2 heard 3/6 ALDO across precordium GASTROINTESTINAL: soft, nontender, ND Other than obesity, no guarding, protuberant.y PSYCHIATRIC: alert cooperative and oriented to person, place and time. Results & Data Results & Data ([facility]) Vital Signs (Past 12 Hours) Vital Signs Pulse Pulse Resp BP Pulse Ox 11/22/21 13:00 61 27 H 88 L 11/22/21 12:01 67 22 107/44 L 89 L 11/22/21 12:00 69 28 H 116/47 L 91 11/22/21 11:29 72 28 H 90 11/22/21 11:00 72 19 130/53 L 87 L 11/22/21 10:01 71 20 95 11/22/21 10:00 69 26 H 137/63 97 11/22/21 09:00 69 28 H 129/59 L 86 L 11/22/21 08:00 69 26 H 131/44 L 86 L 11/22/21 07:09 77 28 H 92 11/22/21 07:02 74 27 H 105/48 L 91 11/22/21 07:00 75 23 93 11/22/21 06:45 71 34 H 93 11/22/21 06:30 76 32 H 92 Laboratory Results Laboratory Results WBC 8.98 K/uL (4.8-10.8) 11/22/21 04:02 RBC 3.33 M/uL (4.2-5.4) L 11/22/21 04:02 Hgb 9.0 g/dL (12.0-16.0) L 11/22/21 04:02 POC Hgb 12.2 g/dl (12.0-16.0) 11/17/21 21:37 Hct 27.7 % (37-47) L 11/22/21 04:02 POC Hct 36 % (37-47) L 11/17/21 21:37 MCV 83.2 fL (80-100) 11/22/21 04:02 MCH 27.0 pg (25-34) 11/22/21 04:02 MCHC 32.5 g/dL (32-36) 11/22/21 04:02 RDW Std Deviation 42.2 fL (36.4-46.3) 11/22/21 04:02 RDW Coeff of Roberto 13.8 % (11.5-14.5) 11/22/21 04:02 Plt Count 343 K/uL (130-400) 11/22/21 04:02 MPV 10.1 fL (7.4-10.4) 11/22/21 04:02 Immature Gran % (Auto) 0.4 % 11/22/21 04:02 Neut % (Auto) 70.3 % 11/22/21 04:02 Lymph % (Auto) 5.8 % 11/22/21 04:02 Scott % (Auto) 19.8 % 11/22/21 04:02 Eos % (Auto) 3.1 % 11/22/21 04:02 Baso % (Auto) 0.6 % 11/22/21 04:02 Reticulocyte % (Auto) 1.8 % (0.5-2.0) 11/21/21 08:23 Neut # (Auto) 6.31 K/uL (1.4-6.5) 11/22/21 04:02 Lymph # (Auto) 0.52 K/uL (1.2-3.4) L 11/22/21 04:02 Scott # (Auto) 1.78 K/uL (0.11-0.59) H 11/22/21 04:02 Eos # (Auto) 0.28 K/uL (0-0.5) 11/22/21 04:02 Baso # (Auto) 0.05 K/uL (0-0.2) 11/22/21 04:02 Reticulocyte # 0.06 10^6/uL (0.02-0.10) 11/21/21 08:23 Immature Gran # (Auto) 0.04 K/uL (0.00-0.02) H 11/22/21 04:02 ESR 54 mm/hr (0-30) H 11/20/21 05:13 PT 10.6 Seconds (9.0-12.0) 11/17/21 21:34 INR 1.0 (0.9-1.1) 11/17/21 21:34 APTT 101.6 Seconds (21.0-31.0) H* 11/19/21 08:22 PTT Ratio 3.7 11/19/21 08:22 ABG pH 7.49 (7.35-7.45) H 11/18/21 22:35 ABG pCO2 41 mmHg (35-46) 11/18/21 22:35 ABG pO2 65 mmHg (80-95) L 11/18/21 22:35 ABG HCO3 31 mmol/L (19-24) H 11/18/21 22:35 ABG O2 Saturation 93.8 % (90-95) 11/18/21 22:35 ABG Base Excess 6.5 mEq/L (-9-1.8) H 11/18/21 22:35 Christiano Test Pos (Pos) 11/18/21 22:35 Barometric Pressure 735.9 mm/Hg 11/18/21 22:35 Oxygen Given 15% 11/18/21 22:35 POC Sodium 139 mmol/L (135-144) 11/17/21 21:37 Sodium 135 mmol/L (136-145) L 11/22/21 04:02 POC Potassium 5.2 mmol/L (3.3-5.0) H 11/17/21 21:37 Potassium 4.4 mmol/L (3.5-5.1) 11/22/21 04:02 POC Chloride 99 mmol/L (101-112) L 11/17/21 21:37 Chloride 96 mmol/L (98-107) L 11/22/21 04:02 Carbon Dioxide 25 mmol/L (21-32) 11/22/21 04:02 POC Total CO2 31 mmol/L (24-31) 11/17/21 21:37 Anion Gap 14 (3-11) H 11/22/21 04:02 POC Anion Gap 16.0 mmol/L (16-25) 11/17/21 21:37 POC BUN 39 mg/dl (7-18) H 11/17/21 21:37 BUN 90 mg/dl (6-23) H 11/22/21 04:02 Creatinine 4.14 mg/dl (0.6-1.2) H D 11/22/21 04:02 POC Creatinine 1.9 mg/dl (0.6-1.3) H 11/17/21 21:37 Est Cr Clr Drug Dosing 10.6 ml/min 11/22/21 04:02 Est GFR ( Amer) 10.7 ml/min 11/22/21 04:02 Est GFR (Non-Af Amer) 9.2 ml/min 11/22/21 04:02 BUN/Creatinine Ratio 21.7 (10-20) H 11/22/21 04:02 Glucose 155 mg/dl (70-99(Fasting)) H 11/22/21 04:02 POC Glucose 117 mg/dl (70-99) H 11/22/21 16:15 POC Glucose (other) 215 mg/dl (70-99) H 11/17/21 21:37 Estimat Average Glucose 131 mg/dl 11/17/21 21:33 Hemoglobin A1c 6.2 % (4.5-5.6) H 11/17/21 21:33 Calcium 8.9 mg/dl (8.5-10.1) 11/22/21 04:02 POC Ioniz Calcium Loyda 1.14 mmol/l (1.12-1.32) 11/17/21 21:37 Phosphorus 5.8 mg/dl (2.5-4.9) H 11/22/21 04:02 Magnesium 2.4 mg/dl (1.7-2.4) 11/22/21 04:02 Total Bilirubin 0.7 mg/dl (0.2-1.0) 11/17/21 21:33 AST 16 U/L (13-39) 11/17/21 21:33 ALT 11 U/L (7-52) 11/17/21 21:33 Alkaline Phosphatase 57 U/L (34-104) 11/17/21 21:33 Lactate Dehydrogenase 168 U/L (86-244) 11/21/21 08:23 Total Creatine Kinase 61 U/L (26-192) 11/17/21 23:48 Troponin I 0.08 ng/ml (0-0.04) H* 11/18/21 22:28 C-Reactive Protein 25.08 mg/dl (0-0.5) H 11/20/21 05:13 B-Natriuretic Peptide 1265 pg/ml (0-100) H 11/17/21 21:33 Total Protein 7.1 gm/dl (6.0-8.3) 11/17/21 21: Albumin 4.3 gm/dl (3.4-5.0) 11/17/21 21: Globulin 2.8 gm/dl (2.5-4.0) 11/17/21 21: Albumin/Globulin Ratio 1.5 (0.9-2) 11/17/21 21:33 Triglycerides 116 mg/dl (0-150) 11/18/21 06:02 Cholesterol 98 mg/dl (0-200) 11/18/21 06:02 LDL Cholesterol, Calc 38 mg/dl 11/18/21 06:02 VLDL Cholesterol, Calc 23 mg/dl (0-30) 11/18/21 06:02 HDL Cholesterol 37 mg/dl 11/18/21 06:02 Cholesterol/HDL Ratio 2.6 (0-5) 11/18/21 06:02 Lipase 28 U/L (11-82) 11/17/21 21:33 Procalcitonin 0.09 ng/ml (0-0.5) 11/17/21 21:34 TSH 2.210 uIu/ml (0.300-4.500) 11/17/21 21:33 Urine Color Yellow 11/21/21 Unknown Urine Appearance Cloudy (Clear) A 11/21/21 Unknown Urine pH 5.0 (4.5-7.5) 11/21/21 Unknown Ur Specific [place] 1.030 (1.000-1.030) 11/21/21 Unknown Urine Protein 2+ (Negative) H 11/21/21 Unknown Urine Glucose (UA) Negative (Negative) 11/21/21 Unknown Urine Ketones Trace (Negative) H 11/21/21 Unknown Urine Blood Trace (Negative) H 11/21/21 Unknown Urine Nitrite Negative (Negative) 11/21/21 Unknown Urine Bilirubin Negative (Negative) 11/21/21 Unknown Urine Urobilinogen Negative (Negative) 11/21/21 Unknown Ur Leukocyte Esterase Negative (Negative) 11/21/21 Unknown Urine WBC (Auto) 10-30 /hpf (0-5) H 11/21/21 Unknown Urine RBC (Auto) 0-4 /hpf (0-4) 11/21/21 Unknown U Hyaline Cast (Auto) 1-5 /lpf (0-5) 11/21/21 Unknown U Epithel Cells (Auto) >30 /lpf (0-5) H 11/21/21 Unknown Urine Bacteria (Auto) Negative (Negative) 11/21/21 Unknown Ur Renal Epithelial Cell Not Reportable 11/21/21 Unknown Amorphous Sediment Present (None Prsent) A 11/21/21 Unknown Urine Yeast Not Reportable 11/21/21 Unknown Vancomycin Trough 15.5 mcg/ml (10-20) 11/20/21 11:21 Random Vancomycin 20.1 mcg/ml (10-20) H 11/22/21 04:02 Rheumatoid Factor 15 IU/mL (<14) H 11/20/21 05:13 SARS-CoV-2, RNA, NAAT NEGATIVE (NEGATIVE) 11/17/21 21:27 Blood Type A Positive 11/21/21 08:23 Direct Antiglob Test Negative (Negative) 11/21/21 08:23 BINTA (IgG-AHG) Neg (Negative) 11/21/21 08:23 BINTA, Polyspecific Neg (Negative) 11/21/21 08:23 BINTA C3b, C3d 5 Min Neg (Negative) 11/21/21 08:23 Impressions Chest CTA 11/19/21 17:28 CHEST CTA for PULMONARY ARTERIES CT DOSE: 440.72 mGy.cm HISTORY: Shortness of breath. TECHNIQUE: Multiaxial CT images of the chest were performed following the intravenous administration of contrast to evaluate the pulmonary arteries. Maximal intensity projection images were also obtained. A dose lowering technique was utilized adhering to the principles of ALARA. COMPARISON STUDY: Abdomen and pelvis CT 11/16/2021. FINDINGS: The hepatic lesions are better appreciated on the recent abdomen and pelvis CT. The visualized spleen and adrenal glands are unremarkable. There is a small hiatus hernia. There are small bilateral pleural effusions. The thyroid gland enhances normally. The heart is mildly enlarged. No pericardial effusion. No hilar lymphadenopathy. A single mildly enlarged right paratracheal lymph node measuring 1.4 cm. Mild circumferential thickening of the esophagus. No suspicious lytic or blastic osseous lesions. Poststernotomy changes are noted. Mild calcified plaque within the normal caliber thoracic aorta. No evidence for an aortic dissection. An aortic valve prosthesis is noted. Moderate coronary artery calcifications are present. Nondiagnostic evaluation of the majority of the bilateral lower lobe subsegmental pulmonary arteries due to the respiratory motion artifact. However, no definite filling defects identified within the pulmonary arteries to suggest a pulmonary embolus. No pneumothorax. The central airways are patent. Mild biapical pleural-parenchymal scarring. Calcified granuloma within the left lower lobe. Consolidation within the bilateral upper and lower lobes posteriorly. This likely represents a combination of atelectasis and pneumonia. There is also right perihilar groundglass airspace opacities likely representing a pneumonia. Asymmetric pulmonary edema could also have a similar appearance. Right lung interlobular septal thickening is noted. IMPRESSION: 1. No evidence for pulmonary embolus. 2. Cardiomegaly and small bilateral pleural effusions. There is also perihilar groundglass airspace opacities and interlobular septal thickening within the right lung which likely represents mild asymmetric pulmonary edema. 3. Airspace opacities within the upper and lower lobes posteriorly likely represent a combination of atelectasis and pneumonia. 4. A single enlarged right paratracheal lymph node. This could be reactive to the suspected pneumonia. ACT 112: Negative or not required by law. Electronically signed by: Shankar Santamaria M.D. 11/19/2021 6:45 PM
--- NOTE | 2021-11-22 17:01 | XRay Report ---
XR chest 1V portable HISTORY: 86 years-old Female Line placement status post placement of a right IJ central venous jose ter COMPARISON: Chest radiograph 11/21/2021 TECHNIQUE: AP view of the chest FINDINGS: The cardiac silhouette is enlarged. Prior median sternotomy with cardiac valvular prosthesis. Status post placement of a dual lumen right IJ central venous catheter distal tip in the expected location o f the upper SVC. Pulmonary vascular congestion with interstitial coarsening has progressed from yeste rday's study. No pneumothorax. Layering pleural effusions with mild bibasilar consolidation, also wor sened. Degenerative changes of the shoulders and spine. Left shoulder rotator cuff calcific tendinosi s. IMPRESSION: 1. Status post placement of a dual lumen right IJ central venous catheter. No postprocedural pneumoth orax. 2. Cardiomegaly with worsening pulmonary edema. 3. Layering pleural effusions with progressive bibasilar consolidation. ACT 112: Negative or not required by law. The above report was generated using voice recognition software. It may contain grammatical, syntax o r spelling errors. Electronically signed by: Maximiliano Padilla M.D. 11/22/2021 5:00 PM
[2021-11-22] MEDS ORDERED: HEPARIN SODIUM IV ONE (17:11)
[2021-11-22] MEDS: cefTRIAXone SODIUM 2,000 MG in DEXTROSE 5% 50 ML IV SCH (20:55)
[2021-11-22] MEDS: ALPRAZolam 0.25 MG TABLET PO PRN (20:55)
[2021-11-22] MEDS: ATORVASTATIN 20 MG TAB PO SCH (20:56)
[2021-11-23 04:54] LABS: Basophils # (auto) 0.05 K/uL (0-0.2); Basophils % (auto) 0.7 %; Eosinophils # (auto) 0.24 K/uL (0-0.5); Eosinophils % (auto) 3.3 %; Hematocrit (blood only) 25.3 % (37-47); Hemoglobin 8.2 g/dL (12.0-16.0); Immature Granulocytes # (auto) 0.03 K/uL (0.00-0.02); Immature Granulocytes % (auto) 0.4 %; Lymphocytes # (auto) 0.77 K/uL (1.2-3.4); Lymphocytes % (auto) 10.7 %; Mean Corpuscular Hemoglobin 26.8 pg (25-34); Mean Corpuscular Hgb Conc 32.4 g/dL (32-36); Mean Corpuscular Volume 82.7 fL (80-100); Mean Platelet Volume 9.9 fL (7.4-10.4); Monocytes # (auto) 1.35 K/uL (0.11-0.59); Monocytes % (auto) 18.8 %; Neutrophils # (auto) 4.76 K/uL (1.4-6.5); Neutrophils % (auto) 66.1 %; Platelet Count 326 K/uL (130-400); RDW Coefficient of Variation 13.9 % (11.5-14.5); RDW Standard Deviation 42.4 fL (36.4-46.3); Red Blood Count 3.06 M/uL (4.2-5.4)
[2021-11-23 05:33] LABS: Albumin Globulin Ratio 1.1 (0.9-2); Albumin Level 3.3 gm/dl (3.4-5.0); BUN Creatinine Ratio 24.5 (10-20); Bilirubin,Total 0.4 mg/dl (0.2-1.0); Calcium 8.6 mg/dl (8.5-10.1); Creatinine Clr Calc Pharmacy 15.5 ml/min; Est GFR (Non-African American) 14.7 ml/min; Magnesium 2.2 mg/dl (1.7-2.4); Phosphorus 5.1 mg/dl (2.5-4.9); Potassium 3.6 mmol/L (3.5-5.1); Total Protein 6.3 gm/dl (6.0-8.3)
[2021-11-23] MEDS: INSULIN ASPART PER UNIT SC SCH ×4 (07:56→21:34)
--- NOTE | 2021-11-23 08:19 | Pharmacy Report ---
Pharmacy [facility] Short Note - Date of Service November 23, 2021 - Assessment & Plan Assessment 86 year old F receiving IV vancomycin for treatment of prosthetic heart valve vegetation (?endocarditis). Pertinent microbiologic data includes: negative blood cultures to date and fungal culture still pending. Due to poor renal function, dialysis catheter was placed and HD attempted on 11/22. However, treatment was terminated due to arterial pressure / positioning of the catheter. About 1.5 L was removed. Day # 6 of antimicrobial therapy. Plan Vancomycin * Random level is 13.6 * SCr decreased to 2.82 from 4.14 the previous day * Vancomycin restarted at 750 mg IV x 1 * Due to poor renal function, goal target vancomycin level is 15 to 20 mg/mL * Next random level ordered for 11/24/21 with the AM labs Ceftriaxone * 2gm IV q24h Pharmacy will continue to follow and will adjust dose/frequency as necessary. Thank you.
[2021-11-23] MEDS ORDERED: VANCOMYCIN HCL 750 MG in SODIUM CHLORIDE 0.9% 250 ML IV ONE (08:30)
[2021-11-23] MEDS: ASPIRIN 81 MG ECTAB PO SCH (08:56)
[2021-11-23] MEDS: DOCUSATE SODIUM 100 MG CAP PO SCH ×2 (08:57→21:34)
[2021-11-23] MEDS: amLODIPine BESYLATE 5 MG TAB PO SCH (08:58)
[2021-11-23] MEDS: METOPROLOL SUCC 25MG EXT REL TAB PO SCH (08:58)
[2021-11-23] MEDS: HEPARIN SOD 5,000 UNIT/0.5 ML VIAL SQ SCH ×2 (08:59→21:34)
--- NOTE | 2021-11-23 10:23 | Critical Care Progress Note ---
Date of Service November 23, 2021 Assessment & Plan (1) Aortic valve vegetation: (2) Paroxysmal atrial fibrillation: (3) Acute diastolic heart failure: (4) Ovarian mass: (5) Acute hypoxemic respiratory failure: Plan: Impression: 86-year-old female with mobile vegetation on bioprosthetic valve suspicious for potential endocarditis. She has a known 8 cm ovarian mass. She is having nausea and vomiting and progressive hypoxemic respiratory failure. Sh e is been diuresed. Her x-ray does not reveal an acute etiology. CT angiogram negative for PE but did show atelectasis, groundglass opacities, and bilateral effusions 24-hour events: Failed Lasix challenge. Dialysis catheter placed and for session of dialysis conducted yesterday. She tolerated it well. She said slight decrease in her oxygen requirement. No new issues. Recommendations: 1. Neurologic: No current issues. Continue to follow. 2. Cardiovascular: Potential bioprosthetic endocarditis. This is complicated by moderate to severe mitral regurgitation. With functional aortic stenosis and moderate to severe mitral regurgitation, managing her afterload and volume status is difficult.. Hopefully we will see improvement in her respiratory status with volume removal through ultrafiltration. Defer decision regarding YONG to cardiology although this would potentially require intubation. Defer blood pressure control to nephrology and cardiology 3. Pulmonary: Acute hypoxemic respiratory failure: No evidence of PE. CT scan appears consistent with pulmonary edema/fluid overload with bilateral pleural effusions. Continue to wean oxygen as tolerated and bridge with noninvasive positive pressure ventilation. Patient confirms no desire to be intubated or proceed with mechanical ventilation. She is already requested no CPR or defibrillation/cardioversion. She is open to pressors if needed. 4. Renal: No significant improvement in urine output. Dialysis yesterday. Appreciate nephrology assistance. Think her pulmonary status would continue to improve with additional ultrafiltration. 5. ID: Possible endocarditis. Day #5 Rocephin and vancomycin. Pharmacy will dose adjust based on creatinine clearance/dialysis Cultures remain negative to date. ID note reviewed. Ordered mycoplasma, Bartonella, chlamydia, Brucella, Legionella serologies. Does not appear that our lab has the capability of ordering Trophermyma or Coxiella and will need to speak to the mine laborer on Wednesday. Agree with ID notes that additional evaluation with YONG would be helpful however may not be possible at this point time. Unfortunately, ID is not available here and thus cannot follow the patient on a regular basis. Will defer to the hospitalist to integrate care on a regular basis as close continued ID follow-up will be required 6. Heme-onc: Progressive anemia. Options would include poor bone marrow output, hemolysis, or bleeding. No signs of internal bleeding. Hemoglobin stable. No indication for transfusion currently. Haptoglobin pending. Reticulocyte count 1.8% which seems reasonable. LDH and [place] within normal limits arguing against significant hemolysis. Seems to be some differing opinions regarding her ovarian mass with our radiologists believing it to be malignant however the report from the [facility] oncology indicates no worrisome features. This is not an acute issue for the patient currently however it may affect her approach to future medical issues and resolution is recommended. 7. Endocrine: Glycemic control per ICU protocol. 8. GI: Nausea resolved, continue as needed Zofran, Compazine, promethazine, and Ativan. Continue as needed We will discuss with nephrology if additional dialysis is planned for today. As the patient is not going to escalate her care further, and tolerated her initial session of dialysis, I think she is appropriate to transfer out of the intensive care unit. If they are going to dialyze her today, will observe to ensure that she tolerates her second session without difficulty. Case was discussed with the bedside critical care nurse as well as with the patient at bedside. Admission and Anticipated Discharge Date Admission Date: November 18, 2021 Subjective Patient seen and examined. EMR reviewed. She had a dialysis catheter placed yesterday and underwent dialysis with removal of 1.5 L ultrafiltrate. She tolerated it reasonably well. She has had some decrease in her oxygen requirement since then. Overall she feels about the same. Review of Systems Review of Systems: All systems reviewed & are unremarkable except as noted in Subjective Physical Exam Constitutional: WD/WN, vitals as above well developed; no acute distress Respiratory: + cough and able to speak in complete sentences; no respiratory distress Auscultation: + diminished lung sounds and + crackles (faint bibasilar rales) Cardiovascular: Rate/Rhythm: regular rate and regular rhythm Heart Sounds: + murmur (III/ systolic murmur LSB) Vessels: no JVD Extremities: no edema Gastrointestinal (Abdomen): normal bowel sounds, soft, nontender, no hepatosplenomegaly Neurologic: PERRL, EOMI, accommodation nl, no face palsy, no dysarthria Psychiatric: A+Ox3, euthymic affect Results & Data Results & Data ([facility]) Vital Signs (Past 12 Hours) Vital Signs Temp Pulse Pulse Resp BP BP Pulse Ox 11/23/21 06:46 70 23 130/43 L 91 11/23/21 06:30 64 24 134/44 L 88 L 11/23/21 06:15 63 24 133/44 L 87 L 11/23/21 06:00 70 25 H 133/49 L 88 L 11/23/21 05:45 64 26 H 124/45 L 89 L 11/23/21 05:30 63 28 H 133/53 L 89 L 11/23/21 05:15 67 32 H 128/57 L 89 L 11/23/21 05:00 68 27 H 125/69 90 11/23/21 04:45 66 21 130/86 89 L 11/23/21 04:31 67 24 123/70 90 11/23/21 04:30 67 25 H 91 11/23/21 04:16 36.8 C 70 27 H 146/70 H 91 11/23/21 04:00 36.8 C 71 18 129/56 L 92 11/23/21 03:46 75 29 H 113/49 L 93 11/23/21 03:31 70 23 127/53 L 97 11/23/21 03:30 69 25 H 96 11/23/21 03:20 80 25 H 92 11/23/21 03:01 72 22 137/61 92 11/23/21 03:00 68 23 93 11/23/21 02:45 65 24 129/40 L 91 11/23/21 02:31 73 24 127/39 L 91 11/23/21 02:30 70 23 91 11/23/21 02:15 67 23 125/62 89 L 11/23/21 02:00 72 24 127/79 88 L 11/23/21 01:45 71 26 H 128/63 93 11/23/21 01:30 69 18 125/58 L 96 11/23/21 01:16 71 28 H 143/43 H 94 11/23/21 01:00 72 25 H 131/54 L 93 11/23/21 00:46 73 26 H 113/41 L 90 11/23/21 00:31 70 27 H 126/43 L 93 11/23/21 00:30 68 25 H 93 11/23/21 00:16 76 27 H 110/61 93 11/23/21 00:01 37.1 C 73 20 137/82 95 11/23/21 00:00 75 26 H 96 11/22/21 23:46 74 15 118/58 L 90 11/22/21 23:31 79 26 H 152/53 H 97 11/22/21 23:30 79 23 97 11/22/21 23:15 72 29 H 142/50 H 96 11/22/21 23:10 78 11/22/21 23:00 74 26 H 123/41 L 96 11/22/21 22:55 36.7 C 75 123/41 L 11/22/21 22:46 76 18 124/90 94 11/22/21 22:45 78 129/60 11/22/21 22:40 75 30 H 93 11/22/21 22:30 78 25 H 144/60 H 96 Critical Care Results & Data Vital Signs (Past 12 Hours) Vital Signs Temp Pulse Pulse Resp BP BP Pulse Ox 11/23/21 06:46 70 23 130/43 L 91 11/23/21 06:30 64 24 134/44 L 88 L 11/23/21 06:15 63 24 133/44 L 87 L 11/23/21 06:00 70 25 H 133/49 L 88 L 11/23/21 05:45 64 26 H 124/45 L 89 L 11/23/21 05:30 63 28 H 133/53 L 89 L 11/23/21 05:15 67 32 H 128/57 L 89 L 11/23/21 05:00 68 27 H 125/69 90 11/23/21 04:45 66 21 130/86 89 L 11/23/21 04:31 67 24 123/70 90 11/23/21 04:30 67 25 H 91 11/23/21 04:16 36.8 C 70 27 H 146/70 H 91 11/23/21 04:00 36.8 C 71 18 129/56 L 92 11/23/21 03:46 75 29 H 113/49 L 93 11/23/21 03:31 70 23 127/53 L 97 11/23/21 03:30 69 25 H 96 11/23/21 03:20 80 25 H 92 11/23/21 03:01 72 22 137/61 92 11/23/21 03:00 68 23 93 11/23/21 02:45 65 24 129/40 L 91 11/23/21 02:31 73 24 127/39 L 91 11/23/21 02:30 70 23 91 11/23/21 02:15 67 23 125/62 89 L 11/23/21 02:00 72 24 127/79 88 L 11/23/21 01:45 71 26 H 128/63 93 11/23/21 01:30 69 18 125/58 L 96 11/23/21 01:16 71 28 H 143/43 H 94 11/23/21 01:00 72 25 H 131/54 L 93 11/23/21 00:46 73 26 H 113/41 L 90 11/23/21 00:31 70 27 H 126/43 L 93 11/23/21 00:30 68 25 H 93 11/23/21 00:16 76 27 H 110/61 93 11/23/21 00:01 37.1 C 73 20 137/82 95 11/23/21 00:00 75 26 H 96 11/22/21 23:46 74 15 118/58 L 90 11/22/21 23:31 79 26 H 152/53 H 97 11/22/21 23:30 79 23 97 11/22/21 23:15 72 29 H 142/50 H 96 11/22/21 23:10 78 11/22/21 23:00 74 26 H 123/41 L 96 11/22/21 22:55 36.7 C 75 123/41 L 11/22/21 22:46 76 18 124/90 94 11/22/21 22:45 78 129/60 11/22/21 22:40 75 30 H 93 11/22/21 22:30 78 25 H 144/60 H 96 Lab & Micro Results (Past 24 Hours) RBC 3.06 M/uL (4.2-5.4) L 11/23/21 WBC 7.20 K/uL (4.8-10.8) 11/23/21 Hgb 8.2 g/dL (12.0-16.0) L 11/23/21 Hct 25.3 % (37-47) L 11/23/21 MCV 82.7 fL (80-100) 11/23/21 MCH 26.8 pg (25-34) 11/23/21 MCHC 32.4 g/dL (32-36) 11/23/21 RDW Standard Deviation 42.4 fL (36.4-46.3) 11/23/21 RDW Coefficient of Variation 13.9 % (11.5-14.5) 11/23/21 Plt Count 326 K/uL (130-400) 11/23/21 MPV 9.9 fL (7.4-10.4) 11/23/21 Neutrophils (%) (Auto) 66.1 % 11/23/21 Lymphocytes (%) (Auto) 10.7 % 11/23/21 Monocytes # (Auto) 1.35 K/uL (0.11-0.59) H 11/23/21 Eosinophils # (Auto) 0.24 K/uL (0-0.5) 11/23/21 Immature Granulocyte % (Auto) 0.4 % 11/23/21 Neutrophils # (Auto) 4.76 K/uL (1.4-6.5) 11/23/21 Lymphocytes # (Auto) 0.77 K/uL (1.2-3.4) L 11/23/21 Monocytes # (Auto) 1.35 K/uL (0.11-0.59) H 11/23/21 Eosinophils # (Auto) 0.24 K/uL (0-0.5) 11/23/21 Basophils # (Auto) 0.05 K/uL (0-0.2) 11/23/21 Immature Granulocyte # (Auto) 0.03 K/uL (0.00-0.02) H 11/23/21 Na 139 mmol/L (136-145) 11/23/21 K 3.6 mmol/L (3.5-5.1) 11/23/21 Cl 100 mmol/L (98-107) 11/23/21 CO2 28 mmol/L (21-32) 11/23/21 Anion Gap 11 (3-11) 11/23/21 BUN 69 mg/dl (6-23) H 11/23/21 Creatinine 2.82 mg/dl (0.6-1.2) H 11/23/21 Estimated GFR ( Amer) 17.0 ml/min 11/23/21 Estimated GFR (Non-Af Amer) 14.7 ml/min 11/23/21 BUN/Creatinine Ratio 24.5 (10-20) H 11/23/21 Glu 183 mg/dl (70-99(Fasting)) H 11/23/21 Ca 8.6 mg/dl (8.5-10.1) 11/23/21 Phosphorus Level 5.1 mg/dl (2.5-4.9) H 11/23/21 Total Bilirubin 0.4 mg/dl (0.2-1.0) 11/23/21 AST 12 U/L (13-39) L 11/23/21 ALT 12 U/L (7-52) 11/23/21 Alkaline Phosphatase 49 U/L (34-104) 11/23/21 TP 6.3 gm/dl (6.0-8.3) 11/23/21 Albumin 3.3 gm/dl (3.4-5.0) L 11/23/21 Globulin 3.0 gm/dl (2.5-4.0) 11/23/21 Albumin/Globulin Ratio 1.1 (0.9-2) 11/23/21 Mg 2.2 mg/dl (1.7-2.4) 11/23/21 04:21 11/23/21 Calcium Level 8.6 mg/dl (8.5-10.1) 11/23/21 04:21 11/23/21 Microbiology 11/21/21 05:32 Aerobic Blood Culture - Preliminary Blood No growth in Aerobic bottle after 48 hours. Anaerobic Blood Culture - Preliminary No growth in Anaerobic bottle after 48 hours. 11/21/21 05:28 Aerobic Blood Culture - Preliminary Blood No growth in Aerobic bottle after 48 hours. Anaerobic Blood Culture - Preliminary No growth in Anaerobic bottle after 48 hours. Diagnostic Findings (Past 24 Hours) Chest X-Ray 11/22/21 16:12 XR chest 1V portable HISTORY: 86 years-old Female Line placement status post placement of a right IJ central venous catheter COMPARISON: Chest radiograph 11/21/2021 TECHNIQUE: AP view of the chest FINDINGS: The cardiac silhouette is enlarged. Prior median sternotomy with cardiac valvular prosthesis. Status post placement of a dual lumen right IJ central venous catheter distal tip in the expected location of the upper SVC. Pulmonary vascular congestion with interstitial coarsening has progressed from yesterday's study. No pneumothorax. Layering pleural effusions with mild bibasilar consolidation, also worsened. Degenerative changes of the shoulders and spine. Left shoulder rotator cuff calcific tendinosis. IMPRESSION: 1. Status post placement of a dual lumen right IJ central venous catheter. No postprocedural pneumothorax. 2. Cardiomegaly with worsening pulmonary edema. 3. Layering pleural effusions with progressive bibasilar consolidation. ACT 112: Negative or not required by law. The above report was generated using voice recognition software. It may contain grammatical, syntax or spelling errors. Electronically signed by: Maximiliano Padilla M.D. 11/22/2021 5:00 PM I & O Totals 24 Hours 11/22/21 11/23/21 11/24/21 06:59 06:59 06:59 Intake Total 475 / 475 520 / 520 Output Total 150 / 150 1025 / 1025 150 / 150 Balance 325 / 325 -505 / -505 -150 / -150 Cumulative 11/17/21 21:03 thru 11/23/21 09:16 Intake Total 5742.45 Output Total 5370 Balance 372.45 RT Ventilator Mngmt (Last Documented) Ventilator Ordered Settings Respiratory Rate 23 11/23/21 06:46 Fraction of Inspired Oxygen 90 11/23/21 03:20 Ventilator - PT Measurements Respiratory Rate 23 Coding Level of Care Code 67284 Subseq Hosp Care Lvl 3 Diagnoses Aortic valve vegetation I33.0 Paroxysmal atrial fibrillation I48.0 Acute diastolic heart failure I50.31 Ovarian mass N83.8 Acute hypoxemic respiratory failure J96.01
--- NOTE | 2021-11-23 10:51 | Nephrology Progress Note ---
Date of Service November 23, 2021 Assessment & Plan (1) Acute kidney injury: (2) Acute hypoxemic respiratory failure: (3) Oliguria: (4) Hyperphosphatemia: Plan: 86-year-old female with severe mitral regurgitation, new finding of ovarian mass admitted with respiratory distress, developed acute kidney injury most likely hemodynamically mediated with multiple IV contrast exposure. Renal function has been rapidly declining with decrease in his urine output and respiratory distress. Had HD for 2 h on 11/23/21 via catheter. Has severe and MR, but not candidate for TVAR at this point. UO improved, doing better. -- monitor urine output, electrolytes, if continue to improve, will remove catheter tomorrow. --encourage po intake. Will follow Admission and Anticipated Discharge Date Admission Date: November 18, 2021 Luli Hong Was evaluated this morning in ICU. She has been feeling better, out of bed. Improved O2 sat, had 1.5 L UF with HD for 2 h yesterday. ? UO 1 L overnight. BP stable, electrolyte acceptable. Review of Systems Review of Systems: Detailed review of system was otherwise unremarkable except mentioned above. Physical Exam Constitutional: WD/WN, vitals as above + ill appearing Eyes: + anicteric sclerae Respiratory: Auscultation: + diminished lung sounds Cardiovascular: Rate/Rhythm: regular rate and regular rhythm Heart Sounds: normal S1, normal S2 and + murmur Extremities: no edema Skin: no rashes Neurologic: awake; no focal motor deficits Psychiatric: Orientation: alert, oriented to person and cooperative Results & Data ([facility]) Vital Signs (Past 12 Hours) Vital Signs Temp Pulse Pulse Resp BP BP Pulse Ox 11/23/21 07:35 83 26 H 92 11/23/21 06:46 70 23 130/43 L 91 11/23/21 06:30 64 24 134/44 L 88 L 11/23/21 06:15 63 24 133/44 L 87 L 11/23/21 06:00 70 25 H 133/49 L 88 L 11/23/21 05:45 64 26 H 124/45 L 89 L 11/23/21 05:30 63 28 H 133/53 L 89 L 11/23/21 05:15 67 32 H 128/57 L 89 L 11/23/21 05:00 68 27 H 125/69 90 11/23/21 04:45 66 21 130/86 89 L 11/23/21 04:31 67 24 123/70 90 11/23/21 04:30 67 25 H 91 11/23/21 04:16 36.8 C 70 27 H 146/70 H 91 11/23/21 04:00 36.8 C 71 18 129/56 L 92 11/23/21 03:46 75 29 H 113/49 L 93 11/23/21 03:31 70 23 127/53 L 97 11/23/21 03:30 69 25 H 96 11/23/21 03:20 80 25 H 92 11/23/21 03:01 72 22 137/61 92 11/23/21 03:00 68 23 93 11/23/21 02:45 65 24 129/40 L 91 11/23/21 02:31 73 24 127/39 L 91 11/23/21 02:30 70 23 91 11/23/21 02:15 67 23 125/62 89 L 11/23/21 02:00 72 24 127/79 88 L 11/23/21 01:45 71 26 H 128/63 93 11/23/21 01:30 69 18 125/58 L 96 11/23/21 01:16 71 28 H 143/43 H 94 11/23/21 01:00 72 25 H 131/54 L 93 11/23/21 00:46 73 26 H 113/41 L 90 11/23/21 00:31 70 27 H 126/43 L 93 11/23/21 00:30 68 25 H 93 11/23/21 00:16 76 27 H 110/61 93 11/23/21 00:01 37.1 C 73 20 137/82 95 11/23/21 00:00 75 26 H 96 11/22/21 23:46 74 15 118/58 L 90 11/22/21 23:31 79 26 H 152/53 H 97 11/22/21 23:30 79 23 97 11/22/21 23:15 72 29 H 142/50 H 96 11/22/21 23:10 78 11/22/21 23:00 74 26 H 123/41 L 96 11/22/21 22:55 36.7 C 75 123/41 L PG Care Time/CCT Total # of Minutes Spent Total Time Spent with Patient: Total time spent is greater than 50% in coordination of care (as documented) at patient's floor/unit and/or counseling patient: Coding Level of Care Code 60968 Subseq Hosp Care Lvl 2 Diagnoses Acute kidney injury N17.9 Acute hypoxemic respiratory failure J96.01 Oliguria R34 Hyperphosphatemia E83.39
--- NOTE | 2021-11-23 11:25 | Cardiology Progress Note ---
Date of Service November 23, 2021 Assessment & Plan (1) Acute hypoxemic respiratory failure: (2) Acute exacerbation of CHF (congestive heart failure): (3) Prosthetic aortic valve stenosis: (4) Mitral regurgitation: (5) Aortic valve vegetation: (6) LBBB (left bundle branch block): (7) Paroxysmal atrial fibrillation: Plan: The patient seems to have improved after dialysis yesterday and has actually been making some urine. Nephrology is currently considering whether or not they will repeat dialysis today. Otherwise from a cardiac standpoint she is stable. Admission and Anticipated Discharge Date Admission Date: November 18, 2021 Subjective The patient is sitting in a chair. Currently on high flow oxygen. Review of Systems Review of Systems: Review of Systems: See HPI for pertinent positives. All other 10 point review of systems are negative. Physical Exam Physical Exam: General: no acute distress and stated age Head: normocephalic, no masses, lesions, tenderness or abnormalities Eyes: conjunctiva are pink and non-injected, sclera clear Neck: supple, no adenopathy, no bruits, normal jugular venous pulse, no hepatojugular reflux Chest: normal shape and normal respiratory effort Lungs: Breath sounds equal Cardiac Exam: - regular rate & rhythm, systolic murmur left sternal border- normal S1, normal S2 Pulses: 2(+) throughout Abdomen: abdomen soft, non-tender, no abnormal masses and no hepatosplenomegaly Musculoskeletal: no gait disturbance, no joint inflammation, no deforming arthritis Extremities: no edema and no cyanosis Neuro: grossly normal exam Results & Data ([facility]) Vital Signs (Past 12 Hours) Vital Signs Temp Pulse Pulse Resp BP Pulse Ox 11/23/21 07:35 83 26 H 92 11/23/21 06:46 70 23 130/43 L 91 11/23/21 06:30 64 24 134/44 L 88 L 11/23/21 06:15 63 24 133/44 L 87 L 11/23/21 06:00 70 25 H 133/49 L 88 L 11/23/21 05:45 64 26 H 124/45 L 89 L 11/23/21 05:30 63 28 H 133/53 L 89 L 11/23/21 05:15 67 32 H 128/57 L 89 L 11/23/21 05:00 68 27 H 125/69 90 11/23/21 04:45 66 21 130/86 89 L 04/03/22 04:31 67 24 123/70 90 11/23/21 04:30 67 25 H 91 11/23/21 04:16 36.8 C 70 27 H 146/70 H 91 11/23/21 04:00 36.8 C 71 18 129/56 L 92 11/23/21 03:46 75 29 H 113/49 L 93 11/23/21 03:31 70 23 127/53 L 97 11/23/21 03:30 69 25 H 96 11/23/21 03:20 80 25 H 92 11/23/21 03:01 72 22 137/61 92 11/23/21 03:00 68 23 93 11/23/21 02:45 65 24 129/40 L 91 11/23/21 02:31 73 24 127/39 L 91 11/23/21 02:30 70 23 91 11/23/21 02:15 67 23 125/62 89 L 11/23/21 02:00 72 24 127/79 88 L 11/23/21 01:45 71 26 H 128/63 93 11/23/21 01:30 69 18 125/58 L 96 11/23/21 01:16 71 28 H 143/43 H 94 11/23/21 01:00 72 25 H 131/54 L 93 11/23/21 00:46 73 26 H 113/41 L 90 11/23/21 00:31 70 27 H 126/43 L 93 11/23/21 00:30 68 25 H 93 11/23/21 00:16 76 27 H 110/61 93 11/23/21 00:01 37.1 C 73 20 137/82 95 11/23/21 00:00 75 26 H 96 11/22/21 23:46 74 15 118/58 L 90 11/22/21 23:31 79 26 H 152/53 H 97 11/22/21 23:30 79 23 97 Laboratory Results Laboratory Results - last 24 hr 11/22/21 11/22/21 11/22/21 11:24 11:28 11:50 WBC RBC Hgb Hct MCV MCH MCHC RDW Std Deviation RDW Coeff of Roberto Plt Count MPV Immature Gran % (Auto) Neut % (Auto) Lymph % (Auto) [place] % (Auto) Eos % (Auto) Baso % (Auto) Neut # (Auto) Lymph # (Auto) [place] # (Auto) Eos # (Auto) Baso # (Auto) Immature Gran # (Auto) Sodium Potassium Chloride Carbon Dioxide Anion Gap BUN Creatinine Est Cr Clr Drug Dosing Est GFR ( Amer) Est GFR (Non-Af Amer) BUN/Creatinine Ratio Glucose POC Glucose 155 H Calcium Phosphorus Magnesium Total Bilirubin AST ALT Alkaline Phosphatase Total Protein Albumin Globulin Albumin/Globulin Ratio Random Vancomycin Bartonella henselae IgG Pending Bartonella henselae IgM Pending Bartonella chu IgG Pending Bartonella chu IgM Pending Brucella IgG Antibody Pending Brucella IgM Antibody Pending Chlamydia Source Pending C. pneumoniae DNA (PCR) Pending Hep Bs Antigen Hep Bs Ag Confirmation Hep Bs Antibody, Quant Urine Legionella Ag Pending Mycoplasma pneumon IgG Pending Mycoplasma pneumon IgM Pending 11/22/21 11/22/21 11/23/21 16:15 19:56 04:21 WBC 7.20 RBC 3.06 L Hgb 8.2 L Hct 25.3 L MCV 82.7 MCH 26.8 MCHC 32.4 RDW Std Deviation 42.4 RDW Coeff of Roberto 13.9 Plt Count 326 MPV 9.9 Immature Gran % (Auto) 0.4 Neut % (Auto) 66.1 Lymph % (Auto) 10.7 [place] % (Auto) 18.8 Eos % (Auto) 3.3 Baso % (Auto) 0.7 Neut # (Auto) 4.76 Lymph # (Auto) 0.77 L [place] # (Auto) 1.35 H Eos # (Auto) 0.24 Baso # (Auto) 0.05 Immature Gran # (Auto) 0.03 H Sodium Potassium Chloride Carbon Dioxide Anion Gap BUN Creatinine Est Cr Clr Drug Dosing Est GFR ( Amer) Est GFR (Non-Af Amer) BUN/Creatinine Ratio Glucose POC Glucose 117 H 190 H Calcium Phosphorus Magnesium Total Bilirubin AST ALT Alkaline Phosphatase Total Protein Albumin Globulin Albumin/Globulin Ratio Random Vancomycin Bartonella henselae IgG Bartonella henselae IgM Bartonella chu IgG Bartonella chu IgM Brucella IgG Antibody Brucella IgM Antibody Chlamydia Source C. pneumoniae DNA (PCR) Hep Bs Antigen Hep Bs Ag Confirmation Hep Bs Antibody, Quant Urine Legionella Ag Mycoplasma pneumon IgG Mycoplasma pneumon IgM 11/23/21 11/23/21 11/23/21 04:21 04:21 04:21 WBC RBC Hgb Hct MCV MCH MCHC RDW Std Deviation RDW Coeff of Roberto Plt Count MPV Immature Gran % (Auto) Neut % (Auto) Lymph % (Auto) [place] % (Auto) Eos % (Auto) Baso % (Auto) Neut # (Auto) Lymph # (Auto) [place] # (Auto) Eos # (Auto) Baso # (Auto) Immature Gran # (Auto) Sodium 139 Potassium 3.6 Chloride 100 Carbon Dioxide 28 Anion Gap 11 BUN 69 H D Creatinine 2.82 H D Est Cr Clr Drug Dosing 15.5 Est GFR ( Amer) 17.0 Est GFR (Non-Af Amer) 14.7 BUN/Creatinine Ratio 24.5 H Glucose 183 H POC Glucose Calcium 8.6 Phosphorus 5.1 H Magnesium 2.2 Total Bilirubin 0.4 AST 12 L ALT 12 Alkaline Phosphatase 49 Total Protein 6.3 Albumin 3.3 L Globulin 3.0 Albumin/Globulin Ratio 1.1 Random Vancomycin 13.6 Bartonella henselae IgG Bartonella henselae IgM Bartonella chu IgG Bartonella chu IgM Brucella IgG Antibody Brucella IgM Antibody Chlamydia Source C. pneumoniae DNA (PCR) Hep Bs Antigen Pending Hep Bs Ag Confirmation Pending Hep Bs Antibody, Quant Pending Urine Legionella Ag Mycoplasma pneumon IgG Mycoplasma pneumon IgM 11/23/21 07:04 WBC RBC Hgb Hct MCV MCH MCHC RDW Std Deviation RDW Coeff of Roberto Plt Count MPV Immature Gran % (Auto) Neut % (Auto) Lymph % (Auto) [place] % (Auto) Eos % (Auto) Baso % (Auto) Neut # (Auto) Lymph # (Auto) [place] # (Auto) Eos # (Auto) Baso # (Auto) Immature Gran # (Auto) Sodium Potassium Chloride Carbon Dioxide Anion Gap BUN Creatinine Est Cr Clr Drug Dosing Est GFR ( Amer) Est GFR (Non-Af Amer) BUN/Creatinine Ratio Glucose POC Glucose 188 H Calcium Phosphorus Magnesium Total Bilirubin AST ALT Alkaline Phosphatase Total Protein Albumin Globulin Albumin/Globulin Ratio Random Vancomycin Bartonella henselae IgG Bartonella henselae IgM Bartonella chu IgG Bartonella chu IgM Brucella IgG Antibody Brucella IgM Antibody Chlamydia Source C. pneumoniae DNA (PCR) Hep Bs Antigen Hep Bs Ag Confirmation Hep Bs Antibody, Quant Urine Legionella Ag Mycoplasma pneumon IgG Mycoplasma pneumon IgM Medications Administered Current Inpatient Medications Acetaminophen (Acetaminophen 325 Mg Tab) 650 mg PO Q4H PRN PRN Reason: Pain or Fever Stop: 12/18/21 02:17 Last Admin: 11/22/21 22:27 Dose: 650 mg Documented by: Alprazolam (Alprazolam 0.25 Mg Tablet) 0.25 mg PO Q12H PRN PRN Reason: Anxiety Stop: 12/21/21 12:21 Last Admin: 11/22/21 20:55 Dose: 0.25 mg Documented by: Amlodipine Besylate (Amlodipine Besylate 5 Mg Tab) 10 mg PO DAILY [place] Stop: 12/18/21 08:59 Last Admin: 11/23/21 08:58 Dose: 10 mg Documented by: Aspirin (Aspirin 81 Mg Ectab) 81 mg PO QAM [place] Stop: 12/18/21 08:59 Last Admin: 11/23/21 08:56 Dose: 81 mg Documented by: Atorvastatin Calcium (Atorvastatin 20 Mg Tab) 20 mg PO HS [place] Stop: 12/18/21 20:59 Last Admin: 11/22/21 20:56 Dose: 20 mg Documented by: Dextrose (Dextrose 50% 50 Ml Syringe) 25 - 50 ml IV UD PRN; Protocol PRN Reason: Hypoglycemia Protocol Stop: 12/18/21 02:17 Docusate Sodium (Docusate Sodium 100 Mg Cap) 100 mg PO BID [place] Stop: 12/20/21 20:59 Last Admin: 11/23/21 08:57 Dose: 100 mg Documented by: Glucagon (Glucagon For Inj 1 Mg Vial) 1 mg SQ UD PRN; Protocol PRN Reason: Hypoglycemia Protocol Stop: 12/18/21 02:17 Glucose (Glucose 10 Tabs/Tube) 4 - 8 tabs PO UD PRN; Protocol PRN Reason: Hypoglycemia Protocol Stop: 12/18/21 02:17 Glucose (Glucose 40% Gel 15 Gm Tube) 15 - 30 gm PO UD PRN; Protocol PRN Reason: Hypoglycemia Protocol Stop: 12/18/21 02:17 Heparin Sodium (Beef Lung) (Heparin 10 Unit/Ml 5 Ml Flush) 5 ml FLUSH PRN PRN PRN Reason: Flush Stop: 12/22/21 17:10 Heparin Sodium (Porcine) (Heparin Sod 5,000 Unit/0.5 Ml Vial) 5,000 units SQ Q12 [facility] Stop: 12/20/21 09:44 Last Admin: 11/23/21 08:59 Dose: 5,000 units Documented by: Promethazine HCl 12.5 mg/ (Sodium Chloride) 50.5 mls @ 202 mls/hr IV Q6H PRN PRN Reason: Nausea And Vomiting Stop: 12/18/21 02:17 Last Infusion: 11/19/21 17:16 Dose: Infused Documented by: Prochlorperazine 5 mg/ Syringe 5 mls @ 5 mls/min IV Q6H PRN PRN Reason: Nausea And Vomiting Stop: 12/19/21 17:26 Last Admin: 11/19/21 18:31 Dose: 5 mls/min Documented by: Ceftriaxone Sodium 2,000 mg/ (Dextrose) 70 mls @ 140 mls/hr IV Q24H [facility]; Protocol Stop: 01/02/22 20:59 Last Infusion: 11/22/21 21:30 Dose: Infused Documented by: Insulin Aspart (Insulin Aspart Per Unit) 0 units SC ACHS [facility] Stop: 12/18/21 02:17 Last Admin: 11/23/21 07:56 Dose: 4 units Documented by: Ipratropium [place] (Ipratropium [place] Neb Soln 0.02% 2.5 Ml Vial) 0.5 mg INH Q4H PRN PRN Reason: SOB, WHEEZE Stop: 12/18/21 02:17 Last Admin: 11/18/21 12:09 Dose: 0.5 mg Documented by: Levalbuterol HCl (Levalbuterol 1.25mg/0.5ml Neb) 1.25 mg INH Q4H PRN PRN Reason: SOB, WHEEZE Stop: 12/18/21 02:17 Last Admin: 11/18/21 12:09 Dose: 1.25 mg Documented by: Lorazepam (Lorazepam 2 Mg/1 Ml Vial) 0.25 mg IV Q4H PRN PRN Reason: nausea Stop: 12/19/21 17:26 Last Admin: 11/21/21 20:19 Dose: 0.25 mg Documented by: Metoprolol Succinate (Metoprolol Succ 25mg Ext Rel Tab) 25 mg PO QAM [facility] Stop: 12/18/21 08:59 Last Admin: 11/23/21 08:58 Dose: 25 mg Documented by: Miscellaneous (Carbohydrates For Hypoglycemia ) 15 - 30 gm PO UD PRN PRN Reason: Hypoglycemia Protocol Stop: 12/18/21 02:17 Miscellaneous Information (Vancomycin Consult Active) 1 ea N/A UD PRN PRN Reason: Consult Stop: 12/19/21 02:47 Ondansetron HCl (Ondansetron Inj 2 Mg/Ml 2 Ml Vial) 4 mg IV Q8H PRN PRN Reason: Nausea And Vomiting Stop: 12/19/21 13:52 Last Admin: 11/22/21 11:44 Dose: 4 mg Documented by: Oxycodone HCl (Oxycodone Hcl Ir 5 Mg Tab (Immediate Release)) 5 mg PO Q4H PRN PRN Reason: Pain Stop: 12/02/21 02:17 Last Admin: 11/20/21 22:48 Dose: 5 mg Documented by: (1) Acute exacerbation of CHF (congestive heart failure) Heart failure type: unspecified Qualified Code(s): I50.9 - Heart failure, unspecified
--- NOTE | 2021-11-23 14:36 | Hospitalist Progress Note ---
Date of Service November 23, 2021 Assessment & Plan (1) Acute hypoxemic respiratory failure: Plan: She denies any recent h/o swelling but developed some SOB just prior to arrival, found to have pulmonary edema and placed on intravenous diuretics - Patient noted to be oliguric. Received 180 of Lasix IV. No significant response. Hemodialysis catheter placed. Received dialysis. Nephrology following. CT chest revealed no PE but possible pneumonia. Remains on antibiotics and fever has subsided. Echo with preserved EF now with new aortic vegetation. She has a h/o aortic valve replacement with tissue valve in [place] in 2011. She has a h/o reduced systolic function in the past per outpatient cardiology records. Worsening hypoxia overnight. Now on vapotherm. 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 ID consulted. It is recommended he obtain two additional sets of routine blood cultures and fungal blood cultures now. Vancomycin plus ceftriaxone is recommended as the preferred antibiotic regimen in this case as common organisms for presumed endocarditis include Staphylococci, VGS and Enterococcus. She remains on Vanc/cefepime. Further serologic testing for mycoplasma Bartonella chlamydia Brucella Legionella Trophermyma, Coxiella recommended. (3) Acute kidney injury: Plan: Worsening renal status. Worsening creatinine. Dialysis catheter placed. Nephrology on board. (4) Acute diastolic heart failure: Plan: Fluid balance improved post hemodialysis (5) S/P AVR (aortic valve replacement): Plan: tissue valve replacement in 2011 (6) LBBB (left bundle branch block): Plan: chronic (7) Type 2 diabetes mellitus: Plan: at inpatient goal, cont current insulin dosing schedule (8) Elevated troponin: Plan: Likely related to demand ischemia from acute illness. (9) Ovarian mass: Plan: [place] [facility] [place] has 2 pelvic cysts at vaginal cuff in February 2021 per transvaginal ultrasound the right cyst was 7.6 x 7 x 7 cm with speckled debris. The left cyst was 6 x 4 x 4 cm. Compared to images from September 2016 these were unchanged in appearance. Both cysts appear to be debris-filled or just cystic in nature and given the lack of change control analyst time, it was felt that this was not consistent with malignancy and surveillance was not necessary. (10) Chronic kidney disease, stage III (moderate): (11) DVT prophylaxis: Plan: Heparin subcu Conditional code-ok with intubation, no CPR Dispo-cont ICU care. Admission and Anticipated Discharge Date Admission Date: November 18, 2021 Subjective The patient is sitting in a chair. Currently on high flow oxygen. Patient received session of hemodialysis as patient became oliguric despite Lasix challenge. States she is feeling much better today. Review of Systems Review of Systems: All systems reviewed and negative other than as described above in the history and physical Physical Exam Physical Exam: CONSTITUTIONAL: overweigh, NAD. On high flow EYES: normal conjunctivae, no scleral icterus ENT: external ear and nose normal, NC in place NECK: trachea midline RESPIRATORY:Diminished breath sounds bilateral. Scant crackles noted. CARDIOVASCULAR: regular rate and rhythm, S1 and 2 heard 3/6 ALDO across precordium GASTROINTESTINAL: soft, nontender, ND Other than obesity, no guarding, pr otuberant.y PSYCHIATRIC: alert cooperative and oriented to person, place and time. Results & Data Results & Data ([facility]) Vital Signs (Past 12 Hours) Vital Signs Temp Pulse Pulse Resp BP Pulse Ox 11/23/21 11:30 36.8 C 11/23/21 11:00 66 16 96 11/23/21 10:30 63 23 96 11/23/21 10:00 62 24 98 11/23/21 09:30 67 29 H 99 11/23/21 09:01 69 26 H 131/51 L 99 11/23/21 09:00 70 24 94 11/23/21 08:56 71 17 138/40 L 100 11/23/21 08:46 71 23 127/44 L 96 11/23/21 08:31 69 28 H 115/74 95 11/23/21 08:30 69 25 H 96 11/23/21 08:01 78 14 91/75 L 99 11/23/21 08:00 73 19 99 11/23/21 07:46 69 29 H 129/52 L 94 11/23/21 07:35 83 26 H 92 11/23/21 07:30 74 28 H 131/48 L 92 11/23/21 07:15 65 20 126/61 91 11/23/21 07:00 68 16 131/58 L 93 11/23/21 06:46 70 23 130/43 L 91 11/23/21 06:30 64 24 134/44 L 88 L 11/23/21 06:15 63 24 133/44 L 87 L 11/23/21 06:00 70 25 H 133/49 L 88 L 11/23/21 05:45 64 26 H 124/45 L 89 L 11/23/21 05:30 63 28 H 133/53 L 89 L 11/23/21 05:15 67 32 H 128/57 L 89 L 11/23/21 05:00 68 27 H 125/69 90 11/23/21 04:45 66 21 130/86 89 L 11/23/21 04:31 67 24 123/70 90 11/23/21 04:30 67 25 H 91 11/23/21 04:16 36.8 C 70 27 H 146/70 H 91 11/23/21 04:00 36.8 C 71 18 129/56 L 92 11/23/21 03:46 75 29 H 113/49 L 93 11/23/21 03:31 70 23 127/53 L 97 11/23/21 03:30 69 25 H 96 11/23/21 03:20 80 25 H 92 11/23/21 03:01 72 22 137/61 92 11/23/21 03:00 68 23 93 11/23/21 02:45 65 24 129/40 L 91 Laboratory Results Laboratory Results WBC 7.20 K/uL (4.8-10.8) 11/23/21 04:21 RBC 3.06 M/uL (4.2-5.4) L 11/23/21 04:21 Hgb 8.2 g/dL (12.0-16.0) L 11/23/21 04:21 POC Hgb 12.2 g/dl (12.0-16.0) 11/17/21 21:37 Hct 25.3 % (37-47) L 11/23/21 04:21 POC Hct 36 % (37-47) L 11/17/21 21:37 MCV 82.7 fL (80-100) 11/23/21 04:21 MCH 26.8 pg (25-34) 11/23/21 04:21 MCHC 32.4 g/dL (32-36) 11/23/21 04:21 RDW Std Deviation 42.4 fL (36.4-46.3) 11/23/21 04:21 RDW Coeff of Roberto 13.9 % (11.5-14.5) 11/23/21 04:21 Plt Count 326 K/uL (130-400) 11/23/21 04:21 MPV 9.9 fL (7.4-10.4) 11/23/21 04:21 Immature Gran % (Auto) 0.4 % 11/23/21 04:21 Neut % (Auto) 66.1 % 11/23/21 04:21 Lymph % (Auto) 10.7 % 11/23/21 04:21 Rich % (Auto) 18.8 % 11/23/21 04:21 Eos % (Auto) 3.3 % 11/23/21 04:21 Baso % (Auto) 0.7 % 11/23/21 04:21 Reticulocyte % (Auto) 1.8 % (0.5-2.0) 11/21/21 08:23 Neut # (Auto) 4.76 K/uL (1.4-6.5) 11/23/21 04:21 Lymph # (Auto) 0.77 K/uL (1.2-3.4) L 11/23/21 04:21 Rich # (Auto) 1.35 K/uL (0.11-0.59) H 11/23/21 04:21 Eos # (Auto) 0.24 K/uL (0-0.5) 11/23/21 04:21 Baso # (Auto) 0.05 K/uL (0-0.2) 11/23/21 04:21 Reticulocyte # 0.06 10^6/uL (0.02-0.10) 11/21/21 08:23 Immature Gran # (Auto) 0.03 K/uL (0.00-0.02) H 11/23/21 04:21 ESR 54 mm/hr (0-30) H 11/20/21 05:13 PT 10.6 Seconds (9.0-12.0) 11/17/21 21:34 INR 1.0 (0.9-1.1) 11/17/21 21:34 APTT 101.6 Seconds (21.0-31.0) H* 11/19/21 08:22 PTT Ratio 3.7 11/19/21 08:22 ABG pH 7.49 (7.35-7.45) H 11/18/21 22:35 ABG pCO2 41 mmHg (35-46) 11/18/21 22:35 ABG pO2 65 mmHg (80-95) L 11/18/21 22:35 ABG HCO3 31 mmol/L (19-24) H 11/18/21 22:35 ABG O2 Saturation 93.8 % (90-95) 11/18/21 22:35 ABG Base Excess 6.5 mEq/L (-9-1.8) H 11/18/21 22:35 Christiano Test Pos (Pos) 11/18/21 22:35 Barometric Pressure 735.9 mm/Hg 11/18/21 22:35 Oxygen Given 15% 11/18/21 22:35 POC Sodium 139 mmol/L (135-144) 11/17/21 21:37 Sodium 139 mmol/L (136-145) 11/23/21 04:21 POC Potassium 5.2 mmol/L (3.3-5.0) H 11/17/21 21:37 Potassium 3.6 mmol/L (3.5-5.1) 11/23/21 04:21 POC Chloride 99 mmol/L (101-112) L 11/17/21 21:37 Chloride 100 mmol/L (98-107) 11/23/21 04:21 Carbon Dioxide 28 mmol/L (21-32) 11/23/21 04:21 POC Total CO2 31 mmol/L (24-31) 11/17/21 21:37 Anion Gap 11 (3-11) 11/23/21 04:21 POC Anion Gap 16.0 mmol/L (16-25) 11/17/21 21:37 POC BUN 39 mg/dl (7-18) H 11/17/21 21:37 BUN 69 mg/dl (6-23) H D 11/23/21 04:21 Creatinine 2.82 mg/dl (0.6-1.2) H D 11/23/21 04:21 POC Creatinine 1.9 mg/dl (0.6-1.3) H 11/17/21 21:37 Est Cr Clr Drug Dosing 15.5 ml/min 11/23/21 04:21 Est GFR ( Amer) 17.0 ml/min 11/23/21 04:21 Est GFR (Non-Af Amer) 14.7 ml/min 11/23/21 04:21 BUN/Creatinine Ratio 24.5 (10-20) H 11/23/21 04:21 Glucose 183 mg/dl (70-99(Fasting)) H 11/23/21 04:21 POC Glucose 156 mg/dl (70-99) H 11/23/21 11:29 POC Glucose (other) 215 mg/dl (70-99) H 11/17/21 21:37 Estimat Average Glucose 131 mg/dl 11/17/21 21:33 Hemoglobin A1c 6.2 % (4.5-5.6) H 11/17/21 21:33 Calcium 8.6 mg/dl (8.5-10.1) 11/23/21 04:21 POC Ioniz Calcium [place] 1.14 mmol/l (1.12-1.32) 11/17/21 21:37 Phosphorus 5.1 mg/dl (2.5-4.9) H 11/23/21 04:21 Magnesium 2.2 mg/dl (1.7-2.4) 11/23/21 04:21 Total Bilirubin 0.4 mg/dl (0.2-1.0) 11/23/21 04:21 AST 12 U/L (13-39) L 11/23/21 04:21 ALT 12 U/L (7-52) 11/23/21 04:21 Alkaline Phosphatase 49 U/L (34-104) 11/23/21 04:21 Lactate Dehydrogenase 168 U/L (86-244) 11/21/21 08:23 Total Creatine Kinase 61 U/L (26-192) 11/17/21 23:48 Troponin I 0.08 ng/ml (0-0.04) H* 11/18/21 22:28 C-Reactive Protein 25.08 mg/dl (0-0.5) H 11/20/21 05:13 B-Natriuretic Peptide 1265 pg/ml (0-100) H 11/17/21 21:33 Total Protein 6.3 gm/dl (6.0-8.3) 11/23/21 04:21 Albumin 3.3 gm/dl (3.4-5.0) L 11/23/21 04:21 Globulin 3.0 gm/dl (2.5-4.0) 11/23/21 04:21 Albumin/Globulin Ratio 1.1 (0.9-2) 11/23/21 04:21 Triglycerides 116 mg/dl (0-150) 11/18/21 06:02 Cholesterol 98 mg/dl (0-200) 11/18/21 06:02 LDL Cholesterol, Calc 38 mg/dl 11/18/21 06:02 VLDL Cholesterol, Calc 23 mg/dl (0-30) 11/18/21 06:02 HDL Cholesterol 37 mg/dl 11/18/21 06:02 Cholesterol/HDL Ratio 2.6 (0-5) 11/18/21 06:02 Lipase 28 U/L (11-82) 11/17/21 21:33 Procalcitonin 0.09 ng/ml (0-0.5) 11/17/21 21:34 TSH 2.210 uIu/ml (0.300-4.500) 11/17/21 21:33 Urine Color Yellow 11/21/21 Unknown Urine Appearance Cloudy (Clear) A 11/21/21 Unknown Urine pH 5.0 (4.5-7.5) 11/21/21 Unknown Ur Specific [place] 1.030 (1.000-1.030) 11/21/21 Unknown Urine Protein 2+ (Negative) H 11/21/21 Unknown Urine Glucose (UA) Negative (Negative) 11/21/21 Unknown Urine Ketones Trace (Negative) H 11/21/21 Unknown Urine Blood Trace (Negative) H 11/21/21 Unknown Urine Nitrite Negative (Negative) 11/21/21 Unknown Urine Bilirubin Negative (Negative) 11/21/21 Unknown Urine Urobilinogen Negative (Negative) 11/21/21 Unknown Ur Leukocyte Esterase Negative (Negative) 11/21/21 Unknown Urine WBC (Auto) 10-30 /hpf (0-5) H 11/21/21 Unknown Urine RBC (Auto) 0-4 /hpf (0-4) 11/21/21 Unknown U Hyaline Cast (Auto) 1-5 /lpf (0-5) 11/21/21 Unknown U Epithel Cells (Auto) >30 /lpf (0-5) H 11/21/21 Unknown Urine Bacteria (Auto) Negative (Negative) 11/21/21 Unknown Ur Renal Epithelial Cell Not Reportable 04/01/22 Unknown Amorphous Sediment Present (None Prsent) A 11/21/21 Unknown Urine Yeast Not Reportable 11/21/21 Unknown Vancomycin Trough 15.5 mcg/ml (10-20) 11/20/21 11:21 Random Vancomycin 13.6 mcg/ml (10-20) 11/23/21 04:21 Rheumatoid Factor 15 IU/mL (<14) H 11/20/21 05:13 SARS-CoV-2, RNA, NAAT NEGATIVE (NEGATIVE) 11/17/21 21:27 Blood Type A Positive 11/21/21 08:23 Direct Antiglob Test Negative (Negative) 11/21/21 08:23 BINTA (IgG-AHG) Neg (Negative) 11/21/21 08: BINTA, Polyspecific Neg (Negative) 11/21/21 08: BINTA C3b, C3d 5 Min Neg (Negative) 11/21/21 08:23 Impressions Chest CTA 11/19/21 17:28 CHEST CTA for PULMONARY ARTERIES CT DOSE: 440.72 mGy.cm HISTORY: Shortness of breath. TECHNIQUE: Multiaxial CT images of the chest were performed following the intravenous administration of contrast to evaluate the pulmonary arteries. Maximal intensity projection images were also obtained. A dose lowering te chnique was utilized adhering to the principles of ALARA. COMPARISON STUDY: Abdomen and pelvis CT 11/16/2021. FINDINGS: The hepatic lesions are better appreciated on the recent abdomen and pelvis CT. The visualized spleen and adrenal glands are unremarkable. There is a small hiatus hernia. There are small bilateral pleural effusions. The thyroid gland enhances normally. The heart is mildly enlarged. No pericardial effusion. No hilar lymphadenopathy. A single mildly enlarged right paratracheal lymph node measuring 1.4 cm. Mild circumferential thickening of the esophagus. No suspicious lytic or blastic osseous lesions. Poststernotomy changes are noted. Mild calcified plaque within the normal caliber thoracic aorta. No evidence for an aortic dissection. An aortic valve prosthesis is noted. Moderate coronary artery calcifications are present. Nondiagnostic evaluation of the majority of the bilateral lower lobe subsegmental pulmonary arteries due to the respiratory motion artifact. However, no definite filling defects identified within the pulmonary arteries to suggest a pulmonary embolus. No pneumothorax. The central airways are patent. Mild biapical pleural-parenchymal scarring. Calcified granuloma within the left lower lobe. Consolidation within the bilateral upper and lower lobes posteriorly. This likely represents a combination of atelectasis and pneumonia. There is also right perihilar groundglass airspace opacities likely representing a pneumonia. Asymmetric pulmonary edema could also have a similar appearance. Right lung interlobular septal thickening is noted. IMPRESSION: 1. No evidence for pulmonary embolus. 2. Cardiomegaly and small bilateral pleural effusions. There is also perihilar groundglass airspace opacities and interlobular septal thickening within the right lung which likely represents mild asymmetric pulmonary edema. 3. Airspace opacities within the upper and lower lobes posteriorly likely represent a combination of atelectasis and pneumonia. 4. A single enlarged right paratracheal lymph node. This could be reactive to the suspected pneumonia. ACT 112: Negative or not required by law. Electronically signed by: Shankar Santamaria M.D. 11/19/2021 6:45 PM Chest X-Ray 11/22/21 16:12 XR chest 1V portable HISTORY: 86 years-old Female Line placement status post placement of a right IJ central venous catheter COMPARISON: Chest radiograph 11/21/2021 TECHNIQUE: AP view of the chest FINDINGS: The cardiac silhouette is enlarged. Prior median sternotomy with cardiac valvular prosthesis. Status post placement of a dual lumen right IJ central venous catheter distal tip in the expected location of the upper SVC. Pulmonary vascular congestion with interstitial coarsening has progressed from yesterday's study. No pneumothorax. Layering pleural effusions with mild bibasilar consolidation, also worsened. Degenerative changes of the shoulders and spine. Left shoulder rotator cuff calcific tendinosis. IMPRESSION: 1. Status post placement of a dual lumen right IJ central venous catheter. No postprocedural pneumothorax. 2. Cardiomegaly with worsening pulmonary edema. 3. Layering pleural effusions with progressive bibasilar consolidation. ACT 112: Negative or not required by law. The above report was generated using voice recognition software. It may contain grammatical, syntax or spelling errors. Electronically signed by: Maximiliano Padilla M.D. 11/22/2021 5:00 PM Medications Administered Current Inpatient Medications Acetaminophen (Acetaminophen 325 Mg Tab) 650 mg PO Q4H PRN PRN Reason: Pain or Fever Stop: 12/18/21 02:17 Last Admin: 04/02/22 22:27 Dose: 650 mg Documented by: Alprazolam (Alprazolam 0.25 Mg Tablet) 0.25 mg PO Q12H PRN PRN Reason: Anxiety Stop: 12/21/21 12:21 Last Admin: 11/22/21 20:55 Dose: 0.25 mg Documented by: Amlodipine Besylate (Amlodipine Besylate 5 Mg Tab) 10 mg PO DAILY GENOVEVA Stop: 12/18/21 08:59 Last Admin: 11/23/21 08:58 Dose: 10 mg Documented by: Aspirin (Aspirin 81 Mg Ectab) 81 mg PO QAM GENOVEVA Stop: 12/18/21 08:59 Last Admin: 11/23/21 08:56 Dose: 81 mg Documented by: Atorvastatin Calcium (Atorvastatin 20 Mg Tab) 20 mg PO HS GENOVEVA Stop: 12/18/21 20:59 Last Admin: 11/22/21 20:56 Dose: 20 mg Documented by: Dextrose (Dextrose 50% 50 Ml Syringe) 25 - 50 ml IV UD PRN; Protocol PRN Reason: Hypoglycemia Protocol Stop: 12/18/21 02:17 Docusate Sodium (Docusate Sodium 100 Mg Cap) 100 mg PO BID GENOVEVA Stop: 12/20/21 20:59 Last Admin: 11/23/21 08:57 Dose: 100 mg Documented by: Glucagon (Glucagon For Inj 1 Mg Vial) 1 mg SQ UD PRN; Protocol PRN Reason: Hypoglycemia Protocol Stop: 12/18/21 02:17 Glucose (Glucose 10 Tabs/Tube) 4 - 8 tabs PO UD PRN; Protocol PRN Reason: Hypoglycemia Protocol Stop: 12/18/21 02:17 Glucose (Glucose 40% Gel 15 Gm Tube) 15 - 30 gm PO UD PRN; Protocol PRN Reason: Hypoglycemia Protocol Stop: 12/18/21 02:17 Heparin Sodium (Beef Lung) (Heparin 10 Unit/Ml 5 Ml Flush) 5 ml FLUSH PRN PRN PRN Reason: Flush Stop: 12/22/21 17:10 Heparin Sodium (Porcine) (Heparin Sod 5,000 Unit/0.5 Ml Vial) 5,000 units SQ Q12 GENOVEVA Stop: 12/20/21 09:44 Last Admin: 11/23/21 08:59 Dose: 5,000 units Documented by: Promethazine HCl 12.5 mg/ (Sodium Chloride) 50.5 mls @ 202 mls/hr IV Q6H PRN PRN Reason: Nausea And Vomiting Stop: 12/18/21 02:17 Last Infusion: 11/19/21 17:16 Dose: Infused Documented by: Prochlorperazine 5 mg/ Syringe 5 mls @ 5 mls/min IV Q6H PRN PRN Reason: Nausea And Vomiting Stop: 12/19/21 17:26 Last Admin: 11/19/21 18:31 Dose: 5 mls/min Documented by: Ceftriaxone Sodium 2,000 mg/ (Dextrose) 70 mls @ 140 mls/hr IV Q24H [facility]; Protocol Stop: 01/02/22 20:59 Last Infusion: 11/22/21 21:30 Dose: Infused Documented by: Insulin Aspart (Insulin Aspart Per Unit) 0 units SC ACHS [facility] Stop: 12/18/21 02:17 Last Admin: 11/23/21 11:33 Dose: 8 units Documented by: Ipratropium [place] (Ipratropium [place] Neb Soln 0.02% 2.5 Ml Vial) 0.5 mg INH Q4H PRN PRN Reason: SOB, WHEEZE Stop: 12/18/21 02:17 Last Admin: 11/18/21 12:09 Dose: 0.5 mg Documented by: Levalbuterol HCl (Levalbuterol 1.25mg/0.5ml Neb) 1.25 mg INH Q4H PRN PRN Reason: SOB, WHEEZE Stop: 12/18/21 02:17 Last Admin: 11/18/21 12:09 Dose: 1.25 mg Documented by: Lorazepam (Lorazepam 2 Mg/1 Ml Vial) 0.25 mg IV Q4H PRN PRN Reason: nausea Stop: 12/19/21 17:26 Last Admin: 11/21/21 20:19 Dose: 0.25 mg Documented by: Metoprolol Succinate (Metoprolol Succ 25mg Ext Rel Tab) 25 [facility] [place] Stop: 12/18/21 08:59 Last Admin: 11/23/21 08:58 Dose: 25 mg Documented by: Miscellaneous (Carbohydrates For Hypoglycemia ) 15 - 30 gm PO UD PRN PRN Reason: Hypoglycemia Protocol Stop: 12/18/21 02:17 Miscellaneous Information (Vancomycin Consult Active) 1 ea N/A UD PRN PRN Reason: Consult Stop: 12/19/21 02:47 Ondansetron HCl (Ondansetron Inj 2 Mg/Ml 2 Ml Vial) 4 mg IV Q8H PRN PRN Reason: Nausea And Vomiting Stop: 12/19/21 13:52 Last Admin: 11/22/21 11:44 Dose: 4 mg Documented by: Oxycodone HCl (Oxycodone Hcl Ir 5 Mg Tab (Immediate Release)) 5 mg PO Q4H PRN PRN Reason: Pain Stop: 12/02/21 02:17 Last Admin: 11/20/21 22:48 Dose: 5 mg Documented by:
[2021-11-23] MEDS: ACETAMINOPHEN 325 MG TAB PO PRN (16:05)
[2021-11-23] MEDS: cefTRIAXone SODIUM 2,000 MG in DEXTROSE 5% 50 ML IV SCH (21:33)
[2021-11-23] MEDS: ATORVASTATIN 20 MG TAB PO SCH (21:34)
[2021-11-23] MEDS: ALPRAZolam 0.25 MG TABLET PO PRN (21:36)
[2021-11-24 05:43] LABS: Basophils # (auto) 0.07 K/uL (0-0.2); Basophils % (auto) 0.9 %; Eosinophils # (auto) 0.48 K/uL (0-0.5); Eosinophils % (auto) 5.9 %; Hematocrit (blood only) 24.8 % (37-47); Immature Granulocytes # (auto) 0.04 K/uL (0.00-0.02); Immature Granulocytes % (auto) 0.5 %; Lymphocytes # (auto) 0.83 K/uL (1.2-3.4); Lymphocytes % (auto) 10.3 %; Mean Corpuscular Hemoglobin 26.8 pg (25-34); Mean Corpuscular Hgb Conc 32.3 g/dL (32-36); Mean Corpuscular Volume 83.2 fL (80-100); Mean Platelet Volume 9.9 fL (7.4-10.4); Monocytes % (auto) 17.3 %; Neutrophils # (auto) 5.27 K/uL (1.4-6.5); Neutrophils % (auto) 65.1 %; Platelet Count 361 K/uL (130-400); RDW Coefficient of Variation 13.8 % (11.5-14.5); RDW Standard Deviation 42.1 fL (36.4-46.3); Red Blood Count 2.98 M/uL (4.2-5.4); White Blood Count 8.09 K/uL (4.8-10.8)
[2021-11-24] MEDS ORDERED: SODIUM CHLORIDE 0.65% NA SOLN 45 ML (OCEAN) ONE (06:03)
[2021-11-24 06:12] LABS: Albumin Level 3.2 gm/dl (3.4-5.0); BUN Creatinine Ratio 31.6 (10-20); Bilirubin,Total 0.4 mg/dl (0.2-1.0); Calcium 8.6 mg/dl (8.5-10.1); Creatinine Clr Calc Pharmacy 21.4 ml/min; Est GFR (African American) 24.8 ml/min; Est GFR (Non-African American) 21.4 ml/min; Globulin 3.1 gm/dl (2.5-4.0); Magnesium 2.3 mg/dl (1.7-2.4); Phosphorus 3.4 mg/dl (2.5-4.9); Potassium 3.7 mmol/L (3.5-5.1); Total Protein 6.3 gm/dl (6.0-8.3)
[2021-11-24] MEDS: INSULIN ASPART PER UNIT SC SCH ×4 (07:44→20:55)
[2021-11-24] MEDS: DOCUSATE SODIUM 100 MG CAP PO SCH ×2 (07:45→20:48)
[2021-11-24] MEDS: METOPROLOL SUCC 25MG EXT REL TAB PO SCH (07:45)
[2021-11-24] MEDS: ASPIRIN 81 MG ECTAB PO SCH (07:46)
[2021-11-24] MEDS: HEPARIN SOD 5,000 UNIT/0.5 ML VIAL SQ SCH ×2 (07:46→20:49)
[2021-11-24] MEDS: amLODIPine BESYLATE 5 MG TAB PO SCH (07:46)
[2021-11-24] MEDS ORDERED: VANCOMYCIN HCL 1,000 MG in SODIUM CHLORIDE 0.9% 250 ML IV ONE (08:30)
--- NOTE | 2021-11-24 09:23 | Cardiology Progress Note ---
Date of Service November 24, 2021 Assessment & Plan (1) Acute hypoxemic respiratory failure: (2) Acute exacerbation of CHF (congestive heart failure): (3) Prosthetic aortic valve stenosis: (4) Mitral regurgitation: (5) Aortic valve vegetation: (6) LBBB (left bundle branch block): (7) Paroxysmal atrial fibrillation: Plan: Small mobile echodensity adherent to bioprosthetic aortic valve struts seen in the parasternal long axis view. Cultures negative Differential diagnosis includes culture negative endocarditis, thrombus, tumor. 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 Portable chest x-ray requested. Patient appears to need additional diuresis ? Additional hemodialysis treatments, today?; if not, add low dose IV furosemide if OK with Nephrology Possible paroxysmal atrial fibrillation on presentation. Maintaining sinus via review of telemetry. Continue beta-skylar therapy Risks of anticoagulation currently appear greater than the benefit Mild troponin Asymptomatic Not indicative of acute ACS. Likely secondary to CHF/hypoxia Left bundle branch block. Admission and Anticipated Discharge Date Admission Date: November 18, 2021 Supervising Physician Co-Signing Physician Notes Patient was seen and personally examined. Assessment as noted above. Patient appears clinically improved after dialysis historically but remains tachypneic with significant oxygen demand Chest x-ray repeated today demonstrates persistent findings of congestive heart failure Patient will reformed further volume removal either through dialysis or IV diuretics. Subjective Patient seen and examined. Chart, medications, and telemetry reviewed. Complaints: Worsening shortness of breath. "I think I drank too much." On high flow oxygen. Denies chest pain, palpitations, peripheral edema, dizziness or near syncope, subjective fevers or chills Telemetry: Sinus in the 90's with a left bundle branch block pattern and occasional ectopy. November 18, 2021 TTE Interpretation Summary ([facility], Dr. Thompson): EF 50-55%. Moderate concentric LVH. Septal motion consistent with conduction abnormality. Moderately dilated LA. Bioprosthetic AV with elevated gradients suggesting obstructdion. Peak systolic velocity 412 cm/sec. Mild bioprosthetic AV regurgitation. Small mobile echodensity adherent to bioprosthetic aortic valve struts seen in the parasternal long axis view. Differential diagnosis includes vegetation, thrombus, and less likely tumor. Moderate to severe mitral regurgitation. Moderate tricuspid regurgitation. Estimated systolic pulmonary pressure 62 mmHg. Physical Exam Physical Exam: General: A&Ox3. Tachypneic HENT: Normocephalic. Atraumatic. Eyes: PER. Conjunctiva pink, sclera clear. Neck: Right sided catheter. Unable to appreciate JVP. Heart: Regular at 90 bpm. + Systolic murmur. + Gallop. No rub. Lungs: Diminished. Decreased. No wheeze. Examined anteriorly and laterally. Abdomen: +BS. Soft. Nontender. No masses or organomegaly. Extremities: No clubbing, cyanosis, or edema. No evidence of embolic phenomenon Limited neurological examination is without focal deficits. Results & Data ([facility]) Vital Signs (Past 12 Hours) Vital Signs Temp Pulse Pulse Resp BP BP Pulse Ox 11/24/21 08:38 67 11/24/21 07:36 71 18 92 11/24/21 07:31 37.1 C 78 21 131/62 92 11/24/21 04:00 36.8 C 68 27 H 132/54 L 95 11/24/21 03:30 72 19 141/56 H 97 11/24/21 03:05 70 25 H 94 11/24/21 03:00 68 29 H 143/54 H 94 11/24/21 02:30 68 31 H 143/49 H 91 11/24/21 02:00 71 24 139/48 L 91 11/24/21 01:30 68 26 H 129/89 93 11/24/21 01:00 72 26 H 144/56 H 97 11/24/21 00:30 73 30 H 92 11/24/21 00:00 70 27 H 134/63 95 11/23/21 23:31 36.7 C 67 26 H 134/57 L 93 11/23/21 23:30 70 25 H 95 11/23/21 23:19 70 25 H 93 11/23/21 23:01 71 24 131/49 L 99 11/23/21 23:00 68 25 H 94 11/23/21 22:30 66 25 H 131/66 96 11/23/21 22:24 71 11/23/21 22:00 68 28 H 146/54 H 100 11/23/21 21:31 64 27 H 130/46 L 100 11/23/21 21:30 65 28 H 99 Laboratory Results Laboratory Results - last 24 hr 11/23/21 11/23/21 11/23/21 11:29 16:35 21:15 WBC RBC Hgb Hct MCV MCH MCHC RDW Std Deviation RDW Coeff of [place] Plt Count MPV Immature Gran % (Auto) Neut % (Auto) Lymph % (Auto) [place] % (Auto) Eos % (Auto) Baso % (Auto) Neut # (Auto) Lymph # (Auto) [place] # (Auto) Eos # (Auto) Baso # (Auto) Immature Gran # (Auto) Sodium Potassium Chloride Carbon Dioxide Anion Gap BUN Creatinine Est Cr Clr Drug Dosing Est GFR ( Amer) Est GFR (Non-Af Amer) BUN/Creatinine Ratio Glucose POC Glucose 156 H 135 H 158 H Calcium Phosphorus Magnesium Total Bilirubin AST ALT Alkaline Phosphatase Total Protein Albumin Globulin Albumin/Globulin Ratio Random Vancomycin 11/24/21 11/24/21 11/24/21 05:11 05:11 05:11 WBC 8.09 RBC 2.98 L Hgb 8.0 L Hct 24.8 L MCV 83.2 MCH 26.8 MCHC 32.3 RDW Std Deviation 42.1 RDW Coeff of Roberto 13.8 Plt Count 361 MPV 9.9 Immature Gran % (Auto) 0.5 Neut % (Auto) 65.1 Lymph % (Auto) 10.3 [place] % (Auto) 17.3 Eos % (Auto) 5.9 Baso % (Auto) 0.9 Neut # (Auto) 5.27 Lymph # (Auto) 0.83 L [place] # (Auto) 1.40 H Eos # (Auto) 0.48 Baso # (Auto) 0.07 Immature Gran # (Auto) 0.04 H Sodium 140 Potassium 3.7 Chloride 101 Carbon Dioxide 29 Anion Gap 10 BUN 65 H Creatinine 2.06 H D Est Cr Clr Drug Dosing 21.4 Est GFR ( Amer) 24.8 Est GFR (Non-Af Amer) 21.4 BUN/Creatinine Ratio 31.6 H Glucose 166 H POC Glucose Calcium 8.6 Phosphorus 3.4 D Magnesium 2.3 Total Bilirubin 0.4 AST 12 L ALT 10 Alkaline Phosphatase 46 Total Protein 6.3 Albumin 3.2 L Globulin 3.1 Albumin/Globulin Ratio 1.0 Random Vancomycin 15.1 11/24/21 07:17 WBC RBC Hgb Hct MCV MCH MCHC RDW Std Deviation RDW Coeff of Roberto Plt Count MPV Immature Gran % (Auto) Neut % (Auto) Lymph % (Auto) [place] % (Auto) Eos % (Auto) Baso % (Auto) Neut # (Auto) Lymph # (Auto) [place] # (Auto) Eos # (Auto) Baso # (Auto) Immature Gran # (Auto) Sodium Potassium Chloride Carbon Dioxide Anion Gap BUN Creatinine Est Cr Clr Drug Dosing Est GFR ( Amer) Est GFR (Non-Af Amer) BUN/Creatinine Ratio Glucose POC Glucose 212 H Calcium Phosphorus Magnesium Total Bilirubin AST ALT Alkaline Phosphatase Total Protein Albumin Globulin Albumin/Globulin Ratio Random Vancomycin (1) Acute exacerbation of CHF (congestive heart failure) Heart failure type: unspecified Qualified Code(s): I50.9 - Heart failure, unspecified
--- NOTE | 2021-11-24 09:25 | Nephrology Progress Note ---
Date of Service November 24, 2021 Assessment & Plan (1) Acute kidney injury: (2) Acute hypoxemic respiratory failure: (3) Oliguria: (4) Hyperphosphatemia: Plan: 86-year-old female with severe with h/o prosthetic AV, severe MR, but not candidate for TVAR at this point, new finding of ovarian mass admitted with respiratory distress, developed acute kidney injury most likely hemodynamically mediated with multiple IV contrast exposure. Renal function has been rapidly declining with decrease in his urine output and respiratory distress and had HD for 2 h on 11/23/21 via catheter. UO improved, doing Renal function, electrolytes improving. -- monitor urine output, electrolytes, expect renal continue to improve, will remove catheter today. --monitor UO, no need for diuretics now but OK to use as needed, encourage po intake. Will follow Admission and Anticipated Discharge Date Admission Date: November 18, 2021 Luli Hong Was evaluated this morning in ICU. She reports feeling SOB, on HFNC 50% FiO2, UO improved to 1150 ml overnight. . BP stable, electrolyte acceptable. Renal function improving, had HD on Wednesday for 2h. Review of Systems Review of Systems: Detailed review of system was otherwise unremarkable except mentioned above. Physical Exam Constitutional: WD/WN, vitals as above + acute distress and + ill appearing Eyes: + anicteric sclerae Neck: normal visual inspection Respiratory: + respiratory distress Auscultation: + diminished lung sounds Cardiovascular: Rate/Rhythm: regular rate and regular rhythm Heart Sounds: normal S1, normal S2 and + murmur Extremities: no edema Skin: no rashes Neurologic: awake and + confused; no focal motor deficits Psychiatric: Orientation: alert, oriented to person and cooperative Results & Data ([facility]) Vital Signs (Past 12 Hours) Vital Signs Temp Pulse Pulse Resp BP BP Pulse Ox 11/24/21 08:38 67 11/24/21 07:36 71 18 92 11/24/21 07:31 37.1 C 78 21 131/62 92 11/24/21 04:00 36.8 C 68 27 H 132/54 L 95 11/24/21 03:30 72 19 141/56 H 97 11/24/21 03:05 70 25 H 94 11/24/21 03:00 68 29 H 143/54 H 94 11/24/21 02:30 68 31 H 143/49 H 91 11/24/21 02:00 71 24 139/48 L 91 11/24/21 01:30 68 26 H 129/89 93 11/24/21 01:00 72 26 H 144/56 H 97 11/24/21 00:30 73 30 H 92 11/24/21 00:00 70 27 H 134/63 95 11/23/21 23:31 36.7 C 67 26 H 134/57 L 93 11/23/21 23:30 70 25 H 95 11/23/21 23:19 70 25 H 93 11/23/21 23:01 71 24 131/49 L 99 11/23/21 23:00 68 25 H 94 11/23/21 22:30 66 25 H 131/66 96 11/23/21 22:24 71 11/23/21 22:00 68 28 H 146/54 H 100 11/23/21 21:31 64 27 H 130/46 L 100 11/23/21 21:30 65 28 H 99 PG Care Time/CCT Total # of Minutes Spent Total Time Spent with Patient: Total time spent is greater than 50% in coordination of care (as documented) at patient's floor/unit and/or counseling patient: Coding Level of Care Code 76162 Subseq Hosp Care Lvl 3 Diagnoses Acute kidney injury N17.9 Acute hypoxemic respiratory failure J96.01 Oliguria R34 Hyperphosphatemia E83.39
--- NOTE | 2021-11-24 09:29 | Critical Care Progress Note ---
Date of Service November 24, 2021 Assessment & Plan (1) Aortic valve vegetation: (2) Paroxysmal atrial fibrillation: (3) Acute diastolic heart failure: (4) Ovarian mass: (5) Acute hypoxemic respiratory failure: Plan: Impression: 86-year-old female with mobile vegetation on bioprosthetic valve suspicious for potential endocarditis. She has a known 8 cm ovarian mass. She is having nausea and vomiting and progressive hypoxemic respiratory failure. Sh e is been diuresed. Her x-ray does not reveal an acute etiology. CT angiogram negative for PE but did show atelectasis, groundglass opacities, and bilateral effusions 24-hour events: Failed Lasix challenge. Dialysis catheter placed and for session of dialysis conducted yesterday. She tolerated it well. She said slight decrease in her oxygen requirement. No new issues. Recommendations: 1. Neurologic: No current issues. Continue to follow. 2. Cardiovascular: Potential bioprosthetic endocarditis. This is complicated by moderate to severe mitral regurgitation. With functional aortic stenosis and moderate to severe mitral regurgitation, managing her afterload and volume status is difficult.. - I hope to see continued improvement in her respiratory status with additional volume removal forced diuresis. -Defer decision regarding YONG to cardiology although this would potentially require intubation: (Future recommendations pending) / -Defer blood pressure control to nephrology and cardiology - agree with additional diuresis: 1 mg bumex today 3. Pulmonary: Acute hypoxemic respiratory failure: No evidence of PE. CT scan appears consistent with pulmonary edema/fluid overload with bilateral pleural effusions. Continue to wean oxygen as tolerated and bridge with noninvasive positive pressure ventilation. Patient confirms no desire to be intubated or proceed with mechanical ventilation. She is already requested no CPR or defibrillation/cardioversion. She is open to pressors if needed. 4. Renal: 1 mg Bumex today, for clinical evidence of pulmonary edema. 5. ID: Possible endocarditis. Day #6 Rocephin and vancomycin. Pharmacy will dose adjust based on creatinine clearance/dialysis Cultures remain negative to date. ID note reviewed. - mycoplasma, Bartonella, chlamydia, Brucella, Legionella serologies: pending - Does not appear that our lab has the capability of ordering Trophermyma or Coxiella and will need to speak to the laborer hoisting on Wednesday. - Agree additional evaluation with YONG while potentially helpful with high risk risks. - Continue deference to the hospitalist to integrate care with ID. 6. Heme-onc: Progressive anemia. Options would include poor bone marrow output, hemolysis, or bleeding. No signs of internal bleeding. Hemoglobin stable. No indication for transfusion currently. Haptoglobin normal: high. Reticulocyte count 1.8% which seems reasonable. LDH and [place] within normal limits arguing against significant hemolysis. Seems to be some differing opinions regarding her ovarian mass with our radiologists believing it to be malignant however the report from the [facility] oncology indicates no worrisome features. This is not an acute issue for the patient currently however it may affect her approach to future medical issues and resolution is recommended. 7. Endocrine: Glycemic control per ICU protocol. 8. GI: Nausea resolved, continue as needed Zofran, Compazine, promethazine, and Ativan. Continue as needed Patient was discussed on multi-disciplinary rounds. No critical care interventions required. Hemodynamically stable for downgrade out of ICU. Admission and Anticipated Discharge Date Admission Date: November 18, 2021 Subjective Feeling Okay. Mildly more shortness of breath, worse with exertion. Results & Data Results & Data ([facility]) Vital Signs (Past 12 Hours) Vital Signs Temp Pulse Pulse Resp BP BP Pulse Ox 11/24/21 08:38 67 11/24/21 07:36 71 18 92 11/24/21 07:31 37.1 C 78 21 131/62 92 11/24/21 04:00 36.8 C 68 27 H 132/54 L 95 11/24/21 03:30 72 19 141/56 H 97 11/24/21 03:05 70 25 H 94 11/24/21 03:00 68 29 H 143/54 H 94 11/24/21 02:30 68 31 H 143/49 H 91 11/24/21 02:00 71 24 139/48 L 91 11/24/21 01:30 68 26 H 129/89 93 11/24/21 01:00 72 26 H 144/56 H 97 11/24/21 00:30 73 30 H 92 11/24/21 00:00 70 27 H 134/63 95 11/23/21 23:31 36.7 C 67 26 H 134/57 L 93 11/23/21 23:30 70 25 H 95 11/23/21 23:19 70 25 H 93 11/23/21 23:01 71 24 131/49 L 99 11/23/21 23:00 68 25 H 94 11/23/21 22:30 66 25 H 131/66 96 11/23/21 22:24 71 11/23/21 22:00 68 28 H 146/54 H 100 11/23/21 21:31 64 27 H 130/46 L 100 11/23/21 21:30 65 28 H 99 Critical Care Results & Data Vital Signs (Past 12 Hours) Vital Signs Temp Pulse Pulse Resp BP BP Pulse Ox 11/24/21 08:38 67 11/24/21 07:36 71 18 92 11/24/21 07:31 37.1 C 78 21 131/62 92 11/24/21 04:00 36.8 C 68 27 H 132/54 L 95 11/24/21 03:30 72 19 141/56 H 97 11/24/21 03:05 70 25 H 94 11/24/21 03:00 68 29 H 143/54 H 94 11/24/21 02:30 68 31 H 143/49 H 91 11/24/21 02:00 71 24 139/48 L 91 11/24/21 01:30 68 26 H 129/89 93 11/24/21 01:00 72 26 H 144/56 H 97 11/24/21 00:30 73 30 H 92 11/24/21 00:00 70 27 H 134/63 95 11/23/21 23:31 36.7 C 67 26 H 134/57 L 93 11/23/21 23:30 70 25 H 95 11/23/21 23:19 70 25 H 93 11/23/21 23:01 71 24 131/49 L 99 11/23/21 23:00 68 25 H 94 11/23/21 22:30 66 25 H 131/66 96 11/23/21 22:24 71 11/23/21 22:00 68 28 H 146/54 H 100 11/23/21 21:31 64 27 H 130/46 L 100 11/23/21 21:30 65 28 H 99 Lab & Micro Results (Past 24 Hours) RBC 2.98 M/uL (4.2-5.4) L 11/24/21 WBC 8.09 K/uL (4.8-10.8) 11/24/21 Hgb 8.0 g/dL (12.0-16.0) L 11/24/21 Hct 24.8 % (37-47) L 11/24/21 MCV 83.2 fL (80-100) 11/24/21 MCH 26.8 pg (25-34) 11/24/21 MCHC 32.3 g/dL (32-36) 11/24/21 RDW Standard Deviation 42.1 fL (36.4-46.3) 11/24/21 RDW Coefficient of Variation 13.8 % (11.5-14.5) 11/24/21 Plt Count 361 K/uL (130-400) 11/24/21 MPV 9.9 fL (7.4-10.4) 11/24/21 Neutrophils (%) (Auto) 65.1 % 11/24/21 Lymphocytes (%) (Auto) 10.3 % 11/24/21 Monocytes # (Auto) 1.40 K/uL (0.11-0.59) H 11/24/21 Eosinophils # (Auto) 0.48 K/uL (0-0.5) 11/24/21 Immature Granulocyte % (Auto) 0.5 % 11/24/21 Neutrophils # (Auto) 5.27 K/uL (1.4-6.5) 11/24/21 Lymphocytes # (Auto) 0.83 K/uL (1.2-3.4) L 11/24/21 Monocytes # (Auto) 1.40 K/uL (0.11-0.59) H 11/24/21 Eosinophils # (Auto) 0.48 K/uL (0-0.5) 11/24/21 Basophils # (Auto) 0.07 K/uL (0-0.2) 11/24/21 Immature Granulocyte # (Auto) 0.04 K/uL (0.00-0.02) H 11/24/21 Na 140 mmol/L (136-145) 11/24/21 K 3.7 mmol/L (3.5-5.1) 11/24/21 Cl 101 mmol/L (98-107) 11/24/21 CO2 29 mmol/L (21-32) 11/24/21 Anion Gap 10 (3-11) 11/24/21 BUN 65 mg/dl (6-23) H 11/24/21 Creatinine 2.06 mg/dl (0.6-1.2) H 11/24/21 Estimated GFR ( Amer) 24.8 ml/min 11/24/21 Estimated GFR (Non-Af Amer) 21.4 ml/min 11/24/21 BUN/Creatinine Ratio 31.6 (10-20) H 11/24/21 Glu 166 mg/dl (70-99(Fasting)) H 11/24/21 Ca 8.6 mg/dl (8.5-10.1) 11/24/21 Phosphorus Level 3.4 mg/dl (2.5-4.9) 11/24/21 Total Bilirubin 0.4 mg/dl (0.2-1.0) 11/24/21 AST 12 U/L (13-39) L 11/24/21 ALT 10 U/L (7-52) 11/24/21 Alkaline Phosphatase 46 U/L (34-104) 11/24/21 TP 6.3 gm/dl (6.0-8.3) 11/24/21 Albumin 3.2 gm/dl (3.4-5.0) L 11/24/21 Globulin 3.1 gm/dl (2.5-4.0) 11/24/21 Albumin/Globulin Ratio 1.0 (0.9-2) 11/24/21 Mg 2.3 mg/dl (1.7-2.4) 11/24/21 05:11 11/24/21 Calcium Level 8.6 mg/dl (8.5-10.1) 11/24/21 05:11 11/24/21 Microbiology 11/21/21 05:28 Fungal Smear - Final Blood Fungal Culture - Preliminary No yeast or fungus isolated - Report 1, Additional Report to Follow. 11/18/21 16:31 Aerobic Blood Culture - Final Blood No growth in Aerobic bottle after 5 days. Anaerobic Blood Culture - Final No growth in Anaerobic bottle after 5 days. 11/18/21 16:31 Aerobic Blood Culture - Final Blood No growth in Aerobic bottle after 5 days. Anaerobic Blood Culture - Final No growth in Anaerobic bottle after 5 days. 11/21/21 05:32 Aerobic Blood Culture - Preliminary Blood No growth in Aerobic bottle after 48 hours. Anaerobic Blood Culture - Preliminary No growth in Anaerobic bottle after 48 hours. 11/21/21 05:28 Aerobic Blood Culture - Preliminary Blood No growth in Aerobic bottle after 48 hours. Anaerobic Blood Culture - Preliminary No growth in Anaerobic bottle after 48 hours. I & O Totals 24 Hours 11/23/21 11/24/21 11/25/21 06:59 06:59 06:59 Intake Total 520 / 520 1085 / 1085 270 / 270 Output Total 1025 / 1025 1150 / 1150 Balance -505 / -505 -65 / -65 245 / 245 Cumulative 11/17/21 21:03 thru 11/24/21 09:04 Intake Total 7097.45 Output Total 6395 Balance 702.45 RT Ventilator Mngmt (Last Documented) Ventilator Ordered Settings Respiratory Rate 18 11/24/21 07:36 Fraction of Inspired Oxygen 90 11/24/21 08:38 Ventilator - PT Measurements Respiratory Rate 18 Coding Level of Care Code 61721 Subseq Hosp Care Lvl 3 Diagnoses Aortic valve vegetation I33.0 Paroxysmal atrial fibrillation I48.0 Acute diastolic heart failure I50.31 Ovarian mass N83.8 Acute hypoxemic respiratory failure J96.01
--- NOTE | 2021-11-24 10:07 | Hospitalist Progress Note ---
Date of Service November 24, 2021 Assessment & Plan (1) Acute hypoxemic respiratory failure: Plan: She denies any recent h/o swelling but developed some SOB just prior to arrival, found to have pulmonary edema and placed on intravenous diuretics - Patient noted to be oliguric. Received Lasix IV. No significant response. Hemodialysis catheter placed. Received dialysis. Nephrology following and likely with better fluid status patient may be monitored off dialysis. Appears to have improved urination. CT chest revealed no PE but possible pneumonia. Remains on antibiotics and fever has subsided. Echo with preserved EF now with new aortic vegetation. She has a h/o aortic valve replacement with tissue valve in [place] in 2011. She has a h/o reduced systolic function in the past per outpatient cardiology records. Worsening hypoxia overnight. Now on vapotherm. 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 ID consulted. Cultures have been negative. Vancomycin plus ceftriaxone is recommended as the preferred antibiotic regimen in this case as common organisms for presumed endocarditis include Staphylococci, VGS and Enterococcus. She remains on Vanc/cefepime. Repeat limited echocardiogram for today (3) Acute kidney injury: Plan: Worsening renal status. Worsening creatinine. Dialysis catheter placed. Nephrology on board. (4) Acute diastolic heart failure: Plan: Fluid balance improved post hemodialysisvolume status is adequate today monitor (5) S/P AVR (aortic valve replacement): Plan: tissue valve replacement in 2012bioprosthetic (6) LBBB (left bundle branch block): Plan: chronic (7) Type 2 diabetes mellitus: Plan: at inpatient goal, cont current insulin dosing schedule (8) Elevated troponin: Plan: Likely related to demand ischemia from acute illness. (9) Ovarian mass: Plan: Per [facility] gynecologic [facility]ology clinic she has 2 pelvic cysts at vaginal cuff in February 2021 per transvaginal ultrasound the right cyst was 7.6 x 7 x 7 cm with speckled debris. The left cyst was 6 x 4 x 4 cm. Compared to images from September 2016 these were unchanged in appearance. Both cysts appear to be debris-filled or just cystic in nature and given the lack of pipe changer time, it was felt that this was not consistent with malignancy and surveillance was not necessary. (10) Chronic kidney disease, stage III (moderate): (11) DVT prophylaxis: Plan: Heparin subcu Conditional code-ok with intubation, no CPR Dispo-cont ICU care. Admission and Anticipated Discharge Date Admission Date: November 18, 2021 Subjective Talking on the phone when I walked in. Patient's daughter on the phone. Discussed with daughter extensively about patient's current management. Being treated for respiratory failure fluid overload requiring intermittent dialysis due to oliguria which is improved. 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 Otherwise patient remains on the high flow. Complains of occasional shortness of breath. Speaking full sentences. November 18, 2021 TTE Interpretation Summary ([facility], Dr. Thompson): EF 50-55%. Moderate concentric LVH. Septal motion consistent with conduction abnormality. Moderately dilated LA. Bioprosthetic AV with elevated gradients suggesting obstructdion. Peak systolic velocity 412 cm/sec. Mild bioprosthetic AV regurgitation. Small mobile echodensity adherent to bioprosthetic aortic valve struts seen in the parasternal long axis view. Differential diagnosis includes vegetation, thrombus, and less likely tumor. Moderate to severe mitral regurgitation. Moderate tricuspid regurgitation. Estimated systolic pulmonary pressure 62 mmHg. Review of Systems Review of Systems: All systems reviewed and negative other than as described above in the history and physical Physical Exam Physical Exam: CONSTITUTIONAL: overweigh, NAD. On high flow EYES: normal conjunctivae, no scleral icterus ENT: external ear and nose normal, NC in place NECK: trachea midline RESPIRATORY:Diminished breath sounds bilateral however markedly improved from previous. No crackles noted CARDIOVASCULAR: regular rate and rhythm, S1 and 2 heard 3/6 ALDO across precordium GASTROINTESTINAL: soft, nontender, ND Other than obesity, no guarding, protuberant.y PSYCHIATRIC: alert cooperative and oriented to person, place and time. Results & Data Results & Data ([facility]) Vital Signs (Past 12 Hours) Vital Signs Temp Pulse Pulse Resp BP BP Pulse Ox 11/24/21 08:38 67 11/24/21 07:36 71 18 92 11/24/21 07:31 37.1 C 78 21 131/62 92 11/24/21 04:00 36.8 C 68 27 H 132/54 L 95 11/24/21 03:30 72 19 141/56 H 97 11/24/21 03:05 70 25 H 94 11/24/21 03:00 68 29 H 143/54 H 94 11/24/21 02:30 68 31 H 143/49 H 91 11/24/21 02:00 71 24 139/48 L 91 11/24/21 01:30 68 26 H 129/89 93 11/24/21 01:00 72 26 H 144/56 H 97 11/24/21 00:30 73 30 H 92 11/24/21 00:00 70 27 H 134/63 95 11/23/21 23:31 36.7 C 67 26 H 134/57 L 93 11/23/21 23:30 70 25 H 95 11/23/21 23:19 70 25 H 93 11/23/21 23:01 71 24 131/49 L 99 11/23/21 23:00 68 25 H 94 11/23/21 22:30 66 25 H 131/66 96 11/23/21 22:24 71 11/23/21 22:00 68 28 H 146/54 H 100 Laboratory Results Laboratory Results WBC 8.09 K/uL (4.8-10.8) 11/24/21 05:11 RBC 2.98 M/uL (4.2-5.4) L 11/24/21 05:11 Hgb 8.0 g/dL (12.0-16.0) L 11/24/21 05:11 POC Hgb 12.2 g/dl (12.0-16.0) 11/17/21 21:37 Hct 24.8 % (37-47) L 11/24/21 05:11 POC Hct 36 % (37-47) L 11/17/21 21:37 MCV 83.2 fL (80-100) 11/24/21 05:11 MCH 26.8 pg (25-34) 11/24/21 05:11 MCHC 32.3 g/dL (32-36) 11/24/21 05:11 RDW Std Deviation 42.1 fL (36.4-46.3) 11/24/21 05:11 RDW Coeff of Roberto 13.8 % (11.5-14.5) 11/24/21 05:11 Plt Count 361 K/uL (130-400) 11/24/21 05:11 MPV 9.9 fL (7.4-10.4) 11/24/21 05:11 Immature Gran % (Auto) 0.5 % 11/24/21 05:11 Neut % (Auto) 65.1 % 11/24/21 05:11 Lymph % (Auto) 10.3 % 11/24/21 05:11 Stark % (Auto) 17.3 % 11/24/21 05:11 Eos % (Auto) 5.9 % 11/24/21 05:11 Baso % (Auto) 0.9 % 11/24/21 05:11 Reticulocyte % (Auto) 1.8 % (0.5-2.0) 11/21/21 08:23 Neut # (Auto) 5.27 K/uL (1.4-6.5) 11/24/21 05:11 Lymph # (Auto) 0.83 K/uL (1.2-3.4) L 11/24/21 05:11 Stark # (Auto) 1.40 K/uL (0.11-0.59) H 11/24/21 05:11 Eos # (Auto) 0.48 K/uL (0-0.5) 11/24/21 05:11 Baso # (Auto) 0.07 K/uL (0-0.2) 11/24/21 05:11 Reticulocyte # 0.06 10^6/uL (0.02-0.10) 11/21/21 08:23 Immature Gran # (Auto) 0.04 K/uL (0.00-0.02) H 11/24/21 05:11 ESR 54 mm/hr (0-30) H 11/20/21 05:13 PT 10.6 Seconds (9.0-12.0) 11/17/21 21:34 INR 1.0 (0.9-1.1) 11/17/21 21:34 APTT 101.6 Seconds (21.0-31.0) H* 11/19/21 08:22 PTT Ratio 3.7 11/19/21 08:22 ABG pH 7.49 (7.35-7.45) H 11/18/21 22:35 ABG pCO2 41 mmHg (35-46) 11/18/21 22:35 ABG pO2 65 mmHg (80-95) L 11/18/21 22:35 ABG HCO3 31 mmol/L (19-24) H 11/18/21 22:35 ABG O2 Saturation 93.8 % (90-95) 11/18/21 22:35 ABG Base Excess 6.5 mEq/L (-9-1.8) H 11/18/21 22:35 Christiano Test Pos (Pos) 11/18/21 22:35 Barometric Pressure 735.9 mm/Hg 11/18/21 22:35 Oxygen Given 15% 11/18/21 22:35 POC Sodium 139 mmol/L (135-144) 11/17/21 21:37 Sodium 140 mmol/L (136-145) 11/24/21 05:11 POC Potassium 5.2 mmol/L (3.3-5.0) H 11/17/21 21:37 Potassium 3.7 mmol/L (3.5-5.1) 11/24/21 05:11 POC Chloride 99 mmol/L (101-112) L 11/17/21 21:37 Chloride 101 mmol/L (98-107) 11/24/21 05:11 Carbon Dioxide 29 mmol/L (21-32) 11/24/21 05:11 POC Total CO2 31 mmol/L (24-31) 11/17/21 21:37 Anion Gap 10 (3-11) 11/24/21 05:11 POC Anion Gap 16.0 mmol/L (16-25) 11/17/21 21:37 POC BUN 39 mg/dl (7-18) H 11/17/21 21:37 BUN 65 mg/dl (6-23) H 11/24/21 05:11 Creatinine 2.06 mg/dl (0.6-1.2) H D 11/24/21 05:11 POC Creatinine 1.9 mg/dl (0.6-1.3) H 11/17/21 21:37 Est Cr Clr Drug Dosing 21.4 ml/min 11/24/21 05:11 Est GFR ( Amer) 24.8 ml/min 11/24/21 05:11 Est GFR (Non-Af Amer) 21.4 ml/min 11/24/21 05:11 BUN/Creatinine Ratio 31.6 (10-20) H 11/24/21 05:11 Glucose 166 mg/dl (70-99(Fasting)) H 11/24/21 05:11 POC Glucose 212 mg/dl (70-99) H 11/24/21 07:17 POC Glucose (other) 215 mg/dl (70-99) H 11/17/21 21:37 Estimat Average Glucose 131 mg/dl 11/17/21 21:33 Hemoglobin A1c 6.2 % (4.5-5.6) H 11/17/21 21:33 Calcium 8.6 mg/dl (8.5-10.1) 11/24/21 05:11 POC Ioniz Calcium Loyda 1.14 mmol/l (1.12-1.32) 11/17/21 21:37 Phosphorus 3.4 mg/dl (2.5-4.9) D 11/24/21 05:11 Magnesium 2.3 mg/dl (1.7-2.4) 11/24/21 05:11 Total Bilirubin 0.4 mg/dl (0.2-1.0) 11/24/21 05:11 AST 12 U/L (13-39) L 11/24/21 05:11 ALT 10 U/L (7-52) 11/24/21 05:11 Alkaline Phosphatase 46 U/L (34-104) 11/24/21 05:11 Lactate Dehydrogenase 168 U/L (86-244) 11/21/21 08:23 Total Creatine Kinase 61 U/L (26-192) 11/17/21 23:48 Troponin I 0.08 ng/ml (0-0.04) H* 11/18/21 22:28 C-Reactive Protein 25.08 mg/dl (0-0.5) H 11/20/21 05:13 B-Natriuretic Peptide 1265 pg/ml (0-100) H 11/17/21 21:33 Total Protein 6.3 gm/dl (6.0-8.3) 11/24/21 05:11 Albumin 3.2 gm/dl (3.4-5.0) L 11/24/21 05:11 Globulin 3.1 gm/dl (2.5-4.0) 11/24/21 05:11 Albumin/Globulin Ratio 1.0 (0.9-2) 11/24/21 05:11 Triglycerides 116 mg/dl (0-150) 11/18/21 06:02 Cholesterol 98 mg/dl (0-200) 11/18/21 06:02 LDL Cholesterol, Calc 38 mg/dl 11/18/21 06:02 VLDL Cholesterol, Calc 23 mg/dl (0-30) 11/18/21 06:02 HDL Cholesterol 37 mg/dl 11/18/21 06:02 Cholesterol/HDL Ratio 2.6 (0-5) 11/18/21 06:02 Lipase 28 U/L (11-82) 11/17/21 21:33 Procalcitonin 0.09 ng/ml (0-0.5) 11/17/21 21:34 TSH 2.210 uIu/ml (0.300-4.500) 11/17/21 21:33 Urine Color Yellow 11/21/21 Unknown Urine Appearance Cloudy (Clear) A 11/21/21 Unknown Urine pH 5.0 (4.5-7.5) 11/21/21 Unknown Ur Specific Parkin 1.030 (1.000-1.030) 11/21/21 Unknown Urine Protein 2+ (Negative) H 11/21/21 Unknown Urine Glucose (UA) Negative (Negative) 11/21/21 Unknown Urine Ketones Trace (Negative) H 11/21/21 Unknown Urine Blood Trace (Negative) H 11/21/21 Unknown Urine Nitrite Negative (Negative) 11/21/21 Unknown Urine Bilirubin Negative (Negative) 11/21/21 Unknown Urine Urobilinogen Negative (Negative) 11/21/21 Unknown Ur Leukocyte Esterase Negative (Negative) 11/21/21 Unknown Urine WBC (Auto) 10-30 /hpf (0-5) H 11/21/21 Unknown Urine RBC (Auto) 0-4 /hpf (0-4) 11/21/21 Unknown U Hyaline Cast (Auto) 1-5 /lpf (0-5) 11/21/21 Unknown U Epithel Cells (Auto) >30 /lpf (0-5) H 11/21/21 Unknown Urine Bacteria (Auto) Negative (Negative) 11/21/21 Unknown Ur Renal Epithelial Cell Not Reportable 11/21/21 Unknown Amorphous Sediment Present (None Prsent) A 11/21/21 Unknown Urine Yeast Not Reportable 11/21/21 Unknown Vancomycin Trough 15.5 mcg/ml (10-20) 11/20/21 11:21 Random Vancomycin 15.1 mcg/ml (10-20) 11/24/21 05:11 Rheumatoid Factor 15 IU/mL (<14) H 11/20/21 05:13 SARS-CoV-2, RNA, NAAT NEGATIVE (NEGATIVE) 11/17/21 21:27 Blood Type A Positive 11/21/21 08:23 Direct Antiglob Test Negative (Negative) 11/21/21 08:23 BINTA (IgG-AHG) Neg (Negative) 11/21/21 08:23 BINTA, Polyspecific Neg (Negative) 11/21/21 08:23 BINTA C3b, C3d 5 Min Neg (Negative) 11/21/21 08:23 Impressions Chest CTA 11/19/21 17:28 CHEST CTA for PULMONARY ARTERIES CT DOSE: 440.72 mGy.cm HISTORY: Shortness of breath. TECHNIQUE: Multiaxial CT images of the chest were performed following the intravenous administration of contrast to evaluate the pulmonary arteries. Maximal intensity projection images were also obtained. A dose lowering technique was utilized adhering to the principles of ALARA. COMPARISON STUDY: Abdomen and pelvis CT 11/16/2021. FINDINGS: The hepatic lesions are better appreciated on the recent abdomen and pelvis CT. The visualized spleen and adrenal glands are unremarkable. There is a small hiatus hernia. There are small bilateral pleural effusions. The thyroid gland enhances normally. The heart is mildly enlarged. No pericardial effusion. No hilar lymphadenopathy. A single mildly enlarged right paratracheal lymph node measuring 1.4 cm. Mild circumferential thickening of the esophagus. No suspicious lytic or blastic osseous lesions. Poststernotomy changes are noted. Mild calcified plaque within the normal caliber thoracic aorta. No evidence for an aortic dissection. An aortic valve prosthesis is noted. Moderate coronary artery calcifications are present. Nondiagnostic evaluation of the majority of the bilateral lower lobe subsegmental pulmonary arteries due to the respiratory motion artifact. However, no definite filling defects identified within the pulmonary arteries to suggest a pulmonary embolus. No pneumothorax. The central airways are patent. Mild biapical pleural-parenchymal scarring. Calcified granuloma within the left lower lobe. Consolidation within the bilateral upper and lower lobes posteriorly. This likely represents a combination of atelectasis and pneumonia. There is also right perihilar groundglass airspace opacities li raul representing a pneumonia. Asymmetric pulmonary edema could also have a similar appearance. Right lung interlobular septal thickening is noted. IMPRESSION: 1. No evidence for pulmonary embolus. 2. Cardiomegaly and small bilateral pleural effusions. There is also perihilar groundglass airspace opacities and interlobular septal thickening within the right lung which likely represents mild asymmetric pulmonary edema. 3. Airspace opacities within the upper and lower lobes posteriorly likely represent a combination of atelectasis and pneumonia. 4. A single enlarged right paratracheal lymph node. This could be reactive to the suspected pneumonia. ACT 112: Negative or not required by law. Electronically signed by: Shankar Santamaria M.D. 11/19/2021 6:45 PM Chest X-Ray 11/22/21 16:12 XR chest 1V portable HISTORY: 86 years-old Female Line placement status post placement of a right IJ central venous catheter COMPARISON: Chest radiograph 11/21/2021 TECHNIQUE: AP view of the chest FINDINGS: The cardiac silhouette is enlarged. Prior median sternotomy with cardiac valvular prosthesis. Status post placement of a dual lumen right IJ central venous catheter distal tip in the expected location of the upper SVC. Pulmonary vascular congestion with interstitial coarsening has progressed from yesterday's study. No pneumothorax. Layering pleural effusions with mild bibasilar consolidation, also worsened. Degenerative changes of the shoulders and spine. Left shoulder rotator cuff calcific tendinosis. IMPRESSION: 1. Status post placement of a dual lumen right IJ central venous catheter. No postprocedural pneumothorax. 2. Cardiomegaly with worsening pulmonary edema. 3. Layering pleural effusions with progressive bibasilar consolidation. ACT 112: Negative or not required by law. The above report was generated using voice recognition software. It may contain grammatical, syntax or spelling errors. Electronically signed by: Maximiliano Padilla M.D. 11/22/2021 5:00 PM Medications Administered Current Inpatient Medications Acetaminophen (Acetaminophen 325 Mg Tab) 650 mg PO Q4H PRN PRN Reason: Pain or Fever Stop: 12/18/21 02:17 Last Admin: 11/23/21 16:05 Dose: 650 mg Documented by: Alprazolam (Alprazolam 0.25 Mg Tablet) 0.25 mg PO Q12H PRN PRN Reason: Anxiety Stop: 12/21/21 12:21 Last Admin: 11/23/21 21:36 Dose: 0.25 mg Documented by: Amlodipine Besylate (Amlodipine Besylate 5 Mg Tab) 10 mg PO DAILY GENOVEVA Stop: 12/18/21 08:59 Last Admin: 11/24/21 07:46 Dose: 10 mg Documented by: Aspirin (Aspirin 81 Mg Ectab) 81 mg PO QAM GENOVEVA Stop: 12/18/21 08:59 Last Admin: 11/24/21 07:46 Dose: 81 mg Documented by: Atorvastatin Calcium (Atorvastatin 20 Mg Tab) 20 mg PO HS GENOVEVA Stop: 12/18/21 20:59 Last Admin: 11/23/21 21:34 Dose: 20 mg Documented by: Dextrose (Dextrose 50% 50 Ml Syringe) 25 - 50 ml IV UD PRN; Protocol PRN Reason: Hypoglycemia Protocol Stop: 12/18/21 02:17 Docusate Sodium (Docusate Sodium 100 Mg Cap) 100 mg PO BID GENOVEVA Stop: 12/20/21 20:59 Last Admin: 11/24/21 07:45 Dose: 100 mg Documented by: Glucagon (Glucagon For Inj 1 Mg Vial) 1 mg SQ UD PRN; Protocol PRN Reason: Hypoglycemia Protocol Stop: 12/18/21 02:17 Glucose (Glucose 10 Tabs/Tube) 4 - 8 tabs PO UD PRN; Protocol PRN Reason: Hypoglycemia Protocol Stop: 12/18/21 02:17 Glucose (Glucose 40% Gel 15 Gm Tube) 15 - 30 gm PO UD PRN; Protocol PRN Reason: Hypoglycemia Protocol Stop: 12/18/21 02:17 Heparin Sodium (Beef Lung) (Heparin 10 Unit/Ml 5 Ml Flush) 5 ml FLUSH PRN PRN PRN Reason: Flush Stop: 12/22/21 17:10 Heparin Sodium (Porcine) (Heparin Sod 5,000 Unit/0.5 Ml Vial) 5,000 units SQ Q12 GENOVEVA Stop: 12/20/21 09:44 Last Admin: 11/24/21 07:46 Dose: 5,000 units Documented by: Promethazine HCl 12.5 mg/ (Sodium Chloride) 50.5 mls @ 202 mls/hr IV Q6H PRN PRN Reason: Nausea And Vomiting Stop: 12/18/21 02:17 Last Infusion: 11/19/21 17:16 Dose: Infused Documented by: Prochlorperazine 5 mg/ Syringe 5 mls @ 5 mls/min IV Q6H PRN PRN Reason: Nausea And Vomiting Stop: 12/19/21 17:26 Last Admin: 11/19/21 18:31 Dose: 5 mls/min Documented by: Ceftriaxone Sodium 2,000 mg/ (Dextrose) 70 mls @ 140 mls/hr IV Q24H [facility]; Protocol Stop: 01/02/22 20:59 Last Infusion: 11/23/21 22:53 Dose: Infused Documented by: Insulin Aspart (Insulin Aspart Per Unit) 0 units SC ACHS [facility] Stop: 12/18/21 02:17 Last Admin: 11/24/21 07:44 Dose: 8 units Documented by: Ipratropium [place] (Ipratropium [place] Neb Soln 0.02% 2.5 Ml Vial) 0.5 mg INH Q4H PRN PRN Reason: SOB, WHEEZE Stop: 12/18/21 02:17 Last Admin: 11/18/21 12:09 Dose: 0.5 mg Documented by: Levalbuterol HCl (Levalbuterol 1.25mg/0.5ml Neb) 1.25 mg INH Q4H PRN PRN Reason: SOB, WHEEZE Stop: 12/18/21 02:17 Last Admin: 11/18/21 12:09 Dose: 1.25 mg Documented by: Lorazepam (Lorazepam 2 Mg/1 Ml Vial) 0.25 mg IV Q4H PRN PRN Reason: nausea Stop: 12/19/21 17:26 Last Admin: 11/21/21 20:19 Dose: 0.25 mg Documented by: Metoprolol Succinate (Metoprolol Succ 25mg Ext Rel Tab) 25 mg PO QAM [facility] Stop: 12/18/21 08:59 Last Admin: 11/24/21 07:45 Dose: 25 mg Documented by: Miscellaneous (Carbohydrates For Hypoglycemia ) 15 - 30 gm PO UD PRN PRN Reason: Hypoglycemia Protocol Stop: 12/18/21 02:17 Miscellaneous Information (Vancomycin Consult Active) 1 ea N/A UD PRN PRN Reason: Consult Stop: 12/19/21 02:47 Ondansetron HCl (Ondansetron Inj 2 Mg/Ml 2 Ml Vial) 4 mg IV Q8H PRN PRN Reason: Nausea And Vomiting Stop: 12/19/21 13:52 Last Admin: 11/22/21 11:44 Dose: 4 mg Documented by: Oxycodone HCl (Oxycodone Hcl Ir 5 Mg Tab (Immediate Release)) 5 mg PO Q4H PRN PRN Reason: Pain Stop: 12/02/21 02:17 Last Admin: 11/20/21 22:48 Dose: 5 mg Documented by:
--- NOTE | 2021-11-24 10:24 | XRay Report ---
XR chest 1V portable CLINICAL HISTORY: Worsening shortness of breath. COMPARISON STUDY: Chest CT November 19, 2021. Chest radiograph November 22, 2021. FINDINGS: Right internal jugular central line remains in place. There are median sternotomy wires and a prosthetic aortic valve. Cardiomegaly is noted. There is no pneumothorax. Moderate pulmonary edema has slightly improved. Small to moderate bilateral pleural effusions have slightly improved. There a re suspected bibasilar opacities. IMPRESSION: Persistent pulmonary edema and small moderate bilateral pleural effusions, slightly improved since pr ior exam. ACT 112: Negative or not required by law. Electronically signed by: Roberto Cruz M.D. 11/24/2021 10:22 AM
[2021-11-24] MEDS ORDERED: BUMETANIDE 1 MG in SYRINGE 0 ML IV ONE ×2 (11:00→22:45)
[2021-11-24] MEDS: ALPRAZolam 0.25 MG TABLET PO PRN (12:26)
--- NOTE | 2021-11-24 13:30 | Pharmacy Report ---
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 Pharmacy to dose vancomycin. * Pertinent microbiologic data includes: BLCXs x 4 no growth to date, repeat BLCXs collected today. No yeast or hyphae in fungal BLCX stain. Multiple serologies pending. * Day # 6 of antimicrobial therapy (Day 6 vancomycin, day 4 ceftriaxone after receiving 2 days cefepime) * YOUSIF improving based upon SCr and increasing UOP. No further plans for HD per nephrology consult Plan Vancomycin * AUC/HERMAN is the preferred PK/PD target for vancomycin however pt currently is not an ideal candidate due to rapidly changing renal fxn * Random AM level have been used the last several days to guide dosing. Random level of 15.1 this AM indicates need for redosing. Will give 1000mg IV x 1 today and repeat random level w/ AM labs. If renal fxn were to return to baseline and stabilize, 1000mg Q 24 hrs may be indicated. Pharmacy will continue to follow and will adjust dose/frequency as necessary. Thank you.
[2021-11-24] MEDS ORDERED: ALBUTEROL 0.083% NEBU SOLN 3 ML VIAL NEB PRN (15:48)
[2021-11-24] MEDS ORDERED: ALBUTEROL INH PRN (15:56)
[2021-11-24] MEDS ORDERED: ACETAMINOPHEN 500 MG TAB PO PRN (15:56)
[2021-11-24] MEDS ORDERED: HYDROCODONE/ACETAMOPHEN 5/325MG TAB PO PRN (15:56)
[2021-11-24] MEDS: ACETAMINOPHEN 325 MG TAB PO PRN (19:46)
[2021-11-24] MEDS: cefTRIAXone SODIUM 2,000 MG in DEXTROSE 5% 50 ML IV SCH (20:46)
[2021-11-24] MEDS: ATORVASTATIN 20 MG TAB PO SCH (20:48)
[2021-11-24] MEDS ORDERED: metFORMIN HCL 500 MG TAB PO SCH (21:00)
[2021-11-24] MEDS ORDERED: NON-FORMULARY MEDICATION (Glipizide 5 mg Tablet Extended Release 24hr) PO SCH (21:00)
[2021-11-25 06:46] LABS: Basophils # (auto) 0.05 K/uL (0-0.2); Basophils % (auto) 0.6 %; Eosinophils # (auto) 0.39 K/uL (0-0.5); Eosinophils % (auto) 4.8 %; Hematocrit (blood only) 24.4 % (37-47); Immature Granulocytes # (auto) 0.11 K/uL (0.00-0.02); Immature Granulocytes % (auto) 1.3 %; Lymphocytes # (auto) 0.85 K/uL (1.2-3.4); Lymphocytes % (auto) 10.4 %; Mean Corpuscular Hemoglobin 27.4 pg (25-34); Mean Corpuscular Hgb Conc 32.8 g/dL (32-36); Mean Corpuscular Volume 83.6 fL (80-100); Mean Platelet Volume 9.3 fL (7.4-10.4); Monocytes # (auto) 1.12 K/uL (0.11-0.59); Monocytes % (auto) 13.7 %; Neutrophils # (auto) 5.64 K/uL (1.4-6.5); Neutrophils % (auto) 69.2 %; Platelet Count 397 K/uL (130-400); RDW Coefficient of Variation 13.8 % (11.5-14.5); RDW Standard Deviation 42.5 fL (36.4-46.3); Red Blood Count 2.92 M/uL (4.2-5.4); White Blood Count 8.16 K/uL (4.8-10.8)
[2021-11-25 07:16] LABS: Albumin Globulin Ratio 1.1 (0.9-2); Albumin Level 3.2 gm/dl (3.4-5.0); BUN Creatinine Ratio 37.5 (10-20); Bilirubin,Total 0.4 mg/dl (0.2-1.0); Creatinine Clr Calc Pharmacy 29.1 ml/min; Est GFR (African American) 35.9 ml/min; Est GFR (Non-African American) 30.9 ml/min; Potassium 3.5 mmol/L (3.5-5.1); Total Protein 6.2 gm/dl (6.0-8.3)
[2021-11-25] MEDS: INSULIN ASPART PER UNIT SC SCH ×4 (08:11→20:34)
[2021-11-25] MEDS: MECLIZINE HCL 25 MG TAB PO SCH (08:14)
[2021-11-25] MEDS: DOCUSATE SODIUM 100 MG CAP PO SCH ×2 (08:14→20:40)
[2021-11-25] MEDS: ASPIRIN 81 MG ECTAB PO SCH (08:15)
[2021-11-25] MEDS: HEPARIN SOD 5,000 UNIT/0.5 ML VIAL SQ SCH ×2 (08:15→20:37)
[2021-11-25] MEDS: amLODIPine BESYLATE 5 MG TAB PO SCH (08:15)
[2021-11-25] MEDS: METOPROLOL SUCC 25MG EXT REL TAB PO SCH (08:15)
--- NOTE | 2021-11-25 08:22 | XRay Report ---
XR chest 1V portable HISTORY: Shortness of breath. COMPARISON: Chest 11/24/2021. FINDINGS: No pneumothorax. The heart remains mildly enlarged. Right jugular central venous catheter t erminate at the SVC. There are poststernotomy changes and an aortic valve prosthesis. Small bilateral pleural effusions and patchy bibasilar densities persist. There is mild interstitial pulmonary edema , unchanged. IMPRESSION: 1. No change in the mild interstitial pulmonary edema and small bilateral pleural effusions. 2. Patchy bibasilar densities also persist and are nonspecific. This could be due to atelectasis from the pleural effusions or a pneumonia. ACT 112: Negative or not required by law. Electronically signed by: Shankar Santamaria M.D. 11/25/2021 8:21 AM
[2021-11-25] MEDS ORDERED: POTASSIUM CHLORIDE CRTAB 20 MEQ TABCR PO ONE (08:45)
[2021-11-25] MEDS ORDERED: VANCOMYCIN HCL 1,000 MG in SODIUM CHLORIDE 0.9% 250 ML IV ONE (09:00)
--- NOTE | 2021-11-25 09:19 | Cardiology Progress Note ---
Date of Service November 25, 2021 Assessment & Plan (1) Acute hypoxemic respiratory failure: (2) Acute exacerbation of CHF (congestive heart failure): (3) Prosthetic aortic valve stenosis: (4) Mitral regurgitation: (5) Aortic valve vegetation: (6) LBBB (left bundle branch block): (7) Paroxysmal atrial fibrillation: Plan: Small mobile echodensity adherent to bioprosthetic aortic valve struts observed on the parasternal long axis view via November 18, 2021 TTE Cultures negative Differential diagnosis includes culture negative endocarditis, thrombus, tumor. Follow-up transthoracic echocardiography on 11/24/2021, to reassess the aortic valve mass, was unfortunately technically limited Continue IV vancomycin and ceftriaxone (? 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 Volume status has improved though patient remains decompensated Continue low dose IV furosemide. Supplement potassium orally. Possible paroxysmal atrial fibrillation on presentation. Maintaining sinus via review of telemetry. Continue beta-skylar therapy Risks of anticoagulation currently appear greater than the benefit Mild troponin Asymptomatic Not indicative of acute ACS. Likely secondary to CHF/hypoxia Left bundle branch block. Admission and Anticipated Discharge Date Admission Date: November 18, 2021 Supervising Physician Co-Signing Physician Notes Patient seen and examined, chart and medications reviewed. Assessment as outlined above. Patient clinically improved. Marginally so today. Still requiring high flow oxygen but no longer oliguric. Echocardiogram from day prior reviewed in detail no significant change from prior study other than degree of mitral insufficiency more pronounced. Pulmonary hypertension remains present Would recommend continue current therapies with intermittent diuretics. Address nutrition offer nutritional supplements Subjective Patient seen and examined. Chart, medications, and telemetry reviewed. Did not sleep well last night. Dyspnea has considerably improved. Appetite improved. Denies pain. Specifically denies chest pain, palpitations, dizziness, near syncope, or subjective fever/chills. Telemetry: Sinus ranging from the 60's to the 80's, left bundle branch block pattern November 18, 2021 TTE Interpretation Summary ([facility], Dr. Thompson): EF 50-55%. Moderate concentric LVH. Septal motion consistent with conduction abnormality. Moderately dilated LA. Bioprosthetic AV with elevated gradients suggesting obstructdion. Peak systolic velocity 412 cm/sec. Mild bioprosthetic AV regurgitation. Small mobile echodensity adherent to bioprosthetic aortic valve struts seen in the parasternal long axis view. Differential diagnosis includes vegetation, thrombus, and less likely tumor. Moderate to severe mitral regurgitation. Moderate tricuspid regurgitation. Estimated systolic pulmonary pressure 62 mmHg. November 24, 2021 Limited TTE Interpretation Summary ([facility], Dr. Dalton): Normal size left ventricle. Moderate concentric LVH. Ejection fraction 45 to 50%. Aortic valve not well visualized. Bioprosthetic aortic valve gradients are elevated suggesting obstruction. Peak systolic velocity 4.1 m/s. Mild bioprosthetic aortic valve regurgitation. Severe mitral regurgitation. Mild tricuspid regurgitation. RVSP severely elevated at greater than 60 mmHg Review of Systems Review of Systems: Complete review of systems is otherwise as stated above, negative, or noncontributory. Physical Exam Physical Exam: General: A&Ox3. HENT: Normocephalic. Atraumatic. Eyes: PER. Conjunctiva pink, sclera clear. Neck: Right sided catheter. Unable to appreciate JVP. Heart: Distant heart sounds. Regular at 60 bpm. + Systolic murmur. + Gallop. No rub. Lungs: Diminished. Decreased. Faint bibasilar rales. No wheeze. Abdomen: +BS. Soft. Nontender. No masses or organomegaly. Extremities: No clubbing, cyanosis, or edema. No evidence of embolic phenomenon Limited neurological examination is without focal deficits. Results & Data ([facility]) Vital Signs (Past 12 Hours) Vital Signs Temp Pulse Pulse Pulse Resp BP BP 11/25/21 07:54 36.8 C 77 20 147/59 H 11/25/21 07:33 65 11/25/21 05:41 75 22 11/25/21 03:00 36.8 C 69 20 130/58 L 11/25/21 02:40 73 26 H 11/24/21 23:00 37.0 C 77 76 28 H 140/55 L Pulse Ox 11/25/21 07:54 97 11/25/21 07:33 11/25/21 05:41 92 11/25/21 03:00 98 11/25/21 02:40 97 11/24/21 23:00 98 Laboratory Results Laboratory Results - last 24 hr 11/21/21 11/24/21 11/24/21 08:23 11:17 16:01 WBC RBC Hgb Hct MCV MCH MCHC RDW Std Deviation RDW Coeff of Roberto Plt Count MPV Immature Gran % (Auto) Neut % (Auto) Lymph % (Auto) Newton % (Auto) Eos % (Auto) Baso % (Auto) Neut # (Auto) Lymph # (Auto) Newton # (Auto) Eos # (Auto) Baso # (Auto) Immature Gran # (Auto) Haptoglobin 287 H Sodium Potassium Chloride Carbon Dioxide Anion Gap BUN Creatinine Est Cr Clr Drug Dosing Est GFR ( Amer) Est GFR (Non-Af Amer) BUN/Creatinine Ratio Glucose POC Glucose 192 H 172 H Calcium Total Bilirubin AST ALT Alkaline Phosphatase Total Protein Albumin Globulin Albumin/Globulin Ratio Random Vancomycin 11/24/21 11/25/21 11/25/21 20:04 06:34 06:34 WBC 8.16 RBC 2.92 L Hgb 8.0 L Hct 24.4 L MCV 83.6 MCH 27.4 MCHC 32.8 RDW Std Deviation 42.5 RDW Coeff of Roberto 13.8 Plt Count 397 MPV 9.3 Immature Gran % (Auto) 1.3 Neut % (Auto) 69.2 Lymph % (Auto) 10.4 Newton % (Auto) 13.7 Eos % (Auto) 4.8 Baso % (Auto) 0.6 Neut # (Auto) 5.64 Lymph # (Auto) 0.85 L Newton # (Auto) 1.12 H Eos # (Auto) 0.39 Baso # (Auto) 0.05 Immature Gran # (Auto) 0.11 H Haptoglobin Sodium Potassium Chloride Carbon Dioxide Anion Gap BUN Creatinine Est Cr Clr Drug Dosing Est GFR ( Amer) Est GFR (Non-Af Amer) BUN/Creatinine Ratio Glucose POC Glucose 189 H Calcium Total Bilirubin AST ALT Alkaline Phosphatase Total Protein Albumin Globulin Albumin/Globulin Ratio Random Vancomycin 16.4 11/25/21 11/25/21 06:34 07:35 WBC RBC Hgb Hct MCV MCH MCHC RDW Std Deviation RDW Coeff of Roberto Plt Count MPV Immature Gran % (Auto) Neut % (Auto) Lymph % (Auto) Newton % (Auto) Eos % (Auto) Baso % (Auto) Neut # (Auto) Lymph # (Auto) Newton # (Auto) Eos # (Auto) Baso # (Auto) Immature Gran # (Auto) Haptoglobin Sodium 141 Potassium 3.5 Chloride 102 Carbon Dioxide 30 Anion Gap 9 BUN 57 H Creatinine 1.52 H D Est Cr Clr Drug Dosing 29.1 Est GFR ( Amer) 35.9 Est GFR (Non-Af Amer) 30.9 BUN/Creatinine Ratio 37.5 H Glucose 153 H POC Glucose 173 H Calcium 9.0 Total Bilirubin 0.4 AST 13 ALT 12 Alkaline Phosphatase 47 Total Protein 6.2 Albumin 3.2 L Globulin 3.0 Albumin/Globulin Ratio 1.1 Random Vancomycin (1) Acute exacerbation of CHF (congestive heart failure) Heart failure type: unspecified Qualified Code(s): I50.9 - Heart failure, unspecified
[2021-11-25] MEDS: CHOLECALCIFEROL 1,000 UNITS 25 MCG TAB PO SCH (09:25)
[2021-11-25] MEDS: CALCIUM CARBONATE 1250MG TAB PO SCH (09:25)
[2021-11-25] MEDS: FUROSEMIDE 20 MG TAB PO SCH (09:26)
--- NOTE | 2021-11-25 09:38 | Nephrology Progress Note ---
Date of Service November 25, 2021 Assessment & Plan (1) Acute kidney injury: (2) Acute hypoxemic respiratory failure: (3) Oliguria: (4) Hyperphosphatemia: Plan: 86-year-old female with severe with h/o prosthetic AV, severe MR, but not candidate for TVAR at this point, new finding of ovarian mass admitted with respiratory distress, developed acute kidney injury most likely hemodynamically mediated with multiple IV contrast exposure. Renal function has been rapidly declining with decrease in his urine output and respiratory distress and had HD for 2 h on 11/23/21 via catheter. UO improved, Renal function improving, electrolytes acceptable. -- monitor urine output, electrolytes, expect renal continue to improve, remove HD catheter. --monitor UO, no need for diuretics now but OK to use as needed, encourage po intake. Will follow Admission and Anticipated Discharge Date Admission Date: November 18, 2021 Luli Hong was evaluated this morning, denies significant SOB. UO improved to 1600 ml overnight. . BP stable, electrolyte acceptable. Renal function improving, cr down to 1.5. Review of Systems Review of Systems: Detailed review of system was otherwise unremarkable except mentioned above. Physical Exam Constitutional: WD/WN, vitals as above + ill appearing Eyes: + anicteric sclerae Neck: normal visual inspection Respiratory: Auscultation: + diminished lung sounds Cardiovascular: Rate/Rhythm: regular rate and regular rhythm Heart Sounds: + murmur Extremities: no edema Neurologic: awake; no focal motor deficits Psychiatric: Orientation: alert and cooperative Results & Data ([facility]) Vital Signs (Past 12 Hours) Vital Signs Temp Pulse Pulse Pulse Resp BP BP 11/25/21 07:54 36.8 C 77 20 147/59 H 11/25/21 07:33 65 11/25/21 05:41 75 22 11/25/21 03:00 36.8 C 69 20 130/58 L 11/25/21 02:40 73 26 H 11/24/21 23:00 37.0 C 77 76 28 H 140/55 L Pulse Ox 11/25/21 07:54 97 11/25/21 07:33 11/25/21 05:41 92 11/25/21 03:00 98 11/25/21 02:40 97 11/24/21 23:00 98 PG Care Time/CCT Total # of Minutes Spent Total Time Spent with Patient: Total time spent is greater than 50% in coordination of care (as documented) at patient's floor/unit and/or counseling patient: Coding Level of Care Code 34087 Subseq Hosp Care Lvl 2 Diagnoses Acute kidney injury N17.9 Acute hypoxemic respiratory failure J96.01 Oliguria R34 Hyperphosphatemia E83.39
--- NOTE | 2021-11-25 10:20 | Hospitalist Progress Note ---
Date of Service November 25, 2021 Assessment & Plan (1) Acute hypoxemic respiratory failure: Plan: She denies any recent h/o swelling but developed some SOB just prior to arrival, found to have pulmonary edema and placed on intravenous diuretics - Patient noted to be oliguric. Received Lasix IV. No significant response. Hemodialysis catheter placed. Received dialysis. Nephrology following and no with good urine output and creatinine improved. Hemodialysis catheter to be removed. CT chest revealed no PE but possible pneumonia. Remains on antibiotics and fever has subsided. Echo with preserved EF now with new aortic vegetation. She has a h/o aortic valve replacement with tissue valve in [place] in 2011. She has a h/o reduced systolic function in the past per outpatient cardiology records. Worsening hypoxia overnight. Now on vapotherm. 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 ID consulted. Cultures have been negative. Vancomycin plus ceftriaxone is recommended as the preferred antibiotic regimen in this case as common organisms for presumed endocarditis include Staphylococci, VGS and Enterococcus. Repeat limited echocardiogram on 11/24 revealed still with severe MR, EF now 45- 50% instead of 50-55%. Persistently elevated aortic valve gradients suggesting obstruction. Persistently elevated pulmonary pressure. Cont management per cardiology. (3) Acute kidney injury: Plan: Creatinine now improved with electrolytes acceptable nad good urine output. HD to be removed today and although diuretics not needed now, they are ok to use as needed. (4) Acute diastolic heart failure: Plan: Diurese as needed. Cont low salt diet, daily weights. Strict I/Os. (5) S/P AVR (aortic valve replacement): Plan: tissue valve replacement in 2012bioprosthetic (6) LBBB (left bundle branch block): Plan: chronic (7) Type 2 diabetes mellitus: Plan: at inpatient goal, cont current insulin dosing schedule (8) Elevated troponin: Plan: Likely related to demand ischemia from acute illness. (9) Ovarian mass: Plan: Per [facility] [place] [facility] [place] she has 2 pelvic cysts at vaginal cuff in February 2021 per transvaginal ultrasound the right cyst was 7.6 x 7 x 7 cm with speckled debris. The left cyst was 6 x 4 x 4 cm. Compared to images from September 2016 these were unchanged in appearance. Both cysts appear to be debris-filled or just cystic in nature and given the lack of price changer time, it was felt that this was not consistent with malignancy and surveillance was not necessary. (10) Chronic kidney disease, stage III (moderate): Plan: Plan as above. (11) DVT prophylaxis: Plan: Heparin subQ Conditional code-ok with intubation, no CPR Dispo-cont PCU, uncertain at this time as patient still requiring vapotherm support. Michelle Ash DO [facility]ist Admission and Anticipated Discharge Date Admission Date: November 18, 2021 Subjective 86 yo F with new aortic vegetation and CHF exacerbation. She also had acute kidney injury requiring temporary dialysis. kidney fnction back to baseline no further HD planned at this time needs to have a BM feels well still on vapotherm but denies SOB, states breathing not any worse today. denies fevers or chills Review of Systems Review of Systems: All systems were reviewed and negative except as indicated above. Physical Exam Physical Exam: CONSTITUTIONAL: overweight, vitals as above, NAD EYES: normal conjunctivae, no scleral icterus ENT: external ear and nose normal, NC in place NECK: trachea midline RESPIRATORY: clear to auscultation bilaterally, no crackles, rales or wheezes, normal respiratory effort on extra oxygen support. Diminished breath sounds throughout CARDIOVASCULAR: regular rate and rhythm, S1 and 2 heard 3/6 ALDO across precordium, no gallops or rubs, no JVD, no peripheral edema GASTROINTESTINAL: soft, nontender, ND, no guarding, protuberant. MUSCULOSKELETAL: strength 5/5 throughout, head is normocephalic and atraumatic, neck supple, normal palpation of chest wall without tenderness SKIN: warm and dry NEUROLOGIC: CN 2-12 grossly intact, normal cognition, normal speech, no tremor, no gross focal deficits. PSYCHIATRIC: alert cooperative and oriented to person, place and time. Results & Data Results & Data ([facility]) Vital Signs (Past 12 Hours) Vital Signs Temp Pulse Pulse Pulse Resp BP BP 11/25/21 07:54 36.8 C 77 20 147/59 H 11/25/21 07:33 65 11/25/21 05:41 75 22 11/25/21 03:00 36.8 C 69 20 130/58 L 11/25/21 02:40 73 26 H 11/24/21 23:00 37.0 C 77 76 28 H 140/55 L Pulse Ox 11/25/21 07:54 97 11/25/21 07:33 11/25/21 05:41 92 11/25/21 03:00 98 11/25/21 02:40 97 11/24/21 23:00 98 Laboratory Results Short CBC 11/25/21 Range/Units 06:34 WBC 8.16 (4.8-10.8) K/uL Hgb 8.0 L (12.0-16.0) g/dL Hct 24.4 L (37-47) % Plt Count 397 (130-400) K/uL BMP 11/25/21 06:34 Sodium 141 Potassium 3.5 Chloride 102 Carbon Dioxide 30 BUN 57 H Creatinine 1.52 H D Glucose 153 H Calcium 9.0 Liver Function 11/25/21 Range/Units 06:34 Total Bilirubin 0.4 (0.2-1.0) mg/dl AST 13 (13-39) U/L ALT 12 (7-52) U/L Alkaline Phosphatase 47 (34-104) U/L Albumin 3.2 L (3.4-5.0) gm/dl Diagnostic Findings Chest X-Ray 11/24/21 22:39 XR chest 1V portable HISTORY: Shortness of breath. COMPARISON: Chest 11/24/2021. FINDINGS: No pneumothorax. The heart remains mildly enlarged. Right jugular central venous catheter terminate at the SVC. There are poststernotomy changes and an aortic valve prosthesis. Small bilateral pleural effusions and patchy bibasilar densities persist. There is mild interstitial pulmonary edema, unchanged. IMPRESSION: 1. No change in the mild interstitial pulmonary edema and small bilateral pleural effusions. 2. Patchy bibasilar densities also persist and are nonspecific. This could be due to atelectasis from the pleural effusions or a pneumonia. ACT 112: Negative or not required by law. Electronically signed by: Shankar Santamaria M.D. 11/25/2021 8:21 AM Medications Administered Current Inpatient Medications Acetaminophen (Acetaminophen 325 Mg Tab) 650 mg PO Q4H PRN PRN Reason: Pain or Fever Stop: 12/18/21 02:17 Last Admin: 11/24/21 19:46 Dose: 650 mg Documented by: Albuterol (Albuterol 0.083% Nebu Soln 3 Ml Vial) 2.5 mg NEB Q6R PRN; Protocol PRN Reason: Shortness Of Breath Or Wheezing Stop: 12/24/21 15:47 Last Admin: 11/24/21 20:09 Dose: 2.5 mg Documented by: Alprazolam (Alprazolam 0.25 Mg Tablet) 0.25 mg PO Q12H PRN PRN Reason: Anxiety Stop: 12/21/21 12:21 Last Admin: 11/24/21 12:26 Dose: 0.25 mg Documented by: Amlodipine Besylate (Amlodipine Besylate 5 Mg Tab) 10 mg PO DAILY GENOVEVA Stop: 12/18/21 08:59 Last Admin: 11/25/21 08:15 Dose: 10 mg Documented by: Aspirin (Aspirin 81 Mg Ectab) 81 mg PO QAM GENOVEVA Stop: 12/18/21 08:59 Last Admin: 11/25/21 08:15 Dose: 81 mg Documented by: Atorvastatin Calcium (Atorvastatin 20 Mg Tab) 20 mg PO HS GENOVEVA Stop: 12/18/21 20:59 Last Admin: 11/24/21 20:48 Dose: 20 mg Documented by: Calcium Carbonate (Calcium Carbonate 1250mg Tab) 600 mg PO DAILY GENOVEVA Stop: 12/25/21 08:59 Last Admin: 11/25/21 09:25 Dose: 600 mg Documented by: Dextrose (Dextrose 50% 50 Ml Syringe) 25 - 50 ml IV UD PRN; Protocol PRN Reason: Hypoglycemia Protocol Stop: 12/18/21 02:17 Docusate Sodium (Docusate Sodium 100 Mg Cap) 100 mg PO BID GENOVEVA Stop: 12/20/21 20:59 Last Admin: 11/25/21 08:14 Dose: 100 mg Documented by: Furosemide (Furosemide 20 Mg Tab) 20 mg PO DAILY GENOVEVA Stop: 12/25/21 08:59 Last Admin: 11/25/21 09:26 Dose: 20 mg Documented by: Glucagon (Glucagon For Inj 1 Mg Vial) 1 mg SQ UD PRN; Protocol PRN Reason: Hypoglycemia Protocol Stop: 12/18/21 02:17 Glucose (Glucose 10 Tabs/Tube) 4 - 8 tabs PO UD PRN; Protocol PRN Reason: Hypoglycemia Protocol Stop: 12/18/21 02:17 Glucose (Glucose 40% Gel 15 Gm Tube) 15 - 30 gm PO UD PRN; Protocol PRN Reason: Hypoglycemia Protocol Stop: 12/18/21 02:17 Glycerin (Glycerin Adult 12 Supp/Box Supp) 1 supp [place] ONE ONE Stop: 11/25/21 10:46 Heparin Sodium (Beef Lung) (Heparin 10 Unit/Ml 5 Ml Flush) 5 ml FLUSH PRN PRN PRN Reason: Flush Stop: 12/22/21 17:10 Heparin Sodium (Porcine) (Heparin Sod 5,000 Unit/0.5 Ml Vial) 5,000 units SQ Q12 GENOVEVA Stop: 12/20/21 09:44 Last Admin: 11/25/21 08:15 Dose: 5,000 units Documented by: Promethazine HCl 12.5 mg/ (Sodium Chloride) 50.5 mls @ 202 mls/hr IV Q6H PRN PRN Reason: Nausea And Vomiting Stop: 12/18/21 02:17 Last Infusion: 11/19/21 17:16 Dose: Infused Documented by: Prochlorperazine 5 mg/ Syringe 5 mls @ 5 mls/min IV Q6H PRN PRN Reason: Nausea And Vomiting Stop: 12/19/21 17:26 Last Admin: 11/19/21 18:31 Dose: 5 mls/min Documented by: Ceftriaxone Sodium 2,000 mg/ (Dextrose) 70 mls @ 140 mls/hr IV Q24H [facility]; Protocol Stop: 01/02/22 20:59 Last Infusion: 11/24/21 21:17 Dose: Infused Documented by: Insulin Aspart (Insulin Aspart Per Unit) 0 units SC ACHS [facility] Stop: 12/18/21 02:17 Last Admin: 11/25/21 08:11 Dose: 6 units Documented by: Ipratropium [place] (Ipratropium [place] Neb Soln 0.02% 2.5 Ml Vial) 0.5 mg INH Q4H PRN PRN Reason: SOB, WHEEZE Stop: 12/18/21 02:17 Last Admin: 11/18/21 12:09 Dose: 0.5 mg Documented by: Levalbuterol HCl (Levalbuterol 1.25mg/0.5ml Neb) 1.25 mg INH Q4H PRN PRN Reason: SOB, WHEEZE Stop: 12/18/21 02:17 Last Admin: 11/18/21 12:09 Dose: 1.25 mg Documented by: Lorazepam (Lorazepam 2 Mg/1 Ml Vial) 0.25 mg IV Q4H PRN PRN Reason: nausea Stop: 12/19/21 17:26 Last Admin: 11/21/21 20:19 Dose: 0.25 mg Documented by: Meclizine HCl (Meclizine Hcl 25 Mg Tab) 25 mg PO DAILY [facility] Stop: 12/25/21 08:59 Last Admin: 11/25/21 08:14 Dose: 25 mg Documented by: Metoprolol Succinate (Metoprolol Succ 25mg Ext Rel Tab) 25 mg PO QAM [place]A Stop: 12/18/21 08:59 Last Admin: 11/25/21 08:15 Dose: 25 mg Documented by: Miscellaneous (Carbohydrates For Hypoglycemia ) 15 - 30 gm PO UD PRN PRN Reason: Hypoglycemia Protocol Stop: 12/18/21 02:17 Miscellaneous Information (Vancomycin Consult Active) 1 ea N/A UD PRN PRN Reason: Consult Stop: 12/19/21 02:47 Ondansetron HCl (Ondansetron Inj 2 Mg/Ml 2 Ml Vial) 4 mg IV Q8H PRN PRN Reason: Nausea And Vomiting Stop: 12/19/21 13:52 Last Admin: 11/22/21 11:44 Dose: 4 mg Documented by: Oxycodone HCl (Oxycodone Hcl Ir 5 Mg Tab (Immediate Release)) 5 mg PO Q4H PRN PRN Reason: Pain Stop: 12/02/21 02:17 Last Admin: 11/20/21 22:48 Dose: 5 mg Documented by: Polyethylene Glycol (Polyethylene (Miralax) 17 Gm Pack) 17 gm PO DAILY PRN PRN Reason: Constipation Stop: 12/25/21 10:19 Vitamin D (Cholecalciferol 1,000 Units 25 Mcg Tab) 2,000 units PO DAILY GENOVEVA Stop: 12/25/21 08:59 Last Admin: 11/25/21 09:25 Dose: 2,000 units Documented by:
[2021-11-25] MEDS ORDERED: GLYCERIN ADULT 12 SUPP/BOX SUPP PR ONE (10:45)
[2021-11-25] MEDS: ALPRAZolam 0.25 MG TABLET PO PRN (12:25)
--- NOTE | 2021-11-25 14:46 | Pharmacy Report ---
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 Pharmacy to dose vancomycin. * Pertinent microbiologic data includes: BLCXs x 4 no growth to date, repeat BLCXs collected 11/24 and also remain negative thus far. No yeast or hyphae in fungal BLCX stain. Multiple serologies pending. * Day # 7 of antimicrobial therapy (Day 7 vancomycin, day 5 ceftriaxone after receiving 2 days cefepime) * YOUSIF improving based upon SCr and increasing UOP. No further plans for HD per nephrology consult Plan Vancomycin * AUC/HERMAN is the preferred PK/PD target for vancomycin however pt currently is not an ideal candidate due to changing renal fxn, however it appears her renal fxn is nearing her baseline. * Random AM level have been used the last several days to guide dosing. Random level of 16.4 this AM indicates need for redosing. Will resume 1000mg IV Q 24 hrs with close monitoring. This regimen is anticipated to produce a AUC/HERMAN 400-600 with 14% risk of nephrotoxicity. Plan to check trough in 48 hrs if renal fxn stable and continues to improve. Pharmacy will continue to follow and will adjust dose/frequency as necessary. Thank you.
[2021-11-25 14:47] LABS: HBSAG NON-REACTIVE (NON-REACTIVE); Hepatitis B Surface Ab, Quant <5 mIU/mL (> OR = 10)
[2021-11-25] MEDS: ATORVASTATIN 20 MG TAB PO SCH (20:37)
[2021-11-25] MEDS: cefTRIAXone SODIUM 2,000 MG in DEXTROSE 5% 50 ML IV SCH (20:39)
[2021-11-26] MEDS: ALPRAZolam 0.25 MG TABLET PO PRN ×2 (00:09→11:43)
[2021-11-26 06:56] LABS: Hematocrit (blood only) 27.6 % (37-47); Hemoglobin 8.8 g/dL (12.0-16.0); Mean Corpuscular Hemoglobin 27.2 pg (25-34); Mean Corpuscular Hgb Conc 31.9 g/dL (32-36); Mean Corpuscular Volume 85.2 fL (80-100); Mean Platelet Volume 9.8 fL (7.4-10.4); Platelet Count 502 K/uL (130-400); RDW Coefficient of Variation 14.1 % (11.5-14.5); RDW Standard Deviation 43.5 fL (36.4-46.3); Red Blood Count 3.24 M/uL (4.2-5.4); White Blood Count 9.21 K/uL (4.8-10.8)
[2021-11-26 07:24] LABS: BUN Creatinine Ratio 36.7 (10-20); Calcium 8.9 mg/dl (8.5-10.1); Creatinine Clr Calc Pharmacy 34.3 ml/min; Est GFR (African American) 44.1 ml/min; Est GFR (Non-African American) 38.1 ml/min; Potassium 3.8 mmol/L (3.5-5.1)
[2021-11-26] MEDS: INSULIN ASPART PER UNIT SC SCH ×4 (07:51→20:36)
[2021-11-26] MEDS: VANCOMYCIN HCL 1,000 MG in SODIUM CHLORIDE 0.9% 250 ML IV SCH (08:46)
[2021-11-26] MEDS: HEPARIN SOD 5,000 UNIT/0.5 ML VIAL SQ SCH ×2 (08:50→20:38)
[2021-11-26] MEDS: FUROSEMIDE 20 MG TAB PO SCH (08:51)
[2021-11-26] MEDS: METOPROLOL SUCC 25MG EXT REL TAB PO SCH (08:51)
[2021-11-26] MEDS: MECLIZINE HCL 25 MG TAB PO SCH (08:52)
[2021-11-26] MEDS: CHOLECALCIFEROL 1,000 UNITS 25 MCG TAB PO SCH (08:53)
[2021-11-26] MEDS: CALCIUM CARBONATE 1250MG TAB PO SCH (08:53)
[2021-11-26] MEDS: amLODIPine BESYLATE 5 MG TAB PO SCH (08:55)
--- NOTE | 2021-11-26 10:12 | Cardiology Progress Note ---
Date of Service November 26, 2021 Assessment & Plan (1) Acute hypoxemic respiratory failure: (2) Acute exacerbation of CHF (congestive heart failure): (3) Prosthetic aortic valve stenosis: (4) Mitral regurgitation: (5) Aortic valve vegetation: (6) LBBB (left bundle branch block): (7) Paroxysmal atrial fibrillation: Plan: Small mobile echodensity adherent to bioprosthetic aortic valve struts observed on the parasternal long axis view via November 18, 2021 TTE Cultures negative Differential diagnosis includes culture negative endocarditis, thrombus, tumor. Continue IV vancomycin and ceftriaxone (? 6 weeks) Diastolic heart failure secondary to valvular heart disease. Decompensated Additional IV furosemide, along with supplement potassium. Possible paroxysmal atrial fibrillation on presentation. Maintaining sinus via review of telemetry though with PAC's. Continue beta-skylar therapy Risks of anticoagulation currently appear greater than the benefit Mild troponin Asymptomatic Not indicative of acute ACS. Likely secondary to CHF/hypoxia Left bundle branch block.EF 45-50%. Admission and Anticipated Discharge Date Admission Date: November 18, 2021 Supervising Physician Co-Signing Physician Notes Patient was seen and examined. Agree with plan as above additional single dose of IV furosemide today may need further increase in dosing. Goal maintain equal to slightly negative I's and O's Subjective Patient seen and examined. Chart, medications, and telemetry reviewed. Did not sleep well. Increased shortness of breath. No chest pain or palpitations Telemetry: Sinus with PACs in the 80's, left bundle branch block pattern November 18, 2021 TTE Interpretation Summary ([facility], Dr. Thompson): EF 50-55%. Moderate concentric LVH. Septal motion consistent with conduction abnormality. Moderately dilated LA. Bioprosthetic AV with elevated gradients suggesting obstructdion. Peak systolic velocity 412 cm/sec. Mild bioprosthetic AV regurgitation. Small mobile echodensity adherent to bioprosthetic aortic valve struts seen in the parasternal long axis view. Differential diagnosis includes vegetation, thrombus, and less likely tumor. Moderate to severe mitral regurgitation. Moderate tricuspid regurgitation. Estimated systolic pulmonary pressure 62 mmHg. November 24, 2021 Limited [facility] Normal size left ventricle. Moderate concentric LVH. Ejection fraction 45 to 50%. Aortic valve not well visualized. Bioprosthetic aortic valve gradients are elevated suggesting obstruction. Peak systolic velocity 4.1 m/s. Mild bioprosthetic aortic valve regurgitation. Severe mitral regurgitation. Mild tricuspid regurgitation. RVSP severely elevated at greater than 60 mmHg Review of Systems Review of Systems: Complete review of systems is otherwise as stated above, negative, or noncontributory. Physical Exam Physical Exam: General: A&Ox3. HENT: Normocephalic. Atraumatic. Eyes: PER. Conjunctiva pink, sclera clear. Heart: Distant heart sounds. Irregular with ectopy in the 80s. Grade III/ systolic murmur. Lungs: Bibasilar rales. No wheeze. Abdomen: +BS. Soft. Nontender. No masses or organomegaly. Extremities: No clubbing, cyanosis, or edema. No evidence of embolic phenomenon Limited neurological examination is without focal deficits. Results & Data ([facility]) Vital Signs (Past 12 Hours) Vital Signs Temp Pulse Pulse Pulse Resp BP BP 11/26/21 08:44 79 133/55 L 11/26/21 07:34 37.1 C 77 26 H 153/75 H 11/26/21 07:15 51 L 20 11/26/21 04:03 36.8 C 70 18 148/62 H 11/26/21 02:55 72 20 11/26/21 01:32 78 18 11/26/21 00:28 80 29 H 11/25/21 22:46 36.8 C 80 18 146/69 H 11/25/21 22:32 80 20 11/25/21 22:18 75 Pulse Ox 11/26/21 08:44 11/26/21 07:34 91 11/26/21 07:15 91 11/26/21 04:03 95 11/26/21 02:55 92 11/26/21 01:32 93 11/26/21 00:28 95 11/25/21 22:46 90 11/25/21 22:32 92 11/25/21 22:18 Laboratory Results Laboratory Results - last 24 hr 11/22/21 11/22/21 11/23/21 11:28 11:50 04:21 WBC RBC Hgb Hct MCV MCH MCHC RDW Std Deviation RDW Coeff of Roberto Plt Count MPV Sodium Potassium Chloride Carbon Dioxide Anion Gap BUN Creatinine Est Cr Clr Drug Dosing Est GFR ( Amer) Est GFR (Non-Af Amer) BUN/Creatinine Ratio Glucose POC Glucose Calcium Bartonella henselae IgG Pending Bartonella henselae IgM Pending Bartonella chu IgG Pending Bartonella chu IgM Pending Brucella IgG Antibody Pending Brucella IgM Antibody Pending Chlamydia Source Cancelled C. pneumoniae DNA (PCR) Cancelled Hep Bs Antigen NON-REACTIVE Hep Bs Ag Confirmation DNR Hep Bs Antibody, Quant <5 L Urine Legionella Ag SEE NOTE Mycoplasma pneumon IgG Pending Mycoplasma pneumon IgM Pending 11/25/21 11/25/21 11/25/21 11:32 16:33 20:12 WBC RBC Hgb Hct MCV MCH MCHC RDW Std Deviation RDW Coeff of Roberto Plt Count MPV Sodium Potassium Chloride Carbon Dioxide Anion Gap BUN Creatinine Est Cr Clr Drug Dosing Est GFR ( Amer) Est GFR (Non-Af Amer) BUN/Creatinine Ratio Glucose POC Glucose 187 H 156 H 180 H Calcium Bartonella henselae IgG Bartonella henselae IgM Bartonella chu IgG Bartonella chu IgM Brucella IgG Antibody Brucella IgM Antibody Chlamydia Source C. pneumoniae DNA (PCR) Hep Bs Antigen Hep Bs Ag Confirmation Hep Bs Antibody, Quant Urine Legionella Ag Mycoplasma pneumon IgG Mycoplasma pneumon IgM 11/26/21 11/26/21 11/26/21 06:12 06:12 07:29 WBC 9.21 RBC 3.24 L Hgb 8.8 L Hct 27.6 L MCV 85.2 MCH 27.2 MCHC 31.9 L RDW Std Deviation 43.5 RDW Coeff of Roberto 14.1 Plt Count 502 H MPV 9.8 Sodium 142 Potassium 3.8 Chloride 104 Carbon Dioxide 30 Anion Gap 8 BUN 47 H Creatinine 1.28 H Est Cr Clr Drug Dosing 34.3 Est GFR ( Amer) 44.1 Est GFR (Non-Af Amer) 38.1 BUN/Creatinine Ratio 36.7 H Glucose 156 H POC Glucose 188 H Calcium 8.9 Bartonella henselae IgG Bartonella henselae IgM Bartonella chu IgG Bartonella chu IgM Brucella IgG Antibody Brucella IgM Antibody Chlamydia Source C. pneumoniae DNA (PCR) Hep Bs Antigen Hep Bs Ag Confirmation Hep Bs Antibody, Quant Urine Legionella Ag Mycoplasma pneumon IgG Mycoplasma pneumon IgM (1) Acute exacerbation of CHF (congestive heart failure) Heart failure type: unspecified Qualified Code(s): I50.9 - Heart failure, unspecified
[2021-11-26] MEDS ORDERED: FUROSEMIDE INJ 20 MG/2 ML VIAL IV ONE (10:13)
[2021-11-26] MEDS ORDERED: POTASSIUM CHLORIDE CRTAB 20 MEQ TABCR PO ONE (10:14)
[2021-11-26] MEDS: PROCHLORPERAZINE 5 MG in SYRINGE 4 ML IV PRN (10:50)
[2021-11-26] MEDS: ASPIRIN 81 MG ECTAB PO SCH (10:56)
[2021-11-26] MEDS: DOCUSATE SODIUM 100 MG CAP PO SCH ×2 (10:56→20:37)
--- NOTE | 2021-11-26 12:10 | Nephrology Progress Note ---
Date of Service November 26, 2021 Assessment & Plan (1) Acute kidney injury: (2) Acute hypoxemic respiratory failure: (3) Oliguria: (4) Hyperphosphatemia: Plan: 86-year-old female with severe with h/o prosthetic AV, severe MR, but not candidate for TVAR at this point, new finding of ovarian mass admitted with respiratory distress, developed acute kidney injury most likely hemodynamically mediated with multiple IV contrast exposure. Renal function has been rapidly declining with decrease in his urine output and respiratory distress and had HD for 2 h on 11/23/21 via catheter. YOUSIF [id number], cr back to baseline, decent UO. BP stable. -- monitor urine output, electrolytes and renal function -- continue lasix 20 mg daily, increase as needed, encourage po intake. Will sign off, no further Nephrology f/u need at this time. Admission and Anticipated Discharge Date Admission Date: November 18, 2021 Subjective Gely was evaluated this morning, denies significant SOB. UO decent. BP stable, electrolyte acceptable. Renal function improving, cr down to 1.2 Review of Systems Review of Systems: Detailed review of system was otherwise unremarkable except mentioned above. Physical Exam Constitutional: WD/WN, vitals as above + ill appearing Eyes: + anicteric sclerae Respiratory: Auscultation: + diminished lung sounds Cardiovascular: Rate/Rhythm: regular rate and regular rhythm Heart Sounds: normal S1, normal S2 and + murmur Extremities: no edema Skin: no rashes Neurologic: no focal motor deficits and not confused Psychiatric: Orientation: alert, oriented to person and cooperative Results & Data ([facility]) Vital Signs (Past 12 Hours) Vital Signs Temp Pulse Pulse Resp BP BP Pulse Ox 11/26/21 11:01 78 21 94 11/26/21 08:44 79 133/55 L 11/26/21 07:34 37.1 C 77 26 H 153/75 H 91 11/26/21 07:15 51 L 20 91 11/26/21 04:03 36.8 C 70 18 148/62 H 95 11/26/21 02:55 72 20 92 11/26/21 01:32 78 18 93 11/26/21 00:28 80 29 H 95 PG Care Time/CCT Total # of Minutes Spent Total Time Spent with Patient: Total time spent is greater than 50% in coordination of care (as documented) at patient's floor/unit and/or counseling patient: Coding Level of Care Code 93069 Subseq Hosp Care Lvl 2 Diagnoses Acute kidney injury N17.9 Acute hypoxemic respiratory failure J96.01 Oliguria R34 Hyperphosphatemia E83.39
[2021-11-26] MEDS: ACETAMINOPHEN 325 MG TAB PO PRN (13:19)
--- NOTE | 2021-11-26 14:17 | Hospitalist Progress Note ---
Date of Service November 26, 2021 Assessment & Plan (1) Endocarditis: Plan: 86-year-old lady with PMH of chronic diastolic heart failure [EF 50 to 54%, TTE 2020], chronic LBBB, ASD status post bioprosthetic AVR, valvular heart disease [moderate MR, moderate TR, mild prosthetic aortic valve regurgitation], PVD status post surgery, pulmonary hypertension, HTN, HLD, DM2 on oral meds, CRI [baseline creatinine 1.3], ovarian masses, anxiety disorder and past tobacco abuse presented to our ED 11/18 with 4 days complaint of nausea, weakness, dry cough, shortness of breath and achy lower abdominal discomfort. She is being managed for the following: #. Acute hypoxemic respiratory failure: #. Pulmonary edema #. Acute on Chronic diastolic heart failure #. Possible Pneumonia Patient denies any recent history of swelling, developed some shortness of breath just prior to arrival, found to have pulmonary edema on admission. 11/19 CTA chest: No evidence of for PE. Positive for mild asymmetric pulmonary edema. Positive for possible pneumonia. Patient is status post hemodialysis x1 via catheter and is being diuresed. HD catheter removed 11/25, was not sent for culture per RN, order for culture will be DC'd. Serial imagings done to follow-up on pulmonary edema, which has been fluctuating. 11/18 echo: EF 50 to 55%, moderate concentric LVH, mild bioprosthetic AV regurgitation, small mobile echodensity adherent to bioprosthetic aortic valve noted. She has a h/o reduced systolic function in the past per outpatient cardiology records. Patient requiring high flow nasal cannula oxygen, has subjective shortness of breath, BiPAP as needed Cardiology on board, appreciate recommendations. Additional dose of IV Lasix today. Wean down oxygen as tolerated. BPAP prn. Pt on antibiotic (see below) Cont low salt diet, daily weights. Strict I/Os. #. Aortic valve vegetation: She has a h/o aortic valve replacement with tissue valve in [place] in 2011. Possible PVE given fever and prosthetic valve vegetation on echo (see above) ID evaluated. Cultures have been negative. Vancomycin plus ceftriaxone is recommended as the preferred antibiotic regimen in this case as common organisms for presumed endocarditis include Staphylococci, VGS and Enterococcus.Prolonged duration of Antibiotic per ID, once serologic testing is out, reach out to ID with updates and recs on duration. Repeat limited echocardiogram on 11/24 revealed still with severe MR, EF now 45- 50% instead of 50-55%. Persistently elevated aortic valve gradients suggesting obstruction. Persistently elevated pulmonary pressure. YONG may be high risk at this time. Cont management per cardiology. #. Paroxysmal Afib at presentation maintianing SR, on tele, c/w beta skylar. Card evaluated, appreciated recs, no anticoagulation currently. (3) Acute kidney injury/ CKD III Plan: Cr back to baseline. Resolved. Nephro evaluated, c/w lasix 20 mg daily. increase as needed. #. Other chronic medical condition: s/p AVR 2012 bioprosthetic, LBBB, T2DM, ovarian mass Continue with/resume home medications as and when appropriate. Continue with sliding scale insulin For ovarian mass, [place] [facility] [facility] [place] she has 2 pelvic cysts at vaginal cuff in February 2021 per transvaginal ultrasound the right cyst was 7.6 x 7 x 7 cm with speckled debris. The left cyst was 6 x 4 x 4 cm. Compared to images from September 2016 these were unchanged in appearance. Both cysts appear to be debris-filled or just cystic in nature and given the lack of guide changer time, it was felt that this was not consistent with malignancy and surveillance was not necessary. #. DVT prophylaxis: Heparin subQ Conditional code- ok with intubation, no CPR Dispo-cont PCU, uncertain at this time as patient still requiring vapotherm support. 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 Patient lying in bed, on 60 L high flow nasal cannula, NAD, no new acute events overnight. Patient reports feeling short of breath though her SaO2 is 92%. Will use BiPAP as needed. Patient reports eating less, moving bowels "so so", patient denies headache/dizziness/chest pain/palpitations/belly pain/other review of symptoms. Updated patient's daughter at bedside about the current status of the patient and answered all her questions. She voiced understanding and was agreeable to the plan of care. Physical Exam Physical Exam: GENERAL: Alert and oriented x3. NAD, on 60 HFNC O2. HEENT: No pallor, no icterus. Pupils equal, round and reactive to light. Oral mucosa moist. NECK: No JVD, no neck masses. HEART: S1 and S2 heard. Regular rate and rhythm. Systolic murmur over aortic area, no gallop. RESPIRATORY SYSTEM: Normal AP diameter. No accessory muscle use. No wheezing, bilaterally upper lobes crackles. decreases bibasal breath sounds. ABDOMEN: Soft, bowel sounds present, nontender, no distention. CENTRAL NERVOUS SYSTEM: No facial droop. Speech is clear. Obeys simple commands. Moves extremities. EXTREMITIES: No edema, no erythema seen. Results & Data Results & Data ([facility]) Vital Signs (Past 12 Hours) Vital Signs Temp Pulse Pulse Pulse Resp BP BP 11/26/21 14:00 82 22 11/26/21 13:14 79 33 H 11/26/21 12:00 37.0 C 87 16 128/65 11/26/21 11:01 78 21 11/26/21 08:44 79 133/55 L 11/26/21 07:34 37.1 C 77 26 H 153/75 H 11/26/21 07:15 51 L 20 11/26/21 04:03 36.8 C 70 18 148/62 H 11/26/21 02:55 72 20 Pulse Ox 11/26/21 14:00 91 11/26/21 13:14 92 11/26/21 12:00 97 11/26/21 11:01 94 11/26/21 08:44 11/26/21 07:34 91 11/26/21 07:15 91 11/26/21 04:03 95 11/26/21 02:55 92
[2021-11-26] MEDS: ALPRAZolam 0.5 MG TABLET PO PRN (18:07)
[2021-11-26] MEDS: ATORVASTATIN 20 MG TAB PO SCH (20:37)
[2021-11-26] MEDS: cefTRIAXone SODIUM 2,000 MG in DEXTROSE 5% 50 ML IV SCH ×2 (20:39→22:01)
[2021-11-27] MEDS: ALPRAZolam 0.5 MG TABLET PO PRN ×3 (02:03→17:47)
[2021-11-27] MEDS: ACETAMINOPHEN 325 MG TAB PO PRN ×2 (02:28→15:40)
[2021-11-27] MEDS ORDERED: ALBUMIN 25% 12.5 GM/50 ML VIAL IV ONE (05:57)
[2021-11-27] MEDS: INSULIN ASPART PER UNIT SC SCH ×4 (07:45→20:17)
[2021-11-27] MEDS ORDERED: VANCOMYCIN TROUGH ONE (08:30)
[2021-11-27 08:56] LABS: Hematocrit (blood only) 31.2 % (37-47); Mean Corpuscular Hemoglobin 27.5 pg (25-34); Mean Corpuscular Hgb Conc 32.1 g/dL (32-36); Mean Corpuscular Volume 85.7 fL (80-100); Mean Platelet Volume 9.2 fL (7.4-10.4); Platelet Count 553 K/uL (130-400); RDW Coefficient of Variation 14.2 % (11.5-14.5); RDW Standard Deviation 43.8 fL (36.4-46.3); Red Blood Count 3.64 M/uL (4.2-5.4); White Blood Count 10.29 K/uL (4.8-10.8)
[2021-11-27] MEDS: CALCIUM CARBONATE 1250MG TAB PO SCH (09:07)
[2021-11-27] MEDS: ASPIRIN 81 MG ECTAB PO SCH (09:08)
[2021-11-27] MEDS: amLODIPine BESYLATE 5 MG TAB PO SCH (09:08)
[2021-11-27] MEDS: HEPARIN SOD 5,000 UNIT/0.5 ML VIAL SQ SCH ×2 (09:08→20:19)
[2021-11-27] MEDS: MECLIZINE HCL 25 MG TAB PO SCH (09:08)
[2021-11-27] MEDS: FUROSEMIDE 20 MG TAB PO SCH (09:08)
[2021-11-27] MEDS: CHOLECALCIFEROL 1,000 UNITS 25 MCG TAB PO SCH (09:08)
[2021-11-27] MEDS: METOPROLOL SUCC 25MG EXT REL TAB PO SCH ×2 (09:09→20:20)
[2021-11-27] MEDS: DOCUSATE SODIUM 100 MG CAP PO SCH ×2 (09:12→20:21)
[2021-11-27 09:13] LABS: BUN Creatinine Ratio 34.3 (10-20); Calcium 9.4 mg/dl (8.5-10.1); Est GFR (African American) 41.8 ml/min; Magnesium 1.7 mg/dl (1.7-2.4); Phosphorus 3.6 mg/dl (2.5-4.9); Potassium 3.9 mmol/L (3.5-5.1)
--- NOTE | 2021-11-27 09:26 | Cardiology Progress Note ---
Date of Service November 27, 2021 Assessment & Plan (1) Acute hypoxemic respiratory failure: (2) Acute exacerbation of CHF (congestive heart failure): (3) Prosthetic aortic valve stenosis: (4) Mitral regurgitation: (5) Aortic valve vegetation: (6) LBBB (left bundle branch block): (7) Paroxysmal atrial fibrillation: Plan: Small mobile echodensity adherent to bioprosthetic aortic valve struts observed on the parasternal long axis view via November 18, 2021 TTE Cultures negative Differential diagnosis includes culture negative endocarditis, thrombus, tumor. IV antibiotics x 6 weeks Diastolic heart failure secondary to valvular heart disease. Volume status appears compensated. Still high respiratory demands Portable chest x-ray requested Possible paroxysmal atrial fibrillation on presentation. Maintaining sinus via review of telemetry though with atrial and ventricular ectopy. Increase metoprolol succinate to 25 mg twice a day. Risks of anticoagulation currently appear greater than the benefit Mild troponin Asymptomatic Not indicative of acute ACS. Likely secondary to CHF/hypoxia Hypertension. Acceptably controlled. Follow. Left bundle branch block. EF 45-50%. Admission and Anticipated Discharge Date Admission Date: November 18, 2021 Supervising Physician Co-Signing Physician Notes Patient was seen and examined all studies reviewed. Chest x-ray performed today demonstrates worsening alveolar infiltration and edema. Exam does not suggest significant volume overload. We will give an additional 40 mg IV furosemide now Progression in findings on chest x-ray concerning Subjective Patient seen and examined. Chart, medications, and telemetry reviewed. Generally feels unwell. Notes feeling much better after lorazepam; doesn't think every 8 hours is enough. Notes taking it for the last 35 years (since the of her son) Ongoing dyspnea. No chest pain. No palpitations. No peripheal edema. Telemetry: Sinus with atrial and ventricular ectopy, heart rates primarily in the 80's and 90's. I/O's negative 857 mL's overall Review of Systems Review of Systems: Complete Review of Systems is as stated above, negative, or noncontributory. Physical Exam Physical Exam: General: A&Ox3. HENT: Normocephalic. Atraumatic. Eyes: PER. Conjunctiva pink, sclera clear. Heart: Distant heart sounds. Irregular with ectopy in the 80s. Grade III/ systolic murmur. Lungs: Clear. No wheeze. Abdomen: +BS. Soft. Nontender. No masses or organomegaly. Extremities: No clubbing, cyanosis, or edema. No evidence of embolic phenomenon Limited neurological examination is without focal deficits Results & Data ([facility]) Vital Signs (Past 12 Hours) Vital Signs Temp Pulse Pulse Resp BP Pulse Ox 11/27/21 07:23 36.7 C 79 24 154/66 H 96 11/27/21 07:07 83 29 H 90 11/27/21 03:42 36.6 C 82 24 135/73 96 11/27/21 02:40 78 20 95 11/27/21 01:35 78 18 92 11/26/21 23:48 100 H 28 H 94 11/26/21 22:56 36.9 C 86 24 151/74 H 96 Laboratory Results Laboratory Results - last 24 hr 11/26/21 11/26/21 11/26/21 11:21 16:20 20:13 WBC RBC Hgb Hct MCV MCH MCHC RDW Std Deviation RDW Coeff of Roberto Plt Count MPV Sodium Potassium Chloride Carbon Dioxide Anion Gap BUN Creatinine Est Cr Clr Drug Dosing Est GFR ( Amer) Est GFR (Non-Af Amer) BUN/Creatinine Ratio Glucose POC Glucose 171 H 230 H 165 H Calcium Phosphorus Magnesium Vancomycin Trough 11/27/21 11/27/21 11/27/21 07:37 08:32 08:32 WBC 10.29 RBC 3.64 L Hgb 10.0 L Hct 31.2 L MCV 85.7 MCH 27.5 MCHC 32.1 RDW Std Deviation 43.8 RDW Coeff of Roberto 14.2 Plt Count 553 H MPV 9.2 Sodium Potassium Chloride Carbon Dioxide Anion Gap BUN Creatinine Est Cr Clr Drug Dosing Est GFR ( Amer) Est GFR (Non-Af Amer) BUN/Creatinine Ratio Glucose POC Glucose 190 H Calcium Phosphorus Magnesium Vancomycin Trough Pending 11/27/21 08:32 WBC RBC Hgb Hct MCV MCH MCHC RDW Std Deviation RDW Coeff of Roberto Plt Count MPV Sodium 146 H Potassium 3.9 Chloride 106 Carbon Dioxide 32 Anion Gap 8 BUN 46 H Creatinine 1.34 H Est Cr Clr Drug Dosing 33.0 Est GFR ( Amer) 41.8 Est GFR (Non-Af Amer) 36.0 BUN/Creatinine Ratio 34.3 H Glucose 208 H POC Glucose Calcium 9.4 Phosphorus 3.6 Magnesium 1.7 Vancomycin Trough Diagnostic Findings November 18, 2021 TTE Interpretation Summary ([facility], [facility]. Thompson): EF 50-55%. Moderate concentric LVH. Septal motion consistent with conduction abnormality. Moderately dilated LA. Bioprosthetic AV with elevated gradients suggesting obstructdion. Peak systolic velocity 412 cm/sec. Mild bioprosthetic AV regurgitation. Small mobile echodensity adherent to bioprosthetic aortic valve struts seen in the parasternal long axis view. Differential diagnosis includes vegetation, thrombus, and less likely tumor. Moderate to severe mitral regurgitation. Moderate tricuspid regurgitation. Estimated systolic pulmonary pressure 62 mmHg. November 24, 2021 Limited TTE Interpretation Summary ([facility], Dr. Dalton): Normal size left ventricle. Moderate concentric LVH. Ejection fraction 45 to 50%. Aortic valve not well visualized. Bioprosthetic aortic valve gradients are elevated suggesting obstruction. Peak systolic velocity 4.1 m/s. Mild bioprosthetic aortic valve regurgitation. Severe mitral regurgitation. Mild tricuspid regurgitation. RVSP severely elevated at greater than 60 mmHg (1) Acute exacerbation of CHF (congestive heart failure) Heart failure type: unspecified Qualified Code(s): I50.9 - Heart failure, unspecified
[2021-11-27] MEDS: VANCOMYCIN HCL 1,000 MG in SODIUM CHLORIDE 0.9% 250 ML IV SCH (09:56)
--- NOTE | 2021-11-27 10:26 | XRay Report ---
XR chest 1V portable CLINICAL HISTORY: Shortness of breath. COMPARISON STUDY: Chest CT November 19, 2021. Chest radiograph November 24, 2021. FINDINGS: There is no pneumothorax. There are median sternotomy wires and a prosthetic aortic valve. Pulmonary edema has progressed. Extensive bilateral airspace opacities, greater within the left lung, have progressed. Associated air bronchograms are present. Bilateral pleural effusions, left larger t sharpe right, are present. IMPRESSION: 1. Progression of extensive bilateral airspace opacities, greater within the left lung. This could re flect pneumonia or alveolar edema. 2. Progression of interstitial thickening consistent with pulmonary edema. 3. Bilateral pleural effusions, left larger than right. ACT 112: Negative or not required by law. Electronically signed by: Roberto Cruz M.D. 11/27/2021 10:25 AM
--- NOTE | 2021-11-27 10:44 | Pharmacy Report ---
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 Pharmacy to dose vancomycin. * Pertinent microbiologic data includes: BLCXs x 4 no growth to date, repeat BLCXs collected 11/24 and also remain negative thus far. No yeast or hyphae in fungal BLCX stain. Multiple serologies pending. * Day # 9 of antimicrobial therapy (Day 9 vancomycin, day 7 ceftriaxone after receiving 2 days cefepime) * SCr now stable - no further HD planned Vancomycin * AUC/HERMAN is the preferred PK/PD target for vancomycin however pt previously was not an ideal candidate due to changing renal fxn, however it appears her renal fxn is close to baseline now * Trough level 15 mcg/mL today, which is associated with an estimated AUC in goal range * Will re-order trough in 48 hr due to recent fluctuations in renal function, but anticipate that no changes will be necessary Plan * Continue vancomycin 1000 mg IV q24h * Trough 11/29 @ 0830 Pharmacy will continue to follow and will adjust dose/frequency as necessary. Thank you.
[2021-11-27] MEDS ORDERED: FUROSEMIDE 40 MG/4 ML VIAL IV ONE (15:15)
--- NOTE | 2021-11-27 17:00 | Hospitalist Progress Note ---
Date of Service November 27, 2021 Assessment & Plan (1) Endocarditis: Plan: 86-year-old lady with PMH of chronic diastolic heart failure [EF 50 to 54%, TTE 2020], chronic LBBB, ASD status post bioprosthetic AVR, valvular heart disease [moderate MR, moderate TR, mild prosthetic aortic valve regurgitation], PVD status post surgery, pulmonary hypertension, HTN, HLD, DM2 on oral meds, CRI [baseline creatinine 1.3], ovarian masses, anxiety disorder and past tobacco abuse presented to our ED 11/18 with 4 days complaint of nausea, weakness, dry cough, shortness of breath and achy lower abdominal discomfort. She is being managed for the following: #. Acute hypoxemic respiratory failure: #. Pulmonary edema #. Acute on Chronic diastolic heart failure #. Possible Pneumonia Patient denies any recent history of swelling, developed some shortness of breath just prior to arrival, found to have pulmonary edema on admission. 11/19 CTA chest: No evidence of for PE. Positive for mild asymmetric pulmonary edema. Positive for possible pneumonia. Patient is status post hemodialysis x1 via catheter and is being diuresed. HD catheter removed 11/25, was not sent for culture per RN. Serial imagings done to follow-up on pulmonary edema, which has been fluctuating and is particularly worse today. 11/18 echo: EF 50 to 55%, moderate concentric LVH, mild bioprosthetic AV regurgitation, small mobile echodensity adherent to bioprosthetic aortic valve noted. She has a h/o reduced systolic function in the past per outpatient cardiology records. Patient requiring high flow nasal cannula oxygen, has subjective shortness of breath, BiPAP as needed Cardiology on board, appreciate recommendations. Additional dose of IV Lasix today. Worsening b/l crackles today/CXR with worsened findings. Pt and her family made aware. Wean down oxygen as tolerated. BPAP prn. Pt on antibiotic (see below) Cont low salt diet, daily weights. Strict I/Os. #. Aortic valve vegetation: She has a h/o aortic valve replacement with tissue valve in [place] in 2011. Possible PVE given fever and prosthetic valve vegetation on echo (see above) ID evaluated. Cultures have been negative. Vancomycin plus ceftriaxone is recommended as the preferred antibiotic regimen in this case as common organisms for presumed endocarditis include Staphylococci, VGS and Enterococcus.Prolonged duration of Antibiotic per ID, once serologic testing is out, reach out to ID with updates and recs on duration. Repeat limited echocardiogram on 11/24 revealed still with severe MR, EF now 45- 50% instead of 50-55%. Persistently elevated aortic valve gradients suggesting obstruction. Persistently elevated pulmonary pressure. YONG may be high risk at this time. Cont management per cardiology. #. Paroxysmal Afib at presentation On tele, c/w beta skylar. Card evaluated, appreciated recs, no anticoagulation currently. (3) Acute kidney injury/ CKD III Plan: Cr back to baseline. Resolved. --> slightly elevated today, continue to monitor. Nephro evaluated, c/w lasix 20 mg daily. increase as needed. #. Other chronic medical condition: s/p AVR 2012 bioprosthetic, LBBB, T2DM, ovarian mass Continue with/resume home medications as and when appropriate. Continue with sliding scale insulin For ovarian mass, Per [facility] [place] gynecologic oncology clinic she has 2 pelvic cysts at vaginal cuff in February 2021 per transvaginal ultrasound the right cyst was 7.6 x 7 x 7 cm with speckled debris. The left cyst was 6 x 4 x 4 cm. Compared to images from September 2016 these were unchanged in appearance. Both cysts appear to be debris-filled or just cystic in nature and given the lack of private branch exchange service advisor time, it was felt that this was not consistent with malignancy and surveillance was not necessary. #. DVT prophylaxis: Heparin subQ Conditional code- ok with intubation, no chest compression Dispo-cont PCU, uncertain at this time as patient still requiring vapotherm support. Prognosis guarded. 11/27/21: Family meeting with patient, her son and daughter and minesweeping officer from [employer] at bedside. Updated about the current status and worsening prognosis on the patient. Patient decided to go with intubation if needed, no chest compression. Family wishes to have discussion with palliative care doctor. Answered all their questions, they voiced understanding and were agreeable to the plan of ca re. 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 Patient lying in bed, on 60 L high flow nasal cannula, NAD, no new acute events overnight. Patient reports feeling short of breath, also reports eating okay. Use BiPAP as needed. Patient reports moving bowels okay, patient denies headache/dizziness/chest pain/palpitations/belly pain/other review of symptoms. Physical Exam Physical Exam: GENERAL: Alert and oriented x3. NAD, on 60 HFNC O2 at 100%. HEENT: No pallor, no icterus. Pupils equal, round and reactive to light. Oral mucosa moist. NECK: No JVD, no neck masses. HEART: S1 and S2 heard. Regular rate and rhythm. Systolic murmur over aortic area, no gallop. RESPIRATORY SYSTEM: Normal AP diameter. No accessory muscle use. No wheezing, crackles diffuse and bilateral. ABDOMEN: Soft, bowel sounds present, nontender, no distention. CENTRAL NERVOUS SYSTEM: No facial droop. Speech is clear. Obeys simple commands. Moves extremities. EXTREMITIES: No edema, no erythema seen. Results & Data Results & Data ([facility]) Vital Signs (Past 12 Hours) Vital Signs Temp Pulse Pulse Resp BP Pulse Ox 11/27/21 15:26 87 38 H 100 11/27/21 15:00 77 11/27/21 14:13 79 20 93 11/27/21 12:08 36.8 C 90 18 123/68 91 11/27/21 10:54 84 27 H 67 L 11/27/21 07:23 36.7 C 79 24 154/66 H 96 11/27/21 07:07 83 29 H 90 11/27/21 07:00 73
[2021-11-27] MEDS: ATORVASTATIN 20 MG TAB PO SCH (20:20)
[2021-11-27] MEDS: cefTRIAXone SODIUM 2,000 MG in DEXTROSE 5% 50 ML IV SCH (20:21)
[2021-11-28] MEDS: ACETAMINOPHEN 325 MG TAB PO PRN ×2 (01:12→14:38)
[2021-11-28] MEDS: ALPRAZolam 0.5 MG TABLET PO PRN ×4 (01:46→22:22)
[2021-11-28 06:14] LABS: BUN Creatinine Ratio 32.3 (10-20); Calcium 9.4 mg/dl (8.5-10.1); Creatinine Clr Calc Pharmacy 34.8 ml/min; Est GFR (African American) 44.6 ml/min; Est GFR (Non-African American) 38.5 ml/min; Magnesium 1.7 mg/dl (1.7-2.4); Phosphorus 4.5 mg/dl (2.5-4.9); Potassium 4.3 mmol/L (3.5-5.1)
[2021-11-28] MEDS: MECLIZINE HCL 25 MG TAB PO SCH (07:54)
[2021-11-28] MEDS: METOPROLOL SUCC 25MG EXT REL TAB PO SCH ×2 (07:54→20:27)
[2021-11-28] MEDS: CALCIUM CARBONATE 1250MG TAB PO SCH (07:55)
[2021-11-28] MEDS: HEPARIN SOD 5,000 UNIT/0.5 ML VIAL SQ SCH ×2 (07:55→20:27)
[2021-11-28] MEDS: FUROSEMIDE 20 MG TAB PO SCH (07:56)
[2021-11-28] MEDS: CHOLECALCIFEROL 1,000 UNITS 25 MCG TAB PO SCH (07:56)
[2021-11-28] MEDS: ASPIRIN 81 MG ECTAB PO SCH (07:57)
[2021-11-28] MEDS: amLODIPine BESYLATE 5 MG TAB PO SCH (07:57)
[2021-11-28] MEDS: VANCOMYCIN HCL 1,000 MG in SODIUM CHLORIDE 0.9% 250 ML IV SCH (07:58)
[2021-11-28] MEDS: INSULIN ASPART PER UNIT SC SCH ×4 (08:02→20:20)
[2021-11-28] MEDS: DOCUSATE SODIUM 100 MG CAP PO SCH ×2 (08:06→20:30)
[2021-11-28] MEDS: MAGNESIUM SULFATE / D5W 1 GM/100 ML BAG IV SCH ×2 (09:26→09:27)
--- NOTE | 2021-11-28 10:15 | Cardiology Progress Note ---
Date of Service November 28, 2021 Assessment & Plan (1) Acute hypoxemic respiratory failure: (2) Acute exacerbation of CHF (congestive heart failure): (3) Prosthetic aortic valve stenosis: (4) Mitral regurgitation: (5) Aortic valve vegetation: (6) LBBB (left bundle branch block): (7) Paroxysmal atrial fibrillation: Plan: Small mobile echodensity adherent to bioprosthetic aortic valve struts observed on the parasternal long axis view via November 18, 2021 TTE Cultures negative Differential diagnosis includes culture negative endocarditis, thrombus, tumor. IV antibiotics x 6 weeks Diastolic heart failure secondary to valvular heart disease. Chest x-ray on 11/27/2021 with progression of extensive left greater than right bilateral airspace opacities and interstitial thickening, left greater than right pleural effusions. Received 20 mg IV furosemide this morning at 07:56 Additional 40 mg IV furosemide early this afternoon Possible paroxysmal atrial fibrillation on presentation. Metoprolol succinate increased to 25 mg BID on 11/28/2021. Maintaining sinus; rates controlled. Risks of anticoagulation currently appear greater than the benefit Mild troponin Asymptomatic Not indicative of acute ACS. Likely secondary to CHF/hypoxia Hypertension. Acceptably controlled. Follow. Left bundle branch block. EF 45-50%. Admission and Anticipated Discharge Date Admission Date: November 18, 2021 Supervising Physician Co-Signing Physician Notes Patient was seen and examined, chart, medications, telemetry reviewed. Patient appears slightly improved in comparison to day prior. Tolerated IV furosemide without further renal impairment. Chest x-ray as noted yesterday increasing edema and alveolar opacities Continue diuretics at increased dose Subjective Patient seen and examined. Chart, medications, and telemetry reviewed. On BiPAP. "Everything seem better." No chest pain. No palpitations. Telemetry: Sinus with occasional PAC's, heart rates in the 60's and 70's (metoprolol increased on 11/27/2021) Review of Systems Review of Systems: Complete Review of Systems is as stated above, negative, or noncontributory. Physical Exam Physical Exam: General: A&Ox3. HENT: Normocephalic. Atraumatic. Eyes: PER. Conjunctiva pink, sclera clear. Heart: Distant heart sounds. Irregular in the 70s. Grade III/ systolic murmur. Lungs: Decreased. Diminished. Right basilar rales. No wheeze. Abdomen: +BS. Soft. Nontender. No masses or organomegaly. Extremities: No clubbing, cyanosis, or edema. No evidence of embolic phenomenon Limited neurological examination is without focal deficits Results & Data ([facility]) Vital Signs (Past 12 Hours) Vital Signs Temp Pulse Pulse Pulse Resp BP Pulse Ox 11/28/21 09:56 80 24 96 11/28/21 08:24 69 35 H 98 11/28/21 07:40 36.7 C 72 28 H 141/102 H 92 11/28/21 07:16 76 22 92 11/28/21 05:25 78 26 H 93 11/28/21 04:00 36.9 C 65 20 153/66 H 97 11/28/21 02:57 75 28 H 96 11/28/21 00:15 26 H 93 11/27/21 23:18 36.7 C 79 14 140/72 92 11/27/21 23:00 71 11/27/21 22:15 84 22 96 Laboratory Results Laboratory Results - last 24 hr 11/27/21 11/27/21 11/27/21 11:10 16:38 20:01 Sodium Potassium Chloride Carbon Dioxide Anion Gap BUN Creatinine Est Cr Clr Drug Dosing Est GFR ( Amer) Est GFR (Non-Af Amer) BUN/Creatinine Ratio Glucose POC Glucose 223 H 173 H 279 H Calcium Phosphorus Magnesium 11/28/21 11/28/21 05:32 06:50 Sodium 144 Potassium 4.3 Chloride 106 Carbon Dioxide 32 Anion Gap 6 BUN 41 H Creatinine 1.27 H Est Cr Clr Drug Dosing 34.8 Est GFR ( Amer) 44.6 Est GFR (Non-Af Amer) 38.5 BUN/Creatinine Ratio 32.3 H Glucose 173 H POC Glucose 209 H Calcium 9.4 Phosphorus 4.5 Magnesium 1.7 (1) Acute exacerbation of CHF (congestive heart failure) Heart failure type: unspecified Qualified Code(s): I50.9 - Heart failure, unspecified
[2021-11-28] MEDS ORDERED: FUROSEMIDE 40 MG/4 ML VIAL IV ONE (12:00)
--- NOTE | 2021-11-28 12:58 | Palliative Care Consultation ---
Date of Consultation November 28, 2021 Assessment & Plan (1) SOB (shortness of breath): Relieved with bipap for short periods. She does have prn oxycodone for pain which will also help with refractory dyspnea (2) Anxiety: On alprazolam prn. Per RN, she has been getting anxious with breathing and is restless in bed during visit. Increased dosing interval to every 6 hours prn. (3) Palliative care encounter: I met with Gely and her daughter, Maryanne, at bedside. She confirms that Maryanne is her surrogate decision maker. I asked her how she is coping with her illness and she told me "They think I might ". I asked her what her thoughts were about that. She tells me that she has a very strong alice and she believes that it is up to Daniel when her dying time will come. When asked to elaborate, she tells me that she would want any care necessary to keep her alive until Daniel decides it is her time to . She feels that if her heart stops, that is the time that she dies. She would not want chest compressions, cardiac meds or defibrillation in the event of asystole. She would want pressors or other treatment, including intubation and vent support prior to cardiac arrest. We discussed concern that with her current illness and comorbidities, she would likely not have successful outcome with intubation and she acknowledges this. She feels very strongly that this is a spiritual matter for her. She has discussed this with her workforce staffing advisor. Maryanne supports her decision and is comfortable with being her surrogate in the event that Gely is not able to speak for herself. (4) Endocarditis: (5) Acute diastolic heart failure: (6) Acute hypoxemic respiratory failure: History of Present Illness Reason for Consultation: goals of care Requesting Physician: Dr. Madrigal Attending Physician: Buddy Madrigal MD History of Present Illness 86 yo lady with history of diastolic heart failure and bioprosthetic AVR approximately ten years ago. She also has pulmonary hypertension, PVD, diabetes and a benign ovarian mass evaluated by phlebotomy instructor oncology at [facility]. She was admitted with nausea, weakness and shortness of breath and found to have hypoxic respiratory failure. She is also noted to have an aortic valve vegetation and is being treated with rocephin and vancomycin. She was evaluated for transfer to tertiary care but was not felt to be a surgical candidate. During her hospitalization, she has had YOUSIF which is resolved. She has been requiring high flow O2 with bipap at times and chest xray shows bilateral pleural effusions. She is followed by cardiology and has received additional furosemide today. We have been consulted to assist with goals of care. She is awake and sitting on the edge of the bed on high flow O2. She denies feeling short of breath or having pain. She says that she feels better on the bipap for short periods of time but that it is uncomfortable for extended periods of time. She is able to eat her lunch. Allergies Allergy/AdvReac Type Severity Reaction Status Date / Time codeine AdvReac Intermediate Gastrointestinal Verified 11/17/21 22:16 Upset Home Medications Medication Instructions Recorded Confirmed Type acetaminophen 500 mg tablet 1,000 mg PO DIRECTED PRN 02/06/21 11/17/21 History (Tylenol Extra Strength) albuterol sulfate 90 mcg/actuation 2 puff INHALATION Q4H PRN 02/06/21 11/17/21 History aerosol inhaler (ProAir HFA) atorvastatin 20 mg tablet (Lipitor) 20 mg PO HS 02/06/21 11/17/21 History calcium carbonate 600 mg calcium 600 mg PO DAILY 02/06/21 11/17/21 History (1,500 mg) tablet (Calcium) cholecalciferol (vitamin D3) 50 50 mcg PO DAILY 02/06/21 11/17/21 History mcg (2,000 unit) capsule (Vitamin D3) glipizide 5 mg tablet, extended 5 mg PO HS 02/06/21 11/17/21 History release 24 hr metformin 500 mg tablet 500 mg PO BID 02/06/21 11/17/21 History aspirin 81 mg tablet,delayed 81 mg PO DAILY 06/08/21 11/17/21 History release (Aspirin Low Dose) furosemide 20 mg tablet (Lasix) 20 mg PO DAILY #30 tab 06/11/21 11/17/21 Rx metoprolol succinate 25 mg 25 mg PO QAM #30 tab 06/11/21 11/17/21 Rx tablet,extended release 24 hr hydrocodone 5 mg-acetaminophen 325 0.5 - 1 tab PO Q6H PRN #12 tab 07/11/21 Rx mg tablet alprazolam 0.5 mg tablet 0.5 - 1 mg PO HS 11/16/21 11/17/21 History amlodipine 10 mg tablet 10 mg PO DAILY 11/16/21 11/17/21 History meclizine 25 mg tablet 25 mg PO DAILY 11/16/21 11/17/21 History ondansetron HCl 4 mg tablet 4 mg PO Q6H PRN #14 tab 11/17/21 11/17/21 Rx Patient History Medical History Anxiety H/O: HTN (hypertension) Hyperphosphatemia Oliguria Type 2 diabetes mellitus Surgical History H/O aortic valve replacement H/O endarterectomy S/P TKR (total knee replacement) Social History Smoking Status: Never smoker Second Hand Exposure: No; Do You Dip or Chew Tobacco: No; Hx Alcohol Use: No Hx Substance Use: No Preferred Language: Romanian Communication Ability: Effective 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 Beliefs That Will Affect Care: None Current Living Situation: Alone Current Living Situation Comment: at home Other Information That Helps Us Care for You: No Feels Safe at Home: Yes Assistive Devices: Oxygen - Continuous and Walker Review of Systems Review of Systems: [place] Symptom Assessment Scale Pain 0/3 Dyspnea 0/3 Anxiety 1/3 Nausea 0/3 Drowsiness 0/3 Palliative Performance Score 40% Physical Exam Constitutional: + frail appearing; no acute distress Respiratory: no labored breathing Cardiovascular: Rate/Rhythm: regular rate and regular rhythm Musculoskeletal: Extremities: + muscle atrophy Skin: warm and dry Neurologic: awake; not confused Results & Data ([facility]) Vital Signs (Past 12 Hours) Vital Signs Temp Pulse Pulse Pulse Resp BP BP 11/28/21 11:46 98.1 F 74 33 H 153/57 H 11/28/21 09:56 80 24 11/28/21 08:24 69 35 H 11/28/21 07:40 98.1 F 72 28 H 141/102 H 11/28/21 07:16 76 22 11/28/21 07:00 73 11/28/21 05:25 78 26 H 11/28/21 04:00 98.4 F 65 20 153/66 H 11/28/21 02:57 75 28 H Pulse Ox 11/28/21 11:46 87 L 11/28/21 09:56 96 11/28/21 08:24 98 11/28/21 07:40 92 11/28/21 07:16 92 11/28/21 07:00 11/28/21 05:25 93 11/28/21 04:00 97 11/28/21 02:57 96 PG Care Time/CCT Total # of Minutes Spent Total Time Spent: 70 Total Time Spent with Patient: Total time spent is greater than 50% in coordination of care (as documented) at patient's floor/unit and/or counseling patient: goals of care, code status, prognosis, surrogate decision maker, patient and family education and support Coding Level of Care Code 60489 Initial Inpt Care Lvl 3 Diagnoses SOB (shortness of breath) R06.02 Anxiety F41.9 Palliative care encounter Z51.5 Endocarditis I38 Acute diastolic heart failure I50.31 Acute hypoxemic respiratory failure J96.01
--- NOTE | 2021-11-28 16:20 | Hospitalist Progress Note ---
Date of Service November 28, 2021 Assessment & Plan (1) Endocarditis: Plan: 86-year-old lady with PMH of chronic diastolic heart failure [EF 50 to 54%, TTE 2020], chronic LBBB, ASD status post bioprosthetic AVR, valvular heart disease [moderate MR, moderate TR, mild prosthetic aortic valve regurgitation], PVD status post surgery, pulmonary hypertension, HTN, HLD, DM2 on oral meds, CRI [baseline creatinine 1.3], ovarian masses, anxiety disorder and past tobacco abuse presented to our ED 11/18 with 4 days complaint of nausea, weakness, dry cough, shortness of breath and achy lower abdominal discomfort. She is being managed for the following: #. Acute hypoxemic respiratory failure: #. Pulmonary edema #. Acute on Chronic diastolic heart failure #. Possible Pneumonia Patient denies any recent history of swelling, developed some shortness of breath just prior to arrival, found to have pulmonary edema on admission. 11/19 CTA chest: No evidence of for PE. Positive for mild asymmetric pulmonary edema. Positive for possible pneumonia. Patient is status post hemodialysis x1 via catheter and is being diuresed. HD catheter removed 11/25, was not sent for culture per RN. Serial imagings done to follow-up on pulmonary edema, which has been fluctuating and is particularly worse today. 11/18 echo: EF 50 to 55%, moderate concentric LVH, mild bioprosthetic AV regurgitation, small mobile echodensity adherent to bioprosthetic aortic valve noted. She has a h/o reduced systolic function in the past per outpatient cardiology records. Patient requiring high flow nasal cannula oxygen, has subjective shortness of breath, BiPAP as needed Cardiology on board, appreciate recommendations. Additional dose of IV Lasix today. Daily lasix dose increased to 40 mg PO. B/l Crackles and O2 requirement improved compared to yesterday. Wean down oxygen as tolerated. BPAP prn. Pt on antibiotic (see below) Cont low salt diet, daily weights. Strict I/Os. #. Aortic valve vegetation: She has a h/o aortic valve replacement with tissue valve in [place] in 2011. Possible PVE given fever and prosthetic valve vegetation on echo (see above) ID evaluated. Cultures have been negative. Vancomycin plus ceftriaxone is recommended as the preferred antibiotic regimen in this case as common organisms for presumed endocarditis include Staphylococci, VGS and Enterococcus.Prolonged duration of Antibiotic per ID, once serologic testing is out, reach out to ID with updates and recs on duration. Repeat limited echocardiogram on 11/24 revealed still with severe MR, EF now 45- 50% instead of 50-55%. Persistently elevated aortic valve gradients suggesting obstruction. Persistently elevated pulmonary pressure. YONG may be high risk at this time. Cont management per cardiology. #. Paroxysmal Afib at presentation On tele, c/w beta skylar. Metoprolol succinate 25 BID. Card evaluated, appreciated recs, no anticoagulation currently. (3) Acute kidney injury/ CKD III Plan: Cr close to baseline and stable. C/t monitor. Nephro evaluated, appreciate recs. #. Other chronic medical condition: s/p AVR 2012 bioprosthetic, LBBB, T2DM, ovarian mass Continue with/resume home medications as and when appropriate. Continue with sliding scale insulin For ovarian mass, Per [facility] [place] gynecologic oncology clinic she has 2 pelvic cysts at vaginal cuff in February 2021 per transvaginal ultrasound the right cyst was 7.6 x 7 x 7 cm with speckled debris. The left cyst was 6 x 4 x 4 cm. Compared to images from September 2016 these were unchanged in appearance. Both cysts appear to be debris-filled or just cystic in nature and given the lack of change management coordinator time, it was felt that this was not consistent with malignancy and surveillance was not necessary. #. DVT prophylaxis: Heparin subQ Conditional code- ok with intubation, no chest compression Dispo-cont PCU, uncertain at this time as patient still requiring vapotherm support. Prognosis guarded. 11/27/21: Family meeting with patient, her son and daughter and aircraft maintenance manager from [employer] at bedside. Updated about the current status and worsening prognosis on the patient. Patient decided to go with intubation if needed, no chest compression. Family wishes to have discussion with palliative care doctor. Answered all their questions, they voiced understanding and were agreeable to the plan of care. 11/28: Palliative care evaluated the patient. 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 Patient lying in bed, on 50 L high flow nasal cannula, NAD, no new acute events overnight. Patient reports feeling short of breath subjectively, also reports eating okay. Use BiPAP as needed. Patient reports moving bowels okay, patient denies headache/dizziness/chest pain/palpitations/belly pain/other review of symptoms. Physical Exam Physical Exam: GENERAL: Alert and oriented x3. NAD, on 50L HFNC O2 at 60%. HEENT: No pallor, no icterus. Pupils equal, round and reactive to light. Oral mucosa moist. NECK: No JVD, no neck masses. HEART: S1 and S2 heard. Regular rate and rhythm. Systolic murmur over aortic area, no gallop. RESPIRATORY SYSTEM: Normal AP diameter. No accessory muscle use. No wheezing, b/l crackles improving ABDOMEN: Soft, bowel sounds present, nontender, no distention. CENTRAL NERVOUS SYSTEM: No facial droop. Speech is clear. Obeys simple c ommands. Moves extremities. EXTREMITIES: No edema, no erythema seen. Results & Data Results & Data ([facility]) Vital Signs (Past 12 Hours) Vital Signs Temp Pulse Pulse Pulse Resp BP BP 11/28/21 15:08 70 24 11/28/21 14:59 73 11/28/21 11:46 36.7 C 74 33 H 153/57 H 11/28/21 09:56 80 24 11/28/21 08:24 69 35 H 11/28/21 07:40 36.7 C 72 28 H 141/102 H 11/28/21 07:16 76 22 11/28/21 07:00 73 11/28/21 05:25 78 26 H Pulse Ox 11/28/21 15:08 93 11/28/21 14:59 11/28/21 11:46 87 L 11/28/21 09:56 96 11/28/21 08:24 98 11/28/21 07:40 92 11/28/21 07:16 92 11/28/21 07:00 11/28/21 05:25 93
[2021-11-28] MEDS: oxyCODONE HCL IR 5 MG TAB (IMMEDIATE RELEASE) PO PRN (18:56)
[2021-11-28] MEDS: MELATONIN 3 MG TAB PO PRN (20:27)
[2021-11-28] MEDS: ATORVASTATIN 20 MG TAB PO SCH (20:28)
[2021-11-28] MEDS: cefTRIAXone SODIUM 2,000 MG in DEXTROSE 5% 50 ML IV SCH (21:09)
[2021-11-29 00:51] LABS: Bartonella henselae IgG Negative; Bartonella henselae IgM Ab Negative; Bartonella quintana IgG Ab Negative; Bartonella quintana IgM Ab Negative; Brucella AB IgG 0.16; Mycoplasma pneumoniae Ab, IgG <=0.90 (<=0.90); Mycoplasma pneumoniae Ab, IgM 77 U/mL (<770)
[2021-11-29] MEDS: oxyCODONE HCL IR 5 MG TAB (IMMEDIATE RELEASE) PO PRN ×3 (00:57→23:16)
[2021-11-29] MEDS: ACETAMINOPHEN 325 MG TAB PO PRN (05:59)
[2021-11-29] MEDS: ALPRAZolam 0.5 MG TABLET PO PRN ×2 (06:00→12:00)
[2021-11-29] MEDS: CALCIUM CARBONATE 1250MG TAB PO SCH (08:20)
[2021-11-29] MEDS: METOPROLOL SUCC 25MG EXT REL TAB PO SCH ×2 (08:21→20:28)
[2021-11-29] MEDS: amLODIPine BESYLATE 5 MG TAB PO SCH (08:21)
[2021-11-29] MEDS: ASPIRIN 81 MG ECTAB PO SCH (08:21)
[2021-11-29] MEDS: HEPARIN SOD 5,000 UNIT/0.5 ML VIAL SQ SCH ×2 (08:21→20:28)
[2021-11-29] MEDS: INSULIN ASPART PER UNIT SC SCH ×4 (08:22→20:02)
[2021-11-29] MEDS: FUROSEMIDE 40 MG TAB PO SCH (08:22)
[2021-11-29] MEDS: MECLIZINE HCL 25 MG TAB PO SCH (08:22)
[2021-11-29] MEDS: CHOLECALCIFEROL 1,000 UNITS 25 MCG TAB PO SCH (08:22)
[2021-11-29] MEDS: DOCUSATE SODIUM 100 MG CAP PO SCH ×2 (08:22→20:32)
[2021-11-29] MEDS ORDERED: VANCOMYCIN TROUGH ONE (08:30)
[2021-11-29 08:48] LABS: Hematocrit (blood only) 29.4 % (37-47); Hemoglobin 9.2 g/dL (12.0-16.0); Mean Corpuscular Hemoglobin 26.8 pg (25-34); Mean Corpuscular Hgb Conc 31.3 g/dL (32-36); Mean Corpuscular Volume 85.7 fL (80-100); Mean Platelet Volume 8.9 fL (7.4-10.4); Platelet Count 577 K/uL (130-400); RDW Coefficient of Variation 14.5 % (11.5-14.5); RDW Standard Deviation 45.1 fL (36.4-46.3); Red Blood Count 3.43 M/uL (4.2-5.4); White Blood Count 11.87 K/uL (4.8-10.8)
[2021-11-29 09:21] LABS: BUN Creatinine Ratio 33.3 (10-20); Calcium 9.6 mg/dl (8.5-10.1); Est GFR (African American) 37.3 ml/min; Est GFR (Non-African American) 32.2 ml/min; Potassium 4.2 mmol/L (3.5-5.1)
[2021-11-29] MEDS: VANCOMYCIN HCL 1,000 MG in SODIUM CHLORIDE 0.9% 250 ML IV SCH (09:29)
--- NOTE | 2021-11-29 09:59 | Pharmacy Report ---
Pharmacy Vanc AUC Short Note - Date of Service November 29, 2021 - Assessment & Plan Assessment 86 year old F receiving IV VANCOMYCIN + CEFTRIAXONE for treatment of possible bioprosthetic valve endocarditis. Day # 11 of antimicrobial therapy. Plan Vancomycin * AUC/HERMAN is the preferred PK/PD target for vancomycin * AUC guided dosing is effective and associated with decreased risk of nephrotoxicity compared to traditional trough targets * Trough level of 12.4 mcg/mL is predicted to achieve target AUC/HERMAN of 400-600 mg/L.hr and may be associated with a 11 % risk of nephrotoxicity * Continue dose of 1000 mg IV every 24 hours * Consider rechecking trough in 3-4 days; will continue to monitor renal function daily Pharmacy will continue to follow and will adjust dose/frequency as necessary. Thank you.
--- NOTE | 2021-11-29 15:15 | Hospitalist Progress Note ---
Date of Service November 29, 2021 Assessment & Plan (1) Endocarditis: Plan: 86-year-old lady with PMH of chronic diastolic heart failure [EF 50 to 54%, TTE 2020], chronic LBBB, ASD status post bioprosthetic AVR, valvular heart disease [moderate MR, moderate TR, mild prosthetic aortic valve regurgitation], PVD status post surgery, pulmonary hypertension, HTN, HLD, DM2 on oral meds, CRI [baseline creatinine 1.3], ovarian masses, anxiety disorder and past tobacco abuse presented to our ED 11/18 with 4 days complaint of nausea, weakness, dry cough, shortness of breath and achy lower abdominal discomfort. She is being managed for the following: #. Acute hypoxemic respiratory failure: #. Pulmonary edema #. Acute on Chronic diastolic heart failure #. Possible Pneumonia Patient denies any recent history of swelling, developed some shortness of breath just prior to arrival, found to have pulmonary edema on admission. 11/19 CTA chest: No evidence of for PE. Positive for mild asymmetric pulmonary edema. Positive for possible pneumonia. Patient is status post hemodialysis x1 via catheter and is being diuresed. HD catheter removed 11/25, was not sent for culture per RN. Serial imagings done to follow-up on pulmonary edema, which has been fluctuating and is particularly worse today. 11/18 echo: EF 50 to 55%, moderate concentric LVH, mild bioprosthetic AV regurgitation, small mobile echodensity adherent to bioprosthetic aortic valve noted. She has a h/o reduced systolic function in the past per outpatient cardiology records. Patient requiring high flow nasal cannula oxygen, has subjective shortness of breath, BiPAP as needed Cardiology on board, appreciate recommendations. c/w lasix 40 mg PO daily. B/l Crackles and O2 requirement stable compared to yesterday. Slight increase in Creatinine, hold on to additional dose of lasix today. Wean down oxygen as tolerated. BPAP prn. Pt on antibiotic (see below) Cont low salt diet, daily weights. Strict I/Os. #. Aortic valve vegetation: She has a h/o aortic valve replacement with tissue valve in [place] in 2011. Possible PVE given fever and prosthetic valve vegetation on echo (see above) ID evaluated. Cultures have been negative. Vancomycin plus ceftriaxone is recommended as the preferred antibiotic regimen in this case as common organisms for presumed endocarditis include Staphylococci, VGS and Enterococcus.Prolonged duration of Antibiotic per ID, Serology negative. Repeat limited echocardiogram on 11/24 revealed still with severe MR, EF now 45- 50% instead of 50-55%. Persistently elevated aortic valve gradients suggesting obstruction. Persistently elevated pulmonary pressure. YONG may be high risk at this time. Cont management per cardiology. 6 wks iv a ntibiotic #. Paroxysmal Afib at presentation On tele, c/w beta skylar. Metoprolol succinate 25 BID. Card evaluated, appreciated recs, no anticoagulation currently. (3) Acute kidney injury/ CKD III Plan: Cr close to baseline and stable. C/t monitor. Nephro evaluated, appreciate recs. #. Other chronic medical condition: s/p AVR 2012 bioprosthetic, LBBB, T2DM, ovarian mass Continue with/resume home medications as and when appropriate. Continue with sliding scale insulin For ovarian mass, Per [facility] [place] gynecologic oncology clinic she has 2 pelvic cysts at vaginal cuff in February 2021 per transvaginal ultrasound the right cyst was 7.6 x 7 x 7 cm with speckled debris. The left cyst was 6 x 4 x 4 cm. Compared to images from September 2016 these were unchanged in appearance. Both cysts appear to be debris-filled or just cystic in nature and given the lack of private branch exchange service adviser time, it was felt that this was not consistent with malignancy and surveillance was not necessary. #. DVT prophylaxis: Heparin subQ Conditional code- ok with intubation, no chest compression Dispo-cont PCU, uncertain at this time as patient still requiring vapotherm support. Prognosis guarded. 11/27/21: Family meeting with patient, her son and daughter and jinriksha driver from congregational at bedside. Updated about the current status and worsening prognosis on the patient. Patient decided to go with intubation if needed, no chest compression. Family wishes to have discussion with palliative care doctor. Answered all their questions, they voiced understanding and were agreeable to the plan of care. 11/28: Palliative care evaluated the patient. 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 Patient lying in bed, on 50 L high flow nasal cannula, NAD, no new acute events overnight per pt. Patient reports feeling short of breath subjectively especially when lying down, also reports eating okay. Use BiPAP as needed. Patient reports moving bowels okay, patient denies headache/dizziness/chest pain/palpitations/belly pain/other review of symptoms. Physical Exam Physical Exam: GENERAL: Alert and oriented x3. NAD, on 50L HFNC O2 at 85% HEENT: No pallor, no icterus. Pupils equal, round and reactive to light. Oral mucosa moist. NECK: No JVD, no neck masses. HEART: S1 and S2 heard. Regular rate and rhythm. Systolic murmur over aortic area, no gallop. RESPIRATORY SYSTEM: Normal AP diameter. No accessory muscle use. No wheezing, b/l crackles stable compared to yesterday ABDOMEN: Soft, bowel sounds present, nontender, no distention. CENTRAL NERVOUS SYSTEM: No facial droop. Speech is clear. Obeys simple commands. Moves extremities. EXTREMITIES: No edema, no erythema seen. Results & Data Results & Data ([facility]) Vital Signs (Past 12 Hours) Vital Signs Temp Pulse Pulse Resp BP Pulse Ox 11/29/21 11:32 70 24 93 11/29/21 11:07 36.8 C 65 22 131/53 L 92 11/29/21 08:03 36.7 C 60 26 H 131/58 L 93 11/29/21 07:12 85 24 97 11/29/21 04:21 36.8 C 65 17 153/64 H 92
[2021-11-29] MEDS ORDERED: MoRPHine SULFATE 2 MG/ML CARP ONE (18:39)
[2021-11-29] MEDS ORDERED: MoRPHine SULFATE 2 MG/ML CARP IV STA (18:42)
[2021-11-29] MEDS: LORazepam 2 MG/1 ML VIAL IV PRN (18:50)
--- NOTE | 2021-11-29 19:28 | Communication Note ---
Date of Service: November 29, 2021 Nurse said pt desaturated in the 80's after she was moving/changed her position. She got very anxious. Morphine and Ativan were given. I went to check the p atient, her daughter at bedside. Pt able to answer questions ( when I asked if her breathing got worst, she used her hand to say so so). Nurse said that early she was on non rebreather with FIO2 75, currently she is on BIPAP at FIO2 100%. She is resting with her eyes closed because she just had medications (Morphine and Ativan that was given prior seeing her). Will consider to get a CXR and ABG. Daughter would rather us not to move her since she desaturated to do the Xray, will do the Xray later if she becomes wort. . I told the nurse if pt becomes worst to notify the night physician. Continue Bipap for now. Will l check ABG. I will sign out to the launching pad mechanic. MD Enedina
[2021-11-29] MEDS ORDERED: ALBUT/IPRATROP 3MG/0.5MG NEB 3 ML VIAL NEB STA (19:43)
[2021-11-29 20:23] LABS: Allen Test Pos (Pos); Base Excess ABG 3.1 mEq/L (-9-1.8); HCO3 ABG 28 mmol/L (19-24); Oxygen Saturation ABG 91.3 % (90-95); PCO2 ABG 43 mmHg (35-46); PO2 ABG 63 mmHg (80-95); pH ABG 7.43 (7.35-7.45)
[2021-11-29] MEDS: POLYETHYLENE (MIRALAX) 17 GM PACK PO PRN (20:27)
[2021-11-29] MEDS: ATORVASTATIN 20 MG TAB PO SCH (20:29)
[2021-11-29] MEDS: cefTRIAXone SODIUM 2,000 MG in DEXTROSE 5% 50 ML IV SCH (20:32)
[2021-11-29] MEDS: MELATONIN 3 MG TAB PO PRN (20:32)
[2021-11-29] MEDS ORDERED: FUROSEMIDE 40 MG/4 ML VIAL IV STA (20:38)
--- NOTE | 2021-11-29 20:55 | XRay Report ---
XR chest 1V portable CLINICAL HISTORY: low o2 TECHNIQUE: Single frontal radiograph of the chest was obtained. Comparison: Comparison is made to chest one view 11/27/2021 FINDINGS: Median sternotomy wires are unchanged. The cardiomediastinal silhouette is obscured. Bilateral lower lung predominant airspace opacities are seen. Vascular prominence with minimal peripheral interstitia l thickening is seen. No evidence of pleural effusion or pneumothorax. IMPRESSION: 1. Bilateral lower lung predominant airspace opacities are slightly decreased in conspicuity from pr ior exam. This is favored to represent improving pneumonia. 2. Moderate pulmonary edema. ACT 112: Negative or not required by law. Electronically signed by: Michael Hughes M.D. 11/29/2021 8:53 PM
[2021-11-30] MEDS: ALPRAZolam 0.5 MG TABLET PO PRN ×4 (03:44→22:27)
[2021-11-30 07:00] LABS: Est GFR (African American) 39.3 ml/min; Est GFR (Non-African American) 33.9 ml/min
[2021-11-30] MEDS: INSULIN ASPART PER UNIT SC SCH ×4 (08:33→20:30)
[2021-11-30] MEDS: CALCIUM CARBONATE 1250MG TAB PO SCH (08:45)
[2021-11-30] MEDS: CHOLECALCIFEROL 1,000 UNITS 25 MCG TAB PO SCH (08:45)
[2021-11-30] MEDS: FUROSEMIDE 40 MG TAB PO SCH (08:46)
[2021-11-30] MEDS: METOPROLOL SUCC 25MG EXT REL TAB PO SCH ×2 (08:46→20:37)
[2021-11-30] MEDS: HEPARIN SOD 5,000 UNIT/0.5 ML VIAL SQ SCH ×2 (08:46→20:37)
[2021-11-30] MEDS: amLODIPine BESYLATE 5 MG TAB PO SCH (08:46)
[2021-11-30] MEDS: ASPIRIN 81 MG ECTAB PO SCH (08:46)
[2021-11-30] MEDS: MECLIZINE HCL 25 MG TAB PO SCH (08:46)
[2021-11-30] MEDS: oxyCODONE HCL IR 5 MG TAB (IMMEDIATE RELEASE) PO PRN ×2 (08:48→17:38)
[2021-11-30] MEDS: VANCOMYCIN HCL 1,000 MG in SODIUM CHLORIDE 0.9% 250 ML IV SCH (08:52)
[2021-11-30] MEDS: DOCUSATE SODIUM 100 MG CAP PO SCH ×2 (08:54→20:37)
--- NOTE | 2021-11-30 15:38 | Critical Care Progress Note ---
Date of Service November 30, 2021 Assessment & Plan (1) Acute hypoxemic respiratory failure: Plan: Impression: 86-year-old female with mobile vegetation on bioprosthetic valve suspicious for potential endocarditis. She has a known 8 cm ovarian mass. Progressive hypoxemic respiratory failure. Recommendations: 1. Neurologic: Anxiety -Xanax 0.5 mg by mouth every 6 hours as needed 2. Cardiovascular: Small mobile echodensity adherent to bioprosthetic aortic valve struts observed on the parasternal long axis view via November 18, 2021 TTE Cultures negative Differential diagnosis includes culture negative endocarditis, thrombus, tumor. IV antibiotics x 6 weeks Diastolic heart failure secondary to valvular heart disease. Extensive left greater than right bilateral airspace opacities and interstitial thickening, left greater than right pleural effusions. Additional 1 mg IV bumex now Possible paroxysmal atrial fibrillation on presentation. Metoprolol succinate increased to 25 mg BID on 11/28/2021. Maintaining sinus; rates controlled. Risks of anticoagulation currently appear greater than the benefit Mild troponin Asymptomatic Not indicative of acute ACS. Likely secondary to CHF/hypoxia Hypertension. Acceptably controlled. Follow. Left bundle branch block. EF 45-50%. 3. Pulmonary: Acute hypoxemic respiratory failure: No evidence of PE. CT scan appears consistent with pulmonary edema/fluid overload with bilateral pleural effusions. -Continue to wean oxygen as tolerated and bridge with noninvasive positive pressure ventilation. - Patient confirms no desire to be intubated or proceed with mechanical ventilation. - Will focus on comfort as well as continued care; however, does not want heroic measures in event of respiratory insufficiency 4. Renal: 1 mg Bumex, for clinical evidence of pulmonary edema. 5. ID: Possible endocarditis. Day #6 Rocephin and vancomycin. 6. Heme-onc: Progressive anemia. Code Status: DNR/DNI in event of cardiac arrest or respiratory insufficiency I had an extensive discussion with the patient and the patient's daughter at bedside. Similar to previous palliative care consultation, she expressed a strong alice. She understands the severity of her underlying diseases as well as the poor prognosis accompanying the underlying medical issues. We discussed intubation would likely be necessitating long-term mechanical ventilation and would also likely need to consider tracheostomy. We also discussed that the likelihood should we proceed with intubation the patient will be unable to participate in medical decision-making particularly with focus on when would she want to discontinue life-sustaining efforts if her heart did not stop spontaneously. The focus of this discussion was progressive debilitation without sudden cardiac arrest which I think is a strong clinical possibility. Patient and her daughter prayed for discernment and direction with regards to being comfortable with whatever decision the patient were to make whether that be intubation and continued aggressive care or declining intubation for worsening respiratory insufficiency. After continued discussion we will continue the current level of care however we will also start to focus more on patient comfort including eating and drinking and will rely on morphine for symptomatic air hunger if the patient does not recover during episodes of hypoxia. Patient and daughter understand that this could worsen her clinical condition however comfort is becoming more of a priority in the patient's treatment plan. I have updated her CODE STATUS to reflect DNR/DNI and have advised the hospitalist service of the plan. Admission and Anticipated Discharge Date Admission Date: November 18, 2021 Supervising Physician Co-Signing Physician Notes I have personally spent 90 minutes of critical care time in the direct management of this patient. This is a life/limb threatening event. This includes time spent evaluating patient, direct bedside care, chart review, placing orders, interpretation of diagnostic studies, discussion with consultants, patient, and/or family members regarding treatment decisions, as well as other required patient management activities. This time is exclusive of all separately billable procedures, and teaching time and separate from and in addition to any other critical care service time. Subjective Requested to see the patient for worsening hypoxia, decreasing interval on high flow increasing interval on BiPAP. Patient is short of breath, would like to discontinue BiPAP and drink for dry mouth. Patient's daughter is at the bedside we had an extensive discussion reg arding goals of care and likely prognosis. Review of Systems Review of Systems: As per subjective Physical Exam Physical Exam: General: Alert. nontoxic. Skin: Warm, dry, Head: Atraumatic Ears, nose, mouth and throat: airway partially obscured by facemask Cardiovascular: Normal peripheral perfusion Respiratory: Mild tachypnea, noninvasive ventilator settings reviewed Gastrointestinal: Non distended Musculoskeletal: No deformity Results & Data Results & Data ([facility]) Vital Signs (Past 12 Hours) Vital Signs Temp Pulse Pulse Pulse Resp BP Pulse Ox 11/30/21 15:26 37.1 C 70 20 141/57 H 95 11/30/21 15:25 88 22 92 11/30/21 15:07 68 29 H 95 11/30/21 11:13 36.7 C 64 28 H 133/57 L 95 11/30/21 10:12 66 32 H 92 11/30/21 08:00 59 L 11/30/21 07:16 36.8 C 63 24 153/57 H 91 11/30/21 07:12 67 22 92 11/30/21 03:53 36.9 C 57 L 23 94 11/30/21 03:44 65 33 H 94 Critical Care Results & Data Vital Signs (Past 12 Hours) Vital Signs Temp Pulse Pulse Pulse Resp BP Pulse Ox 11/30/21 15:26 37.1 C 70 20 141/57 H 95 11/30/21 15:25 88 22 92 11/30/21 15:07 68 29 H 95 11/30/21 11:13 36.7 C 64 28 H 133/57 L 95 11/30/21 10:12 66 32 H 92 11/30/21 08:00 59 L 11/30/21 07:16 36.8 C 63 24 153/57 H 91 11/30/21 07:12 67 22 92 11/30/21 03:53 36.9 C 57 L 23 94 11/30/21 03:44 65 33 H 94 Lab & Micro Results (Past 24 Hours) No Data to Display Creatinine 1.41 mg/dl (0.6-1.2) H 11/30/21 Estimated GFR ( Amer) 39.3 ml/min 11/30/21 Estimated GFR (Non-Af Amer) 33.9 ml/min 11/30/21 Blood Gas Barometric Pressure 724.8 mm/Hg 11/29/21 20:11 11/29/21 Arterial Blood pH 7.43 (7.35-7.45) 11/29/21 20:11 11/29/21 Arterial Blood Partial Pressure CO2 43 mmHg (35-46) 11/29/21 20:11 11/29/21 Arterial Blood Partial Pressure O2 63 mmHg (80-95) L 11/29/21 20:11 11/29/21 Arterial Blood HCO3 28 mmol/L (19-24) H 11/29/21 20:11 11/29/21 Arterial Blood Base Excess 3.1 mEq/L (-9-1.8) H 11/29/21 20:11 11/29/21 Arterial Blood Oxygen Saturation 91.3 % (90-95) 11/29/21 20:11 11/29/21 Blood Gas Oxygen Given ROOM AIR 11/29/21 20:11 11/29/21 Christiano Test Pos (Pos) 11/29/21 20:11 11/29/21 Blood Gas Barometric Pressure 724.8 mm/Hg 11/29/21 20:11 11/29/21 Microbiology 11/24/21 10:35 Aerobic Blood Culture - Final Blood No growth in Aerobic bottle after 5 days. Anaerobic Blood Culture - Final No growth in Anaerobic bottle after 5 days. 11/24/21 10:32 Aerobic Blood Culture - Final Blood No growth in Aerobic bottle after 5 days. Anaerobic Blood Culture - Final No growth in Anaerobic bottle after 5 days. Diagnostic Findings (Past 24 Hours) Chest X-Ray 11/29/21 19:42 XR chest 1V portable CLINICAL HISTORY: low o2 TECHNIQUE: Single frontal radiograph of the chest was obtained. Comparison: Comparison is made to chest one view 11/27/2021 FINDINGS: Median sternotomy wires are unchanged. The cardiomediastinal silhouette is obscured. Bilateral lower lung predominant airspace opacities are seen. Vascular prominence with minimal peripheral interstitial thickening is seen. No evidence of pleural effusion or pneumothorax. IMPRESSION: 1. Bilateral lower lung predominant airspace opacities are slightly decreased in conspicuity from prior exam. This is favored to represent improving pneumonia. 2. Moderate pulmonary edema. ACT 112: Negative or not required by law. Electronically signed by: Michael Hughes M.D. 11/29/2021 8:53 PM I & O Totals 24 Hours 11/29/21 11/30/21 12/01/21 06:59 06:59 06:59 Intake Total 1200.833 / 1200.833 780 / 780 1470 / 1470 Output Total 1150 / 1150 1500 / 1500 575 / 575 Balance 50.833 / 50.833 -720 / -720 895 / 895 Cumulative 11/17/21 21:03 thru 11/30/21 14:00 Intake Total 90203.283 Output Total 60450 Balance -192.717 RT Ventilator Mngmt (Last Documented) Ventilator Ordered Settings Respiratory Rate 20 11/30/21 15:26 Fraction of Inspired Oxygen 100 11/30/21 15:26 Ventilator - PT Measurements Respiratory Rate 20 Coding Level of Care Code Critical Care ea addt'l 30 min Diagnoses Acute hypoxemic respiratory failure J96.01
[2021-11-30] MEDS ORDERED: BUMETANIDE 0.5 MG in SYRINGE 0 ML IV ONE (15:45)
--- NOTE | 2021-11-30 15:54 | Hospitalist Progress Note ---
Date of Service November 30, 2021 Assessment & Plan (1) Endocarditis: Plan: 86-year-old lady with PMH of chronic diastolic heart failure [EF 50 to 54%, TTE 2020], chronic LBBB, ASD status post bioprosthetic AVR, valvular heart disease [moderate MR, moderate TR, mild prosthetic aortic valve regurgitation], PVD status post surgery, pulmonary hypertension, HTN, HLD, DM2 on oral meds, CRI [baseline creatinine 1.3], ovarian masses, anxiety disorder and past tobacco abuse presented to our ED 11/18 with 4 days complaint of nausea, weakness, dry cough, shortness of breath and achy lower abdominal discomfort. She is being managed for the following: #. Acute hypoxemic respiratory failure: #. Pulmonary edema #. Acute on Chronic diastolic heart failure #. Possible Pneumonia Patient denies any recent history of swelling, developed some shortness of breath just prior to arrival, found to have pulmonary edema on admission. 11/19 CTA chest: No evidence of for PE. Positive for mild asymmetric pulmonary edema. Positive for possible pneumonia. Patient is status post hemodialysis x1 via catheter and is being diuresed. HD catheter removed 11/25, was not sent for culture per RN. Serial imagings done to follow-up on pulmonary edema, which has been fluctuating and is particularly worse today. 11/18 echo: EF 50 to 55%, moderate concentric LVH, mild bioprosthetic AV regurgitation, small mobile echodensity adherent to bioprosthetic aortic valve noted. She has a h/o reduced systolic function in the past per outpatient cardiology records. Patient requiring high flow nasal cannula oxygen and BPAP, has subjective sh ortness of breath, BiPAP as needed Cardiology on board, appreciate recommendations. c/w lasix 40 mg PO daily. B/l Crackles and O2 requirement stable compared to yesterday. Use iv lasix as needed. Wean down oxygen as tolerated. BPAP prn. Pt on antibiotic (see below) Cont low salt diet, daily weights. Strict I/Os. D/w vertical borer, appreciate recommendations Pt DNR/DNI now, continue current level of care with focus on comfort; morphine as needed for air hunger. #. Aortic valve vegetation: She has a h/o aortic valve replacement with tissue valve in [place] in 2011. Possible PVE given fever and prosthetic valve vegetation on echo (see above) ID evaluated. Cultures have been negative. Vancomycin plus ceftriaxone is recommended as the preferred antibiotic regimen in this case as common organisms for presumed endocarditis include Staphylococci, VGS and Enterococcus.Prolonged duration of Antibiotic per ID, Serology negative. Repeat limited echocardiogram on 11/24 revealed still with severe MR, EF now 45- 50% instead of 50-55%. Persistently elevated aortic valve gradients suggesting obstruction. Persistently elevated pulmonary pressure. YONG may be high risk at this time. Cont management per cardiology. 6 wks iv antibiotic #. Paroxysmal Afib at presentation On tele, c/w beta skylar. Metoprolol succinate 25 BID. Card evaluated, appreciated recs, no anticoagulation currently. (3) Acute kidney injury/ CKD III Plan: Cr close to baseline and stable. C/t monitor. Nephro evaluated, appreciate recs. #. Other chronic medical condition: s/p AVR 2011 bioprosthetic, LBBB, T2DM, ovarian mass Continue with/resume home medications as and when appropriate. Continue with sliding scale insulin For ovarian mass, Per [facility] [place] [place] [place] she has 2 pelvic cysts at vaginal cuff in February 2021 per transvaginal ultrasound the right cyst was 7.6 x 7 x 7 cm with speckled debris. The left cyst was 6 x 4 x 4 cm. Compared to images from September 2016 these were unchanged in appearance. Both cysts appear to be debris-filled or just cystic in nature and given the lack of change control manager time, it was felt that this was not consistent with malignancy and surveillance was not necessary. #. DVT prophylaxis: Heparin subQ Conditional code- DNR/DNI; continue current level of care; use morphine as needed for air hunger. Dispo-cont PCU, uncertain at this time as patient still requiring vapotherm support. Prognosis guarded. 11/27/21: Family meeting with patient, her son and daughter and drill rig operator from [employer] at bedside. Updated about the current status and worsening prognosis on the patient. Patient decided to go with intubation if needed, no chest compression. Family wishes to have discussion with palliative care doctor. Answered all their questions, they voiced understanding and were agreeable to the plan of care. 11/28: Palliative care evaluated the patient. 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 Patient lying in bed, on AVAPS, NAD, no new acute events overnight per pt. Patient reports feeling short of breath subjectively especially when lying down, also reports eating okay.Per RN, she ate all her breakfast. Use BiPAP as needed. Patient reports moving bowels okay, patient denies headache/dizziness/chest pain/palpitations/belly pain/other review of symptoms. Physical Exam Physical Exam: GENERAL: Alert and oriented x3. NAD, on AVAPS HEENT: No pallor, no icterus. Pupils equal, round and reactive to light. Oral mucosa moist. NECK: No JVD, no neck masses. HEART: S1 and S2 heard. Regular rate and rhythm. Systolic murmur over aortic area, no gallop. RESPIRATORY SYSTEM: Normal AP diameter. No accessory muscle use. No wheezing, b/l crackles stable compared to yesterday ABDOMEN: Soft, bowel sounds present, nontender, no distention. CENTRAL NERVOUS SYSTEM: No facial droop. Speech is clear. Obeys simple commands. Moves extremities. EXTREMITIES: No edema, no erythema seen. Results & Data Results & Data ([facility]) Vital Signs (Past 12 Hours) Vital Signs Temp Pulse Pulse Pulse Resp BP Pulse Ox 11/30/21 15:26 37.1 C 70 20 141/57 H 95 11/30/21 15:25 88 22 92 11/30/21 15:07 68 29 H 95 11/30/21 11:13 36.7 C 64 28 H 133/57 L 95 11/30/21 10:12 66 32 H 92 11/30/21 08:00 59 L 11/30/21 07:16 36.8 C 63 24 153/57 H 91 11/30/21 07:12 67 22 92 11/30/21 03:53 36.9 C 57 L 23 94
[2021-11-30] MEDS: ATORVASTATIN 20 MG TAB PO SCH (20:36)
[2021-11-30] MEDS: cefTRIAXone SODIUM 2,000 MG in DEXTROSE 5% 50 ML IV SCH (20:37)
[2021-12-01] MEDS: MELATONIN 3 MG TAB PO PRN ×2 (01:40→20:05)
[2021-12-01] MEDS: oxyCODONE HCL IR 5 MG TAB (IMMEDIATE RELEASE) PO PRN ×2 (01:40→22:57)
[2021-12-01 07:27] LABS: Creatinine Clr Calc Pharmacy 32.3 ml/min; Est GFR (African American) 39.6 ml/min; Est GFR (Non-African American) 34.2 ml/min
[2021-12-01] MEDS: INSULIN ASPART PER UNIT SC SCH ×4 (08:30→20:02)
[2021-12-01] MEDS: amLODIPine BESYLATE 5 MG TAB PO SCH (08:37)
[2021-12-01] MEDS: ALPRAZolam 0.5 MG TABLET PO PRN ×3 (08:37→20:05)
[2021-12-01] MEDS: ASPIRIN 81 MG ECTAB PO SCH (08:38)
[2021-12-01] MEDS: HEPARIN SOD 5,000 UNIT/0.5 ML VIAL SQ SCH ×2 (08:38→20:05)
[2021-12-01] MEDS: MECLIZINE HCL 25 MG TAB PO SCH (08:38)
[2021-12-01] MEDS: CALCIUM CARBONATE 1250MG TAB PO SCH (08:38)
[2021-12-01] MEDS: METOPROLOL SUCC 25MG EXT REL TAB PO SCH ×2 (08:38→20:05)
[2021-12-01] MEDS: FUROSEMIDE 40 MG TAB PO SCH (08:38)
[2021-12-01] MEDS: CHOLECALCIFEROL 1,000 UNITS 25 MCG TAB PO SCH (08:38)
[2021-12-01] MEDS: VANCOMYCIN HCL 1,000 MG in SODIUM CHLORIDE 0.9% 250 ML IV SCH (08:41)
[2021-12-01] MEDS: DOCUSATE SODIUM 100 MG CAP PO SCH ×2 (09:29→20:07)
[2021-12-01] MEDS: LORazepam 2 MG/1 ML VIAL IV PRN (10:45)
--- NOTE | 2021-12-01 11:11 | Palliative Care Progress Note ---
Date of Service December 01, 2021 Assessment & Plan (1) SOB (shortness of breath): Plan: Relieved with bipap for short periods. Currently on Bipap. She does have prn oxycodone for pain which will also help with refractory dyspnea. She has taken two doses over the past 24 hours. She also has IV Morphine available should she rapidly decline to assist with air hunger. (2) Anxiety: Plan: On alprazolam prn. She just received a dose this morning. (3) Palliative care encounter: Plan: I met with the patient in her room this morning. She is AAOx3 and able to hold meaningful conversation, although in a short few words due to difficulty talking with the Bipap mask and also her becoming winded with longer conversations. I did revisit Dr. Reynolds's visit and conversation. She told me that she is still comfortable with continuing to take her oral, SQ and IV medications for treatment. She feels that she is at a good spot regarding her alice and declined any clergy visitation. Her daughter, Maryanne, is her decision maker in the event that her cognition changes. I did call her daughter Maryanne, and talked with her on the phone at [phone]. I discussed my visit with her mother and expressed that as she is of sound medical decision making, will support her on this journey as long as she would like to. Should her body become tired, we discussed a transition to comfort which she is not quite ready to discuss. For now, continue with current care and take her care one day at a time. Palliative will follow. (4) Endocarditis: (5) Acute diastolic heart failure: (6) Acute hypoxemic respiratory failure: Admission and Anticipated Discharge Date Admission Date: November 18, 2021 Subjective Patient seen this morning. She was on Bipap during my visit, FiO2 80%. She was able to take all of her AM meds this morning without difficulty. She ate 25% of her breakfast. Review of Systems Review of Systems: [place] Symptom Assessment Scale Pain 0/3 Dyspnea 1/3 Anxiety 0/3 Nausea 0/3 Drowsiness 0/3 Palliative Performance Score 30% Physical Exam Constitutional: + frail appearing; no acute distress Respiratory: no labored breathing Cardiovascular: Rate/Rhythm: regular rate and regular rhythm Musculoskeletal: Extremities: + muscle atrophy Neurologic: awake Psychiatric: Orientation: alert and oriented x 3 Results & Data ([facility]) Vital Signs (Past 12 Hours) Vital Signs Temp Pulse Pulse Pulse Resp BP Pulse Ox 12/01/21 11:06 36.5 C 65 26 H 141/79 H 98 12/01/21 09:26 64 35 H 93 12/01/21 07:20 64 26 H 93 12/01/21 07:18 36.6 C 66 19 147/60 H 93 12/01/21 07:00 63 12/01/21 05:45 67 22 96 12/01/21 04:00 56 L 20 95 12/01/21 03:45 36.7 C 55 L 19 133/59 L 97 11/30/21 23:30 61 PG Care Time/CCT Total # of Minutes Spent Total Time Spent with Patient: Total time spent is greater than 50% in coordination of care (as documented) at patient's floor/unit and/or counseling patient: 45 minutes Coding Level of Care Code 27075 Subseq Hosp Care Lvl 3 Diagnoses SOB (shortness of breath) R06.02 Anxiety F41.9 Palliative care encounter Z51.5 Endocarditis I38 Acute diastolic heart failure I50.31 Acute hypoxemic respiratory failure J96.01 Time Spent (min) 45
[2021-12-01] MEDS ORDERED: FUROSEMIDE INJ 20 MG/2 ML VIAL IV ONE (14:50)
--- NOTE | 2021-12-01 14:55 | Hospitalist Progress Note ---
Date of Service December 01, 2021 Assessment & Plan (1) Endocarditis: Plan: 86-year-old lady with PMH of chronic diastolic heart failure [EF 50 to 54%, TTE 2020], chronic LBBB, ASD status post bioprosthetic AVR, valvular heart disease [moderate MR, moderate TR, mild prosthetic aortic valve regurgitation], PVD status post surgery, pulmonary hypertension, HTN, HLD, DM2 on oral meds, CRI [baseline creatinine 1.3], ovarian masses, anxiety disorder and past tobacco abuse presented to our ED 11/18 with 4 days complaint of nausea, weakness, dry cough, shortness of breath and achy lower abdominal discomfort. She is being managed for the following: #. Acute hypoxemic respiratory failure: #. Pulmonary edema #. Acute on Chronic diastolic heart failure #. Possible Pneumonia Patient denies any recent history of swelling, developed some shortness of breath just prior to arrival, found to have pulmonary edema on admission. 11/19 CTA chest: No evidence of for PE. Positive for mild asymmetric pulmonary edema. Positive for possible pneumonia. Patient is status post hemodialysis x1 via catheter and is being diuresed. HD catheter removed 11/25, was not sent for culture per RN. Serial imagings done to follow-up on pulmonary edema, which has been fluctuating and is particularly worse today. 11/18 echo: EF 50 to 55%, moderate concentric LVH, mild bioprosthetic AV regurgitation, small mobile echodensity adherent to bioprosthetic aortic valve noted. She has a h/o reduced systolic function in the past per outpatient cardiology records. Patient requiring high flow nasal cannula oxygen and BPAP, has subjective sh ortness of breath, BiPAP as needed Pt not able to tolerate BPAP for longer time, SaO2 is being difficult to maintain. Cardiology on board, appreciate recommendations. c/w lasix 40 mg PO daily. B/l Crackles and O2 requirement stable compared to yesterday. Use iv lasix as needed. Wean down oxygen as tolerated. BPAP prn. Pt on antibiotic (see below) Cont low salt diet, daily weights. Strict I/Os. D/w warehouse processor 12/01, appreciate recommendations Pt DNR/DNI, continue current level of care with focus on comfort; morphine as needed for air hunger. #. Aortic valve vegetation: She has a h/o aortic valve replacement with tissue valve in [place] in 2011. Possible PVE given fever and prosthetic valve vegetation on echo (see above) ID evaluated. Cultures have been negative. Vancomycin plus ceftriaxone is recommended as the preferred antibiotic regimen in this case as common organisms for presumed endocarditis include Staphylococci, VGS and Enterococcus.Prolonged duration of Antibiotic per ID, Serology negative. Repeat limited echocardiogram on 11/24 revealed still with severe MR, EF now 45- 50% instead of 50-55%. Persistently elevated aortic valve gradients suggesting obstruction. Persistently elevated pulmonary pressure. YONG may be high risk at this time. Cont management per cardiology. 6 wks iv antibiotic #. Paroxysmal Afib at presentation On tele, c/w beta skylar. Metoprolol succinate 25 BID. Card evaluated, appreciated recs, no anticoagulation currently. (3) Acute kidney injury/ CKD III Plan: Cr close to baseline and stable. C/t monitor. Nephro evaluated, appreciate recs. #. Other chronic medical condition: s/p AVR 2011 bioprosthetic, LBBB, T2DM, ovarian mass Continue with/resume home medications as and when appropriate. Continue with sliding scale insulin For ovarian mass, [place] [facility] she has 2 pelvic cysts at vaginal cuff in February 2021 per transvaginal ultrasound the right cyst was 7.6 x 7 x 7 cm with speckled debris. The left cyst was 6 x 4 x 4 cm. Compared to images from September 2016 these were unchanged in appearance. Both cysts appear to be debris-filled or just cystic in nature and given the lack of business change manager time, it was felt that this was not consistent with malignancy and surveillance was not necessary. #. DVT prophylaxis: Heparin subQ Conditional code- DNR/DNI; continue current level of care; use morphine as needed for air hunger. Dispo-cont PCU, uncertain at this time as patient still requiring vapotherm support. Prognosis guarded. 11/27/21: Family meeting with patient, her son and daughter and pump technician from [employer] at bedside. Updated about the current status and worsening prognosis on the patient. Patient decided to go with intubation if needed, no chest compression. Family wishes to have discussion with palliative care doctor. Answered all their questions, they voiced understanding and were agreeable to the plan of care. 11/28: Palliative care evaluated the patient. 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 Patient lying in bed, on AVAPS, NAD, no new acute events overnight per pt. Patient reports feeling short of breath and tired, reports eating ok.Per RN, she is eating good. Use BiPAP as needed. Pt not able to tolerate BPAP for longer time, asking to be on HFNC more frequently, today has difficulty maintaining saturation. Patient reports moving bowels okay, patient denies headache/dizziness/chest pain/palpitations/belly pain/other review of symptoms. Physical Exam Physical Exam: GENERAL: Alert and oriented x3. NAD, on AVAPS HEENT: No pallor, no icterus. Pupils equal, round and reactive to light. Oral mucosa moist. NECK: No JVD, no neck masses. HEART: S1 and S2 heard. Regular rate and rhythm. Systolic murmur over aortic area, no gallop. RESPIRATORY SYSTEM: Normal AP diameter. No accessory muscle use. No wheezing, b/l crackles stable compared to yesterday ABDOMEN: Soft, bowel sounds present, nontender, no distention. CENTRAL NERVOUS SYSTEM: No facial droop. Speech is clear. Obeys simple commands. Moves extremities. EXTREMITIES: No edema, no erythema seen. Results & Data Results & Data ([facility]) Vital Signs (Past 12 Hours) Vital Signs Temp Pulse Pulse Pulse Resp BP Pulse Ox 12/01/21 12:50 66 28 H 100 12/01/21 12:06 73 26 H 91 12/01/21 11:06 36.5 C 65 26 H 141/79 H 98 12/01/21 09:26 64 35 H 93 12/01/21 07:20 64 26 H 93 12/01/21 07:18 36.6 C 66 19 147/60 H 93 12/01/21 07:00 63 12/01/21 05:45 67 22 96 12/01/21 04:00 56 L 20 95 12/01/21 03:45 36.7 C 55 L 19 133/59 L 97
[2021-12-01] MEDS: ATORVASTATIN 20 MG TAB PO SCH (20:05)
[2021-12-01] MEDS: cefTRIAXone SODIUM 2,000 MG in DEXTROSE 5% 50 ML IV SCH (20:06)
[2021-12-01] MEDS: POLYETHYLENE (MIRALAX) 17 GM PACK PO PRN (20:07)
[2021-12-02] MEDS: ALPRAZolam 0.5 MG TABLET PO PRN ×3 (05:49→20:17)
[2021-12-02] MEDS: METOPROLOL SUCC 25MG EXT REL TAB PO SCH ×2 (08:02→20:17)
[2021-12-02] MEDS: CHOLECALCIFEROL 1,000 UNITS 25 MCG TAB PO SCH (08:02)
[2021-12-02] MEDS: CALCIUM CARBONATE 1250MG TAB PO SCH (08:03)
[2021-12-02] MEDS: MECLIZINE HCL 25 MG TAB PO SCH (08:03)
[2021-12-02] MEDS: ASPIRIN 81 MG ECTAB PO SCH (08:03)
[2021-12-02] MEDS: INSULIN ASPART PER UNIT SC SCH ×4 (08:03→20:35)
[2021-12-02] MEDS: FUROSEMIDE 40 MG TAB PO SCH (08:03)
[2021-12-02] MEDS: HEPARIN SOD 5,000 UNIT/0.5 ML VIAL SQ SCH ×2 (08:03→20:20)
[2021-12-02] MEDS: amLODIPine BESYLATE 5 MG TAB PO SCH (08:03)
[2021-12-02] MEDS: DOCUSATE SODIUM 100 MG CAP PO SCH ×2 (08:08→20:17)
[2021-12-02] MEDS: VANCOMYCIN HCL 1,000 MG in SODIUM CHLORIDE 0.9% 250 ML IV SCH (08:08)
[2021-12-02 09:03] LABS: Hematocrit (blood only) 28.4 % (37-47); Hemoglobin 8.8 g/dL (12.0-16.0); Mean Corpuscular Hemoglobin 27.2 pg (25-34); Mean Corpuscular Volume 87.7 fL (80-100); Mean Platelet Volume 9.4 fL (7.4-10.4); Platelet Count 551 K/uL (130-400); RDW Coefficient of Variation 14.6 % (11.5-14.5); Red Blood Count 3.24 M/uL (4.2-5.4); White Blood Count 9.73 K/uL (4.8-10.8)
[2021-12-02 10:17] LABS: Creatinine Clr Calc Pharmacy 33.8 ml/min; Est GFR (African American) 42.1 ml/min; Est GFR (Non-African American) 36.4 ml/min
--- NOTE | 2021-12-02 11:18 | Palliative Care Progress Note ---
Date of Service December 02, 2021 Assessment & Plan (1) SOB (shortness of breath): Plan: Relieved with bipap for short periods; however, she is becoming more consistent on Bipap. She is switching back and forth between HFNC and Bipap. Her oxygen requirements have increased over the past 24 hours. She is now routinely requiring 80-100% of FiO2 on both HFNC and Bipap. She does have prn oxycodone for pain which will also help with refractory dyspnea for which she has taken once over the past 24 hours. She also has IV Morphine available should she rapidly decline to assist with air hunger. Expressed likelihood of her hypercapnia and body tiring out is likely to occur over the next few days. (2) Anxiety: Plan: On alprazolam prn. She just received three doses over the past 24 hours. She does have IV Ativan ordered as well but has not utilized. (3) Palliative care encounter: Plan: I met with the patient in her room this morning. She is AAOx3 and able to hold meaningful conversation, like yesterday. I did discuss openly with her about her current medical situation. I expressed that her body is currently acting as though it is running a marathon but it is in bed. I explained the medical component of hypercapnia and her body becoming more tired. I discussed her increased oxygen demands that have occurred over the past 24 hours, now having reached the maximum settings that she can be put on, short of a ventilator. I touched base on her spiritual focus and confirmed that this is her journey as she nears her dying time. I asked her what brings her teresa; she mentioned her daughter, Maryanne and her grandson. She further discussed that she likes sewing and cooking meals at home. I was clear with her that her oxygen needs would not allow her to be transitioned out of the hospital and that she is likely to pass away here at the hospital. She became guarded at that comment, but upon further discussion with her daughter, Maryanne, in the room, nodded her head in agreement that she understands. For now, she would like to continue being as alert and interactive as possible, despite being on maximum therapy. I was able to discuss the above with the patients daughter, Maryanne, in the room, along with the patients nurse, Funmi. She would like to continue with her current treatment plan. When she is no longer able to converse, swallow medications, or eat meals, she would support a transition to comfort measures. I supported Maryanne as this transition will be quite challenging as she has lost two of her brothers and her mother is her last living immediate family member besides her son. I did confirm with the patient, her daughter, and the nurse, Funmi, that should she decline further, she would NOT want to be intubated or resuscitated in a cardiac or respiratory way. For now, continue with current care and take her care one day at a time. Palliative will follow. (4) Endocarditis: (5) Acute diastolic heart failure: (6) Acute hypoxemic respiratory failure: Admission and Anticipated Discharge Date Admission Date: November 18, 2021 Subjective Pt sitting upright in her bed. I visited with her both while she was on Bipap and HFNC. She was able to eat her breakfast this AM and take her medications; however, she has had a more difficult time with desaturation. Review of Systems Review of Systems: [place] Symptom Assessment Scale Pain 0/3 Dyspnea 1/3 Anxiety 0/3 Nausea 0/3 Drowsiness 0/3 Palliative Performance Score 30% Physical Exam Constitutional: + acute distress and + frail appearing Respiratory: + labored breathing, + cough and + tachypneic Cardiovascular: Rate/Rhythm: regular rate and regular rhythm Extremities: normal capillary refill; no pedal edema Musculoskeletal: Extremities: + muscle atrophy Skin: + dry skin, + erythema and + pallor Neurologic: awake Psychiatric: Orientation: alert and oriented x 3 Insight: good insight Judgement: good judgement Results & Data ([facility]) Vital Signs (Past 12 Hours) Vital Signs Temp Pulse Pulse Pulse Resp BP Pulse Ox 12/02/21 10:40 36.7 C 78 32 H 135/56 L 88 L 12/02/21 10:32 80 24 89 L 12/02/21 08:00 37.1 C 88 24 139/79 92 12/02/21 07:52 66 24 94 12/02/21 07:15 59 L 26 H 93 12/02/21 07:00 58 L 12/02/21 04:48 36.5 C 63 63 21 159/62 H 91 12/02/21 03:34 62 35 H 94 12/02/21 00:34 62 12/01/21 23:20 66 32 H 91 PG Care Time/CCT Total # of Minutes Spent Total Time Spent with Patient: Total time spent is greater than 50% in coordination of care (as documented) at patient's floor/unit and/or counseling patient: 65 minutes Coding Level of Care Code 84132 Subseq Hosp Care Lvl 3 Diagnoses SOB (shortness of breath) R06.02 Anxiety F41.9 Palliative care encounter Z51.5 Endocarditis I38 Acute diastolic heart failure I50.31 Acute hypoxemic respiratory failure J96.01 Time Spent (min) 65
--- NOTE | 2021-12-02 15:07 | Hospitalist Progress Note ---
Date of Service December 02, 2021 Assessment & Plan (1) Endocarditis: Plan: 86-year-old lady with PMH of chronic diastolic heart failure [EF 50 to 54%, TTE 2020], chronic LBBB, ASD status post bioprosthetic AVR, valvular heart disease [moderate MR, moderate TR, mild prosthetic aortic valve regurgitation], PVD status post surgery, pulmonary hypertension, HTN, HLD, DM2 on oral meds, CRI [baseline creatinine 1.3], ovarian masses, anxiety disorder and past tobacco abuse presented to our ED 11/18 with 4 days complaint of nausea, weakness, dry cough, shortness of breath and achy lower abdominal discomfort. She is being managed for the following: #. Acute hypoxemic respiratory failure: #. Pulmonary edema #. Acute on Chronic diastolic heart failure #. Possible Pneumonia Patient denies any recent history of swelling, developed some shortness of breath just prior to arrival, found to have pulmonary edema on admission. 11/19 CTA chest: No evidence of for PE. Positive for mild asymmetric pulmonary edema. Positive for possible pneumonia. Patient is status post hemodialysis x1 via catheter and is being diuresed. HD catheter removed 11/25, was not sent for culture per RN. Serial imagings done to follow-up on pulmonary edema, which has been fluctuating. 11/18 echo: EF 50 to 55%, moderate concentric LVH, mild bioprosthetic AV regurgitation, small mobile echodensity adherent to bioprosthetic aortic valve noted. She has a h/o reduced systolic function in the past per outpatient cardiology records. Patient requiring high flow nasal cannula oxygen and BPAP, has subjective shortness of breath, BiPAP as needed Pt not able to tolerate BPAP for longer time, SaO2 is being difficult to maintain. Cardiology on board, appreciate recommendations. c/w lasix 40 mg PO daily. B/l Crackles and O2 requirement stable compared to yesterday. Use iv lasix as needed. Wean down oxygen as tolerated. BPAP prn. Pt on antibiotic (see below) Cont low salt diet, daily weights. Strict I/Os. D/w artificial cherry maker 12/01, appreciate recommendations Pt DNR/DNI, continue current level of care with focus on comfort; morphine as needed for air hunger. #. Aortic valve vegetation: She has a h/o aortic valve replacement with tissue valve in [place] in 2011. Possible PVE given fever and prosthetic valve vegetation on echo (see above) ID evaluated. Cultures have been negative. Vancomycin plus ceftriaxone is recommended as the preferred antibiotic regimen in this case as common organisms for presumed endocarditis include Staphylococci, VGS and Enterococcus.Prolonged duration of Antibiotic per ID, Serology negative. Repeat limited echocardiogram on 11/24 revealed still with severe MR, EF now 45- 50% instead of 50-55%. Persistently elevated aortic valve gradients suggesting obstruction. Persistently elevated pulmonary pressure. YONG may be high risk at this time. Cont management per cardiology. 6 wks iv antibiotic #. Paroxysmal Afib at presentation On tele, c/w beta skylar. Metoprolol succinate 25 BID. Card evaluated, appreciated recs, no anticoagulation currently. (3) Acute kidney injury/ CKD III Plan: Cr close to baseline and stable. C/t monitor. Nephro evaluated, appreciate recs. #. Other chronic medical condition: s/p AVR 2011 bioprosthetic, LBBB, T2DM, ovarian mass Continue with/resume home medications as and when appropriate. Continue with sliding scale insulin For ovarian mass, Per [facility] gynecologic oncology clinic she has 2 pelvic cysts at vaginal cuff in February 2021 per transvaginal ultrasound the right cyst was 7.6 x 7 x 7 cm with speckled debris. The left cyst was 6 x 4 x 4 cm. Compared to images from September 2016 these were unchanged in appearance. Both cysts appear to be debris-filled or just cystic in nature and given the lack of material mover time, it was felt that this was not consistent with malignancy and surveillance was not necessary. #. DVT prophylaxis: Heparin subQ Conditional code- DNR/DNI; continue current level of care; use morphine as needed for air hunger. Dispo-cont PCU, uncertain at this time as patient still requiring vapotherm support. Prognosis guarded. 11/27/21: Family meeting with patient, her son and daughter and music journalist from [employer] at bedside. Updated about the current status and worsening prognosis on the patient. Patient decided to go with intubation if needed, no chest compression. Family wishes to have discussion with palliative care doctor. Answered all their questions, they voiced understanding and were agreeable to the plan of care. 11/28: Palliative care evaluated the patient. 12/02: d/w patient's daughter at bedside, updated on current status. She is aware that the prognosis is not good, answered all her questions and she voiced understanding and was agreeable to plan of care. 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 Patient lying in bed, on AVAPS, NAD, no new acute events overnight per pt. Patient reports feeling short of breath and tired, reports eating ok.Per RN, she is eating good but now requiring more AVAPS and is not able to maintain SaO2 with prolong HFNC. To make it worse patient not able to tolerate BPAP/AVAPS for longer time needing to be switched to HFNC. Use BiPAP as needed. Difficulty maintaining saturations. Patient reports moving bowels okay, patient denies headache/dizziness/chest pain/palpitations/belly pain/other review of symptoms. Physical Exam Physical Exam: GENERAL: Alert and oriented x3. NAD, on AVAPS HEENT: No pallor, no icterus. Pupils equal, round and reactive to light. Oral mucosa moist. NECK: No JVD, no neck masses. HEART: S1 and S2 heard. Regular rate and rhythm. Systolic murmur over aortic area, no gallop. RESPIRATORY SYSTEM: Normal AP diameter. No accessory muscle use. No wheezing, b/l crackles stable compared to yesterday ABDOMEN: Soft, bowel sounds present, nontender, no distention. CENTRAL NERVOUS SYSTEM: No facial droop. Speech is clear. Obeys simple commands. Moves extremities. EXTREMITIES: No edema, no erythema seen. Results & Data Results & Data ([facility]) Vital Signs (Past 12 Hours) Vital Signs Temp Pulse Pulse Pulse Resp BP Pulse Ox 12/02/21 13:30 70 33 H 95 12/02/21 11:20 79 32 H 90 12/02/21 10:40 36.7 C 78 32 H 135/56 L 88 L 12/02/21 10:32 80 24 89 L 12/02/21 08:00 37.1 C 88 24 139/79 92 12/02/21 07:52 66 24 94 12/02/21 07:15 59 L 26 H 93 12/02/21 07:00 58 L 12/02/21 04:48 36.5 C 63 63 21 159/62 H 91 12/02/21 03:34 62 35 H 94
[2021-12-02] MEDS ORDERED: FUROSEMIDE INJ 20 MG/2 ML VIAL IV ONE (15:15)
[2021-12-02] MEDS: ATORVASTATIN 20 MG TAB PO SCH (20:17)
[2021-12-02] MEDS: cefTRIAXone SODIUM 2,000 MG in DEXTROSE 5% 50 ML IV SCH (20:20)
[2021-12-03] MEDS: MECLIZINE HCL 25 MG TAB PO SCH (08:01)
[2021-12-03] MEDS: HEPARIN SOD 5,000 UNIT/0.5 ML VIAL SQ SCH ×2 (08:01→20:38)
[2021-12-03] MEDS: METOPROLOL SUCC 25MG EXT REL TAB PO SCH ×2 (08:01→20:39)
[2021-12-03] MEDS: ALPRAZolam 0.5 MG TABLET PO PRN ×3 (08:01→23:28)
[2021-12-03] MEDS: ASPIRIN 81 MG ECTAB PO SCH (08:01)
[2021-12-03] MEDS: CHOLECALCIFEROL 1,000 UNITS 25 MCG TAB PO SCH (08:02)
[2021-12-03] MEDS: FUROSEMIDE 40 MG TAB PO SCH (08:02)
[2021-12-03] MEDS: CALCIUM CARBONATE 1250MG TAB PO SCH (08:02)
[2021-12-03] MEDS: amLODIPine BESYLATE 5 MG TAB PO SCH (08:03)
[2021-12-03] MEDS: DOCUSATE SODIUM 100 MG CAP PO SCH ×2 (08:04→20:38)
[2021-12-03] MEDS: INSULIN ASPART PER UNIT SC SCH ×4 (08:23→20:38)
[2021-12-03] MEDS ORDERED: VANCOMYCIN TROUGH SCH (08:30)
[2021-12-03] MEDS: VANCOMYCIN HCL 1,000 MG in SODIUM CHLORIDE 0.9% 250 ML IV SCH (09:32)
[2021-12-03 09:45] LABS: Creatinine Clr Calc Pharmacy 35.4 ml/min; Est GFR (Non-African American) 38.8 ml/min
--- NOTE | 2021-12-03 09:52 | Hospitalist Progress Note ---
Date of Service December 03, 2021 Assessment & Plan (1) Endocarditis: Plan: 86 yo F with PMH of chronic diastolic heart failure [EF 50 to 54%, TTE 2020], chronic LBBB, ASD status post bioprosthetic AVR, valvular heart disease [moderate MR, moderate TR, mild prosthetic aortic valve regurgitation], PVD status post surgery, pulmonary hypertension, HTN, HLD, DM2 on oral meds, CRI [baseline creatinine 1.3], ovarian masses, anxiety disorder and past tobacco abuse presented to our ED 11/18 with 4 days complaint of nausea, weakness, dry cough, shortness of breath and achy lower abdominal discomfort. She is being managed for the following: Acute hypoxemic respiratory failure Pulmonary edema Acute on Chronic diastolic heart failure Possible Pneumonia Patient denies any recent history of swelling, developed some shortness of breath just prior to arrival, found to have pulmonary edema on admission. 11/19 CTA chest: No evidence of PE. Positive for mild asymmetric pulmonary edema. Positive for possible pneumonia. Patient is status post hemodialysis x1 via catheter and is being diuresed. HD catheter removed 11/25, was not sent for culture per RN. Serial imaging done to follow-up on pulmonary edema, which has been fluctuating. 11/18 echo: EF 50 to 55%, moderate concentric LVH, mild bioprosthetic AV regurgitation, small mobile echodensity adherent to bioprosthetic aortic valve noted. She has a h/o reduced systolic function in the past per outpatient cardiology records. Patient requiring high flow nasal cannula oxygen and BiPAP, has subjective shortness of breath, BiPAP as needed Pt not able to tolerate BPAP for longer time, SaO2 is being difficult to maintain. Cardiology consulted, appreciate recommendations. c/w lasix 40 mg PO daily. B/l Crackles and O2 requirement remains high. Use iv lasix as needed. Wean down oxygen as tolerated. BiPAP prn. Pt on antibiotic (see below) Cont low salt diet, daily weights. Strict I/Os. D/w assistant shift supervisor 12/01, appreciate recommendations Pt DNR/DNI, continue current level of care with focus on comfort; morphine as needed for air hunger. Palliative medicine following Aortic valve vegetation: She has a h/o aortic valve replacement with tissue valve in [place] in 2011. Possible PVE given fever and prosthetic valve vegetation on echo (see above) ID evaluated. Cultures have been negative. Vancomycin plus ceftriaxone is recommended as the preferred antibiotic regimen in this case as common organisms for presumed endocarditis include Staphylococci, VGS and Enterococcus.Prolonged duration of Antibiotic per ID, Serology negative. Repeat limited echocardiogram on 11/24 revealed still with severe MR, EF now 45- 50% instead of 50-55%. Persistently elevated aortic valve gradients suggesting obstruction. Persistently elevated pulmonary pressure. YONG may be high risk at this time. Cont management per cardiology. 6 wks iv antibiotic Paroxysmal Afib at presentation On tele, c/w beta skylar. Metoprolol succinate 25 BID. Card evaluated, appreciated recs, no anticoagulation currently. (3) Acute kidney injury/ CKD III Plan: Cr close to baseline and stable. C/t monitor. Nephro evaluated, appreciate recs. Other chronic medical condition: s/p AVR 2012 bioprosthetic, LBBB, T2DM, ovarian mass Continue with/resume home medications as and when appropriate. Continue with sliding scale insulin For ovarian mass, Per [facility] [place] gynecologic oncology clinic she has 2 pelvic cysts at vaginal cuff in February 2021 per transvaginal ultrasound the right cyst was 7.6 x 7 x 7 cm with speckled debris. The left cyst was 6 x 4 x 4 cm. Compared to images from September 2016 these were unchanged in appearance. Both cysts appear to be debris-filled or just cystic in nature and given the lack of change room attendant time, it was felt that this was not consistent with malignancy and surveillance was not necessary. #. DVT prophylaxis: Heparin subQ Conditional code- DNR/DNI; continue current level of care; use morphine as needed for air hunger. Dispo-cont PCU, uncertain at this time as patient still requiring vapotherm support. Prognosis guarded. 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 Patient lying in bed, on Bipap, daughter Maryanne at the bedside Per RN, pt was eating in the morning but now requiring more AVAPS and is not able to maintain SaO2 with prolong HFNC. To make it worse patient not able to tolerate BPAP/AVAPS for longer time needing to be switched to HFNC. Use BiPAP as needed. Difficulty maintaining saturations. denies headache/dizziness/chest pain/palpitations/belly pain/other review of symptoms. Review of Systems Review of Systems: All systems reviewed & are unremarkable except as noted in Subjective Physical Exam Physical Exam: GENERAL: Alert and oriented x3. NAD, on Bipap HEENT: No pallor, no icte aurelia. Pupils equal , round and reacti ve to light. Oral mucosa moist. NEC K: No JVD, no nec k masses. HEART: S1 and S2 heard. Regular rate and r hythm. Systolic m urmur over aortic area, no gallop. R ESPIRATORY: Niki l AP diameter.No wheezing, +b/l jet aircraft servicer ckles ABDOMEN: S oft, bowel sounds present, nontender , no distention. N EURO: No facial d harvey.Answers simp le questions appro priately. Obeys s imple commands. M oves extremities. EXTREMITIES: No e paige, no erythema seen. Results & Data Results & Data ([facility]) Vital Signs (Past 12 Hours) Vital Signs Temp Pulse Pulse Pulse Resp BP Pulse Ox 12/03/21 07:52 66 22 91 12/03/21 07:31 36.7 C 58 L 24 141/55 H 98 12/03/21 07:05 56 L 26 H 95 12/03/21 03:44 36.7 C 60 24 143/85 H 95 12/03/21 01:51 58 L 33 H 95 12/02/21 22:40 72 33 H 98 12/02/21 22:39 36.5 C 77 22 137/70 90 Laboratory Results 12/03/21 12/03/21 12/03/21 Range/Units 08:59 08:59 07:33 Creatinine 1.26 H (0.6-1.2) mg/dl Est Cr Clr Drug Dosing 35.4 ml/min Est GFR ( Amer) 45.0 ml/min Est GFR (Non-Af Amer) 38.8 ml/min POC Glucose 181 H (70-99) mg/dl Vancomycin Trough 5.3 L (10-20) mcg/ml 12/02/21 12/02/21 12/02/21 Range/Units 20:30 16:22 11:03 Creatinine (0.6-1.2) mg/dl Est Cr Clr Drug Dosing ml/min Est GFR ( Amer) ml/min Est GFR (Non-Af Amer) ml/min POC Glucose 207 H 100 H 148 H (70-99) mg/dl Vancomycin Trough (10-20) mcg/ml 12/02/21 Range/Units 08:31 Creatinine 1.33 H (0.6-1.2) mg/dl Est Cr Clr Drug Dosing 33.8 ml/min Est GFR ( Amer) 42.1 ml/min Est GFR (Non-Af Amer) 36.4 ml/min POC Glucose (70-99) mg/dl Vancomycin Trough (10-20) mcg/ml Medications Administered Current Inpatient Medications Acetaminophen (Acetaminophen 325 Mg Tab) 650 mg PO Q4H PRN PRN Reason: Pain or Fever Stop: 12/18/21 02:17 Last Admin: 11/29/21 05:59 Dose: 650 mg Documented by: Alprazolam (Alprazolam 0.5 Mg Tablet) 0.5 mg PO Q6H PRN PRN Reason: Anxiety Stop: 12/26/21 17:57 Last Admin: 12/03/21 08:01 Dose: 0.5 mg Documented by: Amlodipine Besylate (Amlodipine Besylate 5 Mg Tab) 10 mg PO DAILY GENOVEVA Stop: 12/18/21 08:59 Last Admin: 12/03/21 08:03 Dose: 10 mg Documented by: Aspirin (Aspirin 81 Mg Ectab) 81 mg PO QAM GENOVEVA Stop: 12/18/21 08:59 Last Admin: 12/03/21 08:01 Dose: 81 mg Documented by: Atorvastatin Calcium (Atorvastatin 20 Mg Tab) 20 mg PO HS GENOVEVA Stop: 12/18/21 20:59 Last Admin: 12/02/21 20:17 Dose: 20 mg Documented by: Calcium Carbonate (Calcium Carbonate 1250mg Tab) 600 mg PO DAILY GENOVEVA Stop: 12/25/21 08:59 Last Admin: 12/03/21 08:02 Dose: 600 mg Documented by: Dextrose (Dextrose 50% 50 Ml Syringe) 25 - 50 ml IV UD PRN; Protocol PRN Reason: Hypoglycemia Protocol Stop: 12/18/21 02:17 Docusate Sodium (Docusate Sodium 100 Mg Cap) 100 mg PO BID GENOVEVA Stop: 12/20/21 20:59 Last Admin: 12/03/21 08:04 Dose: 100 mg Documented by: Furosemide (Furosemide 40 Mg Tab) 40 mg PO DAILY GENOVEVA Stop: 12/29/21 08:59 Last Admin: 12/03/21 08:02 Dose: 40 mg Documented by: Glucagon (Glucagon For Inj 1 Mg Vial) 1 mg SQ UD PRN; Protocol PRN Reason: Hypoglycemia Protocol Stop: 12/18/21 02:17 Glucose (Glucose 10 Tabs/Tube) 4 - 8 tabs PO UD PRN; Protocol PRN Reason: Hypoglycemia Protocol Stop: 12/18/21 02:17 Glucose (Glucose 40% Gel 15 Gm Tube) 15 - 30 gm PO UD PRN; Protocol PRN Reason: Hypoglycemia Protocol Stop: 12/18/21 02:17 Heparin Sodium (Beef Lung) (Heparin 10 Unit/Ml 5 Ml Flush) 5 ml FLUSH PRN PRN PRN Reason: Flush Stop: 12/22/21 17:10 Heparin Sodium (Porcine) (Heparin Sod 5,000 Unit/0.5 Ml Vial) 5,000 units SQ Q12 GENOVEVA Stop: 12/20/21 09:44 Last Admin: 12/03/21 08:01 Dose: 5,000 units Documented by: Promethazine HCl 12.5 mg/ (Sodium Chloride) 50.5 mls @ 202 mls/hr IV Q6H PRN PRN Reason: Nausea And Vomiting Stop: 12/18/21 02:17 Last Infusion: 11/19/21 17:16 Dose: Infused Documented by: Prochlorperazine 5 mg/ Syringe 5 mls @ 5 mls/min IV Q6H PRN PRN Reason: Nausea And Vomiting Stop: 12/19/21 17:26 Last Admin: 11/26/21 10:50 Dose: 5 mls/min Documented by: Ceftriaxone Sodium 2,000 mg/ (Dextrose) 70 mls @ 140 mls/hr IV Q24H GENOVEVA; Protocol Stop: 01/02/22 20:59 Last Infusion: 12/02/21 20:59 Dose: Infused Documented by: Vancomycin HCl 1,000 mg/ (Sodium Chloride) 270 mls @ 200 mls/hr IV Q24H GENOVEVA Stop: 12/31/21 10:20 Last Admin: 12/03/21 09:32 Dose: 150 mls/hr Documented by: Insulin Aspart (Insulin Aspart Per Unit) 0 units SC ACHS GENOVEVA Stop: 12/18/21 02:17 Last Admin: 12/03/21 08:23 Dose: 7 units Documented by: Ipratropium Mora (Ipratropium Mora Neb Soln 0.02% 2.5 Ml Vial) 0.5 mg INH Q4H PRN PRN Reason: SOB, WHEEZE Stop: 12/18/21 02:17 Last Admin: 11/18/21 12:09 Dose: 0.5 mg Documented by: Levalbuterol HCl (Levalbuterol 1.25mg/0.5ml Neb) 1.25 mg INH Q4H PRN PRN Reason: SOB, WHEEZE Stop: 12/18/21 02:17 Last Admin: 11/18/21 12:09 Dose: 1.25 mg Documented by: Lorazepam (Lorazepam 2 Mg/1 Ml Vial) 0.25 mg IV Q4H PRN PRN Reason: nausea Stop: 12/19/21 17:26 Last Admin: 12/01/21 10:45 Dose: 0.25 mg Documented by: Meclizine HCl (Meclizine Hcl 25 Mg Tab) 25 mg PO DAILY GENOVEVA Stop: 12/25/21 08:59 Last Admin: 12/03/21 08:01 Dose: 25 mg Documented by: Melatonin (Melatonin 3 Mg Tab) 3 mg PO HS PRN PRN Reason: Sleep Stop: 12/28/21 03:35 Last Admin: 12/01/21 20:05 Dose: 3 mg Documented by: Metoprolol Succinate (Metoprolol Succ 25mg Ext Rel Tab) 25 mg PO BID GENOVEVA Stop: 12/27/21 20:59 Last Admin: 12/03/21 08:01 Dose: 25 mg Documented by: Miscellaneous (Carbohydrates For Hypoglycemia ) 15 - 30 gm PO UD PRN PRN Reason: Hypoglycemia Protocol Stop: 12/18/21 02:17 Miscellaneous Information (Vancomycin Consult Active) 1 ea N/A UD PRN PRN Reason: Consult Stop: 12/19/21 02:47 Morphine Sulfate (Morphine Sulfate 2 Mg/Ml Carp) 2 mg IV Q1H PRN PRN Reason: Dyspnea Stop: 12/14/21 15:36 Ondansetron HCl (Ondansetron Inj 2 Mg/Ml 2 Ml Vial) 4 mg IV Q8H PRN PRN Reason: Nausea And Vomiting Stop: 12/19/21 13:52 Last Admin: 11/22/21 11:44 Dose: 4 mg Documented by: Polyethylene Glycol (Polyethylene (Miralax) 17 Gm Pack) 17 gm PO DAILY PRN PRN Reason: Constipation Stop: 12/25/21 10:19 Last Admin: 12/01/21 20:07 Dose: 17 gm Documented by: Vitamin D (Cholecalciferol 1,000 Units 25 Mcg Tab) 2,000 units PO DAILY GENOVEVA Stop: 12/25/21 08:59 Last Admin: 12/03/21 08:02 Dose: 2,000 units Documented by:
--- NOTE | 2021-12-03 13:42 | Pharmacy Report ---
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 * Day #15 of antimicrobial therapy * 6 weeks of IV abx per ID Plan Vancomycin * AUC/HERMAN is the preferred PK/PD target for vancomycin * AUC guided dosing is effective and associated with decreased risk of nephrotoxicity compared to traditional trough targets * Trough level of 5.3 mcg/mL is subtherapeutic * Change to 750 mg IV every 12 hours * Trough level ordered for 12/04/21 prior to 2100 dose Ceftriaxone * 2000 mg IV every 24 hours - not a pharmacy consult - remains appropriate Pharmacy will continue to follow and will adjust dose/frequency as necessary. Thank you.
[2021-12-03] MEDS ORDERED: FUROSEMIDE INJ 20 MG/2 ML VIAL IV ONE (14:48)
[2021-12-03] MEDS: ATORVASTATIN 20 MG TAB PO SCH (20:38)
[2021-12-03] MEDS: MoRPHine SULFATE 2 MG/ML CARP IV PRN (20:39)
[2021-12-03] MEDS: cefTRIAXone SODIUM 2,000 MG in DEXTROSE 5% 50 ML IV SCH (21:02)
[2021-12-03] MEDS: VANCOMYCIN HCL 750 MG in SODIUM CHLORIDE 0.9% 250 ML IV SCH (21:51)
[2021-12-04 06:23] LABS: BUN Creatinine Ratio 40.5 (10-20); Creatinine Clr Calc Pharmacy 40.8 ml/min; Est GFR (African American) 52.4 ml/min; Est GFR (Non-African American) 45.2 ml/min; Magnesium 1.6 mg/dl (1.7-2.4); Potassium 3.5 mmol/L (3.5-5.1)
[2021-12-04] MEDS ORDERED: POTASSIUM CHLORIDE CRTAB 20 MEQ TABCR PO STA (07:17)
[2021-12-04] MEDS: METOPROLOL SUCC 25MG EXT REL TAB PO SCH ×2 (07:44→20:48)
[2021-12-04] MEDS: HEPARIN SOD 5,000 UNIT/0.5 ML VIAL SQ SCH ×2 (07:45→20:47)
[2021-12-04] MEDS: CALCIUM CARBONATE 1250MG TAB PO SCH (07:45)
[2021-12-04] MEDS: FUROSEMIDE 40 MG TAB PO SCH (07:46)
[2021-12-04] MEDS: CHOLECALCIFEROL 1,000 UNITS 25 MCG TAB PO SCH (07:46)
[2021-12-04] MEDS: amLODIPine BESYLATE 5 MG TAB PO SCH (07:46)
[2021-12-04] MEDS: MECLIZINE HCL 25 MG TAB PO SCH (07:46)
[2021-12-04] MEDS: ASPIRIN 81 MG ECTAB PO SCH (07:47)
[2021-12-04] MEDS: VANCOMYCIN HCL 750 MG in SODIUM CHLORIDE 0.9% 250 ML IV SCH ×2 (07:47→22:07)
[2021-12-04] MEDS: MAGNESIUM OXIDE 400 MG TAB PO SCH ×2 (07:51→20:48)
[2021-12-04] MEDS: DOCUSATE SODIUM 100 MG CAP PO SCH ×2 (07:51→20:54)
[2021-12-04] MEDS: INSULIN ASPART PER UNIT SC SCH ×4 (08:06→21:07)
--- NOTE | 2021-12-04 08:24 | Hospitalist Progress Note ---
Date of Service December 04, 2021 Assessment & Plan (1) Endocarditis: Plan: 86 yo F with PMH of chronic diastolic heart failure [EF 50 to 54%, TTE 2020], chronic LBBB, ASD status post bioprosthetic AVR, valvular heart disease [moderate MR, moderate TR, mild prosthetic aortic valve regurgitation], PVD status post surgery, pulmonary hypertension, HTN, HLD, DM2 on oral meds, CRI [baseline creatinine 1.3], ovarian masses, anxiety disorder and past tobacco abuse presented to our ED 11/18 with 4 days complaint of nausea, weakness, dry cough, shortness of breath and achy lower abdominal discomfort. She is being managed for the following: Acute hypoxemic respiratory failure Pulmonary edema Acute on Chronic diastolic heart failure Possible Pneumonia Patient denies any recent history of swelling, developed some shortness of breath just prior to arrival, found to have pulmonary edema on admission. 11/19 CTA chest: No evidence of PE. Positive for mild asymmetric pulmonary edema. Positive for possible pneumonia. Patient is status post hemodialysis x1 via catheter and is being diuresed. HD catheter removed 11/25, was not sent for culture per RN. Serial imaging done to follow-up on pulmonary edema, which has been fluctuating. 11/18 echo: EF 50 to 55%, moderate concentric LVH, mild bioprosthetic AV regurgitation, small mobile echodensity adherent to bioprosthetic aortic valve noted. She has a h/o reduced systolic function in the past per outpatient cardiology records. Patient requiring high flow nasal cannula oxygen and BiPAP, has subjective shortness of breath, BiPAP as needed Pt not able to tolerate BPAP for longer time, SaO2 is being difficult to maintain. Cardiology consulted, appreciate recommendations. c/w lasix 40 mg PO daily. B/l Crackles and O2 requirement remains high. Use iv lasix as needed. Wean down oxygen as tolerated. BiPAP prn. Pt on antibiotic (see below) Cont low salt diet, daily weights. Strict I/Os. D/w rail signal worker 12/01, appreciate recommendations Pt DNR/DNI, continue current level of care with focus on comfort; morphine as needed for air hunger. Palliative medicine following Aortic valve vegetation: She has a h/o aortic valve replacement with tissue valve in [place] in 2011. Possible PVE given fever and prosthetic valve vegetation on echo (see above) ID evaluated. Cultures have been negative. Vancomycin plus ceftriaxone is recommended as the preferred antibiotic regimen in this case as common organisms for presumed endocarditis include Staphylococci, VGS and Enterococcus.Prolonged duration of Antibiotic per ID, Serology negative. Repeat limited echocardiogram on 11/24 revealed still with severe MR, EF now 45- 50% instead of 50-55%. Persistently elevated aortic valve gradients suggesting obstruction. Persistently elevated pulmonary pressure. YONG may be high risk at this time. Cont management per cardiology. 6 wks iv antibiotic Paroxysmal Afib at presentation On tele, c/w beta skylar. Metoprolol succinate 25 BID. Card evaluated, appreciated recs, no anticoagulation currently. (3) Acute kidney injury/ CKD III Plan: Cr close to baseline and stable. C/t monitor. Nephro evaluated, appreciate recs. Other chronic medical condition: s/p AVR 2012 bioprosthetic, LBBB, T2DM, ovarian mass Continue with/resume home medications as and when appropriate. Continue with sliding scale insulin For ovarian mass, Per [facility] [place] gynecologic oncology clinic she has 2 pelvic cysts at vaginal cuff in February 2021 per transvaginal ultrasound the right cyst was 7.6 x 7 x 7 cm with speckled debris. The left cyst was 6 x 4 x 4 cm. Compared to images from September 2016 these were unchanged in appearance. Both cysts appear to be debris-filled or just cystic in nature and given the lack of military exchange wireless manager time, it was felt that this was not consistent with malignancy and surveillance was not necessary. #. DVT prophylaxis: Heparin subQ Conditional code- DNR/DNI; continue current level of care; use morphine as needed for air hunger. Dispo-cont PCU, Prognosis guarded. 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 Patient lying in bed, on Bipap, daughter Maryanne at the bedside Difficulty maintaining saturations. Discussed in detail poor clinical status w/ pt's daughter, Maryanne denies headache/dizziness/chest pain/palpitations/belly pain/other review of symptoms. Review of Systems Review of Systems: All systems reviewed & are unremarkable except as noted in Subjective Physical Exam Physical Exam: GENERAL: Alert and oriented x3. on B ipap HEENT: NC/AT . EOMI. Pupils equ al, round and reac tive to light. NEC K: No JVD, no nec k masses. HEART: S1 and S2 heard. Regular rate and r hythm. Systolic m urmur over aortic area, no gallop. R ESPIRATORY: Niki l AP diameter.No wheezing, +b/l target aircraft controller ckles ABDOMEN: S oft, bowel sounds present, nontender , no distention. N EURO: No facial d harvey.Answers simp le questions appro priately. Obeys s imple commands. M oves extremities. EXTREMITIES: No e paige, no erythema seen. Results & Data Results & Data ([facility]) Vital Signs (Past 12 Hours) Vital Signs Temp Pulse Pulse Pulse Resp BP Pulse Ox 12/04/21 07:26 65 33 H 94 12/04/21 07:16 36.6 C 59 L 28 H 130/63 100 12/04/21 04:26 36.5 C 65 26 H 143/52 H 97 12/04/21 03:03 64 25 H 93 12/03/21 23:20 36.5 C 69 28 H 139/63 90 12/03/21 22:23 30 H 90 12/03/21 20:44 36.6 C 81 28 H 143/77 H 97 Laboratory Results 12/04/21 12/04/21 12/03/21 Range/Units 07:30 05:38 20:31 Sodium 145 (136-145) mmol/L Potassium 3.5 (3.5-5.1) mmol/L Chloride 102 (98-107) mmol/L Carbon Dioxide 35 H (21-32) mmol/L Anion Gap 8 (3-11) BUN 45 H (6-23) mg/dl Creatinine 1.11 (0.6-1.2) mg/dl Est Cr Clr Drug Dosing 40.8 ml/min Est GFR ( Amer) 52.4 ml/min Est GFR (Non-Af Amer) 45.2 ml/min BUN/Creatinine Ratio 40.5 H (10-20) Glucose 167 H (70-99(Fasting)) mg/dl POC Glucose 180 H 212 H (70-99) mg/dl Calcium 10.0 (8.5-10.1) mg/dl Phosphorus 4.0 (2.5-4.9) mg/dl Magnesium 1.6 L (1.7-2.4) mg/dl Vancomycin Trough (10-20) mcg/ml 12/03/21 12/03/21 12/03/21 Range/Units 16:23 11:33 08:59 Sodium (136-145) mmol/L Potassium (3.5-5.1) mmol/L Chloride (98-107) mmol/L Carbon Dioxide (21-32) mmol/L Anion Gap (3-11) BUN (6-23) mg/dl Creatinine (0.6-1.2) mg/dl Est Cr Clr Drug Dosing ml/min Est GFR ( Amer) ml/min Est GFR (Non-Af Amer) ml/min BUN/Creatinine Ratio (10-20) Glucose (70-99(Fasting)) mg/dl POC Glucose 188 H 223 H (70-99) mg/dl Calcium (8.5-10.1) mg/dl Phosphorus (2.5-4.9) mg/dl Magnesium (1.7-2.4) mg/dl Vancomycin Trough 5.3 L (10-20) mcg/ml 12/03/21 Range/Units 08:59 Sodium (136-145) mmol/L Potassium (3.5-5.1) mmol/L Chloride (98-107) mmol/L Carbon Dioxide (21-32) mmol/L Anion Gap (3-11) BUN (6-23) mg/dl Creatinine 1.26 H (0.6-1.2) mg/dl Est Cr Clr Drug Dosing 35.4 ml/min Est GFR ( Amer) 45.0 ml/min Est GFR (Non-Af Amer) 38.8 ml/min BUN/Creatinine Ratio (10-20) Glucose (70-99(Fasting)) mg/dl POC Glucose (70-99) mg/dl Calcium (8.5-10.1) mg/dl Phosphorus (2.5-4.9) mg/dl Magnesium (1.7-2.4) mg/dl Vancomycin Trough (10-20) mcg/ml Medications Administered Current Inpatient Medications Acetaminophen (Acetaminophen 325 Mg Tab) 650 mg PO Q4H PRN PRN Reason: Pain or Fever Stop: 12/18/21 02:17 Last Admin: 11/29/21 05:59 Dose: 650 mg Documented by: Alprazolam (Alprazolam 0.5 Mg Tablet) 0.5 mg PO Q6H PRN PRN Reason: Anxiety Stop: 12/26/21 17:57 Last Admin: 12/03/21 23:28 Dose: 0.5 mg Documented by: Amlodipine Besylate (Amlodipine Besylate 5 Mg Tab) 10 mg PO DAILY GENOVEVA Stop: 12/18/21 08:59 Last Admin: 12/04/21 07:46 Dose: 10 mg Documented by: Aspirin (Aspirin 81 Mg Ectab) 81 mg PO QAM GENOVEVA Stop: 12/18/21 08:59 Last Admin: 12/04/21 07:47 Dose: 81 mg Documented by: Atorvastatin Calcium (Atorvastatin 20 Mg Tab) 20 mg PO HS GENOVEVA Stop: 12/18/21 20:59 Last Admin: 12/03/21 20:38 Dose: 20 mg Documented by: Calcium Carbonate (Calcium Carbonate 1250mg Tab) 600 mg PO DAILY GENOVEVA Stop: 12/25/21 08:59 Last Admin: 12/04/21 07:45 Dose: 600 mg Documented by: Dextrose (Dextrose 50% 50 Ml Syringe) 25 - 50 ml IV UD PRN; Protocol PRN Reason: Hypoglycemia Protocol Stop: 12/18/21 02:17 Docusate Sodium (Docusate Sodium 100 Mg Cap) 100 mg PO BID GENOVEVA Stop: 12/20/21 20:59 Last Admin: 12/04/21 07:51 Dose: 100 mg Documented by: Furosemide (Furosemide 40 Mg Tab) 40 mg PO DAILY GENOVEVA Stop: 12/29/21 08:59 Last Admin: 12/04/21 07:46 Dose: 40 mg Documented by: Glucagon (Glucagon For Inj 1 Mg Vial) 1 mg SQ UD PRN; Protocol PRN Reason: Hypoglycemia Protocol Stop: 12/18/21 02:17 Glucose (Glucose 10 Tabs/Tube) 4 - 8 tabs PO UD PRN; Protocol PRN Reason: Hypoglycemia Protocol Stop: 12/18/21 02:17 Glucose (Glucose 40% Gel 15 Gm Tube) 15 - 30 gm PO UD PRN; Protocol PRN Reason: Hypoglycemia Protocol Stop: 12/18/21 02:17 Heparin Sodium (Beef Lung) (Heparin 10 Unit/Ml 5 Ml Flush) 5 ml FLUSH PRN PRN PRN Reason: Flush Stop: 12/22/21 17:10 Heparin Sodium (Porcine) (Heparin Sod 5,000 Unit/0.5 Ml Vial) 5,000 units SQ Q12 GENOVEVA Stop: 12/20/21 09:44 Last Admin: 12/04/21 07:45 Dose: 5,000 units Documented by: Promethazine HCl 12.5 mg/ (Sodium Chloride) 50.5 mls @ 202 mls/hr IV Q6H PRN PRN Reason: Nausea And Vomiting Stop: 12/18/21 02:17 Last Infusion: 11/19/21 17:16 Dose: Infused Documented by: Prochlorperazine 5 mg/ Syringe 5 mls @ 5 mls/min IV Q6H PRN PRN Reason: Nausea And Vomiting Stop: 12/19/21 17:26 Last Admin: 11/26/21 10:50 Dose: 5 mls/min Documented by: Ceftriaxone Sodium 2,000 mg/ (Dextrose) 70 mls @ 140 mls/hr IV Q24H [facility]; Protocol Stop: 01/02/22 20:59 Last Infusion: 12/03/21 21:48 Dose: Infused Documented by: Vancomycin HCl 750 mg/ Sodium (Chloride) 265 mls @ 200 mls/hr IV Q12H [facility]; Pro tocol Stop: 01/14/22 20:59 Last Admin: 12/04/21 07:47 Dose: 200 mls/hr Documented by: Insulin Aspart (Insulin Aspart Per Unit) 0 units SC ACHS [facility] Stop: 12/18/21 02:17 Last Admin: 12/04/21 08:06 Dose: 4 units Documented by: Ipratropium [place] (Ipratropium [place] Neb Soln 0.02% 2.5 Ml Vial) 0.5 mg INH Q4H PRN PRN Reason: SOB, WHEEZE Stop: 12/18/21 02:17 Last Admin: 11/18/21 12:09 Dose: 0.5 mg Documented by: Levalbuterol HCl (Levalbuterol 1.25mg/0.5ml Neb) 1.25 mg INH Q4H PRN PRN Reason: SOB, WHEEZE Stop: 12/18/21 02:17 Last Admin: 11/18/21 12:09 Dose: 1.25 mg Documented by: Lorazepam (Lorazepam 2 Mg/1 Ml Vial) 0.25 mg IV Q4H PRN PRN Reason: nausea Stop: 12/19/21 17:26 Last Admin: 12/01/21 10:45 Dose: 0.25 mg Documented by: Magnesium Oxide (Magnesium Oxide 400 Mg Tab) 400 mg PO BID [facility] Stop: 01/03/22 08:59 Last Admin: 12/04/21 07:51 Dose: 400 mg Documented by: Meclizine HCl (Meclizine Hcl 25 Mg Tab) 25 mg PO DAILY GENOVEVA Stop: 12/25/21 08:59 Last Admin: 12/04/21 07:46 Dose: 25 mg Documented by: Melatonin (Melatonin 3 Mg Tab) 3 mg PO HS PRN PRN Reason: Sleep Stop: 12/28/21 03:35 Last Admin: 12/01/21 20:05 Dose: 3 mg Documented by: Metoprolol Succinate (Metoprolol Succ 25mg Ext Rel Tab) 25 mg PO BID [facility] Stop: 12/27/21 20:59 Last Admin: 12/04/21 07:44 Dose: 25 mg Documented by: Miscellaneous (Carbohydrates For Hypoglycemia ) 15 - 30 gm PO UD PRN PRN Reason: Hypoglycemia Protocol Stop: 12/18/21 02:17 Miscellaneous Information (Vancomycin Consult Active) 1 ea N/A UD PRN PRN Reason: Consult Stop: 12/19/21 02:47 Morphine Sulfate (Morphine Sulfate 2 Mg/Ml [place]) 2 mg IV Q1H PRN PRN Reason: Dyspnea Stop: 12/14/21 15:36 Last Admin: 12/03/21 20:39 Dose: 2 mg Documented by: Ondansetron HCl (Ondansetron Inj 2 Mg/Ml 2 Ml Vial) 4 mg IV Q8H PRN PRN Reason: Nausea And Vomiting Stop: 12/19/21 13:52 Last Admin: 11/22/21 11:44 Dose: 4 mg Documented by: Polyethylene Glycol (Polyethylene (Miralax) 17 Gm Pack) 17 gm PO DAILY PRN PRN Reason: Constipation Stop: 12/25/21 10:19 Last Admin: 12/01/21 20:07 Dose: 17 gm Documented by: Vitamin D (Cholecalciferol 1,000 Units 25 Mcg Tab) 2,000 units PO DAILY GENOVEVA Stop: 12/25/21 08:59 Last Admin: 12/04/21 07:46 Dose: 2,000 units Documented by:
[2021-12-04] MEDS: MoRPHine SULFATE 2 MG/ML CARP IV PRN ×2 (09:46→13:59)
[2021-12-04] MEDS: ONDANSETRON INJ 2 MG/ML 2 ML VIAL IV PRN (11:05)
[2021-12-04] MEDS ORDERED: FUROSEMIDE INJ 20 MG/2 ML VIAL IV ONE (13:00)
[2021-12-04] MEDS: ALPRAZolam 0.5 MG TABLET PO PRN ×2 (13:46→21:07)
[2021-12-04] MEDS ORDERED: FUROSEMIDE 40 MG/4 ML VIAL IV ONE (19:05)
[2021-12-04] MEDS ORDERED: VANCOMYCIN TROUGH ONE (20:30)
[2021-12-04] MEDS: ATORVASTATIN 20 MG TAB PO SCH (20:47)
[2021-12-04] MEDS: cefTRIAXone SODIUM 2,000 MG in DEXTROSE 5% 50 ML IV SCH (21:07)
--- NOTE | 2021-12-04 21:35 | Pharmacy Report ---
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 * 6 weeks of IV abx per ID Vancomycin * AUC/HERMAN is the preferred PK/PD target for vancomycin * AUC guided dosing is effective and associated with decreased risk of nephrotoxicity compared to traditional trough targets * Trough level of 16.0 mcg/mL is therapeutic, and associated with an AUC of about 458 mcg/mL/hr * However, will adjust regimen back to a q24h regimen to help facilitate eventual transition back to outpatient Plan * Adjust to vancomycin 1500 mg IV q24h * Repeat trough 12/07 @ 1130 Pharmacy will continue to follow and will adjust dose/frequency as necessary. Thank you.
[2021-12-05 07:24] LABS: Hematocrit (blood only) 27.9 % (37-47); Hemoglobin 8.3 g/dL (12.0-16.0); Mean Corpuscular Hemoglobin 26.8 pg (25-34); Mean Corpuscular Hgb Conc 29.7 g/dL (32-36); Mean Platelet Volume 9.4 fL (7.4-10.4); Platelet Count 450 K/uL (130-400); RDW Coefficient of Variation 14.7 % (11.5-14.5); RDW Standard Deviation 48.1 fL (36.4-46.3); White Blood Count 8.15 K/uL (4.8-10.8)
--- NOTE | 2021-12-05 07:46 | Hospitalist Progress Note ---
Date of Service December 05, 2021 Assessment & Plan (1) Endocarditis: Plan: 86 yo F with PMH of chronic diastolic heart failure [EF 50 to 54%, TTE 2020], chronic LBBB, ASD status post bioprosthetic AVR, valvular heart disease [moderate MR, moderate TR, mild prosthetic aortic valve regurgitation], PVD status post surgery, pulmonary hypertension, HTN, HLD, DM2 on oral meds, CRI [baseline creatinine 1.3], ovarian masses, anxiety disorder and past tobacco abuse presented to our ED 11/18 with 4 days complaint of nausea, weakness, dry cough, shortness of breath and achy lower abdominal discomfort. She is being managed for the following: Acute hypoxemic respiratory failure Pulmonary edema Acute on Chronic diastolic heart failure Possible Pneumonia Patient denies any recent history of swelling, developed some shortness of breath just prior to arrival, found to have pulmonary edema on admission. 11/19 CTA chest: No evidence of PE. Positive for mild asymmetric pulmonary edema. Positive for possible pneumonia. Patient is status post hemodialysis x1 via catheter and is being diuresed. HD catheter removed 11/25, was not sent for culture per RN. Serial imaging done to follow-up on pulmonary edema, which has been fluctuating. 11/18 echo: EF 50 to 55%, moderate concentric LVH, mild bioprosthetic AV regurgitation, small mobile echodensity adherent to bioprosthetic aortic valve noted. She has a h/o reduced systolic function in the past per outpatient cardiology records. Patient requiring high flow nasal cannula oxygen and BiPAP, has subjective shortness of breath, BiPAP as needed Pt not able to tolerate BPAP for longer time, SaO2 is being difficult to maintain. Cardiology consulted, appreciate recommendations. c/w lasix 40 mg PO daily. B/l Crackles and O2 requirement remains high. Use iv lasix as needed. Wean down oxygen as tolerated. BiPAP prn. Pt on antibiotic (see below) Cont low salt diet, daily weights. Strict I/Os. D/w bed worker 12/01, appreciate recommendations Pt DNR/DNI, continue current level of care with focus on comfort; morphine as needed for air hunger. Palliative medicine following 12/05 -patient desaturated to 60s, after BiPAP taken off for a moment. Even after being back on BiPAP, saturations are not coming back up. Patient received IV Lasix, as well as small dose of IV Ativan. Patient's daughter Maryanne was called, and came to the bedside. Discussed comfort medications, such as morphine and Ativan as previously ordered by preventive medicine. Unfortunately at this time, believe that patient's passing is imminent, and discussed this with Maryanne. She is in full understanding, and provides support for her mom at the bedside. Aortic valve vegetation: She has a h/o aortic valve replacement with tissue valve in [place] in 2011. Possible PVE given fever and prosthetic valve vegetation on echo (see above) ID evaluated. Cultures have been negative. Vancomycin plus ceftriaxone is recommended as the preferred antibiotic regimen in this case as common organisms for presumed endocarditis include Staphylococci, VGS and Enterococcus.Prolonged duration of Antibiotic per ID, Serology negative. Repeat limited echocardiogram on 11/24 revealed still with severe MR, EF now 45- 50% instead of 50-55%. Persistently elevated aortic valve gradients suggesting obstruction. Persistently elevated pulmonary pressure. YONG may be high risk at this time. Cont management per cardiology. 6 wks iv antibiotic Paroxysmal Afib at presentation On tele, c/w beta skylar. Metoprolol succinate 25 BID. Card evaluated, appreciated recs, no anticoagulation currently. (3) Acute kidney injury/ CKD III Plan: Cr close to baseline and stable. C/t monitor. Nephro evaluated, appreciate recs. Other chronic medical condition: s/p AVR 2011 bioprosthetic, LBBB, T2DM, ovarian mass Continue with/resume home medications as and when appropriate. Continue with sliding scale insulin For ovarian mass, Per [facility] [place] gynecologic oncology clinic she has 2 pelvic cysts at vaginal cuff in February 2021 per transvaginal ultrasound the right cyst was 7.6 x 7 x 7 cm with speckled debris. The left cyst was 6 x 4 x 4 cm. Compared to images from September 2016 these were unchanged in appearance. Both cysts appear to be debris-filled or just cystic in nature and given the lack of exchange architect time, it was felt that this was not consistent with malignancy and surveillance was not necessary. #. DVT prophylaxis: Heparin subQ Conditional code- DNR/DNI; continue current level of care; use morphine as needed for air hunger. Dispo-cont PCU, Prognosis guarded. 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 Called by RN, as patient desaturating into 60s, after BiPAP was taken off for the moment. Saturations not coming back. RN contacted patient's daughter Maryanne. On my arrival to the room, patient on BiPAP, in distress, reports not feeling well. IV Lasix and small dose IV Ativan given. Patient's daughter Maryanne arrived, and we again discussed patient's poor clinical course. Discussed with Maryanne to provide medications for comfort, morphine and Ativan as already ordered by palliative medicine earlier. Discussed this also with nursing staff. Review of Systems 2 Review of Systems: Other (pt on bipap, in distress) Physical Exam Physical Exam: GENERAL: Awake on Bipap HEENT: NC/A T. EOMI. NECK: s upple HEART: S1 a nd S2 heard. Regu lar rate and rhyth m. Systolic murmu r over aortic area , no gallop. RESPI RATORY: Normal AP diameter.No whee zing, +b/l crackle s ABDOMEN: Soft, bowel sounds pres ent, nontender, no distention. NEURO : No facial droop .Answers simple q uestions. Obeys s imple commands. M oves extremities. EXTREMITIES: No e paige, no erythema seen. Results & Data Results & Data ([facility]) Vital Signs (Past 12 Hours) Vital Signs Temp Pulse Pulse Pulse Resp BP Pulse Ox 12/05/21 07:23 65 24 90 12/05/21 03:55 63 27 H 93 12/05/21 03:46 36.6 C 64 22 131/51 L 95 12/04/21 23:49 36.7 C 69 25 H 133/59 L 97 12/04/21 23:00 62 12/04/21 22:23 62 23 95 12/04/21 21:04 36.8 C 72 25 H 120/63 93 Laboratory Results 12/05/21 12/05/21 12/05/21 Range/Units 07:09 07:02 07:02 WBC 8.15 (4.8-10.8) K/uL RBC 3.10 L (4.2-5.4) M/uL Hgb 8.3 L (12.0-16.0) g/dL Hct 27.9 L (37-47) % MCV 90.0 (80-100) fL MCH 26.8 (25-34) pg MCHC 29.7 L (32-36) g/dL RDW Std Deviation 48.1 H (36.4-46.3) fL RDW Coeff of Roberto 14.7 H (11.5-14.5) % Plt Count 450 H (130-400) K/uL MPV 9.4 (7.4-10.4) fL Sodium 145 (136-145) mmol/L Potassium 4.2 (3.5-5.1) mmol/L Chloride 102 (98-107) mmol/L Carbon Dioxide 35 H (21-32) mmol/L Anion Gap 8 (3-11) BUN 49 H (6-23) mg/dl Creatinine 1.25 H (0.6-1.2) mg/dl Est Cr Clr Drug Dosing 36.9 ml/min Est GFR ( Amer) 45.4 ml/min Est GFR (Non-Af Amer) 39.2 ml/min BUN/Creatinine Ratio 39.2 H (10-20) Glucose 176 H (70-99(Fasting)) mg/dl POC Glucose 172 H (70-99) mg/dl Calcium 9.4 (8.5-10.1) mg/dl Magnesium 1.7 (1.7-2.4) mg/dl Vancomycin Trough (10-20) mcg/ml 12/04/21 12/04/21 12/04/21 Range/Units 20:56 20:29 16:30 WBC (4.8-10.8) K/uL RBC (4.2-5.4) M/uL Hgb (12.0-16.0) g/dL Hct (37-47) % MCV (80-100) fL MCH (25-34) pg MCHC (32-36) g/dL RDW Std Deviation (36.4-46.3) fL RDW Coeff of Roberto (11.5-14.5) % Plt Count (130-400) K/uL MPV (7.4-10.4) fL Sodium (136-145) mmol/L Potassium (3.5-5.1) mmol/L Chloride (98-107) mmol/L Carbon Dioxide (21-32) mmol/L Anion Gap (3-11) BUN (6-23) mg/dl Creatinine (0.6-1.2) mg/dl Est Cr Clr Drug Dosing ml/min Est GFR ( Amer) ml/min Est GFR (Non-Af Amer) ml/min BUN/Creatinine Ratio (10-20) Glucose (70-99(Fasting)) mg/dl POC Glucose 165 H 171 H (70-99) mg/dl Calcium (8.5-10.1) mg/dl Magnesium (1.7-2.4) mg/dl Vancomycin Trough 16.0 (10-20) mcg/ml Medications Administered Current Inpatient Medications Acetaminophen (Acetaminophen 325 Mg Tab) 650 mg PO Q4H PRN PRN Reason: Pain or Fever Stop: 12/18/21 02:17 Last Admin: 11/29/21 05:59 Dose: 650 mg Documented by: Alprazolam (Alprazolam 0.5 Mg Tablet) 0.5 mg PO Q6H PRN PRN Reason: Anxiety Stop: 12/26/21 17:57 Last Admin: 12/04/21 21:07 Dose: 0.5 mg Documented by: Amlodipine Besylate (Amlodipine Besylate 5 Mg Tab) 10 mg PO DAILY GENOVEVA Stop: 12/18/21 08:59 Last Admin: 12/04/21 07:46 Dose: 10 mg Documented by: Aspirin (Aspirin 81 Mg Ectab) 81 mg PO QAM GENOVEVA Stop: 12/18/21 08:59 Last Admin: 12/04/21 07:47 Dose: 81 mg Documented by: Atorvastatin Calcium (Atorvastatin 20 Mg Tab) 20 mg PO HS GENOVEVA Stop: 12/18/21 20:59 Last Admin: 12/04/21 20:47 Dose: 20 mg Documented by: Calcium Carbonate (Calcium Carbonate 1250mg Tab) 600 mg PO DAILY GENOVEVA Stop: 12/25/21 08:59 Last Admin: 12/04/21 07:45 Dose: 600 mg Documented by: Dextrose (Dextrose 50% 50 Ml Syringe) 25 - 50 ml IV UD PRN; Protocol PRN Reason: Hypoglycemia Protocol Stop: 12/18/21 02:17 Docusate Sodium (Docusate Sodium 100 Mg Cap) 100 mg PO BID GENOVEVA Stop: 12/20/21 20:59 Last Admin: 12/04/21 20:54 Dose: 100 mg Documented by: Furosemide (Furosemide 40 Mg Tab) 40 mg PO DAILY GENOVEVA Stop: 12/29/21 08:59 Last Admin: 12/04/21 07:46 Dose: 40 mg Documented by: Glucagon (Glucagon For Inj 1 Mg Vial) 1 mg SQ UD PRN; Protocol PRN Reason: Hypoglycemia Protocol Stop: 12/18/21 02:17 Glucose (Glucose 10 Tabs/Tube) 4 - 8 tabs PO UD PRN; Protocol PRN Reason: Hypoglycemia Protocol Stop: 12/18/21 02:17 Glucose (Glucose 40% Gel 15 Gm Tube) 15 - 30 gm PO UD PRN; Protocol PRN Reason: Hypoglycemia Protocol Stop: 12/18/21 02:17 Heparin Sodium (Beef Lung) (Heparin 10 Unit/Ml 5 Ml Flush) 5 ml FLUSH PRN PRN PRN Reason: Flush Stop: 12/22/21 17:10 Heparin Sodium (Porcine) (Heparin Sod 5,000 Unit/0.5 Ml Vial) 5,000 units SQ Q12 GENOVEVA Stop: 12/20/21 09:44 Last Admin: 12/04/21 20:47 Dose: 5,000 units Documented by: Promethazine HCl 12.5 mg/ (Sodium Chloride) 50.5 mls @ 202 mls/hr IV Q6H PRN PRN Reason: Nausea And Vomiting Stop: 12/18/21 02:17 Last Infusion: 11/19/21 17:16 Dose: Infused Documented by: Prochlorperazine 5 mg/ Syringe 5 mls @ 5 mls/min IV Q6H PRN PRN Reason: Nausea And Vomiting Stop: 12/19/21 17:26 Last Admin: 11/26/21 10:50 Dose: 5 mls/min Documented by: Ceftriaxone Sodium 2,000 mg/ (Dextrose) 70 mls @ 140 mls/hr IV Q24H GENOVEVA; Protocol Stop: 01/02/22 20:59 Last Infusion: 12/04/21 21:57 Dose: Infused Documented by: Vancomycin HCl 1,500 mg/ (Sodium Chloride) 530 mls @ 200 mls/hr IV DAILY@1200 GENOVEVA Stop: 01/16/22 11:59 Insulin Aspart (Insulin Aspart Per Unit) 0 units SC ACHS GENOVEVA Stop: 12/18/21 02:17 Last Admin: 12/04/21 21:07 Dose: 1 units Documented by: Ipratropium Brewster (Ipratropium [place]ster Neb Soln 0.02% 2.5 Ml Vial) 0.5 mg INH Q4H PRN PRN Reason: SOB, WHEEZE Stop: 12/18/21 02:17 Last Admin: 11/18/21 12:09 Dose: 0.5 mg Documented by: Levalbuterol HCl (Levalbuterol 1.25mg/0.5ml Neb) 1.25 mg INH Q4H PRN PRN Reason: SOB, WHEEZE Stop: 12/18/21 02:17 Last Admin: 11/18/21 12:09 Dose: 1.25 mg Documented by: Lorazepam (Lorazepam 2 Mg/1 Ml Vial) 0.25 mg IV Q4H PRN PRN Reason: nausea Stop: 12/19/21 17:26 Last Admin: 12/01/21 10:45 Dose: 0.25 mg Documented by: Magnesium Oxide (Magnesium Oxide 400 Mg Tab) 400 mg PO BID GENOVEVA Stop: 01/03/22 08:59 Last Admin: 12/04/21 20:48 Dose: 400 mg Documented by: Meclizine HCl (Meclizine Hcl 25 Mg Tab) 25 mg PO DAILY GENOVEVA Stop: 12/25/21 08:59 Last Admin: 12/04/21 07:46 Dose: 25 mg Documented by: Melatonin (Melatonin 3 Mg Tab) 3 mg PO HS PRN PRN Reason: Sleep Stop: 12/28/21 03:35 Last Admin: 12/01/21 20:05 Dose: 3 mg Documented by: Metoprolol Succinate (Metoprolol Succ 25mg Ext Rel Tab) 25 mg PO BID GENOVEVA Stop: 12/27/21 20:59 Last Admin: 12/04/21 20:48 Dose: 25 mg Documented by: Miscellaneous (Carbohydrates For Hypoglycemia ) 15 - 30 gm PO UD PRN PRN Reason: Hypoglycemia Protocol Stop: 12/18/21 02:17 Miscellaneous Information (Vancomycin Consult Active) 1 ea N/A UD PRN PRN Reason: Consult Stop: 12/19/21 02:47 Morphine Sulfate (Morphine Sulfate 2 Mg/Ml Carp) 2 mg IV Q1H PRN PRN Reason: Dyspnea Stop: 12/14/21 15:36 Last Admin: 12/04/21 13:59 Dose: 2 mg Documented by: Ondansetron HCl (Ondansetron Inj 2 Mg/Ml 2 Ml Vial) 4 mg IV Q8H PRN PRN Reason: Nausea And Vomiting Stop: 12/19/21 13:52 Last Admin: 12/04/21 11:05 Dose: 4 mg Documented by: Polyethylene Glycol (Polyethylene (Miralax) 17 Gm Pack) 17 gm PO DAILY PRN PRN Reason: Constipation Stop: 12/25/21 10:19 Last Admin: 12/01/21 20:07 Dose: 17 gm Documented by: Vitamin D (Cholecalciferol 1,000 Units 25 Mcg Tab) 2,000 units PO DAILY GENOVEVA Stop: 12/25/21 08:59 Last Admin: 12/04/21 07:46 Dose: 2,000 units Documented by:
[2021-12-05] MEDS: HEPARIN SOD 5,000 UNIT/0.5 ML VIAL SQ SCH (07:55)
[2021-12-05] MEDS: CALCIUM CARBONATE 1250MG TAB PO SCH (07:55)
[2021-12-05] MEDS: CHOLECALCIFEROL 1,000 UNITS 25 MCG TAB PO SCH (07:55)
[2021-12-05] MEDS: MECLIZINE HCL 25 MG TAB PO SCH (07:55)
[2021-12-05] MEDS: FUROSEMIDE 40 MG TAB PO SCH (07:56)
[2021-12-05] MEDS: ASPIRIN 81 MG ECTAB PO SCH (07:56)
[2021-12-05] MEDS: METOPROLOL SUCC 25MG EXT REL TAB PO SCH (07:56)
[2021-12-05] MEDS: MAGNESIUM OXIDE 400 MG TAB PO SCH (07:56)
[2021-12-05] MEDS: amLODIPine BESYLATE 5 MG TAB PO SCH (07:56)
[2021-12-05] MEDS: INSULIN ASPART PER UNIT SC SCH ×2 (07:57→12:14)
[2021-12-05] MEDS: DOCUSATE SODIUM 100 MG CAP PO SCH (07:59)
[2021-12-05 08:01] LABS: BUN Creatinine Ratio 39.2 (10-20); Calcium 9.4 mg/dl (8.5-10.1); Creatinine Clr Calc Pharmacy 36.9 ml/min; Est GFR (African American) 45.4 ml/min; Est GFR (Non-African American) 39.2 ml/min; Magnesium 1.7 mg/dl (1.7-2.4); Potassium 4.2 mmol/L (3.5-5.1)
[2021-12-05] MEDS ORDERED: FUROSEMIDE 40 MG/4 ML VIAL IV ONE ×3 (08:38→11:46)
[2021-12-05] MEDS: LORazepam 2 MG/1 ML VIAL IV PRN (11:36)
[2021-12-05] MEDS ORDERED: MoRPHine SULFATE 2 MG/ML CARP IV PRN (11:55)
[2021-12-05] MEDS ORDERED: LORazepam 2 MG/1 ML VIAL IV PRN (11:57)
[2021-12-05] MEDS ORDERED: VANCOMYCIN HCL 1,500 MG in SODIUM CHLORIDE 0.9% 500 ML IV SCH (12:00)
[2021-12-05] MEDS: MoRPHine SULFATE 2 MG/ML CARP IV PRN (12:00)
--- NOTE | 2021-12-05 13:18 | Hospitalist Progress Note ---
Date of Service December 05, 2021 Assessment & Plan Admission and Anticipated Discharge Date Admission Date: November 18, 2021 Subjective NOTE Notified by RN, that patient ceased to breathe at 12:27 PM On my examination, there are no breath sounds, no heart sounds, patient is not reactive to stimuli, pupils are fixed and dilated. Family present at the bedside. Results & Data Results & Data ([facility]) Vital Signs (Past 12 Hours) Vital Signs Temp Pulse Pulse Pulse Resp BP Pulse Ox 12/05/21 11:44 102 H 40 H 66 L 12/05/21 11:15 36.8 C 76 22 144/57 H 87 L 12/05/21 11:02 85 36 H 87 L 12/05/21 08:00 36.5 C 63 22 133/60 88 L 12/05/21 07:23 65 24 90 12/05/21 07:00 60 12/05/21 03:55 63 27 H 93 12/05/21 03:46 36.6 C 64 22 131/51 L 95
--- NOTE | 2021-12-07 07:33 | Discharge Summary ---
Date of Service December 05, 2021 Admission HPI Per Admitting Provider History obtained from patient, family, and records. Medical history significant for chronic diastolic heart failure (EF 50 to 54%, TTE 2020), chronic LBBB, status post bioprosthetic AVR, valvular heart disease (moderate MR, moderate TR, mild prostatic aortic valve regurgitation), PVD status post surgery, pulmonary hypertension, hypertension, hyperlipidemia, DM2 on oral medications, CRI (baseline creatinine 1.3 ), ovarian masses, anxiety disorder, past tobacco abuse. Last confinement May 2021 for respiratory failure secondary to CHF. Patient discharged on diuretic regimen. 4 days ago, patient had nausea, weakness, dry cough, shortness of breath symptoms. Achy lower abdominal discomfort. No fluid retention. No chest pain. Patient compliant with home medications. No known sick contacts. Patient completed COVID-19 vaccination. Patient seen at the ER 2 nights ago. Symptoms improved after Lasix and morphine administration at the ER. No congestion on chest x-ray. 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 Unchanged 4.3 cm cystic lesion of the left adnexum. Patient discharged from the ER. Last night, patient noted worsening shortness of breath with transient left- sided chest pain complaints. Nonpleuritic chest pain. Persistent dry cough symptoms. No fluid retention. Patient has actually lost weight as per daughter. O2 sats noted to be 57 on RA at home. Patient given Lasix at the ER for possible CHF. Transient A. fib noted upon arrival at the ER. Medical History as above Surgical History : AVR, hysterectomy, appendectomy, carotid endarterectomy, bilateral knee replacements Family History : Heart disease Personal/Social history : Past tobacco abuse, no EtOH intake, retired schoolteacher/businesswoman Admission Exam Per Admitting Provider GENERAL: Slightly uncomfortable, obese, no respiratory distress SKIN: Normal color, warm HEENT: [place] palpebral conjunctivae, no ptosis, dry buccal mucosa, BiPAP in place NECK : Supple, no tenderness CHEST : Decreased breath sounds, no tenderness HEART : RRR, systolic murmur over sternal border ABDOMEN: Some distention, nontender EXTREMITIES : Minimal LE swelling, no LE tenderness, no other conspicuous deformities noted NEUROLOGIC : Coherent, no facial asymmetry, no other gross focality Principal Diagnosis Heart failure secondary to valvular heart disease. Possible endocarditis Discharge Exam Notified by RN, that patient ceased to breathe at 12:27 PM On my examination, there are no breath sounds, no heart sounds, patient is not reactive to stimuli, pupils are fixed and dilated. Discharge Data Allergies Allergy/AdvReac Type Severity Reaction Status Date / Time codeine AdvReac Intermediate Gastrointestinal Verified 11/17/21 22:16 Upset Consultations 11/17/21 23:02 ED Decision to Admit Stat 11/18/21 12:05 Consult Cardiology Routine 11/19/21 10:46 Consult Infectious Diseases Routine 11/19/21 15:25 Consult Insurance Collector Routine 11/21/21 08:16 Consult Nephrology Routine 11/27/21 16:52 Consult Palliative Care Routine Ordered Studies 11/19/21 17:28 CT angio chest PE protocol Routine IMPRESSION: 1. No evidence for pulmonary embolus. 2. Cardiomegaly and small bilateral pleural effusions. There is also perihilar groundglass airspace opacities and interlobular septal thickening within the right lung which likely represents mild asymmetric pulmonary edema. 3. Airspace opacities within the upper and lower lobes posteriorly likely represent a combination of atelectasis and pneumonia. 4. A single enlarged right paratracheal lymph node. This could be reactive to the suspected pneumonia. Hospital Course (1) Endocarditis: 86 yo F with PMH of chronic diastolic heart failure [EF 50 to 54%, TTE 2020], chronic LBBB, ASD status post bioprosthetic AVR, valvular heart disease [moderate MR, moderate TR, mild prosthetic aortic valve regurgitation], PVD status post surgery, pulmonary hypertension, HTN, HLD, DM2 on oral meds, CRI [baseline creatinine 1.3], ovarian masses, anxiety disorder and past tobacco abuse presented to our ED 11/18 with 4 days complaint of nausea, weakness, dry cough, shortness of breath and achy lower abdominal discomfort. She is being managed for the following: Acute hypoxemic respiratory failure Pulmonary edema Acute on Chronic diastolic heart failure Possible Pneumonia Patient denies any recent history of swelling, developed some shortness of breath just prior to arrival, found to have pulmonary edema on admission. 11/19 CTA chest: No evidence of PE. Positive for mild asymmetric pulmonary edema. Positive for possible pneumonia. Patient is status post hemodialysis x1 via catheter and is being diuresed. HD catheter removed 11/25, was not sent for culture per RN. Serial imaging done to follow-up on pulmonary edema, which has been fluctuating. 11/18 echo: EF 50 to 55%, moderate concentric LVH, mild bioprosthetic AV regurgitation, small mobile echodensity adherent to bioprosthetic aortic valve noted. She has a h/o reduced systolic function in the past per outpatient cardiology records. Patient requiring high flow nasal cannula oxygen and BiPAP, has subjective shortness of breath, BiPAP as needed Pt not able to tolerate BPAP for longer time, SaO2 is being difficult to maintain. Cardiology consulted, appreciate recommendations. c/w lasix 40 mg PO daily. B/l Crackles and O2 requirement remains high. Use iv lasix as needed. Wean down oxygen as tolerated. BiPAP prn. Pt on antibiotic (see below) Cont low salt diet, daily weights. Strict I/Os. D/w men's swim coach 12/01, appreciate recommendations Pt DNR/DNI, continue current level of care with focus on comfort; morphine as needed for air hunger. Palliative medicine following 12/05 -patient desaturated to 60s, after BiPAP taken off for a moment. Even after being back on BiPAP, saturations are not coming back up. Patient received IV Lasix, as well as small dose of IV Ativan. Patient's daughter Maryanne was called, and came to the bedside. Discussed comfort medications, such as morphine and Ativan as previously ordered by palliative medicine. Unfortunately at this time, believe that patient's passing is imminent, and discussed this with Maryanne. She is in full understanding, and provides support for her mom at the bedside. Pt 12:27 pm Aortic valve vegetation: h/o aortic valve replacement with tissue valve in [place] in 2011. Possible PVE given fever and prosthetic valve vegetation on echo (see above) ID evaluated. Cultures have been negative. Vancomycin plus ceftriaxone is recommended as the preferred antibiotic regimen in this case as common organisms for presumed endocarditis include Staphylococci, VGS and Enterococcus.Prolonged duration of Antibiotic per ID, Serology negative. Repeat limited echocardiogram on 11/24 revealed still with severe MR, EF now 45- 50% instead of 50-55%. Persistently elevated aortic valve gradients suggesting obstruction. Persistently elevated pulmonary pressure. YONG high risk at this time. Plan was to cont management per cardiology. 6 wks iv antibiotic Paroxysmal Afib at presentation On tele, c/w beta skylar. Metoprolol succinate 25 BID. Card evaluated, appreciated recs, no anticoagulation currently. (3) Acute kidney injury/ CKD III Plan: Cr close to baseline and stable. C/t monitor. Nephro evaluated, appreciate recs. Other chronic medical condition: s/p AVR 2012 bioprosthetic, LBBB, T2DM, ovarian mass Continue with/resume home medications as and when appropriate. Continue with sliding scale insulin For ovarian mass, Per [facility] gynecologic oncology clinic she has 2 pelvic cysts at vaginal cuff in February 2021 per transvaginal ultrasound the right cyst was 7.6 x 7 x 7 cm with speckled debris. The left cyst was 6 x 4 x 4 cm. Compared to images from September 2016 these were unchanged in appearance. Both cysts appear to be debris-filled or just cystic in nature and given the lack of shredding machine knife changer time, it was felt that this was not consistent with malignancy and surveillance was not necessary. Total Time Total Time Spent Total Time Spent (In Minutes): 35 Discharge Plan Discharge Items Patient Disposition: Other Date/Time: 12/05/21 12:27
[2021-12-07] MEDS ORDERED: VANCOMYCIN TROUGH ONE (11:30)
== END 2021-12-05 15:30 | disposition expired | DRG 314 ==
LOC: ED 21:03 → SUATTDRO 11-18 01:15 → 2S 11-18 01:15 → 1E 11-19 15:27 → 2E 11-24 18:06